=== PATIENT | female | born 1950 | race Caucasian/White ===

== ENCOUNTER 2019-08-13 16:31 | Outpatient (RCR) | payer OTHER, SELFPAY ==
--- NOTE | 2019-08-13 17:12 | PTOPEVAL ---
Thank you for referring this patient to [facility]. Please review, sign, date and return this plan of care PHYLLIS. I agree with and certify that the following plan of care is medically necessary. Referring Physician Date Admitting Provider: Attending Provider: Bharath Whyte MD Referring Provider: *PT Outpatient Evaluation Start: 08/13/19 16:45 Freq: Status: Active Protocol: Document 08/13/19 16:45 MARCUS (Rec: 08/13/19 17:12 MARCUS [id number]) Therapy Assessment Status Assessment Status Assessment Status Evaluation Evaluation Information Problem Diagnosis left humerus fx Onset 06/17/19 Subjective Information Pt. reports she was getting Query Text:As Reported By Patient/ out of her car on 06/17 and Family fell and broke her arm. Pt. underwent surgery 3 days post fall. She reports she has not been doing any activity with the left arm since surgery. She reports that her goal is to regain normal use of the left arm. Prior Level of Function Activity Level (Last 3 Months) Hand Dominance Right Activity of Daily Living Ability Independent Indoor/Home Mobility Independent Community Mobility Independent Stairs Ability Independent Cooking Yes Cleaning Yes Laundry Yes Shopping Yes Driving Yes Comments Additional Prior Level of Function Pt. reports she lives with her Comments . She reports that she does have poor balance. She reports no complication with ADL's prior to her injury. Pain Assessment Pain Scale Pain Scale Used Numeric (1 - 10) Self Report Pain Assessment Left Upper Lateral Arm(s) Reported Pain Level 1 Pain Description Aching Pain Score Pain Score 1: Self Report Upper Extremity Range of Motion General Upper Extremity Range of Motion Gross Upper Extremity Range of Motion right shoulder flexion 148 Comments degrees, right shoulder ER 90 degrees, right shoulder IR 70 degrees, 90 degrees left shoulder flexion, 20 degrees left shoulder ER and 45 degrees left shoulder IR Upper Extremity Muscle Strength Testing General Upper Extremity Strength Gross Upper Extremity
--- NOTE | 2019-08-20 15:44 | PCPTNOTE ---
08/20/19 - patient did not show up for therapy this date. JTF
--- NOTE | 2019-08-25 18:00 | PCPTNOTE ---
patient cancelled. KERWIN
--- NOTE | 2019-08-27 15:27 | PCPTNOTE ---
08/27/19- PT CANCELLED APT TODAY, WITH NO REASON STATED. -HM.
--- NOTE | 2019-09-03 07:35 | PCPTNOTE ---
09/03/19- pt cancelled appointment on 09/02/19, no reason stated. -HM.
--- NOTE | 2019-11-12 12:49 | PCPTNOTE ---
Pt. has failed to return to the clinic. Refer to last daily note for pt. discharge status.
== END 2019-09-04 23:59 | disposition home or self-care (01) ==
LOC: CHSPT 16:31
PROVIDERS: Visit Provider Internal Medicine Infectious Disease
DX: S42.302D Unspecified fracture of shaft of humerus, left arm, subsequent encounter for fracture with routine healing (principal)
CPT/HCPCS: 97014; 97110; 97161; G0283

== ENCOUNTER 2019-11-23 09:28 | Emergency (ER) | payer OTHER, SELFPAY ==
--- NOTE | ~2019-11-23 | CT_ITS ---
EXAMINATION: CT brain wo con DATE: 11/23/2019 10:08 INDICATION: Patient unresponsive. Altered mental status. TECHNIQUE: Computed tomography (CT) of the head was performed without intravenous contrast. The dose- length product was 832.33 mGy-cm. The mA was adjusted according to patient size. Iterative reconstruc tion technique was employed. COMPARISON: CT dated 05/16/2016 FINDINGS: Generalized atrophy. There are scattered water periventricular and subcortical white matter changes, most likely related to small vessel ischemic disease (microangiopathy). There is a chronic left lacunar infarction No ventriculomegaly or midline shift. No acute intracranial hemorrhage, infar ction, mass or mass effect. There is intracranial atherosclerosis. Midline sagittal images are unrema rkable. No depressed skull fractures. Paranasal sinuses and mastoids are pneumatized. IMPRESSION: 1. No acute intracranial abnormality. 2: Chronic left lacunar infarction. 3: Chronic age-related findings. Reviewed, dictated and finalized at location A.
--- NOTE | ~2019-11-23 | XR_ITS ---
XR chest 1V portable 11/23/2019 09:49 Indication: Patient unresponsive. Shortness of breath. Procedure: AP portable chest Comparison: No prior studies for comparison. Findings: Asymmetric left-sided airspace disease, compatible with pneumonia. There are multiple heale d right rib fractures. There is a side plate and screws transfixing left humerus with exuberant callu s formation, consistent with healed fracture. There is atherosclerosis. Impression: 1: Asymmetric airspace disease left mid and lower lung, compatible with pneumonia. Reviewed, dictated and finalized at location A. Impression: 1: Asymmetric airspace disease left mid and lower lung, compatible with pneumon ia.
[2019-11-23 09:30] VITALS: BP 141/78; PULSE 99; RESP 16; TEMP 36.9; O2SAT 97
[2019-11-23] MEDS: LORAZEPAM INJ 2 MG/ML VIAL 1 MG IV PUSH (09:35)
--- NOTE | 2019-11-23 09:35 | ECG_ITS ---
Measurements Intervals [place] Rate: 84 P: 7 NM: 170 QRS: 97 QRSD: 136 T: 11 QT: 443 QTc: 526 Interpretive Statements SINUS RHYTHM FREQUENT ATRIAL PREMATURE COMPLEXES RIGHT BUNDLE BRANCH BLOCK BASELINE ARTIFACT- I, II, III, AVR, AVL, AVF ABNORMAL ECG Electronically Signed On 11-23-2019 15:47:27 CDT by Shiva Stephens D.O.
[2019-11-23 09:56] LABS: Basophils Absolute Auto 0.07 K/mm3 (0.00-0.10); Basophils Percent Auto 0.6 % (0.0-1.0); Eosinophils Percent Auto 0.9 % (1.0-6.0); Hematocrit 41.7 % (35.0-42.0); Hemoglobin 13.8 g/dL (11.7-13.8); Immature Granulocyte Absolute 0.09 K/mm3 (0.00-0.00); Immature Granulocyte Percent A 0.8 % (0.0-0.0); Lymphocytes Percent Auto 10.3 % (18.0-42.0); Mean Corpuscular HGB Conc 33.1 g/dL (32.0-36.0); Mean Corpuscular Hemoglobin 35.5 pg (27.0-31.0); Mean Corpuscular Volume 107.2 fL (78.0-102.0); Mean Platelet Volume 10.8 fl (9.2-11.8); Monocytes Absolute Auto 1.35 K/mm3 (0.10-0.90); Monocytes Percent Auto 11.5 % (2.0-11.0); Neutrophils Absolute Auto 8.9 K/mm3 (1.7-7.2); Neutrophils Percent Auto 75.9 % (50.0-70.0); Platelet Count Result 132 K/mm3 (150-420); Red Blood Count 3.89 M/mm3 (4.20-5.40); Red Cell Distribution Width 13.5 % (11.6-14.4); White Blood Count 11.7 K/mm3 (4.8-10.8)
[2019-11-23 10:15] LABS: Troponin I < 0.02 ng/mL (0.00-0.056)
[2019-11-23 10:16] LABS: Ammonia 19 umol/L (11-32)
--- NOTE | 2019-11-23 10:47 | PC.NURSE ---
at bedside. awaiting testing result.
[2019-11-23 10:50] LABS: Partial Thromboplastin Time 25.6 SEC (22.3-31.6); Prothrombin Time 10.5 Seconds (9.64-11.0)
[2019-11-23 10:55] LABS: Lactic Acid 4.7 mmol/L (0.4-2.0)
[2019-11-23 11:09] LABS: D Dimer 1.43 mg/L (0.19-0.50)
[2019-11-23] MEDS: SODIUM CHLORIDE 0.9% IV 1,000 ML 999 ML IV CONT (11:19)
[2019-11-23 11:29] LABS: Alanine Aminotransferase 30 U/L (14-59); Albumin Level 4.3 g/dL (3.4-5.0); Alkaline Phosphatase 80 U/L (46-116); Anion Gap 16.3 mmol/L (7-16); Aspartate Amino Transferase 39 U/L (15-37); Bilirubin,Total 1.1 mg/dL (0.00-1.00); Blood Urea Nitrogen 37 mg/dL (7-18); Calcium 9.8 mg/dL (8.5-10.1); Carbon Dioxide 28 mmol/L (21-32); Chloride 95 mmol/L (98-108); Estimated CRCL calculation 23 ml/min; Estimated Glomerular Filt Rate 27; Glucose 108 mg/dL (70-99); Osmolality Calculated 291 mOsm/kg (285-295); Potassium 3.3 mmol/L (3.5-5.1); Sodium 136 mmol/L (136-145); Total Protein 7.8 g/dL (6.4-8.2)
--- NOTE | 2019-11-23 11:29 | PC.NURSE ---
report to luzmaria ching
[2019-11-23 11:30] LABS: Ethanol < 3 mg/dL (0-6)
[2019-11-23 11:51] LABS: Base Excess ABG -0.3 mmol/L (0-2); HCO3 ABG 22.1 mmol/L (23-29); Oxygen Saturation ABG 98.8 % (95-97); Oxyhemoglobin 97.8 % (94-100); PCO2 ABG 29.8 mmHg (35-45); Total Hemoglobin 12.9 g/dL; pH ABG 7.49 (7.35-7.45)
[2019-11-23 11:52] LABS: Device NASAL CANNULA; Site Drawn LEFT BRACHIAL
[2019-11-23 12:03] VITALS: BP 112/66; PULSE 79; RESP 15; O2SAT 100
--- NOTE | 2019-11-23 12:06 | PC.NURSE ---
CALL PLACED TO [facility] FOR POSSIBLE TRANSFER
--- NOTE | 2019-11-23 13:08 | ED.AMS ---
HPI - Altered Mental Status General Chief Complaint: Altered Mental Status Stated Complaint: ambulance Source: patient Mode of arrival: EMS Limitations: altered mental status and physical limitation History of Present Illness HPI narrative: this is a 69-year-old female that presents from home via EMS with altered mental status, the spouse found her on the floor on her hands and knees and while she tried to stand up she she fell back to the floor, her presentation in the emergency department she has altered mental status does withdrawal all extremities to pain is currently nonverbal and initially would not open her eyes, after receiving fluids the patient is more responsive to verbal command with eye opening. Otherwise still she is nonverbal, vital signs have been stable with a blood pressure systolic of 140s, she is afebrile. Spouse states that over the last 3 to 4 days the patient has had a viral syndrome where she had nausea vomiting with diarrhea. Patient has a history of alcohol abuse has not had a drink in the last 3 days, history of hypertension, hyperlipidemia and depression. Patient initially on presentation was some had a contractures with some urinary incontinence with no tongue biting no no bowel dysfunction. MD complaint: altered mental status and decreased responsiveness Onset (ago): hour(s) Timing confirmed by: spouse Severity: severe Context: alcohol abuse Related Data Home Medications Medication Instructions Recorded Confirmed amlodipine 5 mg PO DAILY 11/23/19 11/23/19 omeprazole 20 mg PO DAILY 11/23/19 11/23/19 propranolol 80 mg PO DAILY 11/23/19 11/23/19 sertraline 360 mg PO DAILY 11/23/19 11/23/19 simvastatin 20 mg PO DAILY 11/23/19 11/23/19 Allergies Allergy/AdvReac Type Severity Reaction Status Date / Time Penicillins AdvReac Unknown Verified 11/23/19 10:15 Review of Systems Review of Systems: All systems reviewed & are unremarkable except as noted in HPI and below PMFSH Past Medical History Medical History Depression ETOH abuse HLD (hyperlipidemia) HTN (hypertension) Exam Const: General: ill appearing Limitations: altered mental status HENMT: Head: normal to inspection Eyes: Other: Pupils are dilated equal Neck: Neck: normal visual inspection, no lymphadenopathy and no meningeal signs Chest: Chest palpation & inspection: normal inspection of the chest and abnormal inspection of the chest Resp: Effort & Inspection: normal respiratory effort Auscultation: rhonchi Cardio: Rate: regular rate Rhythm: regular rhythm GI: GI Palp: Yes Soft to palpation Skin: General skin exam: pallor Neuro: Other: withdrawls to pain you painful stimuli Psych: Other: AMS Course Course Emergency Course: patient currently responds with some to verbal commands and opens her eyes otherwise nonverbal with a [place] coma scale of 12. per patient request [facility] in [place], excepting physician is an digital campaign specialist Dr. Hall Vital Signs Vital signs: Vital Signs Temperature 36.9 C 11/23/19 09:30 Pulse Rate 99 11/23/19 09:30 Respiratory Rate 16 11/23/19 09:30 Blood Pressure 141/78 H 11/23/19 09:30 Pulse Oximetry 97 11/23/19 09:30 Temperature 36.9 C 11/23/19 09:30 Pulse Rate 79 11/23/19 12:03 Respiratory Rate 15 11/23/19 12:03 Blood Pressure 112/66 11/23/19 12:03 Pulse Oximetry 100 11/23/19 12:03 MDM - Altered Mental Status Medical Records Attestation: I reviewed the patient's medical records. Lab Data Attestation: I reviewed the patient's lab results. Result diagrams: 11/23/19 09:52 11/23/19 09:52 Labs: Lab Results 11/23/19 11/23/19 11/23/19 Range/Units 09:52 09:52 09:52 WBC 11.7 H (4.8-10.8) K/mm3 RBC 3.89 L (4.20-5.40) M/mm3 Hgb 13.8 (11.7-13.8) g/dL Hct 41.7 (35.0-42.0) % MCV 107.2 H (78.0-102.0) fL MCH 3
--- NOTE | 2019-11-23 13:10 | PC.NURSE ---
PT IS RESPONSIVE TO VOICE. VITAL SIGNS ARE STABLE AT THIS TIME. AWAITING A BED ASSIGNMENT AT [facility]
[2019-11-23] MEDS: SODIUM CHLORIDE 0.9% IV 1,000 ML 200 ML (14:14)
--- NOTE | 2019-11-23 14:15 | PC.NURSE ---
IV FLUIDS INFUSING ON TRANSPORT
[2019-11-23 14:17] VITALS: BP 118/71; PULSE 83; RESP 16; O2SAT 100
== END 2019-11-23 14:52 | disposition short-term general hospital (02) ==
PROVIDERS: Emergency Provider Emergency Medicine; PCP Family Medicine
DX: R41.82 Altered mental status, unspecified (principal); A41.9 Sepsis, unspecified organism; E78.5 Hyperlipidemia, unspecified; I10 Essential (primary) hypertension
CPT/HCPCS: 36415; 36600; 70450; 71045; 80053; 80307; 82140; 82805; 83605; 84484; 85025; 85380; 85610; 85730; 87040; 93005; 96361; 96365; 96367; 96375; 99284; 99285; J0456; J0696; J2060; J7030

== ENCOUNTER 2019-12-02 17:52 | Inpatient (IN) | payer OTHER, SELFPAY ==
--- NOTE | ~2019-12-02 | XR_ITS ---
XR chest 2V DATE: 12/05/2019 10:35 INDICATION: Aspiration pneumonia. Bilateral pulmonary infiltrates. TECHNIQUE: Upright AP and lateral views COMPARISON: 12/02/2021 view chest 11/23/2019 portable AP chest FINDINGS: There has been serial improvement of left lower lung infiltrate since prior examinations da ting back to 11/23/2019. Persistent minimal infiltrate or fibrotic change in the right mid and lower lung zones. Normal heart size. Aortic calcification. No pleural effusion or pulmonary vascular congestion or pneumothorax. Multiple old bilateral rib fractures. Postoperative change of the proximal left humerus. IMPRESSION: Serial improvement of left lower lung infiltrate since 12/03/2019 Reviewed, dictated and finalized at location D.
--- NOTE | ~2019-12-02 | XR_ITS ---
EXAMINATION: XR chest 2V DATE: 12/03/2019 14:12 INDICATION: Aspirating pneumonia TECHNIQUE: frontal and lateral views of the chest were obtained. COMPARISON: Chest radiograph dated 11/23/2019 FINDINGS: Mild reticular opacities in the bilateral mid and lower lung zones with significant improvement on th e left. No pleural effusion or pneumothorax. The cardiomediastinal silhouette is normal. Plate and sc rew fixation along the proximal left humerus. Several old healed bilateral rib fractures. IMPRESSION: 1. Now relatively symmetric mild lung disease in the bilateral mid and lower lung zones which could r epresent atelectasis, mild pulmonary edema, pneumonia/aspiration pneumonitis or some combination ther eof with significant improvement on the left. Reviewed, dictated and finalized at location A. IMPRESSION: 1. Now relatively symmetric mild lung disease in the bilateral mid and lower monika ng zones which could represent atelectasis, mild pulmonary edema, pneumonia/asp iration pneumonitis or some combination thereof with significant improvement on the left.
[2019-12-02 18:13] VITALS: BMI 23.1
--- NOTE | 2019-12-02 19:01 | ADMGEN ---
This patient, Amy Clemente, was admitted to 2nd Floor Room 209-1. Patient/family oriented to hospital policies and general routines including ID bracelet, bed and alarms, visiting hours, pain management, procedures, bathroom and other care routines, personal items, smoking policy, room service/diet, and visiting hours. Valuables list has been completed. informed that [facility] called and they left a bag there. Pt and aware she is to call for assistance before getting up. Information on how to activate the Rapid Response Team has been discussed. Patient/Family are encouraged to report perceived risks to care and to ask questions if they do not understand what they are told or what they should do.
[2019-12-02 22:00] VITALS: BP 148/70; PULSE 84; RESP 16; TEMP 36.4; O2SAT 95
--- NOTE | 2019-12-03 00:57 | PC.NURSE ---
pt sitting in gerichair, appears to be asleep. resp even and unlabored. call light in reach.
[2019-12-03 05:28] VITALS: BP 141/69; PULSE 62; RESP 16; TEMP 36.9; O2SAT 96
[2019-12-03 09:54] VITALS: PULSE 74
[2019-12-03] MEDS: PROPRANOLOL HCL 20 MG TABLET 80 MG PO (09:54)
[2019-12-03] MEDS: SIMVASTATIN 10 MG TABLET 20 MG PO (09:54)
[2019-12-03] MEDS: AMLODIPINE BESYLATE 5 MG TABLET PO (09:55)
[2019-12-03] MEDS: FOLIC ACID 1 MG TABLET PO (09:55)
[2019-12-03] MEDS: SERTRALINE HCL 50 MG TABLET 200 MG PO (09:56)
[2019-12-03] MEDS: PANTOPRAZOLE 40 MG TABLET PO (09:56)
[2019-12-03] MEDS: THIAMINE HCL 100 MG TABLET PO (09:57)
[2019-12-03] MEDS: DOXYCYCLINE HYCLATE 100 MG TABLET PO ×2 (09:57→21:09)
[2019-12-03] MEDS: OLMESARTAN MEDOXOMIL 20 MG TABLET PO (09:57)
--- NOTE | 2019-12-03 13:54 | ECG_ITS ---
Measurements Intervals [place] Rate: 70 P: 29 MA: 149 QRS: 85 QRSD: 130 T: 1 QT: 442 QTc: 479 Interpretive Statements SINUS RHYTHM ATRIAL COUPLET RIGHT BUNDLE BRANCH BLOCK ABNORMAL ECG Electronically Signed On 12-03-2019 15:33:35 CDT by Shiva Stephens D.O.
[2019-12-03 14:00] VITALS: BP 174/80; PULSE 64; RESP 16; TEMP 37.1; O2SAT 98
--- NOTE | 2019-12-03 14:01 | PM.IMHP ---
H&P: HPI History of Present Illness Chief complaint: Rehab <GUEVARA Mccann - Last Filed: 12/03/19 15:12> Narrative: Amy Clemente is a 69 year old female THAT IS BEING ADMITTED TO [facility] FOR A SWING BED . SHE PRESENTED TO THE [place] ED ON 11/23/2019 VIA AMBULANCE FOR ALTERED MENTAL STATUS. ACCORDING TO PATIENT'S SHE WAS FOUND ON THE FLOOR AND HAD EXPERIENCE NAUSEA VOMITING AND DIARRHEA WITHIN THE LAST 3 DAYS PRIOR TO HER SYNCOPE EPISODE.SHE WAS TRANSFERRED TO [facility] ADMITTED FOR SYNCOPAL EPISODE, ACUTE GASTROENTERITIS, ACUTE ENCEPHALOPATHY RELATED TO METABOLIC, ASPIRATING PNEUMONIA SECONDARY TO VOMITING AND ALCOHOL ABUSE. WHILE PATIENT WAS HERE AT [facility] A CT OF THE HEAD WAS COMPLETE AND NEGATIVE AND CHEST X-RAY INDICATED PNEUMONIA. PATIENT WAS TREATED WITH ANTIBIOTICS FOR PNEUMONIA, SHE WAS TREATED WITH VANCOMYCIN AND FLAGYL AND CEFEPIME.. WHILE AT [facility] INDICATED A RIGHT ADRENAL MASS LIKELY ADENOMA, OUTPATIENT MRI SUGGESTED. PATIENT LEGIONELLA WAS ALSO NEGATIVE. PATIENT INFLUENZA ,STREP URINE AND DRUG SCAN WAS ALSO NEGATIVE. HER PRIMARY CARE PHYSICIAN IS DR. VARUN TRAN. HER VITAL SIGNS ON ADMISSION WAS 141/90, 69, 18, 36.4, 99% ON ROOM AIR. HER EKG INDICATED SINUS RHYTHM WITH OCCASIONAL SUPRAVENTRICULAR PREMATURE COMPLEXES. PATIENT IS BEING ADMITTED FOR SHORT-TERM STAY DUE TO RECURRENT ADMISSIONS AND AMBULATING 175 FT WITH CONTACT GUARD ASSIST SHE WILL DISCHARGE 12/08/2019. PATIENT ADMITTED IN SWING BED FOR REHABILITATION DUE TO DECREASED BALANCE DECREASED MOBILITY IN [facility] [employer] AND/OR MOBILITY. <GUEVARA Mccann - Last Filed: 12/03/19 15:12> Review of Systems Constitutional: Constitutional: Reports no additional constitutional complaints, Denies fatigue, Denies fever(s), Denies headache(s) and Denies lethargy <GUEVARA Mccann - Last Filed: 12/03/19 15:12> Cardiovascular: Cardiovascular: Reports no additional cardiovascular complaints, Denies irregular heart rhythm, Denies lightheadedness, Denies palpitations, Denies dyspnea, Denies dyspnea on exertion and Denies orthopnea <GUEVARA Mccann - Last Filed: 12/03/19 15:12> Respiratory: Respiratory: Reports no additional respiratory complaints, Denies cough, Denies dyspnea, Denies dyspnea on exertion and Denies wheezing <GUEVARA Mccann - Last Filed: 12/03/19 15:12> Gastrointestinal: Gastrointestinal: Reports no additional gastrointestinal complaints, Denies abdominal pain, Denies dyspepsia, Denies diarrhea, Denies nausea and Denies vomiting <GUEVARA Mccann - Last Filed: 12/03/19 15:12> Genitourinary: Genitourinary: Reports no additional female genitourinary complaints <GUEVARA Mccann - Last Filed: 12/03/19 15:12> Musculoskeletal: Musculoskeletal: Reports no additional musculoskeletal complaints, Denies arthralgias and Denies muscle weakness <GUEVARA Mccann - Last Filed: 12/03/19 15:12> Integumentary/Breasts: Skin/Breast: Reports system reviewed and no additional complaints, except as docu <GUEVARA Mccann - Last Filed: 12/03/19 15:12> Neurologic: Reports system reviewed and no additional complaints, except as documented, Denies Abnormal speech present, Denies confusion, Denies vertigo, Denies dizziness, Denies syncope, Denies headache(s), Denies seizure-like activity and Denies tingling <GUEVARA Mccann - Last Filed: 12/03/19 15:12> [facility] Past Medical History Medical History: Medical History (Updated 12/03/19 @ 15:06 by GUEVARA Mccann) Aspiration pneumonia Depression ETOH abuse GERD (gastroesophageal reflux disease) HLD (hyperlipidemia) HTN (hypertension) S/P ORIF (open reduction internal fixation) fracture 06/20/19 Syncope <GUEVARA Mccann - Last Filed: 12/03/19 15:12> Surgical History Surgical History: Surgical History (Updated 12/03/19 @ 14:38 by Kt Garcia
[2019-12-03 14:29] LABS: Hematocrit 35.3 % (35.0-42.0); Hemoglobin 11.9 g/dL (11.7-13.8); Mean Corpuscular HGB Conc 33.7 g/dL (32.0-36.0); Mean Corpuscular Hemoglobin 35.6 pg (27.0-31.0); Mean Corpuscular Volume 105.7 fL (78.0-102.0); Mean Platelet Volume 11.5 fl (9.2-11.8); Platelet Count Result 206 K/mm3 (150-420); Red Blood Count 3.34 M/mm3 (4.20-5.40); Red Cell Distribution Width 12.9 % (11.6-14.4)
[2019-12-03 14:56] LABS: Alanine Aminotransferase 19 U/L (14-59); Albumin Level 3.6 g/dL (3.4-5.0); Alkaline Phosphatase 96 U/L (46-116); Anion Gap 15.5 mmol/L (7-16); Aspartate Amino Transferase 24 U/L (15-37); Bilirubin,Total 0.3 mg/dL (0.00-1.00); Blood Urea Nitrogen 11 mg/dL (7-18); Calcium 9.3 mg/dL (8.5-10.1); Carbon Dioxide 27 mmol/L (21-32); Chloride 100 mmol/L (98-108); Estimated CRCL calculation 41 ml/min; Estimated Glomerular Filt Rate 55; Glucose 89 mg/dL (70-99); Osmolality Calculated 286 mOsm/kg (285-295); Potassium 3.5 mmol/L (3.5-5.1); Sodium 139 mmol/L (136-145); Total Protein 7.5 g/dL (6.4-8.2)
[2019-12-03 15:04] LABS: Troponin I < 0.02 ng/mL (0.00-0.056)
[2019-12-03 15:05] LABS: Thyroid Stimulating Hormone Reflex 2.08 u/IU/mL (0.36-3.74)
[2019-12-03 15:15] LABS: BNP 405 pg/mL (0-100)
[2019-12-03] MEDS: ENOXAPARIN 40 MG/0.4 ML SYRINGE SUB-Q (15:58)
--- NOTE | 2019-12-03 19:47 | PC.NURSE ---
Up in chair, denies needs
[2019-12-03] MEDS: DOCUSATE SODIUM 100 MG CAPSULE PO (21:09)
--- NOTE | 2019-12-03 21:48 | PC.NURSE ---
no needs voiced, remains in chair watching TV
--- NOTE | 2019-12-03 23:28 | PC.NURSE ---
pt sitting up in marquis chair. awake and alert. denies needs. call light in reach.
[2019-12-04 06:00] VITALS: RESP 18
--- NOTE | 2019-12-04 07:40 | PC.NURSE ---
Up in torres with Physical therapy, gait belt and walker used, gait steady
[2019-12-04 07:41] VITALS: BP 137/71; PULSE 65; RESP 20; TEMP 36.4; O2SAT 97
[2019-12-04 09:00] VITALS: PULSE 68
[2019-12-04] MEDS: PROPRANOLOL HCL 20 MG TABLET 80 MG PO (09:00)
[2019-12-04] MEDS: OLMESARTAN MEDOXOMIL 20 MG TABLET PO (09:00)
[2019-12-04] MEDS: THIAMINE HCL 100 MG TABLET PO (09:00)
[2019-12-04] MEDS: SIMVASTATIN 10 MG TABLET 20 MG PO (09:00)
[2019-12-04] MEDS: SERTRALINE HCL 50 MG TABLET 200 MG PO (09:00)
[2019-12-04] MEDS: DOCUSATE SODIUM 100 MG CAPSULE PO ×2 (09:01→20:42)
[2019-12-04] MEDS: PANTOPRAZOLE 40 MG TABLET PO (09:01)
[2019-12-04] MEDS: FOLIC ACID 1 MG TABLET PO (09:01)
[2019-12-04] MEDS: DOXYCYCLINE HYCLATE 100 MG TABLET PO ×2 (09:01→20:42)
[2019-12-04] MEDS: AMLODIPINE BESYLATE 5 MG TABLET PO (09:01)
--- NOTE | 2019-12-04 13:08 | PC.NURSE ---
Up in torres walking with therapy
[2019-12-04] MEDS: FUROSEMIDE 20 MG TABLET PO (14:14)
[2019-12-04] MEDS: ENOXAPARIN 40 MG/0.4 ML SYRINGE SUB-Q (14:14)
[2019-12-04 16:00] VITALS: BP 121/65; PULSE 67; RESP 16; TEMP 36.5; O2SAT 97
[2019-12-05 00:05] VITALS: BP 148/77; PULSE 65; RESP 18; TEMP 36.9; O2SAT 98
[2019-12-05 07:29] VITALS: BP 180/90; PULSE 78; RESP 18; TEMP 36.9; O2SAT 95
--- NOTE | 2019-12-05 07:44 | PC.NURSE ---
First ambulation of the day slightly unsteady, contact guard assist from bed to bathroom, patient did get up on own, better ambulation from bathroom back to bed, re oriented to time of day and verbalized understanding
[2019-12-05 08:51] VITALS: PULSE 74
[2019-12-05] MEDS: OLMESARTAN MEDOXOMIL 20 MG TABLET PO (08:51)
[2019-12-05] MEDS: PROPRANOLOL HCL 20 MG TABLET 80 MG PO (08:51)
[2019-12-05] MEDS: THIAMINE HCL 100 MG TABLET PO (08:52)
[2019-12-05] MEDS: FOLIC ACID 1 MG TABLET PO (08:52)
[2019-12-05] MEDS: PANTOPRAZOLE 40 MG TABLET PO (08:52)
[2019-12-05] MEDS: FUROSEMIDE 20 MG TABLET PO (08:52)
[2019-12-05] MEDS: AMLODIPINE BESYLATE 5 MG TABLET PO (08:52)
[2019-12-05] MEDS: SERTRALINE HCL 50 MG TABLET 200 MG PO (08:52)
[2019-12-05] MEDS: SIMVASTATIN 10 MG TABLET 20 MG PO (08:52)
[2019-12-05] MEDS: DOCUSATE SODIUM 100 MG CAPSULE PO ×2 (08:52→21:06)
--- NOTE | 2019-12-05 09:43 | PC.NURSE ---
Up in torres with therapy, using walker
--- NOTE | 2019-12-05 10:30 | PC.NURSE ---
Care conference completed
[2019-12-05 10:57] LABS: Hematocrit 33.1 % (35.0-42.0); Hemoglobin 11.1 g/dL (11.7-13.8); Mean Corpuscular HGB Conc 33.5 g/dL (32.0-36.0); Mean Corpuscular Hemoglobin 35.5 pg (27.0-31.0); Mean Corpuscular Volume 105.8 fL (78.0-102.0); Mean Platelet Volume 11.8 fl (9.2-11.8); Platelet Count Result 208 K/mm3 (150-420); Red Blood Count 3.13 M/mm3 (4.20-5.40); Red Cell Distribution Width 12.9 % (11.6-14.4); White Blood Count 8.7 K/mm3 (4.8-10.8)
[2019-12-05 11:15] LABS: Alanine Aminotransferase 17 U/L (14-59); Albumin Level 3.4 g/dL (3.4-5.0); Alkaline Phosphatase 74 U/L (46-116); Anion Gap 14.4 mmol/L (7-16); Aspartate Amino Transferase 22 U/L (15-37); Bilirubin,Total 0.4 mg/dL (0.00-1.00); Blood Urea Nitrogen 10 mg/dL (7-18); Carbon Dioxide 28 mmol/L (21-32); Chloride 102 mmol/L (98-108); Estimated CRCL calculation 43 ml/min; Estimated Glomerular Filt Rate 57; Glucose 93 mg/dL (70-99); Osmolality Calculated 291 mOsm/kg (285-295); Phosphorus 4.2 mg/dL (2.6-4.7); Potassium 3.4 mmol/L (3.5-5.1); Sodium 141 mmol/L (136-145); Total Protein 6.9 g/dL (6.4-8.2)
[2019-12-05 11:16] LABS: BNP 409 pg/mL (0-100)
[2019-12-05 11:17] LABS: Magnesium 1.1 mg/dL (1.8-2.4)
[2019-12-05] MEDS: MAGNESIUM OXIDE 400 MG TABLET PO ×2 (12:31→17:10)
[2019-12-05] MEDS: POTASSIUM CHLORIDE 20 MEQ TABLET 40 MEQ PO (12:32)
[2019-12-05 15:41] VITALS: BP 106/60; PULSE 67; RESP 18; TEMP 36.8; O2SAT 95
[2019-12-05] MEDS: ENOXAPARIN 40 MG/0.4 ML SYRINGE SUB-Q (15:44)
--- NOTE | 2019-12-05 17:20 | PC.NURSE ---
In chair eating dinner, spouse here to visit, reminded of change in visitor policy after 6pm
--- NOTE | 2019-12-05 18:21 | PC.NURSE ---
In chair watching TV, denies needs, up in room at times, gait more steady
--- NOTE | 2019-12-05 19:05 | PC.NURSE ---
Patient watching tv. Respirations even and unlabored. Denies pain/complaints/needs @ this time. No distress noted. Call light in reach.
--- NOTE | 2019-12-05 21:10 | PC.NURSE ---
Patient watching tv. Respirations even and unlabored. Denies pain/complaints/needs @ this time. No distress noted. Call light in reach.
--- NOTE | 2019-12-05 22:00 | PC.NURSE ---
Patient still awake and watching tv. Respirations even and unlabored. Denies pain/complaints/needs @ this time. No distress noted. Call light in reach.
--- NOTE | 2019-12-05 23:05 | PC.NURSE ---
Patient watching tv. Respirations even and unlabored. Denies pain/complaints/needs @ this time. No distress noted. Call light in reach.
[2019-12-06] VITALS: BP 123/70; PULSE 66; RESP 18; TEMP 36.3; O2SAT 98
--- NOTE | 2019-12-06 | PC.NURSE ---
Patient watching tv and says she'll go to sleep pretty soon. Respirations even and unlabored. Denies pain/complaints/needs @ this time. No distress noted. Call light in reach.
--- NOTE | 2019-12-06 01:10 | PC.NURSE ---
Patient still watching tv. Respirations even and unlabored. Denies pain/complaints/needs @ this time. No distress noted. Call light in reach.
--- NOTE | 2019-12-06 02:00 | PC.NURSE ---
Patient watching tv. Respirations even and unlabored. Denies pain/complaints/needs @ this time. No distress noted. Call light in reach.
--- NOTE | 2019-12-06 03:05 | PC.NURSE ---
Patient finally sleeping but in the recliner. Respirations even and unlabored. Denies pain/complaints/needs @ this time. No distress noted. Call light in reach.
--- NOTE | 2019-12-06 04:05 | PC.NURSE ---
Patient appears to be sleeping by the rise and fall of her chest. Respirations even and unlabored. No distress noted. Call light in reach.
--- NOTE | 2019-12-06 05:05 | PC.NURSE ---
Patient sitting in recliner trimming her toenails. Denies pain/complaints/needs @ this time. No distress noted. Call light in reach.
--- NOTE | 2019-12-06 06:05 | PC.NURSE ---
Patient up and about in room. Denies pain/complaints/needs @ this time. No distress noted. Call light in reach.
[2019-12-06 08:00] VITALS: BP 113/65; PULSE 63; RESP 18; TEMP 36.8; O2SAT 97
[2019-12-06] MEDS: MAGNESIUM OXIDE 400 MG TABLET PO ×3 (09:11→16:17)
[2019-12-06] MEDS: DOCUSATE SODIUM 100 MG CAPSULE PO ×2 (09:11→20:53)
[2019-12-06] MEDS: PANTOPRAZOLE 40 MG TABLET PO (09:11)
[2019-12-06] MEDS: POTASSIUM CHLORIDE 20 MEQ TABLET PO (09:11)
[2019-12-06] MEDS: SERTRALINE HCL 50 MG TABLET 200 MG PO (09:12)
[2019-12-06] MEDS: OLMESARTAN MEDOXOMIL 20 MG TABLET PO (09:12)
[2019-12-06] MEDS: THIAMINE HCL 100 MG TABLET PO (09:12)
[2019-12-06 09:13] VITALS: PULSE 63
[2019-12-06] MEDS: AMLODIPINE BESYLATE 5 MG TABLET PO (09:13)
[2019-12-06] MEDS: SIMVASTATIN 10 MG TABLET 20 MG PO (09:13)
[2019-12-06] MEDS: PROPRANOLOL HCL 20 MG TABLET 80 MG PO (09:13)
[2019-12-06] MEDS: FOLIC ACID 1 MG TABLET PO (09:13)
[2019-12-06] MEDS: FUROSEMIDE 20 MG TABLET PO (09:13)
--- NOTE | 2019-12-06 12:50 | P.PNIM_ITS ---
Progress Note: A&P Assessment and Plan (1) Aspiration pneumonia: Code(s): J69.0 - Pneumonitis due to inhalation of food and vomit <Syeda Land NP - Last Filed: 12/06/19 16:54> Status: Acute <Syeda Land NP - Last Filed: 12/06/19 16:54> Assessment and Plan: * PATIENT ADMITTED WITH ASPIRATING PNEUMONIA SECONDARY TO VOMITING AT [facility] * She completed her doxy and is no longer on antibiotics * her last white counts were 8.7 and 9.6 * PATIENT AFEBRILE * no s/s of pneumonia on my exam or in her CXR yesterday. * Ordered Incentive Spirometer. * BNP was 405 and 409 * XR chest 2V shows improvement due to lasix. Will continue lasix every other day, as I don't want to dry her out too much. Will also continue the potassium every other day to keep K replenished. ECHO ordered for Sunday. 12/05/19 2 view CXR showed: serial improvement of left lower lung infiltrate since prior examinations dating back to 11/23/2019. Persistent minimal infiltrate or fibrotic change in the right mid and lower lung zones. Normal heart size. Aortic calcification. No pleural effusion or pulmonary vascular congestion or pneumothorax. Multiple old bilateral rib fractures. Postoperative change of the proximal left humerus. 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 <Syeda Land NP - Last Filed: 12/06/19 16:54> (3) HLD (hyperlipidemia): Code(s): E78.5 - Hyperlipidemia, unspecified <Syeda Land NP - Last Filed: 12/06/19 16:54> Status: Acute <Syeda Land NP - Last Filed: 12/06/19 16:54> Assessment and Plan: CONTINUE STATINS <Syeda Land NP - Last Filed: 12/06/19 16:54> (4) Depression: Code(s): F32.9 - Major depressive disorder, single episode, unspecified <Syeda Land NP - Last Filed: 12/06/19 16:54> Status: Acute <Syeda Land NP - Last Filed: 12/06/19 16:54> Assessment and Plan: * STABLE * CONTINUE SERTRALINE * stable, pleasant, easy to discuss and converse and get health history from * no concerns noted at this time * not intending harm to self or others at this time. <Syeda Land NP - Last Filed: 12/06/19 16:54> (5) HTN (hypertension): Code(s): I10 - Essential (primary) hypertension <Syeda Land NP - Last Filed: 12/06/19 16:54> Status: Acute <Syeda Land NP - Last Filed: 12/06/19 16:54> Assessment and Plan: * SBPs >100 * CONTINUE AMLODIPINE 5 MG ,BENICAR 20 MG DAILY AND PROPANOL 80 MG DAILY * WILL ADJUST MEDICATION NEEDED * VITAL SIGNS IS ORDERED <Syeda Land NP - Last Filed: 12/06/19 16:54> (6) DVT prophylaxis: Code(s): Z29.9 - Encounter for prophylactic measures, unspecified <Syeda Land NP - Last Filed: 12/06/19 16:54> Status: Acute <Syeda Land NP - Last Filed: 12/06/19 16:54> Assessment and Plan: CONTINUE LOVENOX <Syeda Land NP - Last Filed: 12/06/19 16:54> (7) GERD (gastroesopha
--- NOTE | 2019-12-06 12:50 | PM.IMPN ---
Progress Note: A&P Assessment and Plan (1) Aspiration pneumonia: Code(s): J69.0 - Pneumonitis due to inhalation of food and vomit <Syeda Land NP - Last Filed: 12/06/19 16:54> Status: Acute <Syeda Land NP - Last Filed: 12/06/19 16:54> Assessment and Plan: PATIENT ADMITTED WITH ASPIRATING PNEUMONIA SECONDARY TO VOMITING AT [facility] She completed her doxy and is no longer on antibiotics her last white counts were 8.7 and 9.6 PATIENT AFEBRILE no s/s of pneumonia on my exam or in her CXR yesterday. Ordered Incentive Spirometer. BNP was 405 and 409 XR chest 2V shows improvement due to lasix. Will continue lasix every other day, as I don't want to dry her out too much. Will also continue the potassium every other day to keep K replenished. ECHO ordered for Sunday. 12/05/19 2 view CXR showed: serial improvement of left lower lung infiltrate since prior examinations dating back to 11/23/2019. Persistent minimal infiltrate or fibrotic change in the right mid and lower lung zones. Normal heart size. Aortic calcification. No pleural effusion or pulmonary vascular congestion or pneumothorax. Multiple old bilateral rib fractures. Postoperative change of the proximal left humerus. IMPRESSION: Serial improvement of left lower lung infiltrate since 12/03/2019 <Syeda Land NP - Last Filed: 12/06/19 16:54> (2) ETOH abuse: Code(s): F10.10 - Alcohol abuse, uncomplicated <Syeda Land NP - Last Filed: 12/06/19 16:54> Status: Acute <Syeda Land NP - Last Filed: 12/06/19 16:54> Assessment and Plan: PATIENT EDUCATED ON ALCOHOL ABUSE CESSATION WILL CONSULT CASE COORDINATION FOR ADDICTION TREATMENT COUNSELOR WITH CESSATION PATIENT DRINKS [place] 3-4 DRINKS DAILY labs are stable no current s/s of DTs or withdrawal she has been admitted for days and had no alcohol during that time. <Syeda Land NP - Last Filed: 12/06/19 16:54> (3) HLD (hyperlipidemia): Code(s): E78.5 - Hyperlipidemia, unspecified <Syeda Land NP - Last Filed: 12/06/19 16:54> Status: Acute <Syeda Land NP - Last Filed: 12/06/19 16:54> Assessment and Plan: CONTINUE STATINS <Syeda Land NP - Last Filed: 12/06/19 16:54> (4) Depression: Code(s): F32.9 - Major depressive disorder, single episode, unspecified <Syeda Land NP - Last Filed: 12/06/19 16:54> Status: Acute <Syeda Land NP - Last Filed: 12/06/19 16:54> Assessment and Plan: STABLE CONTINUE SERTRALINE stable, pleasant, easy to discuss and converse and get health history from no concerns noted at this time not intending harm to self or others at this time. <Syeda Land NP - Last Filed: 12/06/19 16:54> (5) HTN (hypertension): Code(s): I10 - Essential (primary) hypertension <Syeda Land NP - Last Filed: 12/06/19 16:54> Status: Acute <Syeda Land NP - Last Filed: 12/06/19 16:54> Assessment and Plan: SBPs >100 CONTINUE AMLODIPINE 5 MG ,BENICAR 20 MG DAILY AND PROPANOL 80 MG DAILY WILL ADJUST MEDICATION NEEDED VITAL SIGNS IS ORDERED <Syeda Land NP - Last Filed: 12/06/19 16:54> (6) DVT prophylaxis: Code(s): Z29.9 - Encounter for prophylactic measures, unspecified <Syeda Land NP - Last Filed: 12/06/19 16:54> Status: Acute <Syeda Land NP - Last Filed: 12/06/19 16:54> Assessment and Plan: CONTINUE LOVENOX <Syeda Land NP - Last Filed: 12/06/19 16:54> (7) GERD (gastroesophageal reflux disease): Code(s): K21.9 - Gastro-esophageal reflux disease without esophagitis <Syeda Land NP - Last Filed: 12/06/19 16:54> Status: Acute <Syeda Land NP - Last Filed: 12/06/19 16:54> Assessment and Plan: CONTINUE PANTOPRAZOLE <Syeda Land, CURTAIN WORKER - Last Filed: 12/06/19 16:54> (8) Adr
[2019-12-06] MEDS: ENOXAPARIN 40 MG/0.4 ML SYRINGE SUB-Q (13:58)
[2019-12-06 16:00] VITALS: BP 129/73; PULSE 69; RESP 18; TEMP 37; O2SAT 95
[2019-12-06 16:18] LABS: Hematocrit 33.6 % (35.0-42.0); Hemoglobin 11.3 g/dL (11.7-13.8); Mean Corpuscular HGB Conc 33.6 g/dL (32.0-36.0); Mean Corpuscular Hemoglobin 35.6 pg (27.0-31.0); Mean Platelet Volume 11.5 fl (9.2-11.8); Platelet Count Result 223 K/mm3 (150-420); Red Blood Count 3.17 M/mm3 (4.20-5.40); Red Cell Distribution Width 12.7 % (11.6-14.4); White Blood Count 9.6 K/mm3 (4.8-10.8)
[2019-12-06 16:34] LABS: Alanine Aminotransferase 20 U/L (14-59); Albumin Level 3.6 g/dL (3.4-5.0); Alkaline Phosphatase 87 U/L (46-116); Anion Gap 11.1 mmol/L (7-16); Aspartate Amino Transferase 22 U/L (15-37); Bilirubin,Total 0.4 mg/dL (0.00-1.00); Blood Urea Nitrogen 16 mg/dL (7-18); Calcium 9.2 mg/dL (8.5-10.1); Carbon Dioxide 30 mmol/L (21-32); Chloride 101 mmol/L (98-108); Estimated CRCL calculation 31 ml/min; Estimated Glomerular Filt Rate 38; Glucose 108 mg/dL (70-99); Osmolality Calculated 288 mOsm/kg (285-295); Potassium 4.1 mmol/L (3.5-5.1); Sodium 138 mmol/L (136-145); Total Protein 7.3 g/dL (6.4-8.2)
[2019-12-06 16:55] LABS: Magnesium 1.2 mg/dL (1.8-2.4)
[2019-12-07] VITALS: BP 128/59; PULSE 61; RESP 12; TEMP 36.7; O2SAT 96
[2019-12-07 08:00] VITALS: BP 124/84; PULSE 78; RESP 16; TEMP 36.8; O2SAT 97
[2019-12-07] MEDS: SERTRALINE HCL 50 MG TABLET 200 MG PO (08:26)
[2019-12-07 08:27] VITALS: PULSE 78
[2019-12-07] MEDS: PROPRANOLOL HCL 20 MG TABLET 80 MG PO (08:27)
[2019-12-07] MEDS: THIAMINE HCL 100 MG TABLET PO (08:28)
[2019-12-07] MEDS: PANTOPRAZOLE 40 MG TABLET PO (08:28)
[2019-12-07] MEDS: SIMVASTATIN 10 MG TABLET 20 MG PO (08:28)
[2019-12-07] MEDS: AMLODIPINE BESYLATE 5 MG TABLET PO (08:29)
[2019-12-07] MEDS: FOLIC ACID 1 MG TABLET PO (08:29)
[2019-12-07] MEDS: OLMESARTAN MEDOXOMIL 20 MG TABLET PO (08:29)
[2019-12-07] MEDS: MAGNESIUM OXIDE 400 MG TABLET PO ×3 (08:29→16:02)
[2019-12-07] MEDS: DOCUSATE SODIUM 100 MG CAPSULE PO ×2 (08:30→21:28)
[2019-12-07] MEDS: ENOXAPARIN 40 MG/0.4 ML SYRINGE SUB-Q (15:58)
[2019-12-07 16:00] VITALS: BP 133/66; PULSE 70; RESP 16; TEMP 37.1; O2SAT 98
[2019-12-07 23:46] VITALS: BP 125/55; PULSE 70; RESP 12; TEMP 36.2; O2SAT 94
[2019-12-08 06:29] LABS: Blood Urea Nitrogen 16 mg/dL (7-18); Calcium 9.3 mg/dL (8.5-10.1); Carbon Dioxide 25 mmol/L (21-32); Chloride 100 mmol/L (98-108); Estimated CRCL calculation 44 ml/min; Estimated Glomerular Filt Rate 59; Glucose 93 mg/dL (70-99); Osmolality Calculated 285 mOsm/kg (285-295); Sodium 137 mmol/L (136-145)
[2019-12-08 06:34] LABS: BNP 107 pg/mL (0-100)
[2019-12-08 06:49] LABS: Magnesium 1.4 mg/dL (1.8-2.4)
--- NOTE | 2019-12-08 07:00 | ECHO_ITS ---
Patient Info Name: Amy Clemente Age: 69 years : 1950 Gender: Female Ht: 65 in Wt: 139 lbs BSA: 1.71 m2 HR: 80 bpm BP: 137 / 51 mmHg Heart Rhythm: Sinus Rhythm Technical Quality: Good Exam Date: 12/08/2019 8:20 AM Exam Location: [facility] Patient Status: Inpatient Admit Date: 12/02/2019 Staff Ordering Physician: Syeda Land NP Warehouse Technician: Faviola Wells RDCS Attending Provider: Raudel Ryan MD Referring Physician: Emery ALEXIS; Exam Type: CA echo doppler color flow Study Info Indications J81.1 - Chronic pulmonary edema Complete two-dimensional, color flow and Doppler transthoracic echocardiogram is performed. Strain analysis performed. History/Risk Factors Hypertension: Yes Dyslipidemia: Yes Congenital Heart Disease (CHD): No Peripheral Arterial Disease (PAD): No Myocardial Infarction (ND): No Chronic Lung Disease: No Obesity: No Renal Disease: No Coronary Artery Disease (CAD) Yes Congestive Heart Failure (CHF): No Cardiomyopathy/LV Systolic Dysfunction: No Diabetes Mellitus: No COPD: No Tobacco Use: Former Cerebrovascular Disease: No Family History: Diabetes Mellitus Deep Vein Thrombosis (DVT): None Dialysis: None Frailty Scale (CSHA): 4: Vulnerable Cardiac Arrest: No Prior Interventions Pacemaker: No PCI: No Valve Surgery: No ICD: No PV Intervention: None Heart Transplant: No Summary 1. Left ventricular chamber dimension is normal. 2. Left ventricular systolic function is normal, estimated at 60-65%. 3. There is mildly increased left ventricular wall thickness. 4. The left ventricular diastolic function is grade I diastolic dysfunction. 5. E/e' 17 is elevated. 6. Global longitudinal strain is mildly abnormal at -15.8%. 7. Left atrial chamber dimension is moderately enlarged. 8. There is moderate aortic valve sclerosis. 9. There is mild to moderate aortic valve stenosis with a peak velocity of 192 cm/s, mean gradient of 7 mmHg, and aortic valve area of 1.2 cm2. 10. There is mild tricuspid valve regurgitation. 11. Mild pulmonary hypertension, estimated pulmonary arterial systolic pressure is 43 mmHg. Left Ventricle E/e' 17 is elevated. Global longitudinal strain is mildly abnormal at -15.8%. Left ventricular chamber dimension is normal. Left ventricular systolic function is normal, estimated at 60-65%. There is mildly increased left ventricular wall thickness. The left ventricular diastolic function is grade I diastolic dysfunction. Right Ventricle Right ventricular chamber dimension is normal. Right ventricular systolic function is normal. Left Atria Left atrial chamber dimension is moderately enlarged. Right Atria Right atrial chamber dimension is normal. Aortic Valve The aortic valve is trileaflet. There is moderate aortic valve sclerosis. There is mild to moderate aortic valve stenosis with a peak velocity of 192 cm/s, mean gradient of 7 mmHg, and aortic valve area of 1.2 cm2. There is no aortic valve regurgitation. Pulmonic Valve There is no pulmonic regurgitation. Mitral Valve There is no mitral valve stenosis. There is no mitral valve regurgitation. Tricuspid Valve There is mild tricuspid valve regurgitation. Mild pulmonary hypertension, estimated pulmonary arterial systolic pressure is 43 mmHg. Pericardium/Pleural There is no pericardial effusion. In
[2019-12-08 08:00] VITALS: BP 120/63; PULSE 65; RESP 18; TEMP 36.6; O2SAT 96
[2019-12-08] MEDS: PANTOPRAZOLE 40 MG TABLET PO (09:29)
[2019-12-08] MEDS: DOCUSATE SODIUM 100 MG CAPSULE PO (09:29)
[2019-12-08 09:30] VITALS: PULSE 65
[2019-12-08] MEDS: OLMESARTAN MEDOXOMIL 20 MG TABLET PO (09:30)
[2019-12-08] MEDS: AMLODIPINE BESYLATE 5 MG TABLET PO (09:30)
[2019-12-08] MEDS: PROPRANOLOL HCL 20 MG TABLET 80 MG PO (09:30)
[2019-12-08] MEDS: FOLIC ACID 1 MG TABLET PO (09:30)
[2019-12-08] MEDS: THIAMINE HCL 100 MG TABLET PO (09:31)
[2019-12-08] MEDS: SERTRALINE HCL 50 MG TABLET 200 MG PO (09:31)
[2019-12-08] MEDS: MAGNESIUM OXIDE 400 MG TABLET PO ×2 (09:31→13:27)
[2019-12-08] MEDS: SIMVASTATIN 10 MG TABLET 20 MG PO (09:31)
--- NOTE | 2019-12-08 09:35 | PC.NURSE ---
Patient off floor to radiology for echo
--- NOTE | 2019-12-08 09:41 | PM.DS ---
DS: Diagnosis Admitting Diagnosis Admitting Diagnosis: Pneumonitis due to inhalation of food and vomit Discharge Diagnosis (1) Weakness generalized: Code(s): R53.1 - Weakness Status: Acute Assessment and Plan: Right leg/foot ataxia is pronounced , especially during ambulation in hallway and long distances. Discussed with PT Mazin Emphasized that patient will need to continue to use her 2 wheeled walker at all times for all transfers and ambulation and activity. in [facility] for PT/OT/Therapeutic activities will discharge to Outpatient PT/OT ordered to start as soon as possible. Lives with her who is able to assist her with ADLs and transfers as needed. (2) Adrenal mass: Code(s): E27.8 - Other specified disorders of adrenal gland Status: Acute (3) GERD (gastroesophageal reflux disease): Code(s): K21.9 - Gastro-esophageal reflux disease without esophagitis Status: Acute Assessment and Plan: no complaints eating well continue home omeprazole (4) DVT prophylaxis: Code(s): Z29.9 - Encounter for prophylactic measures, unspecified Status: Acute Assessment and Plan: lovenox while in Swing rehab (5) Aspiration pneumonia: Code(s): J69.0 - Pneumonitis due to inhalation of food and vomit Status: Acute Assessment and Plan: recovered last CXRs showed no pneumonia using her Incentive Spirometer. no chest pain and no SOB and no dyspnea, no cough (6) HLD (hyperlipidemia): Code(s): E78.5 - Hyperlipidemia, unspecified Status: Acute Assessment and Plan: continue home statin dosing f/u with PCP DS: Summary Time Spent with Patient Time attestation: Total time spent providing and/or coordinating discharge services:>60 min Exam Const: General: comfortable and no acute distress; No in distress, confusion or uncomfortable Orientation/consciousness: No confusion HENMT: General nose exam: Normal nares present Mouth: Yes moist mucous membranes Eyes: General: appearance normal, both eyes and all related structures Pupils: Equal, round and reactive pupils present EOM: EOMs intact bilaterally Neck: Neck: no JVD Carotids: no bruits Resp: Effort & Inspection: normal respiratory effort Auscultation: clear to auscultation bilaterally, no crackles, no rales, no rhonchi, no wheezes and lung sounds not diminished Cardio: Rate: regular rate, not bradycardic and not tachycardic Rhythm: regular rhythm and regular rhythm Heart sounds: no gallops, no murmurs and no rubs GI: Inspection: non-distended Auscultation: normal bowel sounds and bowels sounds normal Skin: General skin exam: normal color, no rashes or lesions noted and no erythema Lesions: no lesions noted Rashes: no rashes noted Wounds: no wounds Neuro: General: gait normal and No confusion Cranial nerves: Yes Equal, round and reactive pupils present and Yes Normal hearing present Speech: normal speech and No Abnormal speech present Motor exam (neuro): 5/5 motor strength present throughout and Motor abnormalites present (chronic right foot ataxia with ambulation/walking) Sensory Exam: normal sensation Extrem: General: normal to inspection, normal exam except as noted, no edema and no pedal edema Right upper extremity: normal to inspection, full ROM and normal capillary refill; no cyanosis and no edema Left upper extremity: normal to inspection, full ROM and normal capillary refill; no cyanosis and no edema Right lower extremity: normal to inspection, full ROM and normal capillary refill; no cyanosis and no edema Left lower extremity: normal to inspection, full ROM and normal capillary refill; no cyanosis and no edema Psych: Mental Status: mental status grossly normal Affect: normal affect, No Sad affect present, No Anxious affect present and No Hostile affect present Attitude: not belligerent DS: Data Data Completed and Pending Labs on day of discharge: Lab
--- NOTE | 2019-12-08 10:35 | PC.NURSE ---
Patient returned to floor from echo
== END 2019-12-08 14:50 | disposition home or self-care (01) | DRG 947 ==
PROVIDERS: Nurse Practitioner; Admitting Provider Emergency Medicine; PCP Family Medicine; Visit Provider Emergency Medicine
DX: R53.1 Weakness (principal); J69.0 Pneumonitis due to inhalation of food and vomit; F32.9 Major depressive disorder, single episode, unspecified; F10.10 Alcohol abuse, uncomplicated; K21.9 Gastro-esophageal reflux disease without esophagitis; E27.8 Other specified disorders of adrenal gland; E78.5 Hyperlipidemia, unspecified
CPT/HCPCS: 36415; 71046; 80048; 80053; 83735; 83880; 84100; 84443; 84484; 85027; 87081; 93005; 93306; 97110; 97116; 97161; 97165; 97530; 97535; A9270; J1650

== ENCOUNTER 2019-12-17 14:23 | Outpatient (CLI) | payer OTHER, SELFPAY ==
--- NOTE | ~2019-12-17 | MR_ITS ---
EXAMINATION: MR abdomen w con DATE: 12/17/2019 16:42 INDICATION: Adrenal mass. TECHNIQUE: Magnetic resonance imaging (MRI) of the abdomen was performed with 10 mL MultiHance intrav enous contrast. Sequences included axial DWI, axial T1-weighted LAVA, and coronal LAVA-flex. Postcont rast axial LAVA images were obtained. Postcontrast coronal LAVA-flex images were obtained. COMPARISON: None. FINDINGS: Left hepatic lobe is small. The gallbladder, spleen, and pancreas are normal. In the right adrenal gl and, there is a 2.1 cm mass containing microscopic fat, consistent with an adenoma. In the left adren al gland, there is a 10 mm mass containing microscopic fat, consistent with an adenoma. There is a po sterior diverticulum of the gastric cardia. There is cortical thinning of the kidneys. There is ather osclerosis of abdominal aorta with mild stenosis. There is no significant stenosis of celiac axis. Th ere is mild stenosis of superior mesenteric artery. There is moderate stenosis of right renal artery. There is no significant stenosis of left renal artery. There are no dilated loops of bowel. There ar e no pathologically enlarged lymph nodes. There is no free intraperitoneal fluid. IMPRESSION: 1. Bilateral adrenal masses, consistent with adenomas. 2. Moderate stenosis of right renal artery. Reviewed, dictated and finalized at location A.
== END 2019-12-17 14:24 | disposition home or self-care (01) ==
LOC: CHSIMG 14:24
PROVIDERS: PCP Family Medicine; Visit Provider Family Medicine
DX: E27.8 Other specified disorders of adrenal gland (principal)
CPT/HCPCS: 74182; A9577

== ENCOUNTER 2019-12-23 14:52 | Outpatient (CLI) | payer OTHER, SELFPAY ==
[2019-12-26 13:04] LABS: DHEA-Sulfate 57 mcg/dL (7-177)
[2019-12-26 13:37] LABS: Renin 21.98 ng/mL/h (0.25-5.82)
[2019-12-27 08:10] LABS: Metanephrine, Free 55 pg/mL (<=57); Normetanephrine, Free 112 pg/mL (<=148); Total, Free (MN + NMN) 167 pg/mL (<=205)
== END 2019-12-23 14:53 | disposition home or self-care (01) ==
LOC: CHSLAB 14:55
PROVIDERS: PCP Family Medicine; Visit Provider Family Medicine
DX: D35.00 Benign neoplasm of unspecified adrenal gland (principal)
CPT/HCPCS: 36415; 82088; 82533; 82627; 83835; 84244

== ENCOUNTER 2019-12-24 08:17 | Outpatient (CLI) | payer OTHER, SELFPAY | END 2019-12-24 08:18 | disposition home or self-care (01) | LOC: CHSLAB 08:19 | PROVIDERS: PCP Family Medicine; Visit Provider Family Medicine | DX: D35.00 Benign neoplasm of unspecified adrenal gland (principal) | CPT/HCPCS: 36415; 82533 ==

== ENCOUNTER 2021-05-17 13:50 | Outpatient (CLI) | payer OTHER, SELFPAY ==
--- NOTE | ~2021-05-17 | MM_ITS ---
EXAMINATION: MM screening kevin BI w reese HISTORY: Screening TECHNIQUE: Craniocaudal and mediolateral oblique 3-D tomosynthesis images were obtained and synthetic 2-D images were generated. CAD analysis was submitted and interpreted. COMPARISON: Comparison to multiple prior studies sequentially, with oldest reviewed study dated 04/30/2013. BREAST PARENCHYMAL COMPOSITION: The breasts are heterogeneously dense, which may obscure small masses . FINDINGS: There are developing asymmetries in the lower inner quadrant of the right breast. There are mildly prominent left axillary lymph nodes with normal fatty hilum, likely secondary to prior Covid vaccination. No new masses, calcifications or architectural distortion in the left breast to suggest malignancy. IMPRESSION: 1. Developing right breast asymmetries. 2. Additional mammographic views and possible breast ultrasound are recommended. BI-RADS Category 0: Incomplete: Needs additional imaging evaluation. Reviewed, dictated and finalized at location A. IMPRESSION: 1. Developing right breast asymmetries. 2. Additional mammographic views and possible breast ultrasound are recommended . BI-RADS Category 0: Incomplete: Needs additional imaging evaluation.
== END 2021-05-17 13:51 | disposition home or self-care (01) ==
LOC: CHSIMG 13:51
PROVIDERS: PCP Family Medicine; Visit Provider Family Medicine
DX: Z12.31 Encounter for screening mammogram for malignant neoplasm of breast (principal)
CPT/HCPCS: 77063; 77067

== ENCOUNTER 2021-06-13 09:55 | Outpatient (CLI) | payer OTHER, SELFPAY ==
--- NOTE | ~2021-06-13 | MMUS_ITS ---
EXAMINATION: MM diagnostic kevin RT w reese, US breast RT limited HISTORY: Follow-up right breast asymmetry TECHNIQUE: Additional 3-D tomosynthesis images of the right breast were performed and synthetic 2-D i mages were generated. CAD analysis was submitted and interpreted. High resolution right limited breas t ultrasound was performed. COMPARISON: Comparison to multiple prior studies sequentially, with oldest reviewed study dated 04/30. BREAST PARENCHYMAL COMPOSITION: The breasts are heterogenously dense, which may obscure small masses. FINDINGS: MAMMOGRAPHIC FINDINGS: There are no suspicious masses, calcifications or architectural distortion in the right breast to sug gest malignancy. ULTRASOUND: Right breast ultrasound: At 12:00, 5 cm from the nipple, there is an oval hypoechoic circumscribed ma ss with parallel orientation measuring 1.7 x 1.5 x 0.5 cm, likely benign. No additional masses are id entified. There are mildly prominent subareolar ducts. IMPRESSION: 1. Probable benign 1.7 cm right breast mass at 12:00, 5 cm from the nipple. 2. Recommend 6 month follow-up right breast ultrasound BI-RADS category 3, probably benign findings. Reviewed, dictated and finalized at location A. IMPRESSION: 1. Probable benign 1.7 cm right breast mass at 12:00, 5 cm from the nipple. 2. Recommend 6 month follow-up right breast ultrasound BI-RADS category 3, probably benign findings.
== END 2021-06-13 09:56 | disposition home or self-care (01) ==
LOC: CHSIMG 09:56
PROVIDERS: PCP Family Medicine; Visit Provider Family Medicine
DX: R92.8 Other abnormal and inconclusive findings on diagnostic imaging of breast (principal)
CPT/HCPCS: 76642; 77061; 77065; G0279

== ENCOUNTER 2021-12-27 09:00 | Outpatient (CLI) | payer OTHER, SELFPAY ==
--- NOTE | ~2021-12-27 | MMUS_ITS ---
EXAMINATION: MM diagnostic kevin RT w reese, US breast RT limited HISTORY: Six-month follow-up of probably benign right breast 12:00 mass TECHNIQUE: ML and spot CC and MLO 3-D tomosynthesis images of the right breast were performed and syn thetic 2-D images were generated. CAD analysis was submitted and interpreted. High resolution targete d 12:00 right breast ultrasound was performed. COMPARISON: 06/13/2021 diagnostic right mammogram and limited right breast ultrasound 05/17/2021 bilateral screening mammogram BREAST PARENCHYMAL COMPOSITION: There are scattered areas of fibroglandular density. FINDINGS: MAMMOGRAPHIC FINDINGS: Occasional benign calcifications. No suspicious mass or architectural distortion, malignant calcifica tion, skin thickening or retraction or significant new or developing density is detected. ULTRASOUND: Stable parallel circumscribed hypoechoic solid lesion without internal vascularity or posterior shado wing at 12:00 5 cm from nipple, measuring 4.8 x 11.2 x 17.7 mm, slightly smaller than the 5.3 x 14.6 x 17.1 mm measurements on 06/13/2021. IMPRESSION: 1. Benign findings; no mammographic evidence of malignancy 2. Routine mammographic screening is recommended. BI-RADS Category 2: Benign finding(s). Reviewed, dictated and finalized at location A. IMPRESSION: 1. Benign findings; no mammographic evidence of malignancy 2. Routine mammographic screening is recommended. BI-RADS Category 2: Benign finding(s).
== END 2021-12-27 09:01 | disposition home or self-care (01) ==
LOC: CHSIMG 09:03
PROVIDERS: PCP Family Medicine; Visit Provider Family Medicine
DX: R92.8 Other abnormal and inconclusive findings on diagnostic imaging of breast (principal)
CPT/HCPCS: 76642; 77061; 77065; G0279

== ENCOUNTER 2023-02-23 13:58 | Outpatient (CLI) | payer OTHER, SELFPAY ==
--- NOTE | ~2023-02-23 | MM_ITS ---
EXAMINATION: MM screening kevin BI w reese HISTORY: Screening TECHNIQUE: Craniocaudal and mediolateral oblique 3-D tomosynthesis images were obtained and synthetic 2-D images were generated. CAD analysis was submitted and interpreted. COMPARISON: Comparison to multiple prior studies sequentially, with oldest reviewed study dated 07/19. BREAST PARENCHYMAL COMPOSITION: The breasts are heterogeneously dense, which may obscure small masses . FINDINGS: There is no evidence of suspicious mass, calcification, or architectural distortion to sugg est malignancy in either breast. There has been no suspicious interval change. IMPRESSION: 1. No mammographic evidence of malignancy. 2. Recommend routine screening mammography in one year. BI-RADS Category 1: Negative Reviewed, dictated and finalized at location A.
== END 2023-02-23 13:59 | disposition home or self-care (01) ==
LOC: CHSIMG 13:59
PROVIDERS: PCP Family Medicine; Visit Provider Family Medicine
DX: Z12.31 Encounter for screening mammogram for malignant neoplasm of breast (principal)
CPT/HCPCS: 77063; 77067

== ENCOUNTER 2023-04-19 14:26 | Outpatient (CLI) | payer OTHER, SELFPAY ==
[2023-04-19 15:34] LABS: Alanine Aminotransferase 22 U/L (14-59); Albumin Level 3.9 g/dL (3.4-5.0); Alkaline Phosphatase 84 U/L (46-116); Anion Gap 11 mmol/L (8-16); Aspartate Amino Transferase 21 U/L (15-37); Bilirubin,Total 0.6 mg/dL (0.00-1.00); Blood Urea Nitrogen 6 mg/dL (7-18); Calcium 9.3 mg/dL (8.5-10.1); Carbon Dioxide 33 mmol/L (21-32); Chloride 100 mmol/L (98-108); Cholesterol 211 mg/dL (0-200); Estimated Glomerular Filt Rate 60; Glucose 80 mg/dL (70-99); HDL Direct 65 mg/dL (40-60); LDL Cholesterol Calculated 109 mg/dL (<130); Osmolality Calculated 294 mOsm/kg (285-295); Sodium 144 mmol/L (136-145); Total Protein 7.3 g/dL (6.4-8.2); Triglycerides 185 mg/dL (0-150)
[2023-04-19 15:39] LABS: Potassium 2.4 mmol/L (3.5-5.1)
== END 2023-04-19 14:27 | disposition home or self-care (01) ==
LOC: CHSLAB 14:42
PROVIDERS: PCP Family Medicine; Visit Provider Family Medicine
DX: E78.2 Mixed hyperlipidemia (principal)
CPT/HCPCS: 36415; 80053; 80061

== ENCOUNTER 2023-10-25 11:37 | Inpatient (IN) | payer OTHER, SELFPAY ==
[2023-10-25] VITALS (38 sets, daily range): BP systolic 124–167; BP diastolic 69–91; PULSE 75–93; RESP 10–18; TEMP 36.3–36.7; O2SAT 96–100; BMI 22.4
--- NOTE | ~2023-10-25 | XR_ITS ---
EXAMINATION: XR chest 1V portable INDICATION: Pain after fall TECHNIQUE: Portable AP chest at 1232 hours COMPARISON: 12/05/2019 FINDINGS: Cardiomegaly is noted. The lungs are free of acute opacities. No pleural effusion or pneumo thorax. Healed bilateral rib fractures are noted. There is partially retracted orthopedic hardware in the proximal left humerus. IMPRESSION: 1. Cardiomegaly. Reviewed, dictated and finalized at location L. ESS DIRECTOR IMPRESSION: 1. Cardiomegaly.
--- NOTE | ~2023-10-25 | CT_ITS ---
EXAMINATION: CT brain wo con DATE: 10/25/2023 12:19 INDICATION: Head injury TECHNIQUE: Computed tomography (CT) of the head was performed without intravenous contrast. Sagittal and coronal reconstructions were performed. The mA was adjusted according to patient size. Iterative reconstruction technique was employed. The dose-length product was 681.00 mGy-cm. COMPARISON: head CT dated 11/23/2019 FINDINGS: No fracture. Small old lacunar infarct at the left lentiform nucleus. No acute intracranial hemorrhag e, acute infarction or abnormal extra axial fluid collection. There is moderate scattered white matte r hypoattenuation consistent with chronic small vessel ischemic disease. Symmetric prominence of the sulci and ventricles consistent with moderate age-appropriate diffuse cerebral volume loss. No mass/m ass effect. Changes of bilateral intraocular lens replacement. The orbits and mastoid air cells are n ormal. Mild mucosal thickening the right sphenoid and right maxillary sinuses. IMPRESSION: 1. No fracture or acute intracranial process. 2. Unchanged small old lacunar infarct at the left lentiform nucleus. Reviewed, dictated and finalized at location A. MANAGER
[2023-10-25] MEDS: LACTATED RINGERS 1,000 ML 999 ML IV CONT (11:46)
--- NOTE | 2023-10-25 11:46 | ECG_ITS ---
Measurements Intervals [place] Rate: 80 P: 61 ND: 168 QRS: 103 QRSD: 142 T: 76 QT: 431 QTc: 498 Interpretive Statements SINUS RHYTHM RIGHT AXIS DEVIATION [QRS AXIS > 100] RIGHT BUNDLE BRANCH BLOCK [120+ ms QRS DURATION, UPRIGHT V1, 40+ ms S IN I/aVL/V4/V5/V6] MODERATE T-WAVE ABNORMALITY, CONSIDER LATERAL ISCHEMIA [-0.1+ mV T-WAVE IN I/aVL/V5/V6] COMPARED TO ECG 12/03/2019 14:29:42 T-WAVE ABNORMALITY IN THE LATERAL LEADS NOW PRESENT Electronically Signed On 10-25-2023 15:01:06 CAR BODY DESIGNER by Yovany Esteban M.D.
--- NOTE | 2023-10-25 11:50 | PC.NURSE ---
cardiopulmonary called to ED for EKG.
--- NOTE | 2023-10-25 12:10 | PC.NURSE ---
Cardiopulmonary arrived at ER for EKG, patient is going to go down to Ct. Will call back when patient retuns to Ed.
--- NOTE | 2023-10-25 12:30 | PC.NURSE ---
Patient back in room from ct. Cardiopulmonary called back for EKG.
[2023-10-25 12:41] LABS: Alanine Aminotransferase 20 U/L (14-59); Albumin Level 3.4 g/dL (3.4-5.0); Alkaline Phosphatase 77 U/L (46-116); Anion Gap 13 mmol/L (8-16); Aspartate Amino Transferase 19 U/L (15-37); Bilirubin,Total 0.7 mg/dL (0.00-1.00); Blood Urea Nitrogen 8 mg/dL (7-18); CRP 4.4 mg/dL (0.0-0.9); Calcium 8.8 mg/dL (8.5-10.1); Carbon Dioxide 30 mmol/L (21-32); Chloride 101 mmol/L (98-108); Estimated CRCL calculation 52 ml/min; Estimated Glomerular Filt Rate > 60; Glucose 116 mg/dL (70-99); Lipase 28 U/L (16-77); NT Pro B Type Natriuretic Pept 632 pg/mL (0-450); Osmolality Calculated 297 mOsm/kg (285-295); Sodium 144 mmol/L (136-145); Total Protein 6.5 g/dL (6.4-8.2)
[2023-10-25 12:42] LABS: Ethanol 184 mg/dL (0-6); Potassium 2.4 mmol/L (3.5-5.1); Troponin I 60.6 ng/L (0.00-60.4)
[2023-10-25 12:43] LABS: Creatine Kinase 139 U/L (26-192)
[2023-10-25 12:46] LABS: Basophils Absolute Auto 0.06 K/mm3 (0.00-0.10); Basophils Percent Auto 0.8 % (0.0-1.0); Eosinophils Absolute Auto 0.14 K/mm3 (0.02-0.50); Eosinophils Percent Auto 1.8 % (1.0-6.0); Hematocrit 42.2 % (35.0-42.0); Hemoglobin 14.4 g/dL (11.7-13.8); Immature Granulocyte Absolute 0.04 K/mm3 (0.00-0.00); Immature Granulocyte Percent A 0.5 % (0.0-0.0); Lymphocytes Absolute Auto 2.03 K/mm3 (1.10-4.50); Mean Corpuscular HGB Conc 34.1 g/dL (32.0-36.0); Mean Corpuscular Hemoglobin 34.3 pg (27.0-31.0); Mean Corpuscular Volume 100.5 fL (78.0-102.0); Mean Platelet Volume 10.5 fl (9.2-11.8); Monocytes Absolute Auto 0.76 K/mm3 (0.10-0.90); Monocytes Percent Auto 9.7 % (2.0-11.0); Neutrophils Absolute Auto 4.8 K/mm3 (1.7-7.2); Neutrophils Percent Auto 61.2 % (50.0-70.0); Platelet Count Result 183 K/mm3 (150-420); Red Cell Distribution Width 13.3 % (11.6-14.4); White Blood Count 7.8 K/mm3 (4.8-10.8)
--- NOTE | 2023-10-25 13:00 | PC.NURSE ---
Erp notified of critical potassium of 2.4 and critical troponin of 60.6
[2023-10-25 13:02] LABS: Partial Thromboplastin Time 26.9 SEC (23.90-30.70); Prothrombin Time 10.5 Seconds (9.50-12.10)
[2023-10-25 13:06] LABS: Lactic Acid Reflex 2.9 mmol/L (0.4-2.0)
[2023-10-25] MEDS: ASPIRIN 81 MG CHEWABLE TABLET 324 MG PO (13:08)
[2023-10-25] MEDS: KCL 20 MEQ/SW 100 ML 100 ML 50 MEQ IVPB (13:09)
[2023-10-25 13:29] LABS: Influenza A QL RT-PCR Negative (Negative); Influenza B QL RT-PCR Negative (Negative); RSV RNA, RT-PCR Negative (Negative); SARS-CoV-2 RNA PCR Negative (Negative)
[2023-10-25 13:43] LABS: Appearance Urine Clear (Clear); Bilirubin Urine Negative (Negative); Blood Urine Trace-Intact (Negative); Color Urine Light Yellow (Yellow); Glucose Urine UA Negative (Negative); Ketones Urine Negative (Negative); Leukocyte Esterase Ur 1+ LEU/UL (Negative); Nitrate Urine Positive (Negative); Protein Urine Negative (Negative); Specific Grav Ur <= 1.005 (1.010-1.020); Urobilinogen Urine 0.2 mg/dL (0.2-1.0)
[2023-10-25 13:58] LABS: Add Urine Microscopic? YES; Bacteria Urine 3+ /hpf; RBC Urine 0-2 /hpf (0-2); Squamous Epithelial Cell Urine Few /hpf (Few); WBC Urine 0-3 /hpf (0-3)
[2023-10-25] MEDS: SODIUM CHLORIDE 0.9% IV 500 ML 999 ML IV CONT (14:45)
[2023-10-25 15:44] LABS: Reflex Lactic Acid Yes or No Add Lactic
--- NOTE | 2023-10-25 15:45 | ED.WEAKNESS ---
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 Since Sunday the patient has been having weakness and states that he has been having difficulty arm helping her get around late in. On Sunday she was found on the floor for about 3hours according to the is no focal deficits patient does have neuropathy and has been having increased trouble with her ambulation. Patient denies any current symptoms as far is no chest pain no shortness breath no fever chills no abdominal pain no flank pain. Patient denies dysuria no hematuria no nausea vomiting no diarrhea constipation. MD Complaint: generalized weakness Onset (ago): day(s) Duration: constant Location: generalized Migration: none Severity: moderate Quality: numbness Relieving factors: rest Exacerbating factors: none Context: history of similar Associated symptoms: denies other symptoms Related Data Home Medications Medication Instructions Recorded Confirmed amlodipine 5 mg tablet 5 mg PO DAILY 11/23/19 12/02/19 omeprazole 20 mg capsule,delayed 20 mg PO DAILY 11/23/19 12/02/19 release propranolol 80 mg capsule,24 80 mg PO DAILY 11/23/19 12/02/19 hr,extended release sertraline 100 mg tablet 200 mg PO DAILY 11/23/19 12/02/19 simvastatin 20 mg tablet 20 mg PO DAILY 11/23/19 12/02/19 folic acid 1 mg tablet 1 mg PO DAILY 12/02/19 12/02/19 olmesartan 20 mg tablet (Benicar) 20 mg PO DAILY 12/02/19 12/02/19 thiamine HCl (vitamin B1) 100 mg 100 mg PO DAILY 12/02/19 12/02/19 tablet Allergies Allergy/AdvReac Type Severity Reaction Status Date / Time acetaminophen [From Vicodin] Allergy Mild NAUSEA Verified 10/25/23 13:14 /VOMITING hydrocodone [From Vicodin] Allergy Mild NAUSEA Verified 10/25/23 13:14 /VOMITING Penicillins AdvReac Unknown Verified 10/25/23 13:14 Review of Systems Review of Systems: All systems reviewed & are unremarkable except as noted in HPI and below PMFSH Past Medical History Medical History Aspiration pneumonia Depression ETOH abuse GERD (gastroesophageal reflux disease) HLD (hyperlipidemia) HTN (hypertension) Syncope Surgical History Surgical History H/O excision of ganglion cyst H/O eye surgery History of bunionectomy S/P ORIF (open reduction internal fixation) fracture 06/20/19 Social History Social History Smoking status: Former smoker Tobacco type: cigarettes Second hand tobacco smoke exposure: Yes Alcohol intake: current Drinks per week: 10 Substance use: never Substance use type: does not use Other substance usage details: pt drinks rum/coke daily Last use: 11/16/19 Gender identity (if verbalized by the patient): Female Spiritual care concerns: No Agree to blood products: Yes Exam Const: General: healthy appearing Nutritional Appearance: well nourished Orientation/consciousness: patient oriented x3 Limitations: no limitations Eyes: Conjunctivae: conjunctivae normal Pupils: Equal, round and reactive pupils present Neck: Neck: normal visual inspection and no lymphadenopathy Chest: Chest palpation & inspection: normal inspection of the chest Resp: Effort & Inspection: normal respiratory effort Auscultation: clear to auscultation bilaterally Cardio: Rate: regular rate Rhythm: regular rhythm GI: GI Palp: Yes Soft to palpation Auscultation: normal bowel sounds : General: Yes bladder normal to palpation Urinary Catheter: Urinary Kalani
[2023-10-25 16:14] LABS: Troponin I 56.2 ng/L (0.00-60.4)
[2023-10-25] MEDS: levoFLOXacin 500 MG/D5W 100 ML 500 MG/100 ML BAG 100 MG IVPB (16:33)
[2023-10-25 16:39] LABS: Magnesium 1.8 mg/dL (1.8-2.4)
--- NOTE | 2023-10-25 16:51 | PC.NURSE ---
On 10/25/23, the student, Susan Franklin, provided care and completed [facility] documentation on this patient. I have reviewed the student's documentation and agree with the findings.
--- NOTE | 2023-10-25 16:55 | ADMGEN ---
This patient, Amy Clemente, was admitted to 2nd Floor Room 205-1. Patient/family oriented to hospital policies and general routines including ID bracelet, bed and alarms, visiting hours, pain management, procedures, bathroom and other care routines, personal items, smoking policy, room service/diet, and visiting hours. Information on how to activate the Rapid Response Team has been discussed. Patient/Family are encouraged to report perceived risks to care and to ask questions if they do not understand what they are told or what they should do.
[2023-10-25] MEDS: SODIUM CHLORIDE 0.9% IV 1,000 ML 100 ML IV CONT (20:08)
[2023-10-25 22:52] LABS: Glucose Point of Care 93 mg/dl (65-105)
[2023-10-26] VITALS (10 sets, daily range): BP systolic 141–210; BP diastolic 89–122; PULSE 80–105; RESP 14–18; TEMP 36.3–36.4; O2SAT 95–98
[2023-10-26] MEDS: LORazepam INJ (*CRX) 2 MG/ML VIAL IV PUSH (04:20)
[2023-10-26] MEDS: hydrALAZINE HCL 20 MG/ML VIAL 10 MG IV PUSH (04:29)
--- NOTE | 2023-10-26 05:09 | PC.NURSE ---
Patient was admitted to the second floor at 1655 due to a UTI, hypokalemia, and weakness. Patient prefers to be called by her middle name of Marii . Patient has orders for neuro checks Q2; telemetry with vitals Q4; CIWAs Q4; Accuchecks Q6; seizure precautions, and SCDs. Patient was initially scoring very low on the CIWA's, but at 0400, her BP spiked to 210/98 manually, and her CIWA score was 16. This resulted in 2 mg of Lorazepam IV push. Cony Quintero NP was contacted, and she ordered 10 mg of hydralazine IV push Q6 for systolic BP above 180. Patient's BP was rechecked at 0500, at which time her BP was 211/77. Her blood glucose was 93. Patient did not sleep well, due to frequent beeping of the IV pump. Patient has peripheral IV in her LAC. Patient does have urinary frequency and urgency. As a result, she was up multiple times to the bedside commode, and up incontinent several times with 2 complete bed changes to date. Patient is A and O X2.
[2023-10-26 05:13] LABS: Glucose Point of Care 93 mg/dl (65-105)
[2023-10-26 05:41] LABS: Basophils Absolute Auto 0.09 K/mm3 (0.00-0.10); Basophils Percent Auto 0.9 % (0.0-1.0); Eosinophils Absolute Auto 0.07 K/mm3 (0.02-0.50); Eosinophils Percent Auto 0.7 % (1.0-6.0); Hematocrit 48.7 % (35.0-42.0); Hemoglobin 16.3 g/dL (11.7-13.8); Immature Granulocyte Absolute 0.06 K/mm3 (0.00-0.00); Immature Granulocyte Percent A 0.6 % (0.0-0.0); Lymphocytes Absolute Auto 1.67 K/mm3 (1.10-4.50); Mean Corpuscular HGB Conc 33.5 g/dL (32.0-36.0); Mean Corpuscular Hemoglobin 34.3 pg (27.0-31.0); Mean Corpuscular Volume 102.5 fL (78.0-102.0); Mean Platelet Volume 10.6 fl (9.2-11.8); Monocytes Absolute Auto 0.75 K/mm3 (0.10-0.90); Monocytes Percent Auto 7.2 % (2.0-11.0); Neutrophils Absolute Auto 7.8 K/mm3 (1.7-7.2); Neutrophils Percent Auto 74.6 % (50.0-70.0); Platelet Count Result 201 K/mm3 (150-420); Red Blood Count 4.75 M/mm3 (4.20-5.40); Red Cell Distribution Width 13.2 % (11.6-14.4); White Blood Count 10.4 K/mm3 (4.8-10.8)
[2023-10-26 05:57] LABS: Alanine Aminotransferase 16 U/L (14-59); Albumin Level 3.4 g/dL (3.4-5.0); Alkaline Phosphatase 96 U/L (46-116); Anion Gap 9 mmol/L (8-16); Aspartate Amino Transferase 21 U/L (15-37); Bilirubin,Total 0.9 mg/dL (0.00-1.00); Blood Urea Nitrogen 7 mg/dL (7-18); Calcium 8.8 mg/dL (8.5-10.1); Carbon Dioxide 33 mmol/L (21-32); Chloride 98 mmol/L (98-108); Creatine Kinase 135 U/L (26-192); Estimated CRCL calculation 50 ml/min; Estimated Glomerular Filt Rate > 60; Glucose 105 mg/dL (70-99); Magnesium 1.5 mg/dL (1.8-2.4); Osmolality Calculated 288 mOsm/kg (285-295); Sodium 140 mmol/L (136-145); Total Protein 7.5 g/dL (6.4-8.2)
[2023-10-26 05:58] LABS: Potassium 2.3 mmol/L (3.5-5.1)
[2023-10-26 05:59] LABS: Lactic Acid Reflex 1.2 mmol/L (0.4-2.0)
[2023-10-26] MEDS: POTASSIUM CHLORIDE 20 MEQ ER TABLET 40 MEQ PO ×2 (06:27→11:34)
--- NOTE | 2023-10-26 06:47 | P.PNCROSS_ITS ---
Event Note Event Note Event Note: Called overnight from nursing staff for a potassium level of 2.3 and systolic B /P of 210. Placed order for 40 meq of KCL now, 40 meq of KCL at 12 pm today, and 4 gm of Magnesium for Mag level of 1.5 this morning after reviewing her labs. I also wrote for hydralazine 10mg IVP q6h PRN for systolic greater than 180. With blood pressure and HR elevating, concerns for DT's. Patient on CIWA protocol already.
[2023-10-26] MEDS: SODIUM CHLORIDE 0.9% IV 1,000 ML 100 ML IV CONT (07:33)
[2023-10-26] MEDS: MAGNESIUM SULF 4 GM/WATER100ML 4 GM/100 ML BAG IVPB (07:39)
--- NOTE | 2023-10-26 08:01 | PC.NURSE ---
Notified Rajinder Cordon NP regarding her B/P and that the medication was given at 0430 and was only every 6. Also notified of CIWA scores increasing.
[2023-10-26] MEDS: chlordiazePOXIDE (*CRX) 25 MG CAPSULE PO (08:24)
[2023-10-26] MEDS: THIAMINE HCL 200 MG/2 ML VIAL 100 MG IV PUSH (08:25)
[2023-10-26] MEDS: SERTRALINE HCL 50 MG TABLET 200 MG PO (08:29)
[2023-10-26] MEDS: PANTOPRAZOLE 40 MG TABLET PO (08:32)
[2023-10-26] MEDS: SIMVASTATIN 10 MG TABLET 20 MG PO (08:32)
[2023-10-26] MEDS: oxyBUTYnin CHLORIDE XL 5 MG TAB.ER.24 PO (08:32)
[2023-10-26] MEDS: amLODIPine BESYLATE 5 MG TABLET PO (08:32)
--- NOTE | 2023-10-26 09:10 | PM.IMHP ---
H&P: HPI History of Present Illness Date/Time: 10/26/23 09:10 Chief Complaint: altered LOC, weakness, ETOH withdrawal, hypokalemia Narrative: This is a 73-year-old female patient with past history of hypertension hyperlipidemia bladder insufficiency, depression and history of ETOH abuse who was admitted to the hospital for generalized weakness altered LOC ETOH withdrawal and hypokalemia. Patient started having symptoms of weakness and urinary incontinence over the past weekend. The last time she was known to be completely normal was about 1 week ago today. 5-6 days ago she started having significant weakness that progressed to frequent urinary incontinence and progressive weakness. Three days ago patient had fallen in front of her chair was on the ground for unknown length of time as the had left in the morning before the patient woke up and when he got home in the mid to late afternoon she was found on the floor. Took him quite a while to get her up into her chair. Yesterday patient had altered level of consciousness requiring EMS call. In the ER patient found to have elevated ETOH level though the did not realize that she was drinking again. They do not sleep in the same room and he states that she may have been drinking and night much longer than he realized. Patient was also found to be hypertensive. states that over the weekend she was working on measuring out her medications in a 7 day pill container when she knocked over 5 of her prescriptions all over the floor. He thinks she probably has not taken any medication since the weekend. She has been noted to be significantly hypertensive throughout the evening and into this morning. Patient was also very shaky and had a CIWA of 16 this morning per nursing assessment. For this she received IV Ativan. Currently patient is arousable to voice but quickly falls back asleep. She knows her name but does not know location date month or year and does not know why she would be in the hospital. Patient denies any pain. Workup in the emergency department yesterday revealed urinalysis consistent with UTI, borderline elevated troponin that was flat to slightly down trending, severe hypokalemia at 2.4 that despite correction has decreased to 2.3 this morning. Magnesium also found to be slightly low. She is receiving IV fluids with IV potassium and IV magnesium riders. Spoke to her and explained that due to her level of consciousness and progressive symptoms we need to obtain further imaging such as MRI that is not possible today at this facility. Additionally, her CIWA is elevated requiring multiple doses of benzodiazepines and she is requiring multiple doses of antihypertensives. For this reason we will pursue transfer[place] to [place]. Started with [facility] who placed her on a wait list due to no bed availability. Will reach out to [facility], [facility] and [facility] as well. Review of Systems Review of Systems: ROS unobtainable: Yes unobtainable due to medical condition and unobtainable due to mental status PMFSH Past Medical History Medical History Aspiration pneumonia Depression ETOH abuse GERD (gastroesophageal reflux disease) HLD (hyperlipidemia) HTN (hypertension) Syncope Surgical History Surgical History H/O excision of ganglion cyst H/O eye surgery History of bunionectomy S/P ORIF (open reduction internal fixation) fracture 06/20/19 Social History Social History Smoking status: Current every day smoker Tobacco type: cigarettes Second hand tobacco smoke exposure: Yes Alcohol intake: current Drinks per week: 7 Substance use: never Substance use type: does not use Other substance usage details: pt drinks rum/coke daily Last
[2023-10-26] MEDS: KCL 20 MEQ/SW 100 ML 100 ML 50 MEQ IVPB (09:47)
--- NOTE | 2023-10-26 10:15 | PC.NURSE ---
Pt changed of wet linens and sheets. Pt is currently able to respond to some questioning and attempts to help c turning, she is asking for an alcoholic drink. Pt given sips of water in upright sitting postion c assist. Continuing to monitor and hospitalist attempting to get pt transfered. Call henry at pt side but she is unable to comprehend using it.
--- NOTE | 2023-10-26 11:02 | PM.TDS ---
Transfer Discharge Sum: Prov Provider Date of admission: 10/25/23 19:17 Primary care physician: Sam Daniels MD Admitting clinician: Yovani Nur MD Consults: 10/25/23 19:30 Care Coordination Consult Routine Reason for Consult:: Acute Rehab Consult Discharging clinician: Cortes Cordon Anticipated date of transfer: 10/26/23 Receiving physician/facility: Lexa Rojas APRN-[facility] at [facility] DS: Admitting Diagnosis Discharge Date 10/26/2023 Admitting Diagnosis altered level of consciousness, alcohol withdrawal, hypertension, acute UTI, acute hypokalemia, generalized weakness, depression DS: Discharge Diagnosis Discharge Diagnosis (1) Altered level of consciousness: Code(s): R40.4 - Transient alteration of awareness Status: Acute Assessment and Plan: Altered level of consciousness, possible combination of factors including ETOH withdrawal, acute UTI or neurologic event. Recommend MRI and consultation with Neurology which cannot be obtained at this facility thus we are initiating transfer. (2) Alcohol withdrawal: Code(s): F10.939 - Alcohol use, unspecified with withdrawal, unspecified Status: Acute Assessment and Plan: CIWA 16 this morning, received Ativan. IV thiamine ordered daily. Recommend transfer for closer monitoring. (3) HTN (hypertension): Code(s): I10 - Essential (primary) hypertension Status: Acute Assessment and Plan: History of hypertension, patient is on multiple medications but it is highly likely that she has not taken any of her routine medications in close to a week based on story above in HPI. Propranolol not available this morning the patient did take the rest of her medications. Borderline elevated but slightly down trending troponin on admission. Cardiomegaly on chest x-ray. Recommend echocardiogram which cannot be completed at this facility for several days. (4) Acute UTI: Code(s): N39.0 - Urinary tract infection, site not specified Status: Acute Assessment and Plan: 3+ urine bacteria 1+ leukocyte esterase and positive nitrates. patient initiated on Levaquin in the emergency department yesterday. Will continue pending urine culture. (5) Acute hypokalemia: Code(s): E87.6 - Hypokalemia Status: Acute Assessment and Plan: Initial potassium 2.4 on admission, oral and IV replacement have been ordered but repeat level was 2.3 with morning labs. Ordered additional replacement as well as IV magnesium. (6) Weakness generalized: Code(s): R53.1 - Weakness Status: Acute Assessment and Plan: Progressive over the last 6-7 days per HPI above (7) Depression: Code(s): F32.9 - Major depressive disorder, single episode, unspecified Status: Acute Assessment and Plan: On high-dose sertraline at home for depression. Will continue this. No obvious findings for self-harm at this time. (8) Hypomagnesemia: Code(s): E83.42 - Hypomagnesemia Status: Acute Assessment and Plan: Replaced with 4 g over 4 hours Plan Transfer to [facility] Transfer Discharge Sum: Med Medications Active and Home Medications: Home Medications amlodipine 5 mg tablet 5 mg PO DAILY 11/23/19 [History Confirmed 10/25/23] omeprazole 20 mg capsule,delayed release 20 mg PO DAILY 11/23/19 [History Confirmed 10/25/23] propranolol 80 mg capsule,24 hr,extended release 80 mg PO DAILY 11/23/19 [History Confirmed 10/25/23] sertraline 100 mg tablet 400 mg PO DAILY 11/23/19 [History Confirmed 10/25/23] simvastatin 20 mg tablet 20 mg PO DAILY 11/23/19 [History Confirmed 10/25/23] docusate sodium 100 mg capsule 100 mg PO Q12HR PRN constipation #60 caps 12/08/19 [Rx Confirmed 10/25/23] oxybutynin chloride 5 mg tablet,extended release 24 hr 5 mg PO DAILY 10/25/23 [History Confirmed 10/25/23] Active Medications Acetaminophen (Acetaminophen 325 Mg Tablet) 650 mg
--- NOTE | 2023-10-26 11:17 | PC.NURSE ---
Pts BP still elevated at 180/120, Charge notified, obtained order from HILARIA Calvillo for Labetalol IV.
[2023-10-26] MEDS: LABETALOL HCL INJ 100 MG/20 ML VIAL 20 MG IV PUSH (11:25)
--- NOTE | 2023-10-26 12:04 | PC.NURSE ---
Called [facility] to transfer to [facility]
[2023-10-26 12:11] LABS: Glucose Point of Care 114 mg/dl (65-105)
[2023-10-26] MEDS: PROPRANOLOL HCL 60 MG CAPSULE CR PO (12:12)
--- NOTE | 2023-10-26 12:24 | PC.NURSE ---
Report called and given to Santy at [facility]. Pt to go to Rm [id number].
--- NOTE | 2023-10-26 12:28 | PC.NURSE ---
[facility] unable to transfer at this time call [facility] ambulance for transfer
--- NOTE | 2023-10-26 13:09 | PC.NURSE ---
[facility] ambulance here at 1305 to transport patient to [facility]. [facility] called with new room number and floor. Attempted to call [facility] to give report to new floor twice with no one answering.
--- NOTE | 2023-10-26 13:29 | PC.NURSE ---
Patient transferred to [facility] for higher level of care. Going to room 637. Transported by [facility]. in patient room when ambulance arrived, all personal belongings sent with him.
[2023-10-31 13:40] LABS: Vitamin A 16 mcg/dL (38-98)
[2023-10-31 14:09] LABS: Red Blood Cell Folate 353 ng/mL RBC (>280)
[2023-11-01 11:12] LABS: Vitamin B6 2.1 ng/mL (2.1-21.7)
== END 2023-10-26 13:05 | disposition short-term general hospital (02) | DRG 884 ==
LOC: CHSED 16:26 → CHS2ND 16:55
PROVIDERS: Nurse Practitioner Acute Care; Admitting Provider Internal Medicine; Emergency Provider Emergency Medicine; PCP Family Medicine; Visit Provider Internal Medicine
DX: R40.4 Transient alteration of awareness (principal); N39.0 Urinary tract infection, site not specified; I10 Essential (primary) hypertension; E83.42 Hypomagnesemia; E87.6 Hypokalemia; E78.5 Hyperlipidemia, unspecified; K21.9 Gastro-esophageal reflux disease without esophagitis; F10.939 Alcohol use, unspecified with withdrawal, unspecified; F32.A Depression, unspecified; G62.9 Polyneuropathy, unspecified; Z20.822 Contact with and (suspected) exposure to COVID-19; Z79.899 Other long term (current) drug therapy; Z87.891 Personal history of nicotine dependence; F10.139 Alcohol abuse with withdrawal, unspecified; F17.210 Nicotine dependence, cigarettes, uncomplicated
CPT/HCPCS: 36415; 70450; 71045; 80053; 80307; 81001; 82550; 82747; 82948; 83605; 83690; 83735; 83880; 84207; 84425; 84484; 84590; 85025; 85610; 85730; 86140; 87040; 87077; 87086; 87088; 87186; 87637; 93005; 96361; 96365; 96366; 97161; 99285; A9270; G0378; J0360; J0696; J1956; J2060; J3411; J3475; J3480; J7030; J7040; J7120

== ENCOUNTER 2024-01-11 12:44 | Emergency (ER) | payer OTHER, SELFPAY ==
--- NOTE | ~2024-01-11 | XR_ITS ---
XR chest 2V 01/11/2024 13:48 Indication: Status post fall. Chest pain. Procedure: 2 view chest Comparison: Comparison to multiple prior studies sequentially, with oldest reviewed study dated 04/2020. Findings: Cardiomegaly. Multiple healed bilateral rib fractures. There is a side plate and screws tra nsfixing the left humerus. There is scarring in the midlungs bilaterally. No acute focal pneumonia, e alessia or effusion. The lungs are hyperinflated which is consistent with, but not diagnostic of chronic obstructive pulmonary disease. Impression: 1: No acute cardiopulmonary disease. Reviewed, dictated and finalized at location B. Impression: 1: No acute cardiopulmonary disease.
--- NOTE | ~2024-01-11 | CT_ITS ---
EXAMINATION: CT brain wo con DATE: 01/11/2024 13:48 INDICATION: Status post fall. Landed on back of head. TECHNIQUE: Computed tomography (CT) of the head was performed without intravenous contrast. The dose- length product was 605.33 mGy-cm. Automated exposure control and iterative reconstruction technique w ere employed. COMPARISON: CT dated 10/25/2023 FINDINGS: There are chronic bilateral lacunar infarctions. Generalized atrophy. There are scattered m oderate periventricular and subcortical white matter changes, most likely related to small vessel isc hemic disease (microangiopathy). No ventriculomegaly or midline shift. There is intracranial atherosc lerosis. No ventriculomegaly or midline shift. Basilar cisterns are patent. Paranasal sinuses and mas toids are pneumatized. No depressed skull fractures. IMPRESSION: 1. No acute intracranial abnormality. 2: Chronic bilateral lacunar infarctions. 3: Chronic age-related findings. Reviewed, dictated and finalized at location B.
--- NOTE | ~2024-01-11 | XR_ITS ---
XR femur LT min 2V 01/11/2024 13:49 Indication: Left leg pain Procedure: 4 views left femur Comparison: No prior studies for comparison. Findings: No fracture, subluxation or dislocation. No significant soft tissue abnormality. No foreign bodies. There is vascular calcification of the femoral vessels. Moderate osteoarthritis of the left hip. Impression: 1: No acute fracture. Reviewed, dictated and finalized at location B. Impression: 1: No acute fracture.
--- NOTE | ~2024-01-11 | CT_ITS ---
EXAMINATION: CT cervical spine wo con DATE: 01/11/2024 13:48 INDICATION: Neck pain TECHNIQUE: Computed tomography (CT) of the cervical spine was performed without intravenous contrast. The dose-length product was 292 mGy-cm.. Automated exposure control and iterative reconstruction danielle hnique were employed. COMPARISON: None FINDINGS: There is disc narrowing and endplate degenerative change at C5-6 and C6-7. Lung apices are unremarkable. There is mild multilevel uncinate and facet hypertrophy. There is apical pleural thicke rocio/scarring. Odontoid process is normal. Craniovertebral junction is normal. There is severe multil evel facet hypertrophy. There is degenerative anterolisthesis at C4-5. IMPRESSION: 1. No acute abnormality of the cervical spine. 2: Severe cervical spondylosis. Reviewed, dictated and finalized at location B.
[2024-01-11 12:45] VITALS: BP 135/59; PULSE 74; RESP 18; TEMP 37; O2SAT 98
--- NOTE | 2024-01-11 12:50 | ED.FALL ---
HPI - Fall General Chief Complaint: Fall Stated Complaint: Fall/needs checked out Time Seen by Provider: 01/11/24 12:49 Source: patient and family Mode of arrival: wheelchair Limitations: no limitations Related Data Home Medications Medication Instructions Recorded Confirmed amlodipine 5 mg tablet 5 mg PO DAILY 11/23/19 10/25/23 omeprazole 20 mg capsule,delayed 20 mg PO DAILY 11/23/19 10/25/23 release propranolol 80 mg capsule,24 80 mg PO DAILY 11/23/19 10/25/23 hr,extended release sertraline 100 mg tablet 400 mg PO DAILY 11/23/19 10/25/23 simvastatin 20 mg tablet 20 mg PO DAILY 11/23/19 10/25/23 oxybutynin chloride 5 mg 5 mg PO DAILY 10/25/23 10/25/23 tablet,extended release 24 hr Allergies Allergy/AdvReac Type Severity Reaction Status Date / Time acetaminophen [From Vicodin] Allergy Mild NAUSEA Verified 10/25/23 13:14 /VOMITING hydrocodone [From Vicodin] Allergy Mild NAUSEA Verified 10/25/23 13:14 /VOMITING Penicillins AdvReac Unknown Verified 10/25/23 13:14 Review of Systems Review of Systems: All systems reviewed & are unremarkable except as noted in HPI and below Constitutional: Constitutional: Reports no additional constitutional complaints Eyes: Eyes: Reports no additional eye complaints ENT: Reports system reviewed and no additional complaints, except as documented Cardiovascular: Cardiovascular: Reports no additional cardiovascular complaints Respiratory: Respiratory: Reports no additional respiratory complaints Gastrointestinal: Gastrointestinal: Reports no additional gastrointestinal complaints Genitourinary: Genitourinary: Reports no additional female genitourinary complaints Musculoskeletal: Musculoskeletal: Reports no additional musculoskeletal complaints Integumentary/Breasts: Skin/Breast: Reports system reviewed and no additional complaints, except as docu Neurologic: Reports system reviewed and no additional complaints, except as documented Psychiatric: Psychiatric: Reports no additional psychiatric complaints Endocrine: Endocrine: Reports no additional endocrine complaints Hematologic/Lymphatic: Hematologic/Lymphatic: Reports no additional hematologic/lymphatic complaints Allergic/Immunologic: Allergic/Immunologic: Reports no additional allergic/immunologic complaints PMFSH Past Medical History Medical History Aspiration pneumonia Depression ETOH abuse GERD (gastroesophageal reflux disease) HLD (hyperlipidemia) HTN (hypertension) Syncope Surgical History Surgical History H/O excision of ganglion cyst H/O eye surgery History of bunionectomy S/P ORIF (open reduction internal fixation) fracture 06/20/19 Social History Social History Smoking status: Current every day smoker Tobacco type: cigarettes Second hand tobacco smoke exposure: Yes Alcohol intake: current Drinks per week: 7 Substance use: never Substance use type: does not use Other substance usage details: pt drinks rum/coke daily Last use: 11/16/19 Do You Feel Safe in your Home?: Yes Lack of Transportation: No Lack of Food: Never True Current Housing: I Have Housing Concerned About Future Housing: No Difficulty Paying Gas/Electric Bills: No Difficulty Paying for Meds: No Currently Unemployed: No Education: Bachelor's Degree Difficulty w/ Childcare or Family Care: No Gender identity (if verbalized by the patient): Female Spiritual care concerns: No Agree to blood products: Yes Exam Const: General: healthy appearing Nutritional Appearance: well nourished Orientation/consciousness: patient oriented x3 HENMT: Head: normal to inspection Ears: external ears normal Face/Nose/Sinus: Normal external nose present Eyes: Conjunctivae: conjunctivae normal Pupils: Equal, round and reactive p
--- NOTE | 2024-01-11 12:58 | ECG_ITS ---
SEE SCANNED COPY FOR CONFIRMED REPORT MTDD
[2024-01-11 13:28] LABS: Basophils Absolute Auto 0.04 K/mm3 (0.00-0.10); Basophils Percent Auto 0.3 % (0.0-1.0); Eosinophils Absolute Auto 0.73 K/mm3 (0.02-0.50); Eosinophils Percent Auto 6.2 % (1.0-6.0); Hematocrit 35.1 % (35.0-42.0); Hemoglobin 11.5 g/dL (11.7-13.8); Immature Granulocyte Absolute 0.06 K/mm3 (0.00-0.00); Immature Granulocyte Percent A 0.5 % (0.0-0.0); Lymphocytes Percent Auto 14.5 % (18.0-42.0); Mean Corpuscular HGB Conc 32.8 g/dL (32-36); Mean Corpuscular Hemoglobin 31.6 pg (27.0-31.0); Mean Corpuscular Volume 96.4 fL (78.0-102.0); Mean Platelet Volume 10.9 fl (9.2-11.8); Monocytes Absolute Auto 0.86 K/mm3 (0.10-0.90); Monocytes Percent Auto 7.4 % (2.0-11.0); Neutrophils Percent Auto 71.1 % (50.0-70.0); Platelet Count Result 177 K/mm3 (150-420); Red Blood Count 3.64 M/mm3 (4.20-5.40); Red Cell Distribution Width 12.2 % (11.6-14.4); White Blood Count 11.7 K/mm3 (4.8-10.8)
[2024-01-11 13:47] LABS: Alanine Aminotransferase 31 U/L (14-59); Albumin Level 3.5 g/dL (3.4-5.0); Alkaline Phosphatase 93 U/L (46-116); Anion Gap 9 mmol/L (4-12); Aspartate Amino Transferase 58 U/L (15-37); Bilirubin,Total 0.6 mg/dL (0.00-1.00); Blood Urea Nitrogen 12 mg/dL (7-18); Calcium 9.2 mg/dL (8.5-10.1); Carbon Dioxide 30 mmol/L (21-32); Chloride 103 mmol/L (98-108); Estimated CRCL calculation 31 ml/min; Estimated Glomerular Filt Rate 44; Glucose 100 mg/dL (70-99); Osmolality Calculated 293 mOsm/kg (285-295); Potassium 3.6 mmol/L (3.5-5.1); Sodium 142 mmol/L (136-145); Total Protein 7.1 g/dL (6.4-8.2); Troponin I 19.2 ng/L (0.00-60.4)
[2024-01-11 13:50] VITALS: BP 128/71; PULSE 78; RESP 20; TEMP 36.9; O2SAT 97
[2024-01-11 14:30] LABS: Appearance Urine Clear (Clear); Bilirubin Urine Negative (Negative); Blood Urine Trace-intact (Negative); Color Urine Yellow (Yellow); Glucose Urine UA Negative (Negative); Ketones Urine Negative (Negative); Leukocyte Esterase Ur Negative LEU/UL (Negative); Nitrate Urine Negative (Negative); Protein Urine Negative (Negative); Specific Grav Ur >= 1.030 (1.010-1.020); Urobilinogen Urine 0.2 mg/dL (0.2-1.0)
[2024-01-11 14:35] LABS: Add Urine Microscopic? YES; Bacteria Urine Trace /hpf; Mucus Urine Few /lpf; RBC Urine 0-2 /hpf (0-2); Renal Epithelial Cells Urine Few /hpf; Squamous Epithelial Cell Urine Few /hpf (Few); WBC Urine None seen /hpf (0-3)
[2024-01-11 14:57] VITALS: BP 128/74; PULSE 72; RESP 20; O2SAT 94
== END 2024-01-11 14:57 | disposition home or self-care (01) ==
PROVIDERS: Emergency Provider Emergency Medicine; PCP Family Medicine
DX: T14.90XA Injury, unspecified, initial encounter (principal); W19.XXXA Unspecified fall, initial encounter; I10 Essential (primary) hypertension; E78.5 Hyperlipidemia, unspecified; K21.9 Gastro-esophageal reflux disease without esophagitis; F17.210 Nicotine dependence, cigarettes, uncomplicated
CPT/HCPCS: 36415; 70450; 71046; 72125; 73552; 80053; 81001; 84484; 85025; 93005; 99284

== ENCOUNTER 2024-02-08 10:54 | Outpatient (NON) | payer OTHER, SELFPAY ==
[2024-02-08 11:18] LABS: Appearance Urine Cloudy (Clear); Bilirubin Urine Negative (Negative); Blood Urine Trace-intact (Negative); Color Urine Light Yellow (Yellow); Glucose Urine UA Negative (Negative); Ketones Urine Negative (Negative); Leukocyte Esterase Ur 3+ LEU/UL (Negative); Nitrate Urine Positive (Negative); Protein Urine Negative (Negative); Urobilinogen Urine 0.2 mg/dL (0.2-1.0)
[2024-02-08 11:21] LABS: Add Urine Microscopic? YES; Bacteria Urine 4+ /hpf; RBC Urine 0-2 /hpf (0-2); Squamous Epithelial Cell Urine Few /hpf (Few)
== END 2024-02-08 10:55 | disposition home or self-care (01) ==
LOC: CHSLAB 10:58
PROVIDERS: Visit Provider Family Medicine
DX: R40.4 Transient alteration of awareness (principal); R82.90 Unspecified abnormal findings in urine
CPT/HCPCS: 81001; 87077; 87086; 87088; 87186

== ENCOUNTER 2024-02-25 11:54 | Outpatient (CLI) | payer OTHER, SELFPAY ==
--- NOTE | 2024-02-25 12:05 | ECG_ITS ---
Test Date: 2024-02-25 12:13:12 Measurements Intervals [place] Rate: 61 P: 6 ID: [id number] QRS: 84 QRSD: 127 T: 51 QT: 434 QTc: 438 Interpretive Statements SINUS RHYTHM RIGHT BUNDLE BRANCH BLOCK [120+ ms QRS DURATION, UPRIGHT V1, 40+ ms S IN I/aVL/V4/V5/V6] No previous ECG available for comparison Electronically Signed On 02-26-2024 10:39:41 CDT by Yovany Esteban M.D.
== END 2024-02-25 11:55 | disposition home or self-care (01) ==
LOC: CHSLAB 11:57
PROVIDERS: PCP Family Medicine; Visit Provider Family Medicine
DX: I48.91 Unspecified atrial fibrillation (principal); I10 Essential (primary) hypertension; I45.10 Unspecified right bundle-branch block
CPT/HCPCS: 93005

== ENCOUNTER 2024-02-27 10:38 | Outpatient (CLI) | payer OTHER, SELFPAY ==
--- NOTE | ~2024-02-27 | CT_ITS ---
CT head without contrast Indication: Weakness COMPARISON: 01/11/2024 Technique: Serial scans were obtained through the brain without the administration of contrast. Dose reduction technique was used on this scan by utilizing automated exposure control and iterative recon struction technique. The dose-length product (DLP) was 605.33 mGy-cm. Findings: There is no evidence of intracranial hemorrhage, mass lesion, or acute infarct. The ventri cles and subarachnoid spaces are dilated, consistent with moderate to severe atrophy. Low attenuatio n regions are seen within the periventricular white matter bilaterally, likely representing changes f rom chronic microvascular ischemic disease. There is no evidence of edema, mass effect or midline sh ift. The visualized paranasal sinuses and mastoid air cells are clear. Impression: No intracranial hemorrhage, mass, or acute infarct. Atrophy and chronic white matter changes, as above. Reviewed, dictated and finalized at location . Impression: No intracranial hemorrhage, mass, or acute infarct. Atrophy and chronic white matter changes, as above.
== END 2024-02-27 10:39 | disposition home or self-care (01) ==
LOC: CHSIMG 10:39
PROVIDERS: PCP Family Medicine; Visit Provider Family Medicine
DX: I48.91 Unspecified atrial fibrillation (principal); I10 Essential (primary) hypertension
CPT/HCPCS: 70450

== ENCOUNTER 2024-04-23 08:09 | Outpatient (CLI) | payer OTHER, SELFPAY ==
--- NOTE | ~2024-04-23 | CT_ITS ---
Non-contrast CT scan of the Abdomen and Pelvis Clinical indication: Recurrent cystitis Technique: 2.5 mm axial scans were obtained through the abdomen and pelvis without intravenous or or al contrast. Dose reduction technique was used on this scan by utilizing automated exposure control a nd iterative reconstruction technique. The dose-length product (DLP) was 502.63 mGy-cm. Findings: Images through the lung bases reveal mild bibasilar chronic interstitial changes, with per ipheral distribution. 2 mm nonobstructing right renal stone present. The liver, spleen, pancreas, gallbladder, and left kidney appear normal. 2 cm right adrenal nodule, a nd 0.8 cm left adrenal nodule present. These are probably most likely adenomas. There are extensive a therosclerotic calcifications of the aorta. There is no evidence of bowel obstruction. There is a 7 mm focal metallic foreign body in the small b owel in the left mid abdomen (axial image 79). Additional metallic foreign body versus biopsy clip in the proximal sigmoid colon (axial image 123). Images through the pelvis were performed. There is no evidence of ascites or lymphadenopathy. Urinary bladder unremarkable. No pelvic mass seen. Impression: No acute abnormality evident. 2 metallic foreign bodies or clips, one in the small bowel, one the sigmoid colon, as detailed above. Correlate with any relevant procedural history. Small bilateral adrenal no evidence, as above, right larger than left. 2 mm nonobstructing right renal stone. Mild bibasilar chronic interstitial pulmonary disease. Reviewed, dictated and finalized at [facility]. Impression: No acute abnormality evident. 2 metallic foreign bodies or clips, one in the small bowel, one the sigmoid col on, as detailed above. Correlate with any relevant procedural history. Small bilateral adrenal no evidence, as above, right larger than left. 2 mm nonobstructing right renal stone. Mild bibasilar chronic interstitial pulmonary disease.
--- NOTE | ~2024-04-23 | US_ITS ---
EXAMINATION: US pelvic limited DATE: 04/23/2024 08:41 INDICATION: Recurrent cystitis. TECHNIQUE: Multiple transabdominal sonographic images of the pelvis were obtained. COMPARISON: CT abdomen and pelvis 02/22/2024 FINDINGS: The bladder is normal. The prevoid volume is 54 mL. The post void bladder volume is 45 mL. IMPRESSION: 1. Normal bladder. Reviewed, dictated and finalized at location A. IMPRESSION: 1. Normal bladder.
== END 2024-04-23 08:10 | disposition home or self-care (01) ==
LOC: CHSIMG 08:12
PROVIDERS: PCP Family Medicine
DX: N30.90 Cystitis, unspecified without hematuria (principal); N20.0 Calculus of kidney; J98.4 Other disorders of lung
CPT/HCPCS: 74176; 76857

== ENCOUNTER 2024-09-24 14:53 | Outpatient (RCR) | payer OTHER, SELFPAY ==
--- NOTE | 2024-09-24 15:55 | OPREHPOC ---
Outpatient Therapy Plan of Care This is a Multidisciplinary Plan of Care that may contain components documented by all disciplines (PT, OT, and ST.) PT Problem 1 PT Problem #1 Knowledge Deficit PT Goal 1 Goal / Goal Update 1. independent and compliant with HEP Target Visit 6 PT Problem 2 PT Problem #2 Impaired Balance PT Goal 1 Goal / Goal Update 1. no falls since starting skilled PT 2. tinetti to improve to 16/28 or better 3. tug to be completed with modified independence using WW 4. 5x sit to stand to be complete with modified independence Target Visit 12 PT Problem 3 PT Problem #3 Impaired Functional Mobility PT Goal 1 Goal / Goal Update 1. patient to ambulates 4 bouts of 100ft with modified independent using WW Target Visit 12
--- NOTE | 2024-09-24 15:55 | PTOPEVAL1 ---
Assessment and note entered by JT File, PT Evaluation Information Assessment Status Evaluation ICD-10 Condition Codes (PT) Repeated falls R29.6,Difficulty Walking R26.2, Abnormalities of gait and mobility R26.9 Onset 09/18/24 Subjective Information patient reports she has had a few strokes, and her balance is way off. she is unable to recall when her strokes took place. she reports she has had several falls. she reports she has had 5-6 total falls with her most recent being a few weeks ago. she reports she lives with her jenni. she reports she does get help from jenni with standing and walking. she reports she uses a walker for ambulation at home. she reports she has furnace installer helper come to assist with activities daily. she reports she would like to improve her balance and walking with PT. Reported Pain Level Pain Score 0: Self Report Assessment PT Clinical Summary mr. toth is a 74 yo woman who presents to skilled PT for evaluation and treatment of frequent falls and unsteady gait. she presents today with significant fall risk per the tinetti, TUG, 5x sit to stand, and transfers/ambulation. continued skilled PT is indicated to improve her objective/functional deficits to improve her safety and functional activity performance. Plan of Care Interventions Gait Training,Neuro Re-education,Patient/Caregiver Education,Therapeutic Activities,Therapeutic Exercise PT Services Indicated Yes Treatment Frequency and 3x weekly for 12 visits Duration These treatments will address the objective and functional deficits as defined above. The patient will be advanced safely and appropriately in order for the patient to progress towards his/her prior level of function. Additional exercises will be introduced and as well as a comprehensive home exercise program upon discharge, if needed, ?to ensure carryover of functional gains achieved in the clinic. This treatment plan has been reviewed and agreement upon by the patient.
--- NOTE | 2024-09-29 16:44 | PCPTNOTE ---
I reviewed the License Pending Therapist's documentation and agree with the findings.
--- NOTE | 2024-10-15 14:14 | PCPTNOTE ---
Something came up and pt cannot make it. She reports she will be here [facility].
--- NOTE | 2024-10-20 16:09 | PTOPPROG ---
Assessment and note entered by [facility] Evaluation Information Assessment Status Progress ICD-10 Condition Codes (PT) Repeated falls R29.6,Difficulty Walking R26.2, Abnormalities of gait and mobility R26.9 Onset Subjective Information Pt. reports that she is very unsteady today. She states that she has not had any falls since starting therapy. She does use her walker at home . She states that therapy has helped slightly to improve her walking. Assessment PT Clinical Summary Pt. has attended a total of 10 treatment sessions focusing on gait mechanics, balance, functional mobility, strength and safety. She continues to progress towards all goals and functional testing is improved since initial evaluation. Despite improvements she remains a high fall risk and requires frequent safety cuing. Continue with POC focusing on improved transfer safety and continuing to improve balance. Plan of Care Interventions Electrical Stimulation,Gait Training,Manual Therapy,Neuro Re-education,Therapeutic Activities, Therapeutic Exercise PT Services Indicated Yes Treatment Frequency and Continue with 3 remaining sessions on POC focused Duration on safety with transfers and balance deficits. These treatments will address the objective and functional deficits as defined above. The patient will be advanced safely and appropriately in order for the patient to progress towards his/her prior level of function. Additional exercises will be introduced and as well as a comprehensive home exercise program upon discharge, if needed, ?to ensure carryover of functional gains achieved in the clinic. This treatment plan has been reviewed and agreement upon by the patient.
== END 2024-10-22 20:00 | disposition home or self-care (01) ==
LOC: CHSPT 14:53
PROVIDERS: Visit Provider Family Medicine
DX: R26.81 Unsteadiness on feet (principal)
CPT/HCPCS: 97110; 97112; 97150; 97161; 97530; 97750

== ENCOUNTER 2024-11-17 17:47 | Outpatient (CLI) | payer OTHER, SELFPAY ==
[2024-11-17 19:33] LABS: Add Urine Microscopic? YES; Appearance Urine Clear (Clear); Bilirubin Urine 1+ (Negative); Blood Urine 1+ (Negative); Color Urine Light Yellow (Yellow); Glucose Urine UA Negative (Negative); Ketones Urine 1+ (Negative); Leukocyte Esterase Ur 1+ (Negative); Nitrate Urine Negative (Negative); Protein Urine Negative (Negative); Urobilinogen Urine 0.2 mg/dL (0.2-1.0); pH Urine 5.5 (5.0-8.0)
[2024-11-17 19:38] LABS: Bacteria Urine 4+ /hpf; Squamous Epithelial Cell Urine Rare /hpf (Few)
== END 2024-11-17 17:48 | disposition home or self-care (01) ==
PROVIDERS: PCP Family Medicine; Visit Provider Family Medicine
DX: N39.0 Urinary tract infection, site not specified (principal)
CPT/HCPCS: 81001; 87086

== ENCOUNTER 2024-11-20 09:49 | Observation (INO) | payer OTHER, SELFPAY ==
--- NOTE | ~2024-11-20 | XR_ITS ---
CHEST RADIOGRAPH CLINICAL HISTORY: weakness . COMPARISON: 01/11/2024 TECHNIQUE: Single portable view of the chest. FINDINGS The cardiomediastinal silhouette is enlarged, unchanged. Left upper lobe infiltrate, an interval change from prior. The remainder of the lungs are clear. IMPRESSION: Left upper lobe infiltrate Reviewed, dictated and finalized at location A. TECHNICIAN IMPRESSION: Left upper lobe infiltrate
--- NOTE | ~2024-11-20 | CT_ITS ---
EXAMINATION: CT brain wo con DATE: 11/20/2024 14:26 INDICATION: Confusion TECHNIQUE: Computed tomography (CT) of the head was performed without intravenous contrast. Sagittal and coronal reconstructions were performed. The mA was adjusted according to patient size. Iterative reconstruction technique was employed. The dose-length product was 605.33 mGy-cm. COMPARISON: head CT dated 02/27/2024 FINDINGS: Again seen are small old lacunar infarcts at the bilateral basal ganglia. No acute intracranial hemor rhage, acute infarction or abnormal extra axial fluid collection. There is moderate scattered white m atter hypoattenuation consistent with chronic small vessel ischemic disease. Symmetric prominence of the sulci and ventricles consistent with moderate age-appropriate diffuse cerebral volume loss. No ma ss/mass effect. Changes of bilateral intraocular lens replacement. The orbits, paranasal sinuses and mastoid air cells are normal. IMPRESSION: 1. Chronic lacunar infarcts at the bilateral basal ganglia. No acute intracranial process. 2. Age-related changes including moderate diffuse volume loss and moderate scattered white matter hyp oattenuation consistent with chronic small vessel ischemic disease. Reviewed, dictated and finalized at location L. OGY MANAGER IMPRESSION: 1. Chronic lacunar infarcts at the bilateral basal ganglia. No acute intracrani al process. 2. Age-related changes including moderate diffuse volume loss and moderate scat tered white matter hypoattenuation consistent with chronic small vessel ischemi c disease.
[2024-11-20 09:52] VITALS: BP 134/71; PULSE 86; RESP 20; TEMP 36.7; O2SAT 96
[2024-11-20] MEDS: SODIUM CHLORIDE 0.9% IV 1,000 ML 999 ML IV CONT (10:21)
[2024-11-20 10:23] LABS: Basophils Absolute Auto 0.04 K/mm3 (0.00-0.10); Basophils Percent Auto 0.3 % (0.0-1.0); Eosinophils Absolute Auto 0.17 K/mm3 (0.02-0.50); Eosinophils Percent Auto 1.5 % (1.0-6.0); Hematocrit 33.1 % (35.0-42.0); Hemoglobin 10.2 g/dL (11.7-13.8); Immature Granulocyte Absolute 0.06 K/mm3 (0.00-0.00); Immature Granulocyte Percent A 0.5 % (0.0-0.0); Lymphocytes Absolute Auto 1.11 K/mm3 (1.10-4.50); Lymphocytes Percent Auto 9.6 % (18.0-42.0); Mean Corpuscular HGB Conc 30.8 g/dL (32-36); Mean Corpuscular Hemoglobin 27.9 pg (27.0-31.0); Mean Corpuscular Volume 90.7 fL (78.0-102.0); Mean Platelet Volume 10.9 fl (9.2-11.8); Monocytes Absolute Auto 0.79 K/mm3 (0.10-0.90); Monocytes Percent Auto 6.9 % (2.0-11.0); Neutrophils Absolute Auto 9.36 K/mm3 (1.70-7.20); Neutrophils Percent Auto 81.2 % (50.0-70.0); Platelet Count Result 237 K/mm3 (150-420); Red Blood Count 3.65 M/mm3 (4.20-5.40); Red Cell Distribution Width 13.2 % (11.6-14.4); White Blood Count 11.5 K/mm3 (4.8-10.8)
--- NOTE | 2024-11-20 10:32 | PC.NURSE ---
Covid culture sent to lab
[2024-11-20 10:33] LABS: Add Urine Microscopic? NO; Appearance Urine Clear (Clear); Bilirubin Urine Negative (Negative); Blood Urine Trace-intact (Negative); Color Urine Light Yellow (Yellow); Glucose Urine UA Negative (Negative); Ketones Urine Negative (Negative); Leukocyte Esterase Ur Negative LEU/UL (Negative); Nitrate Urine Negative (Negative); Protein Urine Negative (Negative); Urobilinogen Urine 0.2 mg/dL (0.2-1.0); pH Urine 6.5 (5.0-8.0)
[2024-11-20 10:43] LABS: Lactic Acid Reflex 1.2 mmol/L (0.4-2.0)
[2024-11-20 10:45] LABS: Alanine Aminotransferase 24 U/L (14-59); Albumin Level 3.6 g/dL (3.4-5.0); Alkaline Phosphatase 124 U/L (46-116); Anion Gap 10 mmol/L (4-12); Aspartate Amino Transferase 27 U/L (15-37); Bilirubin,Total 0.4 mg/dL (0.00-1.00); Blood Urea Nitrogen 13 mg/dL (7-18); Calcium 9.1 mg/dL (8.5-10.1); Carbon Dioxide 26 mmol/L (21-32); Chloride 102 mmol/L (98-108); Estimated CRCL calculation 33 ml/min; Estimated Glomerular Filt Rate 43; Glucose 102 mg/dL (70-99); NT Pro B Type Natriuretic Pept 293 pg/mL (0-450); Osmolality Calculated 286 mOsm/kg (285-295); Potassium 3.3 mmol/L (3.5-5.1); Sodium 138 mmol/L (136-145); Total Protein 7.7 g/dL (6.4-8.2)
[2024-11-20 10:47] LABS: Influenza A QL RT-PCR Negative (Negative); Influenza B QL RT-PCR Negative (Negative); RSV RNA, RT-PCR Negative (Negative); SARS-CoV-2 RNA PCR Negative (Negative)
--- NOTE | 2024-11-20 10:52 | ECG_ITS ---
Test Date: 2024-11-20 10:59:59 Measurements Intervals Schaller Rate: 82 P: 46 SD: 172 QRS: 87 QRSD: 136 T: 51 QT: 437 QTc: 512 Interpretive Statements SINUS RHYTHM RIGHT BUNDLE BRANCH BLOCK [120+ ms QRS DURATION, UPRIGHT V1, 40+ ms S IN I/aVL/V4/V5/V6] Compared to ECG 02/25/2024 12:13:12 No significant changes Electronically Signed On 11-20-2024 14:06:00 COVER INSPECTOR by Josh Hogue M.D.
--- NOTE | 2024-11-20 10:55 | ED.WEAKNESS ---
HPI - Weakness General Chief complaint: Weakness Stated complaint: fall Time Seen by Provider: 11/20/24 09:54 Source: patient, family and EMS Mode of arrival: EMS Limitations: physical limitation History of Present Illness HPI Narrative: this is a 74-year-old female recently discharged from prison lives at home currently uses a walker to ambulate and had a fall with no injuries this morning EMS was called patient had been treated with antibiotics for urinary tract infection and was advised to present to the emergency room department by her primary care physician. Patient currently has no injuries, there is no focal weakness, the patient has generalized weakness with no shortness of breath vital signs are stable, no chest pain no fever chills no hematuria no dysuria no flank pain no nausea vomiting or abdominal pain. MD Complaint: generalized weakness Onset (ago): day(s) Duration: constant Location: generalized Severity: moderate Related Data Home Medications ?Medication ?Instructions ?Recorded ?Confirmed ?Last Taken ?Type amlodipine 5 mg tablet 5 mg PO DAILY 11/23/19 10/25/23 12/02/19 09:00 History omeprazole 20 mg capsule,delayed 20 mg PO DAILY 11/23/19 11/20/24 12/02/19 09:00 History release sertraline 100 mg tablet 400 mg PO DAILY 11/23/19 10/25/23 12/02/19 09:00 History oxybutynin chloride 5 mg 5 mg PO DAILY 10/25/23 10/25/23 Unknown History tablet,extended release 24 hr VITAMIN b1 100mg See Rx Instructions .Route .COMPLEX 11/20/24 11/20/24 Unknown History apixaban 5 mg tablet (Eliquis) 5 mg PO ONCE 11/20/24 Unknown History atorvastatin 40 mg tablet 40 mg PO QPM 11/20/24 Unknown History calcium carbonate 500 mg PO DAILY 11/20/24 Unknown History folic acid 1 mg tablet 1 mg PO DAILY 11/20/24 Unknown History omeprazole 40 mg capsule,delayed 40 mg PO DAILY 11/20/24 Unknown History release sennosides 8.6 mg tablet (senna) 8.6 mg PO DAILY 11/20/24 Unknown History sulfamethoxazole 800 1 tablet PO BID 11/20/24 11/20/24 History mg-trimethoprim 160 mg tablet Allergies Allergy/AdvReac Type Severity Reaction Status Date / Time acetaminophen (From Vicodin) Allergy Mild NAUSEA Verified 11/20/24 10:01 /VOMITING hydrocodone (From Vicodin) Allergy Mild NAUSEA Verified 11/20/24 10:01 /VOMITING Penicillins AdvReac Unknown Verified 11/20/24 10:01 Review of Systems Review of Systems: All systems reviewed & are unremarkable except as noted in HPI and below PMFSH Past Medical History Medical History GERD (gastroesophageal reflux disease) Syncope Aspiration pneumonia ETOH abuse HLD (hyperlipidemia) Depression HTN (hypertension) Surgical History Surgical History S/P ORIF (open reduction internal fixation) fracture 06/20/19 H/O eye surgery H/O excision of ganglion cyst History of bunionectomy Social History Social History Smoking status: Current every day smoker Tobacco type: cigarettes Second hand tobacco smoke exposure: Yes Alcohol intake: current Drinks per week: 7 Substance use: never Substance use type: does not use Other substance usage details: pt drinks rum/coke daily Last use: 11/16/19 Do You Feel Safe in your Home?: Yes Lack of Transportation: No Lack of Food: Never True Current Housing: I Have Housing Concerned About Future Housing: No Difficulty Paying Gas/Electric Bills: No Difficulty Paying for Meds: No Currently Unemployed: No Education: Bachelor's Degree Difficulty w/ Childcare or Family Care: No Gender identity (if verbalized by the patient): Female Spiritual care concerns: No Agree to blood products: Yes Exam Const: General: no acute distress Orientation/consciousness: patient oriented x3 Limitations: physical limitations HENMT: Head: normal to inspection Neck: Neck: normal visual inspection, no lymphadenopathy and no meningeal signs Chest: Chest palpation & inspection: normal inspection of the chest Resp: Effort & Inspection: normal respiratory effort Auscultation: clear to auscultation bilaterally Cardio: Rate: regular rate Rhythm: abnormal rhythm GI: GI Palp: Yes Soft to palpation Auscultation: normal bowel sounds : General: Yes bladder normal to palpation Urinary Catheter: Urinary Catheter: patent and draining Skin: General skin exam: normal color Rashes: no rashes Neuro: General: patient oriented x3, moves all extremities, no meningeal signs and no focal motor deficits Extrem: General: normal to inspection and no pedal edema Course Course Emergency Course: Patient had a chest x-ray performed which shows a left upper lobe infiltrate, patient has been treated for urinary tract infection without patient antibiotics currently UA is negative lactic acid is normal patient does have an elevated white blood cell count of 11.5. Potassium is 3.3. Will start IV Levaquin, p.o. potassium continue IV fluids and admit to hospitalist Vital Signs Vital signs: Vital Signs Temperature 36.7 C 11/20/24 09:52 Pulse Rate 86 11/20/24 09:52 Respiratory Rate 20 11/20/24 09:52 Blood Pressure 134/71 11/20/24 09:52 Pulse Oximetry 96 11/20/24 09:52 Oxygen Delivery Room Air 11/20/24 09:52 Temperature 36.7 C 11/20/24 09:52 Pulse Rate 86 11/20/24 09:52 Respiratory Rate 20 11/20/24 09:52 Blood Pressure 134/71 11/20/24 09:52 Pulse Oximetry 96 11/20/24 09:52 Oxygen Delivery Room Air 11/20/24 09:52 MDM - Weakness Lab Data 11/20/24 10:15 11/20/24 10:15 Labs: Lab Results 11/20/24 11/20/24 11/20/24 Range/Units 09:59 10:15 10:23 WBC 11.5 H (4.8-10.8) K/mm3 RBC 3.65 L (4.20-5.40) M/mm3 Hgb 10.2 L (11.7-13.8) g/dL Hct 33.1 L (35.0-42.0) % MCV 90.7 (78.0-102.0) fL MCH 27.9 (27.0-31.0) pg MCHC 30.8 L (32-36) g/dL RDW 13.2 (11.6-14.4) % Plt Count 237 (150-420) K/mm3 MPV 10.9 (9.2-11.8) fl Immature Gran % (Auto) 0.5 H (0.0-0.0) % Neut % (Auto) 81.2 H (50.0-70.0) % Lymph % (Auto) 9.6 L (18.0-42.0) % [place] % (Auto) 6.9 (2.0-11.0) % Eos % (Auto) 1.5 (1.0-6.0) % Baso % (Auto) 0.3 (0.0-1.0) % Lymph # (Auto) 1.11 (1.10-4.50) K/mm3 [place] # (Auto) 0.79 (0.10-0.90) K/mm3 Eos # (Auto) 0.17 (0.02-0.50) K/mm3 Baso # (Auto) 0.04 (0.00-0.10) K/mm3 Abs Immat Gran (auto) 0.06 H (0.00-0.00) K/mm3 Absolute Neuts (auto) 9.36 H (1.70-7.20) K/mm3 Absolute Nucleated RBC 0.00 (0.00-0.00) K/mm3 Nucleated RBC % 0.0 (0-0.0) % Sodium 138 (136-145) mmol/L Potassium 3.3 L (3.5-5.1) mmol/L Chloride 102 (98-108) mmol/L Carbon Dioxide 26 (21-32) mmol/L Anion Gap 10 (4-12) mmol/L BUN 13 (7-18) mg/dL Creatinine 1.22 H (0.55-1.02) mg/dL Estim Creat Clear Calc 33 ml/min Estimated GFR 43 L (59 - ) Glucose 102 H (70-99) mg/dL Calculated Osmolality 286 (285-295) mOsm/kg Lactic Acid 1.2 (0.4-2.0) mmol/L Calcium 9.1 (8.5-10.1) mg/dL Total Bilirubin 0.4 (0.00-1.00) mg/dL AST 27 (15-37) U/L ALT 24 (14-59) U/L Alkaline Phosphatase 124 H (46-116) U/L NT-Pro-B Natriuret Pep 293 (0-450) pg/mL Total Protein 7.7 (6.4-8.2) g/dL Albumin 3.6 (3.4-5.0) g/dL Urine Color Light yellow (Yellow) Urine Appearance Clear (Clear) Urine pH 6.5 (5.0-8.0) Ur Specific [place] 1.020 (1.010-1.020) Urine Protein Negative (Negative) Urine Glucose (UA) Negative (Negative) Urine Ketones Negative (Negative) Ur Blood (Man) Trace-intact H (Negative) Urine Nitrate Negative (Negative) Urine Bilirubin Negative (Negative) Urine Urobilinogen 0.2 (0.2-1.0) mg/dL Leukocyte Esterase Rfl Negative (Negative) MARCUS/UL Influenza A (RT-PCR) Negative (Negative) Influenza B (RT-PCR) Negative (Negative) RSV (RT-PCR) Negative (Negative) SARS-CoV-2 RNA (RT-PCR) Negative (Negative) Critical Care Time Critical Care Time Critical Care Time: No Discharge Plan Discharge Clinical Impression: Weakness generalized Pneumonia Qualifiers: Pneumonia type: due to unspecified organism Laterality: left Lung location: upper lobe of lung Qualified Code(s): J18.9 - Pneumonia, unspecified organism Patient Disposition: Acute Care Hospital Condition: Guarded Prognosis Patient Language: Mongolian Prescriptions: No Action sertraline 100 mg tablet 400 mg PO DAILY amlodipine 5 mg tablet 5 mg PO DAILY omeprazole 20 mg capsule,delayed release(DR/EC) 20 mg PO DAILY docusate sodium 100 mg Capsule 100 mg PO Q12HR PRN (Reason: constipation) Qty: 60 0RF oxybutynin chloride 5 mg Tablet Extended Release 24hr 5 mg PO DAILY calcium carbonate 500 mg calcium (1,250 mg) tablet 500 mg PO DAILY folic acid 1 mg tablet 1 mg PO DAILY omeprazole 40 mg capsule,delayed release(DR/EC) 40 mg PO DAILY sennosides [senna] 8.6 mg tablet 8.6 mg PO DAILY VITAMIN b1 100mg See Rx Instructions .ROUTE .COMPLEX Rx Instructions: 100 mg daily; atorvastatin 40 mg tablet 40 mg PO QPM Eliquis 5 mg tablet 5 mg PO ONCE sulfamethoxazole-trimethoprim 800-160 mg tablet 1 tablet PO BID Follow-up/Referrals: Amol Aden MD [Primary Care Provider] -
--- OUTSIDE RECORDS SUMMARY | 2024-11-20 10:59 | XMS_ITS | Patient Health Summary ---
Author Organization [facility] Address [address] [place] [address] Care Team Providers Care Scout Professional Sports Name Role Phone Bree Walsh MD Primary Care Provider Note from [facility],non-owned Affiliates and Associated Physician Practices is amultiple site organization consisting of ambulatory clinics and hospital sitesin [place], [place], [place] and [place]. This disclosure is being madepursuant to the Care Everywhere program and may not contain all information available regarding this patient. Last updated 18.[facility] Allergies * Penicillins(Anaphylaxis) -High Criticality Medications * Be aware that medications may not be up to date on this document. Alwaysverify current medications with the patient. * amLODIPine (Norvasc) 5 MG tablet Take 1 (one) tablet by mouth once daily * omeprazole (PriLOSEC) 20 MG capsule Take 1 (one) capsule by mouth once daily * docusate sodium (Colace) 100 MG capsule Take 1 (one) capsule by mouth 2 times daily as needed for Constipation * apixaban (Eliquis) 5 MG tablet(Started 11/14/2023) Take 1 (one) tablet by mouth 2 times daily * atorvastatin (Lipitor) 40 MG tablet(Started 11/15/2023) Take 1 (one) tablet by mouth once daily * propranolol ER 24hr (Inderal LA) 60 MG capsule(Started 11/15/2023) Take 1 (one) capsule by mouth once daily * folic acid (Folvite) 1 MG tablet(Started 11/15/2023) Take 3 (three) tablets by mouth once daily * senna-docusate (Senokot-S) 8.6-50 MG tablet(Started 11/15/2023) Take 1 (one) tablet by mouth once daily * thiamine (Vitamin B-1) 100 MG tablet(Started 11/15/2023) Take 1 (one) tablet by mouth once daily Active Problems Problem Noted Date Diagnosed Date Hypokalemia 10/26/2023 Hypomagnesemia 10/26/2023 Hypertension, unspecified type 10/26/2023 Alcohol withdrawal syndrome with complication Cerebrovascular accident (CV A) due to thrombosis of precerebral artery 10/26/2023 Social History Tobacco Use Types Packs/Day Years Used Date Smoking Tobacco: Never Assessed Overall Financial Resource Strain (CARDIA) Answe r Date Recorded How hard is it for you to pa y for the very basics like food, housing, medical care, and heating? Not hard at all 10/31/2023 PHQ-2 Answer Date Recorded Patient Health Questionnaire-2 Score 0 11/07/2023 [facility] - Occupational Stress Questionnaire Answer Date Recorded Do you feel stress - tense, restless, nervous, or anxious, or unable to sleep at night because your mind is troubled all the time - these days? Not at all 10/31/2023 Hunger Vital Sign Answer Date Recorded Within the past 12 months, y ou worried that your food would run out before you got the money to buy more. Never true 10/31/19 24 Within the past 12 months, t he food you bought just didn't last and you didn't have money to get more. Never true 10/31/2023 PRAPARE - Transportation Answer Date Re corded In the past 12 months, has l ack of transportation kept you from medical appointments or from getting medications? No 10/18 In the past 12 months, has l ack of transportation kept you from meetings, work, or from getting things needed for daily living? No 10/31/2023 Housing Stability Vital Sign Answer Mike e Recorded In the last 12 months, was t here a time when you were not able to pay the mortgage or rent on time? No 10/31/2023 In the last 12 months, how many places have you lived? 1 10/31/2023 In the last 12 months, was t here a time when you did not have a steady place to sleep or slept in a correction (including now)? No 10/31/2023 Sex and Gender Information Value Date Recorded Sex Assigned at Not on file Gender Identity Not on file Sexual Orientation Not on file Last Filed Vital Signs Vital Sign Reading Time Taken Comments Blood Pressure 162/83 11/14/2023 7:43 AM [employer] Pulse 74 11/14/2023 7:43 AM [employer] Temperature 36.5 C (97.7 F) 11/14/2023 7:43 AM [employer] Respiratory Rate 14 11/14/2023 7:43 AM [employer] Oxygen Saturation 95% 11/14/2023 7:43 AM [employer] Inhaled Oxygen Concentration - - Weight - - Height 166.4 cm (5' 5.5 ) 11/08/2023 11:44 AM CS T Body Mass Index - - Procedures * EVENT MONITOR(Performed 01/16/2024) Performed for Alcohol withdrawal syndrome with complication (HCC), Hypertension, unspecified type, Hypokalemia, Hypomagnesemia, Acute encephalopathy, Cerebrovascular accident (CVA) due to thrombosis of precerebral artery (HCC), Atrial fibrillation, unspecified type (HCC) * CARDIAC RHYTHM STRIP ORDER(Performed 11/15/2023) * ECHO LEWIS COMPLETE(Performed 11/08/2023) Performed for Cerebrovascular accident (CVA) due to thrombosis of precerebral artery (HCC) * CCL INTRA PROCEDURE LEWIS(Performed 11/08/2023) Performed for Cerebrovascular accident (CVA) due to thrombosis of precerebral artery (HCC) * BASIC METABOLIC PANEL (CALCIUM TOTAL)(Performed 11/07/2023) * CBC W AUTO DIFFERENTIAL(Performed 11/07/2023) * ECHO COMPLETE W CONTRAST(Performed 11/06/2023) Performed for Alcohol withdrawal syndrome with complication (HCC), Hypertension, unspecified type * VAS CAROTID DUPLEX BILATERAL(Performed 11/05/2023) Performed for Acute encephalopathy, Cerebrovascular accident (CVA) due to thrombosis of precerebralartery (HCC) * PHOSPHORUS BLOOD(Performed 11/04/2023) * MAGNESIUM BLOOD(Performed 11/04/2023) * BASIC METABOLIC PANEL (CALCIUM TOTAL)(Performed 11/04/2023) * CBC W AUTO DIFFERENTIAL(Performed 11/04/2023) * MRI BRAIN WO CONTRAST(Performed 11/01/2023) Performed for Alcohol withdrawal syndrome with complication (HCC), Acute encephalopathy * BASIC METABOLIC PANEL (CALCIUM TOTAL)(Performed 11/01/2023) * CBC W AUTO DIFFERENTIAL(Performed 10/31/2023) * HEMOGLOBIN A1C(Performed 10/29/2023) * AMMONIA(Performed 10/29/2023) * FOLATE(Performed 10/29/2023) * VITAMIN B12(Performed 10/29/2023) * LIPID PROFILE(Performed 10/29/2023) * TSH REFLEX FREE T4(Performed 10/29/2023) * MAGNESIUM BLOOD(Performed 10/29/2023) * RENAL FUNCTION PANEL(Performed 10/29/2023) * EEG(Performed 10/28/2023) * CT HEAD WO CONTRAST(Performed 10/28/2023) Performed for Acute encephalopathy * RENAL FUNCTION PANEL(Performed 10/28/2023) * URINE MICROSCOPIC ONLY REFLEX TO CULTURE(Performed 10/27/2023) * URINALYSIS REFLEX MICROSCOPIC REFLEX CULTURE(Performed 10/27/2023) * DRUG ABUSE URINE PANEL(Performed 10/27/2023) * CBC W/O DIFFERENTIAL(Performed 10/27/2023) * BASIC METABOLIC PANEL (CALCIUM TOTAL)(Performed 10/27/2023) * MAGNESIUM BLOOD(Performed 10/26/2023) Performed for Hypokalemia, Hypomagnesemia * BASIC METABOLIC PANEL (CALCIUM TOTAL)(Performed 10/26/2023) Performed for Hypokalemia Results * EVENT MONITOR (01/16/2024) Impressions [facility]CHI[facility]RIC [facility] - 01/16/2024 Ambulatory ECG Interpretation: The patient was monitored for a total of 11 days and 15 hours. The predominant rhythm is sinus rhythm. The average heart rate was 66 bpm, the maximum heart rate was 114 bpm, The minimum heart rate was 50 bpm There were no pauses greater than 2 seconds in duration. There were no premature supraventricular ectopic beats noted There were no premature ventricular ectopic beats noted There was no evidence of A fib or flutter Impression: Unremarkable event monitor Nicolas Madrid MD 01/16/2024 9:36 AM Cedric Hill MD CARDIAC SERVICES ORD ERABLES [facility] * CARDIAC RHYTHM STRIP ORDER (11/15/2023 7:25 PM [employer]) Narrative 11/15/2023 7:25 PM [employer] Ordered by an unspecified provider. Scanned Document CARDIAC SERVICES ORD ERABLES * ECHO LEWIS COMPLETE (11/08/2023 12:19 PM [employer]) Anatomical Region Laterality Modality Ultrasound Narrative 11/09/2023 10:32 AM [employer] Left Ventricle: Left ventricle size is normal. Normal systolic function. Left Atrium: Left atrium is dilated. Decreased appendage flow velocity. Thrombus present in the left atrial appendage (SHARON), which is mobile. Aorta: Moderate calcified atherosclerosis. Left Ventricle Left ventricle size is normal. Normal systolic function. Right Ventricle Right ventricle size is normal. Normal systolic function. Left Atrium Left atrium is dilated. There is lipomatous hypertrophy of the interatrial septum. Decreased appendage flow velocity. Thrombus present in the left atrial appendage (SHARON), which is mobile. Normal flow patterns in the pulmonary veins. Right Atrium Right atrium size is normal. Mitral Valve Valve structure is normal. Trace regurgitation. No stenosis. Tricuspid Valve Valve structure is normal. Trace regurgitation. No stenosis. Aortic Valve Valve structure is trileaflet. Mildly calcified leaflets. No regurgitation. No stenosis. Pulmonic Valve Not well visualized, but appears grossly normal. Trace regurgitation. No stenosis. Ascending Aorta Normal sized sinus of Valsalva (aortic root), ascending aorta and descending aorta. Moderate calcified atherosclerosis. Pericardium No pericardial effusion. Study Details A complete echo was performed using complete 2D, color flow Doppler, spectral Doppler and complete 3D. During the study the esophageal, transgastric and descending thoracic views were captured. Definity and Saline (bubble) contrast was used during the study. The probe was inserted by the fire prevention bureau captain. There was no probe insertion difficulty. Start time: 928 Stop time: 958 Propofol was administered by the RESEARCH AND INSIGHTS EXECUTIVE. Nicolas Madrid MD ECHO CUPID * CCL INTRA PROCEDURE LEWIS (11/08/2023 9:59 AM [employer]) Anatomical Region Laterality Modality X-Ray Angiograph y Narrative 11/08/2023 10:01 AM [employer] This case was auto-finalized by a system utility. The result for this LEWIS exam is stored on the other LEWIS procedure. Please see the other line in chart review for the result. Nicolas Madrid MD CV CARDIAC CATH C UPID PROCS * (ABNORMAL) CBC W AUTO DIFFERENTIAL (11/07/2023 10:29 AM [employer]) Only the most recent of3 resultswithin the time period is included. WBC 9.1 4.0 - 10.7 x10E9/L 11/07/2023 10:39 AM [facility] RBC Count 3.95 3.90 - 5.20 x10E12/L 11/07/2023 10:39 AM [facility] Hemoglobin 13.7 11.9 - 15.8 g/dL 11/07/2023 10:39 AM [facility] Hematocrit 39.8 34.8 - 46.1 % 11/07/2023 10:39 AM [facility] MCV 100.8(H) 80.0 - 98.0 fL 11/07/2023 10:39 AM [facility] MCH 34.7(H) 26.7 - 33.6 pg 11/07/2023 10:39 AM [facility] MCHC 34.4 31.7 - 36.3 g/dL 11/07/2023 10:39 AM [facility] RDW-CV 12.5 11.3 - 14.8 % 11/07/2023 10:39 AM [facility] Platelet Count 206 150 - 420 x10E9/L 11/07/2023 10:39 AM [facility] MPV 11.2 7.8 - 11.4 fL 11/07/2023 10:39 AM [facility] Neutrophil % 70.2 41.0 - 74.0 % 11/07/2023 10:39 AM [facility] Lymphocyte % 18.6 17.0 - 47.0 % 11/07/2023 10:39 AM [facility] Monocyte % 7.8 3.0 - 11.0 % 11/07/2023 10:39 AM [facility] Eosinophil % 2.4 0.0 - 7.0 % 11/07/2023 10:39 AM [facility] Basophil % 0.8 0.0 - 1.6 % 11/07/2023 10:39 AM [facility] Immature Granulocytes % 0.2 0.0 - 1.0 % 11/07/2023 10:39 AM [facility] Neutrophil Absolute 6.36 1.60 - 7.50 x10E9/L 11/07/2023 10:39 AM [facility] Lymphocyte Absolute 1.69 1.00 - 4.40 x10E9/L 11/07/2023 10:39 AM [facility] Monocyte Absolute 0.71 0.15 - 1.00 x10E9/L 11/07/2023 10:39 AM [facility] Eosinophil Absolute 0.22 0.00 - 0.60 x10E9/L 11/07/2023 10:39 AM [facility] Basophil Absolute 0.07 0.00 - 0.13 x10E9/L 11/07/2023 10:39 AM [facility] Blood BLOOD SPECIMEN / Unknown Venipuncture / Unknown 11/07/2023 10:29 AM [facility] 11/07/2023 10:36 AM [facility] Gaston Ramesh MD LAB - HEMATOLOGY ORD ERABLES [facility] [address] [id number] * (ABNORMAL) BASIC METABOLIC PANEL (CALCIUM TOTAL) (11/07/2023 10:29 AM [facility]) Only the most recent of5 resultswithin the time period is included. Glucose 90 70 - 105 mg/dL 11/07/2023 10:54 AM [facility] Sodium 138 136 - 145 mmol/L 11/07/2023 10:54 AM [facility] Potassium 4.2 3.5 - 5.1 mmol/L 11/07/2023 10:54 AM [facility] Chloride 104 98 - 107 mmol/L 11/07/2023 10:54 AM [facility] CO2 25 22 - 29 mmol/L 11/07/2023 10:54 AM [facility] Calcium 9.5 8.4 - 10.4 mg/dL 11/07/2023 10:54 AM [facility] Anion Gap 9 6 - 16 mmol/L 11/07/2023 10:54 AM [facility] BUN 14 7 - 26 mg/dL 11/07/2023 10:54 AM [facility] [facility] Creatinine 0.85 0.57 - 1.11 mg/dL 11/07/2023 10:54 AM [employer] eGFR by CKD-EPI 71(L) >=90 mL/min/1.7 3 m2 11/07/2023 10:54 AM [employer] Blood BLOOD SPECIMEN / Unknown Venipuncture / Unknown 11/07/2023 10:29 AM [employer] 11/07/2023 10:36 AM [employer] Gaston Ramesh MD LAB - CHEMISTRY [facility] Organization Address City/State/ZIP Co de Phone Number [facility] [address] [place] [address] * ECHO COMPLETE W CONTRAST (11/06/2023 1:57 PM [employer]) LV biplane EF 76 54 - 74 % [facility] CV FUJI PACS LV A2C EF 80 52 - 76 % [facility] CV FUJ I PACS LV A4C EF 72 46 - 78 % [facility] CV FUJ I PACS LV stroke vol BP 47.1 mL SSM CV FUJI PACS LVOT stroke vol 45.65 mL SSM CV FUJI PACS LV stroke vol 2D teich 30.218 ml SSM CV FUJI PACS LV stroke vol index A4C MOD 50.317 ml/m2 SSM CV FUJI PACS LVIDd 3.47 3.8 - 5.2 cm SSM CV FUJI PACS IVSd MM 1.868 0.6 - 0.9 cm SSM CV FUJI PACS LVIDs 2.37 2.2 - 3.5 cm SSM CV FUJI PACS IVSd 2D 1.082 0.6 - 0.9 cm SSM CV FUJI PACS LVPWd 1.10 0.6 - 0.9 cm SSM CV FUJI PACS Fractional Shortening 2D 33 28 - 44 % [facility]SM CV FUJI PACS LV ESV BP 14.806 14 - 42 mL SSM CV FUJI PACS LV ESV A2C 19.26 10 - 54 mL SSM CV FUJI PACS LV EDV BP 61.895 46 - 106 mL SSM CV FUJI PACS LV ESV A4C 10.3 12 - 60 mL SSM CV FUJI PACS LV EDV A2C 52.468 41 - 133 mL SSM CV FUJI PACS LV EDV A4C 69.576 mL SSM CV FU JI PACS LV ESV 2D 19.512 14 - 42 mL SSM CV FUJI PACS LV EDV 2D 49.73 46 - 106 mL SSM CV FUJI PACS LVOT diam 1.8 cm SSM CV FUJ I PACS LVOT area 2.66 cm2 SSM CV [facility] I PACS LV RWT 0.632 SSM CV [facility] I PACS LV Philippe A4C 7.037 cm SSM CV F UJI PACS IVS/LVPW 0.986 SSM CV [facility] I PACS Fractional Shortening M-Mode 32 28 - 44 % SSM CV [facility] I PACS LV mass m-mode 649.193 67 - 162 g SSM CV FUJI PACS LV mass 2D 115.6 66 - 150 g [facility] MV E pk papo 75.484 cm/s SSM CV F UJI PACS MV avg E/e' ratio 16.99 SS M CV FUJI PACS MV A pk papo 62.07 cm/s SSM CV F UJI PACS MV E A ratio 1.22 SSM CV FUJI PACS MV E' lateral papo 5.247 cm/s SS M CV FUJI PACS MV E' septal papo 3.854 cm/s SSM CV FUJI PACS MV E/e' septal 19.588 SSM C V FUJI PACS MV E/e' lateral 14.387 [facility] LV[facility] pk papo 0.85 m/s SSM CV F UJI PACS LVOT Cardiac Output 2.658 l/min SSM CV FUJI PACS LA vol BP A-L 56.48 mL [facility] RA area 13.522 cm2 SSM CV [facility] I PACS AV pk papo 1.51 m/s SSM CV [facility] I PACS AV VTI 37.875 cm SSM CV FUJ I PACS LVOT VTI 17.146 cm SSM CV [facility] I PACS AV area cont VTI 1.2 cm2 [facility] area pk papo 1.5 cm2 SSM C V FUJI PACS AV Doppler papo index pk appo 0.564 SSM CV FUJI PACS Dimensionless Index 0.453 SSM CV FUJI PACS NM pk grad 12 mmHg SSM CV FU JI PACS [id number] 5.592 cm SSM CV FUJ I PACS EF M-Mode 55 % SSM CV FUJ I PACS LA Size 5.481 cm SSM CV FUJ I PACS LV Philippe A2C 6.657 cm SSM CV F UJI PACS MV DT 207 ms SSM CV FUJ I PACS TR pk papo 239.1 cm/s SSM CV FUJ I PACS LVOT mn papo 0.55 m/s SSM CV F UJI PACS LVOT mn grad 1.4 mmHg SSM CV FUJI PACS TAPSE 1.492 1.7 cm SSM CV FUJ I PACS AV mn grad 5 mmHg SSM CV FU JI PACS AV pk grad 9 mmHg SSM CV FU JI PACS AV mn papo 1.10 m/s SSM CV FUJ I PACS LVOT pk grad 2.892 mmHg SSM CV FUJI PACS MV decel slope 365.506 cm/s2 SSM C V FUJI PACS TR pk grad 23 mmHg SSM CV FU JI PACS NM pk papo 193.277 cm/s SSM CV FUJ I PACS PV pk papo 78.321 cm/s SSM CV FUJ I PACS PV pk grad 2 mmHg SSM CV FU JI PACS [id number] 5.023 cm SSM CV FUJ I PACS Anatomical Region Laterality Modality Ultrasound Narrative 11/06/2023 3:00 PM [employer] Left Ventricle: Left ventricle size is normal. Normal wall thickness. Normal systolic function with a visually estimated EF of 65 - 70%. Normal wall motion. Normal diastolic function. Left Ventricle Left ventricle size is normal. Normal wall thickness. Normal systolic function with a visually estimated EF of 65 - 70%. Normal wall motion. Normal diastolic function. Right Ventricle Right ventricle size is normal. Normal systolic function. Left Atrium Left atrium is dilated. Right Atrium Right atrium size is normal. IVC/SVC IVC diameter is less than or equal to 21 mm and decreases greater than 50% during inspiration; therefore the estimated right atrial pressure is normal (~3 mmHg). Mitral Valve Valve structure is normal. No restricted motion. No regurgitation. No stenosis. Tricuspid Valve Valve structure is normal. No restricted motion. Trace regurgitation. No stenosis. Aortic Valve Valve structure is trileaflet. No restricted motion. No regurgitation. No stenosis. Pulmonic Valve Valve structure is normal. No restricted motion. No regurgitation. No stenosis. Ascending Aorta Normal sized sinus of Valsalva (aortic root) and ascending aorta. Pericardium No pericardial effusion. Study Details Study quality was poor. A complete 2D, color Doppler, spectral Doppler and M- mode echocardiogram was performed. The apical, parasternal, subcostal and suprasternal views were obtained. Definity ultrasound enhancing agent used. Technical difficulties due to poor acoustic windows and patient positioning. Procedure Note Valeriy Baig MD - 11/06/2023 Left Ventricle: Left ventricle size is normal. Normal wall thickness.Normal systolic function with a visually estimated EF of 65 - 70%. Normalwall motion. Normal diastolic function. Viktoria Park MD ECHO CUPID * VAS CAROTID DUPLEX BILATERAL (11/05/2023 9:55 AM [employer]) Anatomical Region Laterality Modality Neck Ultrasound 11/05/2023 9:22 AM [employer] Narrative Procedure Note Chema Duque MD - 11/05/[address] [address] Carotid Duplex Report Pat.Name: ANIYAH CLIFFORD Pat.ID: [id number] .Date: 11/05/2023 Exam Time: 9:22:00 AM Study Type:Carotid Age: 11 1950,73Y Sex: FEMALE Sonogrphr: Naldo Ly RVT Pat. Stat.:Inpatient Room: 744 Bed 01 Reason for Study: Acute encephalopathy, CVA due to thrombosis of precerebral artery Procedures: Carotid Duplex - Bilateral Race: 1 Visit ID: [id number] ++++++++++++++++++++++++++++++++++++ SUMMARY: ++++++++++++++++++++++++++++++++++++ 1. Less than 50% stenosis bilaterally of the internal carotid arteries. 2. Antegrade flow in the vertebral arteries bilaterally. There is however irregular heterogenous plaque identified in both carotid arteries. ++++++++++++++++++++++++++++++++++++ FINDINGS: ++++++++++++++++++++++++++++++++++++ Procedure: The extracranial carotid systems were examined bilaterally with duplex and color flow imaging as well as spectral Doppler analysis. Study Quality: This study is of adequate technical quality. Rt CCA: Calcified plaque visualized within the mid common carotid artery. There is irregular,heterogenous plaque in the common carotid artery. Rt Bulb: Calcified plaque noted in right bulb. There is irregular, heterogenous plaque in the bulb. Rt ICA: Calcified plaque visualized within the proximal right ICA. There is irregular, heterogenous plaque in the proximal ICA. Rt Vert: Antegrade flow within the right vertebral Artery. Lt CCA: There is smooth, heterogenous plaque in the distal common carotid artery. Lt Bulb: Calcified plaque noted in left bulb. There is irregular, heterogenous plaque in the bulb. Lt ICA: Calcified plaque visualized within the proximal left ICA. There is irregular, heterogenous plaque in the proximal ICA. Lt Vert: Antegrade flow within the left vertebral Artery. Carotid Findings: Right Left Verteb.Flw Antegrade Antegrade ++++++++++++++++++++++++++++++++++++ MEASUREMENTS: ++++++++++++++++++++++++++++++++++++ DOPPLER Left CCA Dist CCA Dist PSV 83.9 cm/s CCA Dist EDV 16.5 cm/s Left CCA Mid CCA Mid PSV 90.9 cm/s CCA Mid EDV 13.3 cm/s Left CCA Prox CCA Prox PSV 89.4 cm/s CCA Prox EDV 18.8 cm/s Left ECA ECA PSV 157 cm/s Left ICA Dist ICA Dist PSV 108 cm/s ICA Dist EDV 30 cm/s Left ICA Mid ICA Mid PSV 90.4 cm/s ICA Mid EDV 18.9 cm/s Left ICA Prox ICA Prox PSV 119 cm/s ICA Prox EDV 34 cm/s Left ICA/CCA ICA/CCA PSV 1.31 Left Vertebral Vertebral PSV 83.2 cm/s Vertebral EDV 19.9 cm/s Right CCA Dist CCA Dist PSV 77.7 cm/s CCA Dist EDV 19.9 cm/s Right CCA Mid CCA Mid PSV 64 cm/s CCA Mid EDV 16.8 cm/s Right CCA Prox CCA Prox PSV 74.6 cm/s CCA Prox EDV 15.5 cm/s Right ECA ECA PSV 244 cm/s Right ICA Dist ICA Dist PSV 108 cm/s ICA Dist EDV 25.1 cm/s Right ICA Mid ICA Mid PSV 83.4 cm/s ICA Mid EDV 23.1 cm/s Right ICA Prox ICA Prox PSV 53.1 cm/s ICA Prox EDV 12.3 cm/s Right ICA/CCA ICA/CCA PSV 0.83 Right Vertebral Vertebral PSV 38 cm/s Vertebral EDV 14.9 cm/s Signed 11/05/2023 03:36 PM Chema Duque MD Ang Delacruz MD VASCULAR LAB ORDERAB LES * PHOSPHORUS BLOOD (11/04/2023 10:45 AM [employer]) [facility] Phosphorus 4.3 2.3 - 4.7 mg/dL 11/04/2023 11:09 AM [facility] [facility] Blood BLOOD SPECIMEN / Unknown Venipuncture / Unknown 11/04/2023 10:45 AM [employer] 11/04/2023 10:51 AM [employer] Viktoria Park MD LAB - CHEMISTRY ORDERABLES [facility] [address] [place] [address] * MAGNESIUM BLOOD (11/04/2023 10:45 AM [employer]) Only the most recent of3 resultswithin the time period is included. Magnesium 1.9 1.6 - 2.6 mg/dL 11/04/2023 11:09 AM [facility] Blood BLOOD SPECIMEN / Unknown Venipuncture / Unknown 11/04/2023 10:45 AM [employer] 11/04/2023 10:51 AM [employer] Viktoria Park MD LAB - CHEMISTRY ORDERABLES [facility] [address] [place] [address] * MRI BRAIN WO CONTRAST (11/01/2023 5:22 PM [employer]) Anatomical Region Laterality Modality Head Magnetic Resonan ce 11/01/2023 5:29 PM [employer] Impressions 11/01/2023 5:38 PM [employer] IMPRESSION: 1.A small focus of restricted diffusion is seen at the right basal ganglia consistent with acute to subacute infarct 2.Punctate focus of restricted diffusion is seen within the left temporal parietal region concerning for acute to subacute infarct. 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 > Interpreting Provider: Shannon Acosta MD on 11/01/2023 5:38 PM Narrative 11/01/2023 5:38 PM [employer] PROCEDURE(s): MRI BRAIN WO CONTRAST DATE AND TIME OF EXAM(s): 11/01/2023 5:26 PM INDICATION(s): F10.939: Alcohol use, unspecified with withdrawal, unspecified ([facility]) G93.40: Encephalopathy, unspecified COMPARISON(s): CT of the head dated 10/28/2023. TECHNIQUE: MRI of the brain was performed without contrast administration utilizing DWI, T1 weighted, T2-weighted, FLAIR, and gradient sequences. FINDINGS: There is a small focus of restricted diffusion within the right basal ganglia consistent with acute to subacute infarct. A punctate focus of restricted diffusion is seen within the left temporal parietal region concerning for acute subacute infarct. There is moderate degree of periventricular and subcortical white matter T2/FLAIR hyperintensity consistent with chronic microangiopathy. The ventricles and sulci are unremarkable. There is no evidence of mass effect, midline shift or basal cistern effacement. There is no intra-or extra-axial fluid collection. The proximal intracranial flow voids are visualized. The orbital contents are unremarkable bilaterally. The paranasal sinuses and mastoid air cells are grossly aerated. Procedure Note Shannon Acosta MD - 11/01/2023 PROCEDURE(s): MRI BRAIN WO CONTRAST DATE AND TIME OF EXAM(s): 11/01/2023 5:26 PM INDICATION(s): F10.939: Alcohol use, unspecified with withdrawal, unspecified (CMS-HCC) G93.40: Encephalopathy, unspecified COMPARISON(s): CT of the head dated 10/28/2023. TECHNIQUE: MRI of the brain was performed without contrastadministration utilizing DWI, T1 weighted, T2-weighted, FLAIR, and gradient sequences. FINDINGS: There is a small focus of restricted diffusion within theright basal ganglia consistent with acute to subacute infarct. A punctatefocus of restricted diffusion is seen within the left temporal parietal region concerning for acute subacute infarct. There is moderate degree of periventricular and subcortical white matter T2/FLAIR hyperintensity consistent with chronic microangiopathy. The ventricles and sulci are unremarkable. There is no evidence of mass effect, midline shift orbasal cistern effacement. There is no intra-or extra-axial fluid collection. The proximal intracranial flow voids are visualized. The orbital contents are unremarkable bilaterally. The paranasal sinuses and mastoid air cells are grossly aerated. IMPRESSION: 1.A small focus of restricted diffusion is seen at the right basalganglia consistent with acute to subacute infarct 2.Punctate focus of restricted diffusion is seen within the lefttemporal parietal region concerning for acute to subacute infarct. 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 > Interpreting Provider: Shannon Acosta MD on 11/01/2023 5:38 PM Viktoria Park MD MR ORDERABLES * HEMOGLOBIN A1C (10/29/2023 12:49 PM [employer]) Hemoglobin A1c 4.8 <5.7 % 10/29/2023 1:04 PM [employer] [facility] Estimated Average Glucose 91 mg/dL 10/29/2023 1:04 PM [employer] [facility] Blood BLOOD SPECIMEN / Unknown Venipuncture / Unknown 10/29/2023 12:49 PM [employer] 10/29/2023 12:53 PM [employer] Narrative [facility] - 10/29/2023 1:04 PM [employer] HbA1c Interpretation: Normal: < 5.7% Pre-diabetes: 5.7-6.4% Diabetes: Equal to or greater than 6.5% Test results diagnostic of diabetes should be repeated for confirmation. Treatment target values recommended by ADA and other clinical organizations should be used to evaluate metabolic control in patients. This test should not replace glucose testing for patients with Type 1 diabetes, pediatric patients, or women. Falsely low HbA1c results may be observed in patients with clinical conditions that shorten erythrocyte life span or decrease mean erythrocyte age such as the presence of unstable hemoglobin variants, elevated hemoglobin F level or other causes of hemolytic anemia. HbA1c may not accurately reflect glycemic control when clinical conditions that affect erythrocyte survival are present. Severe Iron deficiency anemia may yield falsely high results. Hemoglobin A1c assay should not be used to diagnose or monitor diabetes in patients with malignancy, recent blood transfusion, chronic kidney or liver disease. This method may yield falsely low results when hemoglobin (HbF) exceeds 5% in the specimen. The [employer]ity assay for the measurement of HbA1c is a National Glycohemoglobin Standardization Program (NGSP) certified method. Niharika Phelps [facility] - CHEMISTRY ORDERABLES Performing Organization Address [facility] Co de Phone Number [address] [address] * (ABNORMAL) FOLATE (10/29/2023 12:49 PM [employer]) [facility] Folate 4.2(L) 7.0 - 31.4 ng/mL 10/29/2023 1:45 PM [employer] [facility] Blood BLOOD SPECIMEN / Unknown Venipuncture / Unknown 10/29/2023 12:49 PM [employer] 10/29/2023 12:53 PM [employer]ER Niharika Phelps [facility] - CHEMISTRY ORDERABLES Performing Organization Address [facility] Co de Phone Number [facility] [address] [place] [address] * VITAMIN B12 (10/29/2023 12:49 PM [employer]) Vitamin B12 245 213 - 816 pg/mL 10/29/2023 1:45 PM [employer] [facility] Blood BLOOD SPECIMEN / Unknown Venipuncture / Unknown 10/29/2023 12:49 PM [employer] 10/29/2023 12:53 PM [employer] Niharika Phelps [employer]SEMBLER-SLABBING MACHINE OPERATOR LAB - CHEMISTRY ORDERABLES Performing Organization Address City/[facility]/ZIP Co de Phone Number [facility] [address] [place] [phone] * AMMONIA (10/29/2023 12:49 PM [employer]ER) Pathologist [facility] Ammonia 21 18 - 72 umol/L 10/29/2023 1:07 PM [employer]ISHER [facility] Blood BLOOD SPECIMEN / Unknown Venipuncture / Unknown 10/29/2023 12:49 PM [employer]ER 10/29/2023 12:53 PM [employer]ER Niharika Phelps [employer] ASSEMBLER-[facility] LAB - CHEMISTRY ORDERABLES Performing Organization Address [facility] Co de Phone Number [facility] [address] [place] [phone] * TSH REFLEX FREE T4 (10/29/2023 4:44 AM [employer]ER) Pathologist [facility] TSH 3.751 0.350 - 4.940 uIU/mL 10/29/2023 11:12 AM [employer] [facility] Blood BLOOD SPECIMEN / Unknown Venipuncture / Unknown 10/29/2023 4:44 AM [employer]ISHER 10/29/2023 4:51 AM [employer]ER Niharika Phelps [employer] ASSEMBLER-[facility] LAB - CHEMISTRY ORDERABLES Performing Organization Address [facility] Co de Phone Number [facility] [address] [place] [phone] * (ABNORMAL) RENAL FUNCTION PANEL (10/29/2023 4:44 AM [employer]ER) Only the most recent of2 resultswithin the time period is included. Glucose 100 70 - 105 mg/dL 10/29/2023 5:19 AM [facility] Sodium 139 136 - 145 mmol/L 10/29/2023 5:19 AM [facility] Potassium 3.2(L) 3.5 - 5.1 mmol/L 10/29/2023 5:19 AM [facility] Chloride 107 98 - 107 mmol/L 10/29/2023 5:19 AM [facility] CO2 22 22 - 29 mmol/L 10/29/2023 5:19 AM [facility] Calcium 8.8 8.4 - 10.4 mg/dL 10/29/2023 5:19 AM [facility] Anion Gap 10 6 - 16 mmol/L 10/29/2023 5:19 AM [facility] BUN 8 7 - 26 mg/dL 10/29/2023 5:19 AM [facility] Creatinine 0.77 0.57 - 1.11 mg/dL 10/29/2023 5:19 AM [facility] Albumin 3.0(L) 3.4 - 5.0 gm/dL 10/29/2023 5:19 AM [facility] Phosphorus 3.2 2.3 - 4.7 mg/dL 10/29/2023 5:19 AM [facility] eGFR by CKD-EPI 80(L) >=90 mL/min/1.7 3 m2 10/29/2023 5:19 AM [facility] Blood BLOOD SPECIMEN / Unknown Venipuncture / Unknown 10/29/2023 4:44 AM [employer] 10/29/2023 4:51 AM [facility] Rudi Armendariz MD LAB - CHEMISTRY [facility] [address] [place] [address] * (ABNORMAL) LIPID PROFILE (10/29/2023 4:44 AM [facility]) Cholesterol 179 <200 mg/dL 10/29/2023 10:53 AM [facility] Triglycerides 143 <150 mg/dL 10/29/2023 10:53 AM [facility] HDL Cholesterol 40(L) >40 mg/dL 4 10:53 AM [facility] LDL Calculated 110 <130 mg/dL 10/29/2023 10:53 AM [facility] VLDL Calculated 29 <=30 mg/dL 4 10:53 AM [facility] Chol HDL Ratio 4.5(H) <4.5 10/29/2023 10:53 AM [facility] LDL/HDL Ratio 2.8 <5.0 10/29/2023 10:53 AM [facility] Blood BLOOD SPECIMEN / Unknown Venipuncture / Unknown 10/29/2023 4:44 AM [employer] 10/29/2023 4:51 AM [facility] Niharika Martinez Lenin [employer] ASSEMBLER-SLABBING MACHINE OPERATOR LAB - CHEMISTRY ORDERABLES [facility] [address] [place] [address] * EEG (10/28/2023 9:17 PM [employer]ER) Narrative PS[facility]RIC [facility]QU[facility] - 10/28/2023 9:17 PM [employer] Cristopher Flood MD 10/28/2023 9:19 PM [facility] [address] [facility] [address] Electroencephalogram Aniyah Clifford 10/28/2023 Indication: Aniyah Clifford is a 73 year old female who presents with AMS. Current Facility-Administered Medications Medication 0.9% NaCl injection 3 mL And 0.9% NaCl injection 1-10 mL acetaminophen (Tylenol) tablet 650 mg dextrose 5 % and 0.45% NaCl infusion heparin injection 5,000 Units hydrALAZINE (Apresoline) injection 10 mg LORazepam (Ativan) injection 1 mg thiamine (Vitamin B-1) injection 100 mg Procedure: Pt is drowsy and moving during the recording. A 16 channel EEG was performed in the International 10-20 system. One lead of EKG records a regular rate of 72 bpm. The technical quality is good. The background rhythm is slowed in the range of 3-4 hertz. Voltages range from 20-45 microvolts. Hyperventilation and photic stimulation was not performed . There are no epileptiform discharges identified. No asymmetrical activity was seen. Impression: This is an abnormal electroencephalogram. Diffuse slowing may be seen due to any cause of a metabolic encephalopathy. Considerations include ischemic, medication-induced, infectious, and neurodegenerative processes. Clinical correlation is recommended. Cristopher Flood MD PhD Rudi Armendariz MD NEUROLOGY ORDERABLES [facility] * CT HEAD WO CONTRAST (10/28/2023 2:53 PM [employer]ER) Anatomical Region Laterality Modality Head Computed Tomogra phy 10/28/2023 2:58 PM [employer]ER Impressions 10/28/2023 2:59 PM [employer]ER IMPRESSION: 1.No acute intracranial abnormalities. 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 3.Chronic left lacunar infarct. > Interpreting Provider: Shannon Acosta MD on 10/28/2023 2:59 PM Narrative 10/28/2023 2:59 PM [employer] PROCEDURE(s): CT HEAD WO CONTRAST DATE AND TIME OF EXAM(s): 10/28/2023 2:53 PM INDICATION(s): G93.40: Encephalopathy, unspecified. COMPARISON(s): None available. TECHNIQUE: CT of the head was performed from the skull base to the vertex without contrast administration. Multiplanar reconstructions were reviewed. One or more of the following CT dose reduction techniques were utilized: - Automated Exposure Control (AEC) - Adjustment of mA and/or kV according to patient size - Iterative Reconstruction - ALARA or ALARA/IMAGE GENTLY FINDINGS: There is no visible soft tissue trauma or skull fracture. There is no acute intracranial hemorrhage, midline shift, mass effect, or intra-axial or extra-axial fluid collection. Early-white matter differentiation is preserved. There is no evidence of acute cortical infarct. There is moderate degree of periventricular and subcortical white matter hypodensity consistent with chronic microangiopathy. There is a chronic left lacunar infarct. The ventricles and sulci are unremarkable. The basal cisterns are patent. The orbital contents are unremarkable bilaterally. The visualized paranasal sinuses and mastoid air cells are clear. Procedure Note Shannon Acosta MD - 10/28/2023 PROCEDURE(s): CT HEAD WO CONTRAST DATE AND TIME OF EXAM(s): 10/28/2023 2:53 PM INDICATION(s): G93.40: Encephalopathy, unspecified. COMPARISON(s): None available. TECHNIQUE: CT of the head was performed from the skull base to thevertex without contrast administration. Multiplanar reconstructions werereviewed. One or more of the following CT dose reduction techniques were utilized: - Automated Exposure Control (AEC) - Adjustment of mA and/or kV according to patient size - Iterative Reconstruction - ALARA or ALARA/IMAGE GENTLY FINDINGS: There is no visible soft tissue trauma or skull fracture. There is noacute intracranial hemorrhage, midline shift, mass effect, or intra-axial or extra-axial fluid collection. Early-white matter differentiation is preserved. There is no evidence of acute cortical infarct. There is moderate degree of periventricular and subcortical white matterhypodensity consistent with chronic microangiopathy. There is a chronic left lacunar infarct. The ventricles and sulci are unremarkable. The basal cisternsare patent. The orbital contents are unremarkable bilaterally. The visualizedparanasal sinuses and mastoid air cells are clear. IMPRESSION: 1.No acute intracranial abnormalities. 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 3.Chronic left lacunar infarct. > Interpreting Provider: Shannon Acosta MD on 10/28/2023 2:59 PM Rudi Armendariz MD CT ORDERABLES * (ABNORMAL) URINE MICROSCOPIC ONLY REFLEX TO CULTURE (10/27/2023 1:41 PM [employer]ER) Reflex Status Culture not indicated 10/27/2023 2:15 PM [facility] [facility] RBC UA 3-5 0 - 5 # /hpf 10/27/2023 2:15 PM [employer]ISH[employer] [facility] WBC UA 0-5 0 - 5 # /hpf 10/27/2023 2:15 PM [employer] [facility] Bacteria UA None Seen None Seen 10/27/2023 2:15 PM [employer] [facility] Squamous Epithelial Cells 0-2 0 - 5 /hpf 10/27/2023 2:15 PM [employer] [facility] Mucus UA 1+ /LPF 10/27/2023 2:15 PM [employer] [facility] Hyaline Casts 3-5(A) 0 - 2 /LPF 10/27/2023 2:15 PM [employer]ISH[employer] [facility] Urine URINE SPECIMEN OBTAINED BY CLEAN CATCH PROCEDURE / Unknown Collection / Unknown 10/27/2023 1:41 PM [employer] POLISHER 10/27/2023 2:05 PM [employer] POLISHER Narrative [facility] - 10/27/2023 2:15 PM [employer]ER Rudi Armendariz MD LAB - URINALYSIS ORD ERABLES [facility] [address] [place] [address] * (ABNORMAL) URINALYSIS REFLEX MICROSCOPIC REFLEX CULTURE (10/27/2023 1:41 PM [employer]ER) Color UA Yellow Straw, Yellow 10/27/2023 2:12 PM [employer]ISHER [facility] Clarity UA Clear Clear 10/27/2023 2:12 PM [employer]ISHER [facility] Glucose UA Negative Negative 10/27/2023 2:12 PM [employer]ISHER [facility] Bilirubin UA Negative Negative 10/27/2023 2:12 PM [employer]ISHER [facility] Ketone UA Trace(A) Negative 10/27/2023 2:12 PM DI[employer] D[employer] POLISHER [facility] Specific [place] UA 1.016 1.005 - 1.030 10/27/2023 2:12 PM [facility] Blood UA 1+(A) Negative 10/27/2023 2:12 PM [employer] POLISHER [facility] pH UA 7.0 5.0 - 8.0 pH 10/27/2023 2:12 PM [employer]ISHER [facility] Protein UA 1+(A) Negative 10/27/2023 2:12 PM [employer]ISHER [facility] Urobilinogen UA Negative Negative mg/dL 10/27/2023 2:12 PM [employer]ISHER [facility] Nitrite UA Negative Negative 10/27/2023 2:12 PM [employer]ISHER [facility] Leukocyte UA Negative Negative 10/27/2023 2:12 PM [facility] Urine Microscopy Urine microscopy to follow 10/27/2023 2:12 PM [facility] Reflex Status Culture not indicated 10/27/2023 2:12 PM [facility] Urine URINE SPECIMEN OBTAINED BY CLEAN CATCH PROCEDURE / Unknown Collection / Unknown 10/27/2023 1:41 PM [employer]ISHER 10/27/2023 2:05 PM DI[employer] DIE POLISHER Narrative [facility]IC LAB[facility] - 10/27/2023 2:12 PM [employer]ISHER Rudi Armendariz MD LAB - URINALYSIS ORD ERABLES Performing Organization Address [facility] de Phone Number PS[facility]IATRIC LABORATORY [id number] [place] [phone] * (ABNORMAL) DRUG ABUSE URINE PANEL (10/27/2023 1:41 PM DI[employer] POLISHER) [facility] Amphetamines Screen Urine Not detected Not detected 10/27/2023 2:28 PM [employer]IE POLISHER [facility] Barbiturates Screen Urine Not detected Not detected 10/27/2023 2:28 PM DI[employer] DIE POLISHER [facility] Benzodiazepines Screen Urine Detected(A) Not detected 10/27/2023 2:28 PM DI[employer] DIE POLISHER [facility] Cocaine Screen Urine Not detected Not detected 10/27/2023 2:28 PM DI[employer] DIE POLISHER [facility] Fentanyl Urine Not detected Not detected 10/27/2023 2:28 PM DI[employer] DIE POLISHER [facility] Methadone Screen Urine Not detected Not detected 10/27/2023 2:28 PM DI[employer] DIE POLISHER [facility] Opiate Screen Urine Not detected Not detected 10/27/2023 2:28 PM DI[employer] DIE POLISHER [facility] Phencyclidine Screen Urine Not detected Not detected 10/27/2023 2:28 PM DI[employer] DIE POLISHER [facility] Urine URINE / Unknown Collection / Unknown 10/27/2023 1:41 PM [employer]IE POLISHER 10/27/2023 2:[address] [facility] - 10/27/2023 2:28 PM DI[employer] D[employer] POLISHER This drug screen is designed for MEDICAL purposes only. It is not to be used for legal purposes, including but not limited to worker's comp, police investigations, occupational issues, child custody, etc. Any positive result is only presumptive and must be confirmed with a separate confirmatory test ordered by the physician. Drug Screening Test Cutoff Values: AMPHETAMINES 1000 ng/mL BARBITURATES 200 ng/mL BENZODIAZEPINES 200 ng/mL COCAINE 300 ng/mL FENTANYL 1 ng/mL METHADONE 300 ng/mL OPIATES 300 ng/mL PHENCYCLIDINE(PCP) 25 ng/mL Rudi Armendariz MD LAB - URINE CHEMISTR Y ORDERABLES Performing Organization Address [facility] Co de Phone Number PS[facility]IATRIC LABORATORY [address] [place] [address] * (ABNORMAL) CBC W/O DIFFERENTIAL (10/27/2023 3:54 AM DI[employer] D[employer] POLISHER) WBC 11.7(H) 4.0 - 10.7 x10E9/L 10/27/2023 4:08 AM [facility] RBC Count 4.42 3.90 - 5.20 x10E12/L 10/27/2023 4:08 AM [facility] Hemoglobin 15.2 11.9 - 15.8 g/dL 10/27/2023 4:08 AM [facility] Hematocrit 43.2 34.8 - 46.1 % 10/27/2023 4:08 AM [facility] MCV 97.7 80.0 - 98.0 fL 10/27/2023 4:08 AM [facility] MCH 34.4(H) 26.7 - 33.6 pg 10/27/2023 4:08 AM [facility] MCHC 35.2 31.7 - 36.3 g/dL 10/27/2023 4:08 AM [facility] RDW-CV 13.1 11.3 - 14.8 % 10/27/2023 4:08 AM [facility] Platelet Count 217 150 - 420 x10E9/L 10/27/2023 4:08 AM [facility] MPV 10.6 7.8 - 11.4 fL 10/27/2023 4:08 AM [facility] Blood BLOOD SPECIMEN / Unknown Venipuncture / Unknown 10/27/2023 3:54 AM [employer]IE POLISHER 10/27/2023 4:00 AM [employer]ER Almita Cordova MD LAB - HEMATOLOGY ORD ERABLES [facility] [address] [place] [address] Care Teams Scout Professional Sports Relationship Specialty Start Date End Date Bree Walsh MD [address] [place] [id number] PCP - General 02/07/19
--- OUTSIDE RECORDS SUMMARY | 2024-11-20 10:59 | XMS_ITS | Referral Summary ---
Author Organization [facility] Address [address] [place] [address] Care Team Providers Care Fountain Vending Mechanic Name Role Phone Bree Walsh MD Primary Care Provider [phone] Source Comments [facility],non-owned Affiliates and Associated Physician Practices is amultiple site organization consisting of ambulatory clinics and hospital sitesin [place], [place], [place] and [place]. This disclosure is being madepursuant to the Care Everywhere program and may not contain all information available regarding this patient. Last updated 18.[facility] Allergies Active Allergy Reactions Criticality Noted Date Comments Penicillins Anaphylaxis High 11/08/2023 Medications * Be aware that medications may not be up to date on this document. Alwaysverify current medications with the patient. Medication Sig Dispensed Refills Start Date End Date Status amLODIPine (Norvasc) 5 MG tablet Take 1 (one) tablet by mouth once daily Active omeprazole (PriLOSEC) 20 MG capsule Take 1 (one) capsule by mouth once daily Active docusate sodium (Colace) 100 MG capsule Take 1 (one) capsule by mouth 2 times daily as needed for Constipation Active apixaban (Eliquis) 5 MG tablet Take 1 (one) tablet by mouth 2 times daily 11/14/2023 Active atorvastatin (Lipitor) 40 MG tablet Take 1 (one) tablet by mouth once daily 11/15/2023 Active propranolol ER 24hr (Inderal LA) 60 MG capsule Take 1 (one) capsule by mouth once daily 11/15/2023 Active folic acid (Folvite) 1 MG tablet Take 3 (three) tablets by mouth once daily 11/15/2023 Active senna-docusate (Senokot-S) 8.6-50 MG tablet Take 1 (one) tablet by mouth once daily 11/15/2023 Active thiamine (Vitamin B-1) 100 MG tablet Take 1 (one) tablet by mouth once daily 11/15/2023 Active Active Problems Problem Noted Date Diagnosed Date [...] Recorded Patient Health Questionnaire-2 Score 0 11/07/2023 [facility] [place] of Occupat ional Health - Occupational Stress [...] place to sleep or slept in a skilled nursing (including now)? No 10/31/2023 Sex and Gender Information Value Date Recorded Sex Assigned at Not on file Gender Identity Not on file Sexual Orientation Not on file Last Filed Vital Signs Vital Sign Reading Time Taken Comments Blood Pressure 162/83 11/14/2023 7:43 AM MANAGER DRILLING Pulse 74 11/14/2023 7:43 AM MANAGER DRILLING Temperature 36.5 C (97.7 F) 11/14/2023 7:43 AM MANAGER DRILLING Respiratory Rate 14 11/14/2023 7:43 AM MANAGER DRILLING Oxygen Saturation 95% 11/14/2023 7:43 AM MANAGER DRILLING Inhaled Oxygen Concentration - - Weight - - Height 166.4 cm (5' 5.5 ) 11/08/2023 11:44 AM CS T Body Mass Index - - Plan of Treatment Not on file Advance Directives Documents on File Type Date Recorded Patient Commodity Trader Expl anation Adv Directive/Living Will/POA 11/06/2023 3:31 AM * Full Code (Latest Code Status on File) Date Activated Date Inactivated Comments 11/14/2023 11:44 AM 11/14/2023 3:14 PM * LIMITED RESUSCITATION-PRIOR AND AFTER ARREST Date Activated Date Inactivated Comments 10/30/2023 3:30 PM 11/14/2023 11:44 AM Question Answer Comments Limited Resuscitation: No Chest Compress ionNo Cardioversion, No Defibrilation, No External or Internal PacemakerNo Intubation, No Invasive Ventilation * Full Code Date Activated Date Inactivated Comments 10/26/2023 3:27 PM 10/30/2023 3:30 PM Care Teams Fountain Vending Mechanic Relationship Specialty Start Date End Date Bree Walsh MD [facility] [place] [address] [place] [phone] [facility] - General 02/07/19
--- OUTSIDE RECORDS SUMMARY | 2024-11-20 10:59 | XMS_ITS ---
Author Organization 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 11/14/2023 04:30 pm EST - 11/25/2023 11:05 am EDT Social History
--- OUTSIDE RECORDS SUMMARY | 2024-11-20 10:59 | XMS_ITS | Data Portability ---
Author Organization [facility], [address] [facility] ([place]) Address [address] 4th [place] [address] Care Team Providers Care Dairy Equipment Specialist Name Role Phone CHELSEA VARUN Primary Care Provider Assessment Encounter Date Assessment Date Assessment LastModified by Organization Details LastModified Time 04/01/2024 04/01/2024 This 73-year-old female lost to Neurology Clinic follow up for the last 10 years presents again to establish care. Having issues with gait which seem to have been present 10 years ago when she was seen by [facility] as well as issues with cognitive impairment. MoCA today at bedside was 18 out of 30 which suggests significant cognitive impairment. I think the patient would benefit from Neuropsychological testing to determine if the source of her cognitive impairment is related to alcohol use disorder from her past or related to an underlying neurodegenerative process, such as Alzheimer s disease. We will make this referral. This patient has neuropathy, gait disturbance and cognitive impairment, all of which could be related to her history of alcohol consumption. She was diagnosed with neuropathy years prior but never had any positive symptoms, just had negative symptoms (loss of sensation and function). I think alcohol is also to blame for some of her autonomic nervous system complaints, issues with bladder incontinence, issues with orthostasis. I think most of her care going forward will focus on adaptation rather than reversal of the underlying process which has been many, many years in the making. We will make referrals to neuropsychologists at [facility], referrals to Physical Therapy for gait training and I advised them it is probably in her best interest to start taking an over the counter B complex containing cyanocobalamin as she was taking this previously. We will make a referral for her to be seen closer to where they live down in [place] for her neurology follow up with Dr. Yanira Viera if they are willing to see her. PLAN 1. Neuropsychological testing referral to [facility]. 2. Physical therapy for gait disturbance related to previous alcohol use/neuropathy. 3. They are going to start giving her an over the counter oral B12 supplement as she was on this in the past. 4. We will plan to see her in the [facility] in [place] in approximately 12 weeks if it can be managed. 5. The patient is on atorvastatin 40 mg and apixaban 5 mg b.i.d. which appear to be sufficient secondary stroke prevention given her history and hyperlipidemia. I personally spent a total of 70 minutes on the patient on this date of service including both plvf-ls-kcoj and odi-ywkd-gl-face time excluding any separately reportable services. 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 At this point, I discussed with her , it is not easy for me to give them confirmation whether or not she would be safe to return home without reviewing her physical therapy or occupational therapy records. We will reach out to her nursing facility to discuss her actual performance at the nursing facility and whether or not she would be a good candidate to return home with some help from home health. Regarding the peripheral neuropathy, she has had no significant change in clinical symptomatology. We will continue to maintain therapy and services to try to as best as possible help balance. Finally, regarding the cognitive concerns, I will review the neuropsychiatric assessment once completed. For now, we will see her back in 6 months. I recommend she maintain on statin therapy in addition to Eliquis and her beta ashlee. I personally spent a total of 30 minutes on the patient on this date of service including both ltte-yw-jmcw and myi-gqqf-xf-face time excluding any separately reportable services. maddie shine Not available 06/23/2024 14:46:27 Plan of Treatment Reminders Order Date Submit Date Provider Last Modified By Organization Details Last Modified Time Details Appointments None recorded. Lab None recorded. Referral neuropsych ologist referral - Please see referral order and attachment s. Please call patient with appointmen t date and time. Thanks. 2023 024 [email or web address] [facility], [address], [place], [address], 15:40:46 physical therapist referral 2023 024 [email or web address] Not available 15:24:04 Procedures None recorded. Surgeries None recorded. Imaging None recorded. Medication Orders None recorded. Patient TargetsNo targets recorded. Patient InstructionsNo instructions recorded. Reason for Referral Neuropsychologist Referral f or Impaired cognition Sig EtOH use history, alcohol induced memory impairment vs neurodegen diseases? MOCA Please see referral order and attachments. Please call patient with appointment date and time. Thanks. Referring Physician: Miguel Angel Lee, Neurology, Encounter Date: 04/01/2024 Physical Therapist Referral for Abnormal gait long history of alcohol use, great difficulty with ambulation Referring Physician: Miguel Angel Lee, Neurology, Encounter Date: 04/01/2024 Results Created Date Observation Date Name Description Value Unit Range Abnormal Flag Note LastModifiedBy Organization Detail LastModifiedTime 07/15/20 24 10/25/2023 imagi ng/babar benitez tic resul t No observ ation record ed. [email or web address] Not Available 21:40:55 Result Notes None recorded. 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 Active 2023 Ca Wills MD [address] [place] [address], [phone], [facility] 4 14:25:31 Embolic stroke 773799945 Active 2023 Ca Wills MD [address] [place] [address], [phone], [facility] 4 14:25:59 Neurocognitive disorder 209926341 Active 2023 Ca Wills MD [address] [place] [address], [phone], [facility] 4 14:26:10 Impaired cognition 242350950 Active 2023 MIGUEL ANGEL LEE MD [address] [place] [address], [phone], [facility] 4 17:28:24 Abnormal gait 46479026 Active 2023 Reva Harrell [facility] 4 10:40:22 Problem Notes None recorded. Procedures Surgical History None recorded. Imaging Results Imaging Date Name Status LastModified by Organiz ation Details LastModified Time 10/25/2023 imaging/diag nostic result completed [email or web address] Information not available 07/15/2024 21:40:55 Procedure Notes None recorded. Medical Equipment None Reported. Allergies Allergen ID Allergen Name Allergen Category Reaction Reaction Severity Criticality Documentation Date Start Date Code Code System Note Provider Name and Address Organization Details Recorded Time 7234064 Product containin g angiotens in-conver ting enzyme inhibitor (product) medicatio n Not available Not available unabletoasse 04/10/2024 03663 009 SNOMED Not Available Not Available Not Available 380040 Product containin g penicilli n (product) medicatio n Not available Not available Not available 10/15/20232008 88126 8001 SNOMED Not Available Not Available Not Available Medications Name Sig Start Date Stop Date Status Note LastModified by Organization Details LastModified Time atorvastati n 40 mg tablet active Not Available Not Available Not Available senna 8.6 mg tablet active Not Available Not Available No t Available sertraline 100 mg tablet active Not Available Not Available Not Available clindamycin HCl 150 mg capsule 04/10 completed Not Available Not Available Not Available thiamine HCl (vitamin B1) 100 mg tablet Take by oral route. active Not Available Not Available No t Available amlodipine 5 mg tablet 06/23 completed Not Available Not Available Not Available ciprofloxac in 500 mg tablet 04/10 completed Not Available Not Available Not Available sulfamethox azole 800 mg-trimetho prim 160 mg tablet 04/10 completed Not Available Not Available Not Available omeprazole 40 mg capsule,del ayed release active Not Available Not Available Not Available potassium chloride ER 20 mEq tablet,exte nded release(par t/cryst) 06/23 completed Not Available Not Available Not Available calcium 500 mg (as calcium carbonate 1,250 mg) tablet active Not Available Not Available Not Available simvastatin 20 mg tablet 04/10 completed Not Available Not Available Not Available nitrofurant oin macrocrysta l 100 mg capsule Take 1 capsule every 6 hours by oral route for 7 days. active Not Available Not Available No t Available propranolol ER 80 mg capsule,24 hr,extended release 04/10 completed Not Available Not Available Not Available docusate sodium 100 mg capsule Take 1 capsule every day by oral route. active Not Available Not Available No t Available oxybutynin chloride ER 5 mg tablet,exte nded release 24 hr active Not Available Not Available Not Available omeprazole 20 mg capsule,del ayed release 04/10 completed Not Available Not Available Not Available folic acid 1 mg tablet active Not Available Not Available Not Available cyanocobala min (vit B-12) 1,[address] by sublingua l route. active Not Available Not Available No t Available cefuroxime axetil 500 mg tablet 04/10 completed Not Available Not Available Not Available oxybutynin chloride 5 mg tablet active Not Available Not Available No t Available Stool Softener 100 mg tablet active Not Available Not Available Not Available Eliquis 5 mg tablet active Not Available Not Available No t Available Vitals Date Recorded Body height Body mass index (BMI) Body weight Heart rate Oxygen saturation Oxygen saturation in Arterial blood by Pulse oximetry Provider Name and Address Organization Details Last Updated DateTime 4 167.64 cm 22.6 kg/m2 81979.9 3 g 79 /min 99 % 99 % Thuan Giordano [facility] 4 11:22:25 Date Recorded Body height Body mass index (BMI) Body weight Heart rate Oxygen saturation Oxygen saturation in Arterial blood by Pulse oximetry Systolic blood pressure Diastolic blood pressure Provider Name and Address Organization Details Last Updated DateTime 4 167.64 cm 25 kg/m2 11283.8 2 g 88 /min 97 % 97 % 129 mm[Hg] 62 mm[Hg] Mariana Terry [facility] 13:49:18 Social History None recorded. Functional Status None recorded. Mental Status None recorded. Family History Nothing Reported. Medical History No medical history recorded. Gynecological HistoryNo gynecological history recorded. Obstetrics History GPAL:G 0 P 0 0 0 0 Past Encounters Encounter ID Performer Location Encounter Start Date Encounter Closed Date Diagnosis/Indication Diagnosis SNOMED-CT Code Diagnosis ICD10 Code Diagnosis Note [id number] MIGUEL ANGEL LEE MD [address] [place] ([place]) [address] [place] [address] 04/01/2024 15:29:10 04/03/2024 08:08:00 Impaired cognition 816635107 R41.89 Abnormal gait 58040041 R 26.9 [id number] Ca Wills MD [facility] ([place]) [address] [place] [address] 06/23/2024 13:38:28 06/23/2024 14:28:05 Alcoholic polyneuropathy 7653508 G62.1 Additional diagnosis detail: Alcoholic peripheral neuropathy Embolic stroke 205422725 I63.40 Additional diagnosis detail: Cerebrovas cular accident (CVA) due to embolism of cerebral artery Neurocogni tive disorder 717404089 R41.9 History of cerebrovascular accident 761624878 Z86.73 Additional diagnosis detail: History of stroke Health Concerns Section Related Observation LastModified by Organization Detai ls LastModified Time None Recorded Concern Status LastModified by Organization Details LastModified Time None Recorded Advance Directives Directive None Recorded Payers Encounter Date Sequence Insurance Name Policy Number Policy Doty Covered Member ID Doty Member ID Guarantor Name 04/01/2024 1 [employer] ([facility] [id number] Amy Clemente [id number] Christophe Clemente 06/23/[address] [facility] [employer] ([facility]) [id number] Amy Clemente [id number] Christophe Clemente Notes Date Note Type Note Provider Name and Address Organization Details Recorded Time 04/01/2024 text/html Amy Clemente is a 73-year-old female with multiple medical problems who presents to the Neurology Clinic to discuss gait disturbance, cognitive impairment and neuropathy. The patient was originally seen by [facility] back in July 2008 when she was seen by Dr. Morton at [facility]. He read an EEG on her but I cannot find these results. She was seen by Dr. Hollins in the office in January 2010 when she presented with tremor and syncope. Her EEG reportedly in July [address] Hollins ordered a brain MRI and planned to see her in follow up after that. The patient was seen again in 2009 after an MRI of the brain completed without contrast at [facility] that showed no acute intracranial mass, hemorrhage or hydrocephalus, mild generalized cerebral atrophy and chronic microangiopathy and otherwise non-acute MRI. The patient was then seen in office by Dr. Finney in April 2012 for gait disturbance. She would have spells while walking. She will shake, difficulty moving her legs and then her legs would go numb. Sitting for 15 to 30 minutes, she was be able to get up and walk again. She has moderate steady drinking for 40 years preceding that admission with at least two to three drinks daily for those 40 years prior to that appointment. Dr. Finney did not do any further neurologic workup. There was no concern for seizure. Medications were not offered for tremor at that time. The patient was then seen by Dr. Finney next I can see in May 2014. She had a tremor that they felt was alcohol-related. Balance was worsening due to neuropathy. It was suggested the patient give up drinking at that time per their recommendations in clinic. She was still drinking two to three drinks a day.#Patient was lost to follow up after this visit with Dr. Finney in May 2014 and now presents to reestablish care. She has had some neurologic care in [place] during this time as well as in [place] but I do not have all these records available to me at this time. The patient was admitted at [facility] in October 2023 and had tests done for stroke. Carotid Duplex Doppler showed less than 50% stenosis bilaterally of the internal carotid arteries with irregular heterogenous plaques identified anterograde vertebral arteries bilaterally. MRI of the brain without contrast completed November 01, 2023 showed a small focus of restricted diffusion in the right basal ganglia and punctate focus of restriction and diffusion in the left temporoparietal region with moderate white matter disease consistent with chronic microangiopathy. The patient was found to have atrial fibrillation and was started on apixaban for stroke prevention at that visit. They report the patient had a significant history of alcohol use for the 15 years prior to when she quit in September 2023. She was drinking about a pint a day of bourbon that they can recall. She is a former smoker years ago. She has medical problems of hypertension, used to be treated for essential tremor and noticed her alcohol improved when she was treated for tremor, although tremor has not been significant in recent history. She uses a walker to ambulate because of the unsteadiness on her feet. She has had some trouble with bowel and bladder control, mostly bladder. Her primary care is Dr. Daniels in [place] and she has been seeing him for four to five years. In regards to her activities of daily living, her pays the bills, makes their meals for the most part. Her helps set up her doctor s appointments and has so for four to five years. She has great difficulty managing her own medications. She is able to feed herself, does most of her own dressing and hygiene. Gets help with shower from people at the facility where they live but her does their laundry. The patient suffers from orthostatic hypotension as well. MIGUEL ANGEL LEE MD [address] [place] [address], [phone], [facility] 04/02/2024 16:23:29 06/23/2024 text/html Amy Clemente is a 73-year-old female who presents today for history of CVA. She was actually seen in October 2023. She had an acute altered mentation change and was found to have CVA. It showed subacute infarcts within the right basal ganglia with an acute to subacute infarct within the left temporal parietal region. She was maintained on Eliquis and atorvastatin. Her transesophageal echocardiogram did evidence a left atrial appendage clot which was suspected related to subclinical atrial fibrillation. She has been doing well without any recurrence of symptoms. She is right now living in a nursing facility due to significant imbalance. She has a history of severe neuropathy suspected related to alcoholism. She has historically been dealing with this for long duration. Right now the family reports she is able to use a wheeled walker without assistance. They question whether or not she could potentially return home with some assistance at home with home health. She is able to dress herself per her report and ambulate with the walker to use the restroom and bathe. It is not clear what her most recent physical therapy or occupational therapy assessments have noted. She is currently at [facility]. Regarding the neuropathy, she reports no significant change in symptomatology. They did notice significant cognitive problems following the CVA. She had a Troup cognitive assessment score of 18 out of 30. She was sent for neuropsychiatric assessment per [facility]. This has yet to be completed. Ca Wills MD [address] [facility], [place], [address], [facility] 06/24/2024 12:35:35 OBGyn Episode No OBEpisode recorded.
--- OUTSIDE RECORDS SUMMARY | 2024-11-20 10:59 | XMS_ITS | Clinical Summary ---
Author Organization [facility] Address [address] [place] [address] Care Team Providers Care Product Development Coordinator Name Role Phone Bree Walsh MD Primary Care Provider [phone] Source Comments [facility],non-owned Affiliates and Associated Physician Practices is amultiple site organization consisting of ambulatory clinics and hospital sitesin [place], [place], [place]. This disclosure is being madepursuant to the Care Everywhere program and may not contain all information available regarding this patient. Last updated 18.[facility] Allergies Active Allergy Reactions Criticality Noted Date [...] Recorded Patient Health Questionnaire-2 Score 0 11/07/2023 [facility] Roberta of Occupat ional Health - Occupational Stress [...] place to sleep or slept in a chcf (including now)? No 10/31/2023 Sex and Gender Information Value Date Recorded Sex Assigned at Not on file Gender Identity Not on file Sexual Orientation Not on file Last Filed Vital Signs Vital Sign Reading Time Taken Comments Blood Pressure 162/83 11/14/2023 7:43 AM CAR SANDER Pulse 74 11/14/2023 7:43 AM CAR SANDER Temperature 36.5 C (97.7 F) 11/14/2023 7:43 AM CAR SANDER Respiratory Rate 14 11/14/2023 7:43 AM CAR SANDER Oxygen Saturation 95% 11/14/2023 7:43 AM CAR SANDER Inhaled Oxygen Concentration - - Weight - - Height 166.4 cm (5' 5.5 ) 11/08/2023 11:44 AM CS T Body Mass Index - - Plan of Treatment Health Maintenance Due Date Last Done Comments BONE DENSITY TESTING 1950 HEPATITIS C SCREENING 08/03/1966 DTAP/TDAP/TD VACCINES (1 - Tdap) 1967 PNEUMOCOCCAL VACCINE 50+ (1 of 1 - PCV) 1998 ZOSTER VACCINE (1 of 2) 1998 Respiratory Syncytial Virus (RSV) Vaccine Pt: or over 60 yrs (1 - 1-dose 75+ series) 2023 COVID-19 VACCINE ( season) 2024 06/20/2023, 07/12/2022, 12/27/2021, Additional history exists INFLUENZA VACCINE (#1) 2024 , 07/12/2022, 07/07/2021, Additional history exists DEPRESSION SCREENING 09/17/2024 10/26/2023 HEPATITIS B VACCINE Aged Out No longe r eligible based on patient's age to complete this topic HIB VACCINE Aged Out No longer eligi ble based on patient's age to complete this topic HPV VACCINE Aged Out No longer eligi ble based on patient's age to complete this topic MENINGOCOCCAL (Group B) VACCINE Aged Out No longer eligible based on patient's age to complete this topic MENINGOCOCCAL VACCINE Aged Out No iván dixon eligible based on patient's age to complete this topic Advance Directives Documents on File Type Date Recorded Patient Emergency Worker Expl anation Adv Directive/Living Will/POA 11/06/2023 3:31 [...] 3:27 PM 10/30/2023 3:30 PM Care Teams Product Development Coordinator Relationship Specialty Start Date End Date Bree Walsh MD [address] [place] [phone] PCP - General 02/07/19
--- OUTSIDE RECORDS SUMMARY | 2024-11-20 10:59 | XMS_ITS | Encounter Summary ---
Author Organization [facility] Address [facility] [place] [address] Care Team Providers Care Metallographer Name Role Phone Sam Daniels MD Primary Care Provider [phone] Jennifer Pate MD Unavailable Encounter Details Date Type Department Care Team (Late st Contact Info) Description 02/22/2019 Abstract [facility] [address] [place], [place] [id number] , Generic MD Yen Social History Tobacco Use Types Packs/Day Years Used Date Smoking Tobacco: Former Comments Unknown Sex and Gender Information Value Date Recorded Sex Assigned at Not on file Legal Sex Female 8:30 PM CDT Gender Identity Not on file Sexual Orientation Not on file documented as of this encounter Plan of Treatment Upcoming Encounters Date Type Department Care Team (Late st Contact Info) Description 01/12/2025 11:15 AM CDT Office Visit [facility] [address] [place] [phone] Jennifer Pate MD [address] [place] [address] documented as of this encounter Visit Diagnoses Not on filedocumented in this encounter Additional Health Concerns Infection Onset Date Last Indicated Resolved Time COVID-19 Rule Out 09/03/2021 09/03/2021 09/03/2021 7:36 PM MARKETING INTELLIGENCE MANAGER COVID-19 Rule Out 04/04/2022 04/04/2022 04/04/2022 10:22 PM CDT documented as of this encounter Care Teams Metallographer Relationship Specialty Start Date End Date Sam Daniels MD [address] [place] [address] PCP - General FAMILY PRACTICE 09/03/21 Jennifer Pate MD [address] [place] [address] Consulting Physician CARDIOVASCULAR DISEASE 01/04/24 documented as of this encounter
--- OUTSIDE RECORDS SUMMARY | 2024-11-20 10:59 | XMS_ITS | Clinical Summary ---
Author Organization [facility] Address [facility] [place] [address] Care Team Providers Care Electrical Tryout Person Name Role Phone Sam Daniels MD Primary Care Provider [phone] Jennifer Pate MD Unavailable Allergies Active Allergy Reactions Criticality Noted Date Comments Penicillins Swelling High 06/17/2019 Tolerates cefepime (11/2019) Hydrocodone-Acetaminoph en Nausea and Vomiting Low 06/17/2019 Medications olmesartan (BENICAR) 20 MG tablet Take 1 tablet (20 mg total) by mouth daily. 07/29/2008 Active omeprazole 20 MG capsule Take 1 capsule (20 mg total) by mouth daily. Active sertraline 100 MG tablet Take 2 tablets (200 mg total) by mouth daily. Active propranolol 80 MG tablet Take 1 tablet (80 mg total) by mouth daily. Active amlodipine 5 MG tablet Take 1 tablet (5 mg total) by mouth daily. Active folic acid 1 MG tablet Take 1 tablet (1 mg total) by mouth daily. 30 tablet 12/01/2019 Active vitamin B-1 (VITAMIN B1) 100 MG tablet Take 1 tablet (100 mg total) by mouth daily. 30 tablet 12/01/2019 Active hydroCHLOROthia zide (MICROZIDE) 12.5 MG tablet 12/29/2021 Acti ve clindamycin (CLEOCIN) 300 MG capsule 12/19/2021 Active apixaban (ELIQUIS) 5 MG tablet Take 1 tablet (5 mg total) by mouth 2 (two) times daily. 11/14/2023 Active atorvastatin (LIPITOR) 40 MG tablet Take 1 tablet (40 mg total) by mouth daily. 11/15/2023 Active thiamine 100 MG Tab Take 1 tablet (100 mg total) by mouth daily. 11/15/2023 Active senna-docusate (SENOKOT-S) 8.6-50 MG tablet Take 1 tablet by mouth daily. 11/15/2023 Active oxybutynin XL (DITROPAN-XL) 5 MG 24 hr tablet Take 1 tablet (5 mg total) by mouth daily. 12/20/2023 Active calcium carbonate (OS-BRIAN) 1250 (500 Ca) MG tablet 11/29/2023 Active Active Problems Problem Noted Date Diagnosed Date Pneumonia 11/23/2019 Humerus shaft fracture 06/20/2019 Closed displaced transverse fracture of shaft of left humerus, initial encounter 06/19/2019 Family History Medical History Relation Comments Cancer Father Hypertension Father Hypertension Mother Relation Status Comments Father Mother Social History Tobacco Use Types Packs/Day Years Used Date Smoking Tobacco: Former Cigarettes 1 20 1 980 - 1999 Smokeless Tobacco: Never Tobacco Cessation:Counseling Given: Not Answered Alcohol Use Standard Drinks/Week Comments Not Currently 0 (1 standard drink = 0.6 oz pur e alcohol) 5/week AUDIT-C Answer Date Recorded Frequency of Alcohol Consumption Never 06/17/2019 Average Number of Drinks Not on file 019 Frequency of Binge Drinking Not on file 09/2018 Comments No Sex and Gender Information Value Date Recorded Sex Assigned at Not on file Legal Sex Female 8:30 PM CDT Gender Identity Not on file Sexual Orientation Not on file Last Filed Vital Signs Vital Sign Reading Time Taken Comments Blood Pressure 159/83 04/29/2024 8:21 AM CDT Pulse 71 04/29/2024 8:21 AM CDT Temperature 36.2 C (97.1 F) 04/29/2024 8:21 AM CDT Respiratory Rate 16 04/29/2024 8:21 AM CDT Oxygen Saturation 99% 04/29/2024 8:21 AM CDT Inhaled Oxygen Concentration - - Weight 63.5 kg (140 lb) 04/24/2024 9:30 AM CDT Height 165.1 cm (5' 5 ) 04/24/2024 9:30 AM CDT Body Mass Index 23.3 04/24/2024 9:30 AM CDT Plan of Treatment Upcoming Encounters Date Type Department Care Team (Late st Contact Info) Description 01/12/2025 11:15 AM CDT Office Visit [facility] [place] [address] Jennifer Pate MD [address] [place] [address] Health Maintenance Due Date Last Done Comments Hepatitis C 1966 DTaP, Tdap and Td Vaccines (1 - Tdap) 1967 Zoster Vaccines (1 of 2) 1998 Dexa Scan (General) 2013 Pneumococcal Vaccine: 65+ Years (1 of 1 - PCV) 2013 RSV Immunization or 60+ Years (1 - 1-dose 75+ series) 2023 COVID-19 Vaccine ( season) 2024 12/27/2021, 06/21/2021, 12/01/2020, Additional history exists Influenza Adult (#1) 2024 Colorectal Cancer Screening Colonoscopy (10 Years) Discontinued 04/07/2022, 04/07/2022 Meningococcal B Vaccine Aged Out No l onger eligible based on patient's age to complete this topic Meningococcal Vaccine Aged Out No iván dixon eligible based on patient's age to complete this topic RSV Immunizations Under 20 Months Aged Out No longer eligible based on patient's age to complete this topic Medical Devices Implanted Type Area Tag Press Operator Device Identifier Shelf Expiration Date Model / Serial / Lot Lt 12 Hole Plate-Prox Hum Implanted:Qty: 1 on 06/20/2019 by Kodi Whyte MD at [facility] Left: Arm [id number] / / 3.5 Cortical Screw-22mm Implanted:Qty: 2 on 06/20/2019 by Kodi Whyte MD at [facility] Left: Arm [id number] / / 3.5 Cortical Screw-24mm Implanted:Qty: 3 on 06/20/2019 by Kodi Whyte MD at [facility] Left: Arm [id number] / / 4.0 Cancellous Screw-46mm Implanted:Qty: 1 on 06/20/2019 by Kodi Whyte MD at [facility] Left: Arm [id number] / / 4.0 Locking Screw-22mm Implanted:Qty: 4 on 06/20/2019 by Kodi Whyte MD at [facility] Left: Arm [id number] / / 4.0 Locking Screw-24mm Implanted:Qty: 1 on 06/20/2019 by Kodi Whyte MD at [facility] Left: Arm [id number] / / 4.0 Locking Screw-36mm Implanted:Qty: 2 on 06/20/2019 by Kodi Whyte MD at [facility] Left: Arm [id number] / / Explanted Type Area Tag Press Operator Device Identifier Shelf Expiration Date Model / Serial / Lot 4.0 Cancellous Screw-24mm Explanted:Qty: 1 on 06/20/2019 at [facility] Left: Arm [id number] / / Procedures Procedure Name Priority Date/Time Associated Diagnosis Comments COLONOSCOPY 04/07/2022 6:44 AM CDT from Last 3 Months or Most Recently Relevant to Health Maintenance Results * Colonoscopy (04/07/2022 6:44 AM CDT) Sam Daniels MD GI PROCEDURE ORDERABLES Final Result from Last 3 Months or Most Recently Relevant to Health Maintenance Insurance [employer] Advance Directives * Full Code (Latest Code Status on File) Date Activated Date Inactivated Comments 11/23/2019 4:57 PM 12/02/2019 7:04 PM Care Teams Electrical Tryout Person Relationship Specialty Start Date End Date Sam Daniels MD [address] [place] [id number] PCP - General FAMILY PRACTICE 09/03/21 Jennifer Pate MD [address] [place] [address] Consulting Physician CARDIOVASCULAR DISEASE 01/04/24
[2024-11-20] MEDS: POTASSIUM BICARBONATE 25 MEQ TABEF 50 MEQ PO (11:00)
[2024-11-20] MEDS: levoFLOXacin 500 MG/D5W 100 ML 500 MG/100 ML BAG 100 MG IVPB (11:00)
[2024-11-20 11:24] VITALS: BMI 24.8
--- OUTSIDE RECORDS SUMMARY | 2024-11-20 11:46 | XMS_ITS | Clinical Summary ---
Author Organization [facility] Address [facility] [place] [address] Care Team Providers Care Well Service Derrick Worker Name Role Phone Sam Daniels MD Primary Care Provider [phone] Jennifer Pate MD Unavailable Allergies Active Allergy [...] Description 01/12/2025 11:15 AM CDT Office Visit [facility] [place] [address] Jennifer Pate MD [address] [place] [address] Health Maintenance Due Date Last Done Comments [...] this topic Medical Devices Implanted Type Area Grinder Setup Operator Device Identifier Shelf Expiration Date Model / Serial / Lot Lt 12 Hole Plate-Prox Hum Implanted:Qty: 1 on 06/20/2019 by Kodi Whyte MD at [facility] Left: Arm [id number] / / 3.5 Cortical Screw-22mm Implanted:Qty: 2 on 06/20/2019 by Kodi Whyte MD at [facility] Left: Arm [id number] / / 3.5 Cortical Screw-24mm Implanted:Qty: 3 on 06/20/2019 by Kodi Whyte MD at [facility] Left: Arm [id number] / / 4.0 Cancellous Screw-46mm Implanted:Qty: 1 on 06/20/2019 by Kodi Whyte MD at [facility] Left: Arm [id number] / / 4.0 Locking Screw-22mm Implanted:Qty: 4 on 06/20/2019 by Kodi Whyte MD at [facility] Left: Arm [id number] / / 4.0 Locking Screw-24mm Implanted:Qty: 1 on 06/20/2019 by Kodi Whyte MD at [facility] Left: Arm [id number] / / 4.0 Locking Screw-36mm Implanted:Qty: 2 on 06/20/2019 by Kodi Whyte MD at [facility] Left: Arm [id number] / / Explanted Type Area Grinder Setup Operator Device Identifier Shelf Expiration Date Model / Serial / Lot 4.0 Cancellous Screw-24mm Explanted:Qty: 1 on 06/20/2019 at [facility] Left: Arm [id number] / / Procedures Procedure Name Priority Date/Time [...] 4:57 PM 12/02/2019 7:04 PM Care Teams Well Service Derrick Worker Relationship Specialty Start Date End Date Sam Daniels MD [address] [place] [phone] PCP - General FAMILY PRACTICE 09/03/21 Jennifer Pate MD [address] [place] [address] Consulting Physician CARDIOVASCULAR DISEASE 01/04/24
--- OUTSIDE RECORDS SUMMARY | 2024-11-20 11:46 | XMS_ITS | Referral Summary ---
Author Organization [facility] Address [address] [place] [address] Care Team Providers Care Industrial Electrical Technician Name Role Phone Bree Walsh MD Primary Care Provider [phone] Source Comments [facility],non-owned Affiliates and Associated Physician Practices is amultiple site organization consisting of ambulatory clinics and hospital sitesin [place], [place], [place] and [place]. This disclosure is being madepursuant to the Care Everywhere program and may not contain all information available regarding this patient. Last updated 18.[facility] Allergies Active Allergy Reactions Criticality Noted Date [...] Recorded Patient Health Questionnaire-2 Score 0 11/07/2023 [facility] of Occupat ional Health - Occupational Stress [...] place to sleep or slept in a retirement (including now)? No 10/31/2023 Sex and Gender Information Value Date Recorded Sex Assigned at Not on file Gender Identity Not on file Sexual Orientation Not on file Last Filed Vital Signs Vital Sign Reading Time Taken Comments Blood Pressure 162/83 11/14/2023 7:43 AM DIGITAL MEASUREMENT ADVISOR Pulse 74 11/14/2023 7:43 AM DIGITAL MEASUREMENT ADVISOR Temperature 36.5 C (97.7 F) 11/14/2023 7:43 AM DIGITAL MEASUREMENT ADVISOR Respiratory Rate 14 11/14/2023 7:43 AM DIGITAL MEASUREMENT ADVISOR Oxygen Saturation 95% 11/14/2023 7:43 AM DIGITAL MEASUREMENT ADVISOR Inhaled Oxygen Concentration - - Weight - - Height 166.4 cm (5' 5.5 ) 11/08/2023 11:44 AM CS T Body Mass Index - - Plan of Treatment Not on file Advance Directives Documents on File Type Date Recorded Patient Staff Therapist Expl anation Adv Directive/Living Will/POA 11/06/2023 3:31 [...] 3:27 PM 10/30/2023 3:30 PM Care Teams Industrial Electrical Technician Relationship Specialty Start Date End Date Bree Walsh MD [facility] [place] [address] [place] [address] [facility] - General 02/07/19
--- OUTSIDE RECORDS SUMMARY | 2024-11-20 11:47 | XMS_ITS | Clinical Summary ---
Author Organization [facility] Address [address] [place] [address] Care Team Providers Care Construction Administrator Name Role Phone Bree Walsh MD Primary Care Provider [phone] Source Comments [facility],non-owned Affiliates and Associated Physician Practices is amultiple site organization consisting of ambulatory clinics and hospital sitesin [place], [place], [place]. This disclosure is being madepursuant to the Care Everywhere program and may not contain all information available regarding this patient. Last updated 18.[facility] Allergies Active Allergy Reactions Criticality Noted Date [...] Recorded Patient Health Questionnaire-2 Score 0 11/07/2023 [facility] [place] of Occupat ional Health - Occupational Stress [...] place to sleep or slept in a long-term (including now)? No 10/31/2023 Sex and Gender Information Value Date Recorded Sex Assigned at Not on file Gender Identity Not on file Sexual Orientation Not on file Last Filed Vital Signs Vital Sign Reading Time Taken Comments Blood Pressure 162/83 11/14/2023 7:43 AM WEDDING TRANSPORTATION DRIVER Pulse 74 11/14/2023 7:43 AM WEDDING TRANSPORTATION DRIVER Temperature 36.5 C (97.7 F) 11/14/2023 7:43 AM WEDDING TRANSPORTATION DRIVER Respiratory Rate 14 11/14/2023 7:43 AM WEDDING TRANSPORTATION DRIVER Oxygen Saturation 95% 11/14/2023 7:43 AM WEDDING TRANSPORTATION DRIVER Inhaled Oxygen Concentration - - Weight - [...] Documents on File Type Date Recorded Patient School Nurse Expl anation Adv Directive/Living Will/POA 11/06/2023 3:31 [...] 3:27 PM 10/30/2023 3:30 PM Care Teams Construction Administrator Relationship Specialty Start Date End Date Bree Walsh MD [address] [place] [phone] PCP - General 02/07/19
--- OUTSIDE RECORDS SUMMARY | 2024-11-20 11:47 | XMS_ITS | Encounter Summary ---
Author Organization [facility] Address [facility] [place] [address] Care Team Providers Care Radar Engineering Teacher Name Role Phone Sam Daniels MD Primary Care Provider [phone] Jennifer Pate MD Unavailable Encounter Details Date Type Department Care Team (Late st Contact Info) Description 02/22/2019 Abstract [facility] CONVERSION [address] [place], [place] [id number] , Generic MD Yen Social History Tobacco [...] Description 01/12/2025 11:15 AM CDT Office Visit [facility] [address] [place] [phone] Jennifer Pate MD [address] [place] [address] documented as of this encounter Visit Diagnoses Not on filedocumented in this encounter Additional Health Concerns Infection Onset Date Last Indicated Resolved Time COVID-19 Rule Out 09/03/2021 09/03/2021 09/03/2021 7:36 PM CLAIM TECHNICIAN COVID-19 Rule Out 04/04/2022 04/04/2022 04/04/2022 10:22 PM CDT documented as of this encounter Care Teams Radar Engineering Teacher Relationship Specialty Start Date End Date Sam Daniels MD [address] [facility] [place] [address] PCP - General FAMILY PRACTICE 09/03/21 Jennifer Pate MD [address] [place] [address] Consulting Physician CARDIOVASCULAR DISEASE 01/04/24 documented as of this encounter
--- OUTSIDE RECORDS SUMMARY | 2024-11-20 11:47 | XMS_ITS | Patient Health Summary ---
Author Organization [facility] Address [address] [place] [address] Care Team Providers Care Senior Sas Developer Name Role Phone Bree Walsh MD Primary Care Provider [phone] Note from [facility],non-owned Affiliates and Associated Physician Practices is amultiple site organization consisting of ambulatory clinics and hospital sitesin [place], [place], [place] and [place]. This disclosure is being madepursuant to the Care Everywhere program and may not contain all information available regarding this patient. Last updated 18.[facility] Allergies * Penicillins(Anaphylaxis) -High Criticality [...] Recorded Patient Health Questionnaire-2 Score 0 11/07/2023 [facility] - Occupational Stress [...] place to sleep or slept in a prison (including now)? No 10/31/2023 Sex and Gender Information Value Date Recorded Sex Assigned at Not on file Gender Identity Not on file Sexual Orientation Not on file Last Filed Vital Signs Vital Sign Reading Time Taken Comments Blood Pressure 162/83 11/14/2023 7:43 AM VICE PRESIDENT [facility]COME Pulse 74 11/14/2023 7:43 AM VICE PRESIDENT [facility] INCOME Temperature 36.5 C (97.7 F) 11/14/2023 7:43 AM VICE PRESIDENT [facility] INCOME Respiratory Rate 14 11/14/2023 7:43 AM VICE PRESIDENT FIXED INCOME Oxygen Saturation 95% 11/14/2023 7:43 AM VICE PRESIDENT FIXED INCOME Inhaled Oxygen Concentration - - Weight - [...] Hypokalemia Results * EVENT MONITOR (01/16/2024) Impressions [facility] - 01/16/2024 Ambulatory ECG Interpretation: The [...] Cedric Hill MD CARDIAC SERVICES ORD ERABLES [facility] * CARDIAC RHYTHM STRIP ORDER (11/15/2023 7:25 PM VICE PRESIDENT FIXED INCOME) Narrative 11/15/2023 7:25 PM VICE PRESIDENT [facility] INCOME Ordered by an unspecified provider. Scanned Document CARDIAC SERVICES ORD ERABLES * ECHO LEWIS COMPLETE (11/08/2023 12:19 PM VICE PRESIDENT FIXED INCOME) Anatomical Region Laterality Modality Ultrasound Narrative 11/09/2023 10:32 AM VICE PRESIDENT FIXED INCOME Left Ventricle: Left ventricle size is normal. [...] study. The probe was inserted by the book binder. There was no probe insertion difficulty. Start time: 928 Stop time: 958 Propofol was administered by the ASSOCIATE DATA SCIENTIST. Nicolas Madrid MD ECHO CUPID * CCL INTRA PROCEDURE LEWIS (11/08/2023 9:59 AM VICE PRESIDENT FIXED INCOME) Anatomical Region Laterality Modality X-Ray Angiograph y Narrative 11/08/2023 10:01 AM VICE PRESIDENT FIX[facility] INCOME This case was auto-finalized by a system utility. The result for this LEWIS exam is stored on the other LEWIS procedure. Please see the other line in chart review for the result. Nicolas Madrid MD CV CARDIAC CATH C UPID PROCS * (ABNORMAL) CBC W AUTO DIFFERENTIAL (11/07/2023 10:29 AM VICE PRESIDENT FIXED INCOME) Only the most recent of3 resultswithin the time period is included. WBC 9.1 4.0 - 10.7 x10E9/L 11/07/2023 10:39 AM [facility] RBC Count 3.95 3.90 - 5.20 x10E12/L 11/07/2023 10:39 AM [facility] Hemoglobin 13.7 11.9 - 15.8 g/dL 11/07/2023 10:39 AM [facility] Hematocrit 39.8 34.8 - 46.1 % 11/07/2023 10:39 AM [facility] MCV 100.8(H) 80.0 - 98.0 fL 11/07/2023 10:39 AM [facility] MCH 34.7(H) 26.7 - 33.6 pg 11/07/2023 10:39 AM [facility] MCHC 34.4 31.7 - 36.3 g/dL 11/07/2023 10:39 AM [facility] RDW-CV 12.5 11.3 - 14.8 % 11/07/2023 10:39 AM [facility] Platelet Count 206 150 - 420 x10E9/L 11/07/2023 10:39 AM [facility] MPV 11.2 7.8 - 11.4 fL 11/07/2023 10:39 AM [facility] Neutrophil % 70.2 41.0 - 74.0 % 11/07/2023 10:39 AM [facility] Lymphocyte % 18.6 17.0 - 47.0 % 11/07/2023 10:39 AM [facility] Monocyte % 7.8 3.0 - 11.0 % 11/07/2023 10:39 AM [facility] Eosinophil % 2.4 0.0 - 7.0 % 11/07/2023 10:39 AM [facility] Basophil % 0.8 0.0 - 1.6 % 11/07/2023 10:39 AM [facility] Immature Granulocytes % 0.2 0.0 - 1.0 % 11/07/2023 10:39 AM [facility] Neutrophil Absolute 6.36 1.60 - 7.50 x10E9/L 11/07/2023 10:39 AM [facility] Lymphocyte Absolute 1.69 1.00 - 4.40 x10E9/L 11/07/2023 10:39 AM [facility] Monocyte Absolute 0.71 0.15 - 1.00 x10E9/L 11/07/2023 10:39 AM [facility] Eosinophil Absolute 0.22 0.00 - 0.60 x10E9/L 11/07/2023 10:39 AM [facility] Basophil Absolute 0.07 0.00 - 0.13 x10E9/L 11/07/2023 10:39 AM [facility] Blood BLOOD SPECIMEN / Unknown Venipuncture / Unknown 11/07/2023 10:29 AM [facility] 11/07/2023 10:36 AM [facility] Gaston Ramesh MD LAB - HEMATOLOGY ORD ERABLES [facility] [address] [address] [place] [id number] * (ABNORMAL) BASIC METABOLIC PANEL (CALCIUM TOTAL) (11/07/2023 10:29 AM [facility]) Only the most recent of5 resultswithin the time period is included. Glucose 90 70 - 105 mg/dL 11/07/2023 10:54 AM [facility] Sodium 138 136 - 145 mmol/L 11/07/2023 10:54 AM [facility] Potassium 4.2 3.5 - 5.1 mmol/L 11/07/2023 10:54 AM [facility] Chloride 104 98 - 107 mmol/L 11/07/2023 10:54 AM [facility] CO2 25 22 - 29 mmol/L 11/07/2023 10:54 AM [facility] Calcium 9.5 8.4 - 10.4 mg/dL 11/07/2023 10:54 AM [facility] Anion Gap 9 6 - 16 mmol/L 11/07/2023 10:54 AM [facility] BUN 14 7 - 26 mg/dL 11/07/2023 10:54 AM VICE PRESIDENT [facility] INCOME [facility] Creatinine 0.85 0.57 - 1.11 mg/dL 11/07/2023 10:54 AM VICE PRESIDENT [facility] INCOME [facility] eGFR by CKD-EPI 71(L) >=90 mL/min/1.7 3 m2 11/07/2023 10:54 AM VICE PRESIDENT FIXED INCOME [facility] Blood BLOOD SPECIMEN / Unknown Venipuncture / Unknown 11/07/2023 10:29 AM VICE PRESIDENT [facility] INCOME 11/07/2023 10:36 AM VICE PRESIDENT [facility] INCOME Gaston Ramesh MD LAB - CHEMISTRY [facility] Organization Address City/State/ZIP Co de Phone Number [facility] [address] [place] [address] * ECHO COMPLETE W CONTRAST (11/06/2023 1:57 PM VICE PRESIDENT FIXED INCOME) LV biplane EF 76 54 - 74 [...] PACS LVOT area 2.66 cm2 [facility] I PACS LV RWT 0.632 [facility] I PACS LV Philippe A4C 7.037 cm [facility] F [facility]I PACS IVS/LVPW 0.986 [facility] I PACS Fractional Shortening M-Mode 32 28 - 44 % [facility] I PACS LV mass m-mode 649.193 67 - 162 g [facility] PACS LV mass 2D 115.6 66 - 150 [facility] MV E pk papo 75.484 cm/s [...] PACS MV E/e' lateral 14.387 [facility] LVOT pk papo 0.85 m/s [facility] F U[facility]I PACS LVOT Cardiac Output 2.658 l/min [facility] PACS LA vol BP A-L 56.48 mL [facility] RA area 13.522 cm2 [facility] I PACS AV pk papo 1.51 m/s [facility] I PACS AV VTI 37.875 cm [facility] CV [facility]UJ I PACS LVOT VTI 17.146 cm [facility] I PACS AV area cont VTI 1.2 cm2 [facility] AV area pk papo 1.5 cm2 [facility] C V FUJI PACS AV Doppler papo index pk papo 0.564 [facility] CV [facility]I PACS Dimensionless Index 0.453 [facility] PACS TX pk grad 12 mmHg [facility]U JI PACS [id number] 5.592 cm [facility] I PACS [...] 23 mmHg [facility] PACS TX pk papo 193.277 cm/s [facility] I PACS PV pk papo 78.321 cm/s [facility] I PACS PV pk grad 2 mmHg [facility] CV [facility]U JI PACS [id number] 5.023 cm [facility] CV FUJ I PACS Anatomical Region Laterality Modality Ultrasound Narrative 11/06/2023 3:00 PM VICE PRESIDENT FIXED INCOME Left Ventricle: Left ventricle size is normal. [...] VAS CAROTID DUPLEX BILATERAL (11/05/2023 9:55 AM VICE PRESIDENT FIXED INCOME) Anatomical Region Laterality Modality Neck Ultrasound 11/05/2023 9:22 AM VICE PRESIDENT FIXED INCOME Narrative Procedure Note Chema Duque MD - 11/05/[address] [address] Carotid Duplex Report Pat.Name: ANIYAH CLIFFORD Pat.ID: [id number] .Date: 11/05/2023 Exam Time: 9:22:00 AM Study Type:Carotid Age: 11 1950,73Y Sex: FEMALE Sonogrphr: Naldo Ly RVT Pat. 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 Less than 50% [...] LES * PHOSPHORUS BLOOD (11/04/2023 10:45 AM VICE PRESIDENT FIXED INCOME) [facility] Phosphorus 4.3 2.3 - 4.7 mg/dL 11/04/2023 11:09 AM VICE PRESIDENT FIXED INCOME [facility] Blood BLOOD SPECIMEN / Unknown Venipuncture / Unknown 11/04/2023 10:45 AM VICE PRESIDENT FIXED INCOME 11/04/2023 10:51 AM VICE PRESIDENT FIXED INCOME Viktoria Park MD LAB - CHEMISTRY ORDERABLES [facility] [address] [place] [address] * MAGNESIUM BLOOD (11/04/2023 10:45 AM VICE PRESIDENT FIXED INCOME) Only the most recent of3 resultswithin the time period is included. Magnesium 1.9 1.6 - 2.6 mg/dL 11/04/2023 11:09 AM VICE PRESIDENT FIXED INCOME [facility] Blood BLOOD SPECIMEN / Unknown Venipuncture / Unknown 11/04/2023 10:45 AM VICE PRESIDENT FIXED INCOME 11/04/2023 10:51 AM VICE PRESIDENT FIXED INCOME Viktoria Park MD LAB - CHEMISTRY ORDERABLES [facility] [address] [place] [address] * MRI BRAIN WO CONTRAST (11/01/2023 5:22 PM VICE PRESIDENT FIXED INCOME) Anatomical Region Laterality Modality Head Magnetic Resonan ce 11/01/2023 5:29 PM VICE PRESIDENT FIXED INCOME Impressions 11/01/2023 5:38 PM VICE PRESIDENT FIXED INCOME IMPRESSION: 1.A small focus of restricted diffusion is seen at the right basal ganglia consistent with acute to subacute infarct 2.Punctate focus of restricted diffusion is seen within the left temporal parietal region concerning for acute to subacute infarct. 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 > Interpreting Provider: Shannon Acosta MD on 11/01/2023 5:38 PM Narrative 11/01/2023 5:38 PM VICE PRESIDENT FIXED INCOME PROCEDURE(s): MRI BRAIN WO CONTRAST DATE AND TIME OF EXAM(s): 11/01/2023 5:26 PM INDICATION(s): F10.939: Alcohol use, unspecified with withdrawal, unspecified ([facility]) G93.40: Encephalopathy, unspecified COMPARISON(s): CT of [...] ORDERABLES * HEMOGLOBIN A1C (10/29/2023 12:49 PM VICE PRESIDENT FIXED INCOME) Hemoglobin A1c 4.8 <5.7 % 10/29/2023 1:04 PM VICE PRESIDENT FIXED INCOME [facility] Estimated Average Glucose 91 mg/dL 10/29/2023 1:04 PM VICE PRESIDENT FIXED INCOME [facility] Blood BLOOD SPECIMEN / Unknown Venipuncture / Unknown 10/29/2023 12:49 PM VICE PRESIDENT FIXED INCOME 10/29/2023 12:53 PM VICE PRESIDENT FIXED INCOME Narrative [facility] - 10/29/2023 1:04 PM VICE PRESIDENT FIXED INCOME HbA1c Interpretation: Normal: < 5.7% Pre-diabetes: 5.7-6.4% [...] exceeds 5% in the specimen. The [employer] assay for the measurement of HbA1c is a National Glycohemoglobin Standardization Program (NGSP) certified method. Niharika Phelps [facility] LAB - CHEMISTRY ORDERABLES Performing Organization Address [facility] Co de Phone Number [address] [address] * (ABNORMAL) FOLATE (10/29/2023 12:49 PM VICE PRESIDENT FIXED INCOME) [facility] Folate 4.2(L) 7.0 - 31.4 ng/mL 10/29/2023 1:45 PM VICE PRESIDENT FIXED INCOME [facility] Blood BLOOD SPECIMEN / Unknown Venipuncture / Unknown 10/29/2023 12:49 PM VICE PRESIDENT FIXED INCOME 10/29/2023 12:53 PM VICE PRESIDENT FIXED INCOME Niharika Phelps [facility] LAB - CHEMISTRY ORDERABLES Performing Organization Address [facility] Co de Phone Number [facility] [address] [place] [address] * VITAMIN B12 (10/29/2023 12:49 PM VICE PRESIDENT FIXED INCOME) Vitamin B12 245 213 - 816 pg/mL 10/29/2023 1:45 PM VICE PRESIDENT FIXED INCOME [facility] Blood BLOOD SPECIMEN / Unknown Venipuncture / Unknown 10/29/2023 12:49 PM VICE PRESIDENT FIXED INCOME 10/29/2023 12:53 PM VICE PRESIDENT FIXED INCOME Niharika Phelps [employer] LAB - CHEMISTRY ORDERABLES Performing Organization Address City/[facility]/ZIP Co de Phone Number [facility] [address] [place] [phone] * AMMONIA (10/29/2023 12:49 PM VICE PRESIDENT FIXED INCOME) Pathologist [facility] Ammonia 21 18 - 72 umol/L 10/29/2023 1:07 PM VICE PRESIDENT FIXED INCOME [facility] Blood BLOOD SPECIMEN / Unknown Venipuncture / Unknown 10/29/2023 12:49 PM VICE PRESIDENT FIXED INCOME 10/29/2023 12:53 PM VICE PRESIDENT FIXED INCOME Niharika Phelps [facility] LAB - CHEMISTRY ORDERABLES Performing Organization Address [facility] Co de Phone Number [facility] [address] [place] [id number] * TSH REFLEX FREE T4 (10/29/2023 4:44 AM VICE PRESIDENT FIXED INCOME) Pathologist [facility] TSH 3.751 0.350 - 4.940 uIU/mL 10/29/2023 11:12 AM VICE PRESIDENT FIXED INCOME [facility] Blood BLOOD SPECIMEN / Unknown Venipuncture / Unknown 10/29/2023 4:44 AM VICE PRESIDENT FIXED INCOME 10/29/2023 4:51 AM VICE PRESIDENT FIXED INCOME Niharika Phelps [facility] LAB - CHEMISTRY ORDERABLES Performing Organization Address [facility] Co de Phone Number [facility] [address] [place] [phone] * (ABNORMAL) RENAL FUNCTION PANEL (10/29/2023 4:44 AM VICE PRESIDENT FIXED INCOME) Only the most recent of2 resultswithin the time period is included. Glucose 100 70 - 105 mg/dL 10/29/2023 5:19 AM [facility] Sodium 139 136 - 145 mmol/L 10/29/2023 5:19 AM [facility] Potassium 3.2(L) 3.5 - 5.1 mmol/L 10/29/2023 5:19 AM [facility] Chloride 107 98 - 107 mmol/L 10/29/2023 5:19 AM [facility] CO2 22 22 - 29 mmol/L 10/29/2023 5:19 AM [facility] Calcium 8.8 8.4 - 10.4 mg/dL 10/29/2023 5:19 AM [facility] Anion Gap 10 6 - 16 mmol/L 10/29/2023 5:19 AM [facility] BUN 8 7 - 26 mg/dL 10/29/2023 5:19 AM [facility] Creatinine 0.77 0.57 - 1.11 mg/dL 10/29/2023 5:19 AM [facility] Albumin 3.0(L) 3.4 - 5.0 gm/dL 10/29/2023 5:19 AM [facility] Phosphorus 3.2 2.3 - 4.7 mg/dL 10/29/2023 5:19 AM [facility] eGFR by CKD-EPI 80(L) >=90 mL/min/1.7 3 m2 10/29/2023 5:19 AM [facility] Blood BLOOD SPECIMEN / Unknown Venipuncture / Unknown 10/29/2023 4:44 AM VICE PRESIDENT FIXED INCOME 10/29/2023 4:51 AM [facility] Rudi Armendariz MD LAB - CHEMISTRY MINH MORENO [facility] [address] [place] [address] * (ABNORMAL) LIPID PROFILE (10/29/2023 4:44 AM [facility]) Cholesterol 179 <200 mg/dL 10/29/2023 10:53 AM [facility] Triglycerides 143 <150 mg/dL 10/29/2023 10:53 AM [facility] HDL Cholesterol 40(L) >40 mg/dL 4 10:53 AM [facility] LDL Calculated 110 <130 mg/dL 10/29/2023 10:53 AM [facility] VLDL Calculated 29 <=30 mg/dL 4 10:53 AM [facility] Chol HDL Ratio 4.5(H) <4.5 10/29/2023 10:53 AM [facility] LDL/HDL Ratio 2.8 <5.0 10/29/2023 10:53 AM [facility] Blood BLOOD SPECIMEN / Unknown Venipuncture / Unknown 10/29/2023 4:44 AM VICE PRESIDENT FIXED INCOME 10/29/2023 4:51 AM [facility] Niharika Martinez Lenin [employer] LAB - CHEMISTRY ORDERABLES [facility] [address] [place] [address] * EEG (10/28/2023 9:17 PM VICE PRESIDENT FIXED INCOME) Narrative [facility] - 10/28/2023 9:17 PM VICE PRESIDENT FIXED INCOME Cristopher Flood MD 10/28/2023 9:19 PM [facility] [address] [facility] [address] Electroencephalogram Aniyah Clifford 10/28/2023 Indication: Aniyah [...] CT HEAD WO CONTRAST (10/28/2023 2:53 PM VICE PRESIDENT FIXED INCOME) Anatomical Region Laterality Modality Head Computed Tomogra phy 10/28/2023 2:58 PM VICE PRESIDENT FIXED INCOME Impressions 10/28/2023 2:59 PM VICE PRESIDENT FIXED INCOME IMPRESSION: 1.No acute intracranial abnormalities. 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 3.Chronic left lacunar infarct. > Interpreting Provider: Shannon Acosta MD on 10/28/2023 2:59 PM Narrative 10/28/2023 2:59 PM VICE PRESIDENT FIXED INCOME PROCEDURE(s): CT HEAD WO CONTRAST DATE AND [...] ONLY REFLEX TO CULTURE (10/27/2023 1:41 PM VICE PRESIDENT FIXED INCOME) Reflex Status Culture not indicated 10/27/2023 2:15 PM VICE PRESIDENT FIXED INCOME [facility] RBC UA 3-5 0 - 5 # /hpf 10/27/2023 2:15 PM VICE PRESIDENT FIXED INCOME [facility] WBC UA 0-5 0 - 5 # /hpf 10/27/2023 2:15 PM VICE PRESIDENT FIXED INCOME [facility] Bacteria UA None Seen None Seen 10/27/2023 2:15 PM VICE PRESIDENT FIXED INCOME [facility] Squamous Epithelial Cells 0-2 0 - 5 /hpf 10/27/2023 2:15 PM VICE PRESIDENT FIXED INCOME [facility] Mucus UA 1+ /LPF 10/27/2023 2:15 PM VICE PRESIDENT FIXED INCOME [facility] Hyaline Casts 3-5(A) 0 - 2 /LPF 10/27/2023 2:15 PM VICE PRESIDENT FIXED INCOME [facility] Urine URINE SPECIMEN OBTAINED BY CLEAN CATCH PROCEDURE / Unknown Collection / Unknown 10/27/2023 1:41 PM VICE PRESIDENT FIXED INCOME 10/27/2023 2:05 PM VICE PRESIDENT FIXED INCOME Narrative [facility] - 10/27/2023 2:15 PM VICE PRESIDENT FIXED INCOME Rudi Armendariz MD LAB - URINALYSIS ORD ERABLES [facility] [address] [place] [address] * (ABNORMAL) URINALYSIS REFLEX MICROSCOPIC REFLEX CULTURE (10/27/2023 1:41 PM VICE PRESIDENT FIXED INCOME) Color UA Yellow Straw, Yellow 10/27/2023 2:12 PM VICE PRESIDENT FIXED INCOME [facility] Clarity UA Clear Clear 10/27/2023 2:12 PM VICE PRESIDENT FIXED INCOME [facility] Glucose UA Negative Negative 10/27/2023 2:12 PM VICE PRESIDENT FIXED INCOME [facility] Bilirubin UA Negative Negative 10/27/2023 2:12 PM VICE PRESIDENT FIXED INCOME [facility] Ketone UA Trace(A) Negative 10/27/2023 2:12 PM VICE PRESIDENT FIXED INCOME [facility] Specific [place] UA 1.016 1.005 - 1.030 10/27/2023 2:12 PM [facility] Blood UA 1+(A) Negative 10/27/2023 2:12 PM VICE PRESIDENT FIXED INCOME [facility] pH UA 7.0 5.0 - 8.0 pH 10/27/2023 2:12 PM VICE PRESIDENT FIXED INCOME [facility] Protein UA 1+(A) Negative 10/27/2023 2:12 PM VICE PRESIDENT FIXED INCOME [facility] Urobilinogen UA Negative Negative mg/dL 10/27/2023 2:12 PM VICE PRESIDENT FIXED INCOME [facility] Nitrite UA Negative Negative 10/27/2023 2:12 PM VICE PRESIDENT FIXED INCOME [facility] Leukocyte UA Negative Negative 10/27/2023 2:12 PM [facility] Urine Microscopy Urine microscopy to follow 10/27/2023 2:12 PM [facility] Reflex Status Culture not indicated 10/27/2023 2:12 PM [facility] Urine URINE SPECIMEN OBTAINED BY CLEAN CATCH PROCEDURE / Unknown Collection / Unknown 10/27/2023 1:41 PM VICE PRESIDENT FIXED INCOME 10/27/2023 2:05 PM VICE PRESIDENT FIXED INCOME Narrative [facility] - 10/27/2023 2:12 PM VICE PRESIDENT FIXED INCOME Rudi Armendariz MD LAB - URINALYSIS ORD ERABLES Performing Organization Address [facility] de Phone Number [facility] [phone] [place] [phone] * (ABNORMAL) DRUG ABUSE URINE PANEL (10/27/2023 1:41 PM VICE PRESIDENT FIXED INCOME) [facility] Amphetamines Screen Urine Not detected Not detected 10/27/2023 2:28 PM VICE PRESIDENT FIXED INCOME [facility] Barbiturates Screen Urine Not detected Not detected 10/27/2023 2:28 PM VICE PRESIDENT FIXED INCOME [facility] Benzodiazepines Screen Urine Detected(A) Not detected 10/27/2023 2:28 PM VICE PRESIDENT FIXED INCOME [facility] Cocaine Screen Urine Not detected Not detected 10/27/2023 2:28 PM VICE PRESIDENT FIXED INCOME [facility] Fentanyl Urine Not detected Not detected 10/27/2023 2:28 PM VICE PRESIDENT FIXED INCOME [facility] Methadone Screen Urine Not detected Not detected 10/27/2023 2:28 PM VICE PRESIDENT FIXED INCOME [facility] Opiate Screen Urine Not detected Not detected 10/27/2023 2:28 PM VICE PRESIDENT FIXED INCOME [facility] Phencyclidine Screen Urine Not detected Not detected 10/27/2023 2:28 PM VICE PRESIDENT FIXED INCOME [facility] Urine URINE / Unknown Collection / Unknown 10/27/2023 1:41 PM VICE PRESIDENT FIXED INCOME 10/27/2023 2:05 PM VICE PRESIDENT FIXED INCOME [facility] - 10/27/2023 2:28 PM VICE PRESIDENT FIXED INCOME This drug screen is designed for MEDICAL [...] URINE CHEMISTR Y ORDERABLES Performing Organization Address [facility] Co de Phone Number [facility] [id number] [place] [address] * (ABNORMAL) CBC W/O DIFFERENTIAL (10/27/2023 3:54 AM VICE PRESIDENT FIXED INCOME) WBC 11.7(H) 4.0 - 10.7 x10E9/L 10/27/2023 4:08 AM [facility] RBC Count 4.42 3.90 - 5.20 x10E12/L 10/27/2023 4:08 AM [facility] Hemoglobin 15.2 11.9 - 15.8 g/dL 10/27/2023 4:08 AM [facility] Hematocrit 43.2 34.8 - 46.1 % 10/27/2023 4:08 AM [facility] MCV 97.7 80.0 - 98.0 fL 10/27/2023 4:08 AM [facility] MCH 34.4(H) 26.7 - 33.6 pg 10/27/2023 4:08 AM [facility] MCHC 35.2 31.7 - 36.3 g/dL 10/27/2023 4:08 AM [facility] RDW-CV 13.1 11.3 - 14.8 % 10/27/2023 4:08 AM [facility] Platelet Count 217 150 - 420 x10E9/L 10/27/2023 4:08 AM [facility] MPV 10.6 7.8 - 11.4 fL 10/27/2023 4:08 AM [facility] Blood BLOOD SPECIMEN / Unknown Venipuncture / Unknown 10/27/2023 3:54 AM VICE PRESIDENT FIXED INCOME 10/27/2023 4:00 AM VICE PRESIDENT FIXED INCOME Almita Cordova MD LAB - HEMATOLOGY ORD ERABLES [facility] [id number] [place] [address] Care Teams Senior Sas Developer Relationship Specialty Start Date End Date Bree Walsh MD [address] [place] [id number] PCP - General 02/07/19
--- NOTE | 2024-11-20 13:37 | PC.NURSE ---
Spoke with Maddi and Dr. Hicks office who will fax over med list. gave this investment underwriter a list of meds he has been giving from [facility] in [facility] that are prepackaged. Maddi informs they have she goes to a pharmacy in [place].
--- NOTE | 2024-11-20 14:16 | PC.NURSE ---
Addendum entered by Malgorzata Mccauley RN 11/20/24 14:25: Copy of med list used to confirm most recent medication used and placed in chart under OTHER Original Note: Rose daughter and POA took picture of medication list and emailed to this handbook writer.
[2024-11-20 14:45] LABS: Base Excess ABG -3.5 mmol/L (0-2); HCO3 ABG 20.2 mmol/L (23-29); Oxygen Saturation ABG 94.3 % (95-97); Oxyhemoglobin 93.6 % (94-100); PCO2 ABG 31.4 mmHg (35-45); PO2 ABG 77.4 mmHg (75-85); pH ABG 7.43 (7.35-7.45)
[2024-11-20 14:46] LABS: Device ROOM AIR; Modified Allen's Test Pass; Site Drawn LEFT RADIAL
[2024-11-20 15:09] LABS: Magnesium 2.2 mg/dL (1.8-2.4); Thyroid Stimulating Hormone 1.24 uIU/mL (0.36-3.74)
[2024-11-20 16:00] VITALS: BP 152/70; PULSE 90; RESP 18; TEMP 37.3; O2SAT 93
[2024-11-20] MEDS: ATORVASTATIN 40 MG TABLET PO (17:57)
[2024-11-20] MEDS: APIXABAN 2.5 MG TABLET 5 MG BY MOUTH (21:08)
--- NOTE | 2024-11-20 22:11 | PC.NURSE ---
Patient states severe anxiety this evening. States that she often has anxiety but does not take anything currently.
[2024-11-21] VITALS: BP 143/62; PULSE 88; RESP 16; TEMP 36.4; O2SAT 94
[2024-11-21 05:40] LABS: Basophils Absolute Auto 0.04 K/mm3 (0.00-0.10); Basophils Percent Auto 0.4 % (0.0-1.0); Eosinophils Percent Auto 2.9 % (1.0-6.0); Hematocrit 30.3 % (35.0-42.0); Hemoglobin 9.5 g/dL (11.7-13.8); Immature Granulocyte Absolute 0.06 K/mm3 (0.00-0.00); Immature Granulocyte Percent A 0.6 % (0.0-0.0); Lymphocytes Absolute Auto 1.72 K/mm3 (1.10-4.50); Lymphocytes Percent Auto 16.4 % (18.0-42.0); Mean Corpuscular HGB Conc 31.4 g/dL (32-36); Mean Corpuscular Volume 89.4 fL (78.0-102.0); Mean Platelet Volume 10.7 fl (9.2-11.8); Monocytes Absolute Auto 0.79 K/mm3 (0.10-0.90); Monocytes Percent Auto 7.5 % (2.0-11.0); Neutrophils Absolute Auto 7.58 K/mm3 (1.70-7.20); Neutrophils Percent Auto 72.2 % (50.0-70.0); Platelet Count Result 236 K/mm3 (150-420); Red Blood Count 3.39 M/mm3 (4.20-5.40); Red Cell Distribution Width 13.2 % (11.6-14.4); White Blood Count 10.5 K/mm3 (4.8-10.8)
[2024-11-21 05:55] LABS: Alanine Aminotransferase 25 U/L (14-59); Albumin Level 3.2 g/dL (3.4-5.0); Alkaline Phosphatase 116 U/L (46-116); Anion Gap 9 mmol/L (4-12); Aspartate Amino Transferase 30 U/L (15-37); Bilirubin,Total 0.5 mg/dL (0.00-1.00); Blood Urea Nitrogen 10 mg/dL (7-18); Carbon Dioxide 26 mmol/L (21-32); Chloride 104 mmol/L (98-108); Estimated CRCL calculation 32 ml/min; Estimated Glomerular Filt Rate 43; Glucose 97 mg/dL (70-99); Osmolality Calculated 287 mOsm/kg (285-295); Potassium 3.8 mmol/L (3.5-5.1); Sodium 139 mmol/L (136-145); Total Protein 7.2 g/dL (6.4-8.2)
[2024-11-21 07:55] VITALS: BP 148/61; PULSE 81; RESP 16; TEMP 37; O2SAT 92
[2024-11-21] MEDS: levoFLOXacin TAB 500 MG, levoFLOXacin TAB 250 MG 750 MG PO (09:01)
[2024-11-21] MEDS: oxyBUTYnin CHLORIDE XL 5 MG TAB.ER.24 PO (09:02)
[2024-11-21] MEDS: CALCIUM CARBONATE (OSCAL) 500 MG TABLET PO (09:02)
[2024-11-21] MEDS: APIXABAN 2.5 MG TABLET 5 MG BY MOUTH ×2 (09:02→20:27)
[2024-11-21] MEDS: SENNOSIDES 8.6 MG TABLET PO (09:03)
[2024-11-21] MEDS: FOLIC ACID 1 MG TABLET PO (09:03)
[2024-11-21] MEDS: amLODIPine BESYLATE 5 MG TABLET PO (09:03)
[2024-11-21] MEDS: SERTRALINE HCL 50 MG TABLET 100 MG PO (09:03)
--- NOTE | 2024-11-21 09:37 | P.HP_ITS ---
H&P: HPI History of Present Illness Date/Time: 11/21/24 09:37 Chief Complaint: Weakness Narrative: This is a 74-year-old female with a significant past medical history of GERD, syncope, aspiration pneumonia, alcohol abuse, hyperlipidemia, depression, hypertension, CVA, Dementia. former smoker who presented to the hospital after sustaining a ground level fall at home. Patient is not a good historian and most of history of presenting illness was provided to us by her , daughter, and review of the EMR. states that she was recently diagnosed with a UTI and was placed on Macrobid initially and later switched to Septra due to resistance on urine culture. He states that the patient has not been herself the last 7 days and is requiring a lot more help at home. Yesterday patient was confused and reaching for things that were not there. Daughter states this behavior is unusual and reminded her of when she had a stroke. She denies any fever, chills, nausea, vomiting, diarrhea, abdominal pain, chest pain, or shortness of breath. Patient is moving all extremities well. Head CT which showed chronic lacunar infarcts at the bilateral basal ganglia, no acute intracranial process, age-related changes including moderate diffuse volume loss and moderate scattered white matter hypoattenuation consistent with chronic small-vessel ischemic disease. workup in the hospital included a chest x-ray which showed left upper lobe infiltrate. Initial labs showed a white blood cell count of 11.5, hemoglobin 10.2, potassium 3.3, creatinine 1.22, EGFR 43, blood sugars ranging 97-102, alkaline phosphate 124, TSH was 1.24. UA was obtained which only showed trace urine blood otherwise negative. Respiratory panel was negative for influenza a and B, RSV, COVID. Blood cultures were obtained and pending. Patient was recently treated with antibiotics for UTI. Urine culture from the 11/17/2024 showed Citrobacter koseri on final read which was pansensitive other than Macrobid and Augmentin. it appears that the patient was sent home with Macrobid which was resistant and Septra. Patient was placed on Levaquin while in the ED. PT and OT ordered. Case coordination working on SNF placement. Review of Systems Review of Systems: All systems reviewed & are unremarkable except as noted in HPI and below PMFSH Past Medical History Medical History (Updated 11/21/24 @ 11:29 by Cony Quintero APRN) Dementia CVA (cerebral vascular accident) GERD (gastroesophageal reflux disease) Syncope Aspiration pneumonia ETOH abuse HLD (hyperlipidemia) Depression HTN (hypertension) Surgical History Surgical History S/P ORIF (open reduction internal fixation) fracture 06/20/19 H/O eye surgery H/O excision of ganglion cyst History of bunionectomy Social History Social History Smoking status: Former smoker Tobacco type: cigarettes Second hand tobacco smoke exposure: Yes Alcohol intake: never Drinks per week: 7 Substance use: never Substance use type: does not use Other substance usage details: pt drinks rum/coke daily Last use: 11/16/19 Do You Feel Safe in your Home?: No Lack of Transportation: No Lack of Food: Never True Current Housing: I Have Housing Concerned About Future Housing: No Difficulty Paying Gas/Electric Bills: No Difficulty Paying for Meds: No Currently Unemployed: No Education: Associate Degree Difficulty w/ Childcare or Family Care: No Gender identity (if verbalized by the patient): Female Spiritual care concerns: No Agree to blood products: Yes Meds Home Medications and Allergies Home Medications ?Medication ?Instructions ?Recorded ?Confirmed ?Type amlodipine 5 mg tablet 5 mg PO DAILY 11/23/19 11/20/24 History omeprazole 20 mg capsule,delayed 20 mg PO DAILY 11/23/19 11/20/24 History release sertraline 100 mg tablet 100 mg PO DAILY 11/23/19 11/20/24 History oxybutynin chloride 5 mg 5 mg PO DAILY 10/25/23 11/20/24 History tablet,extended release 24 hr VITAMIN b1 100mg See Rx Instructions .Route .COMPLEX 11/20/24 11/20/24 History apixaban 5 mg tablet (Eliquis) 5 mg PO Q12H 11/20/24 11/20/24 History atorvastatin 40 mg tablet 40 mg PO QPM 11/20/24 11/20/24 History calcium carbonate 500 mg PO DAILY 11/20/24 11/20/24 History folic acid 1 mg tablet 1 mg PO DAILY 11/20/24 11/20/24 History nitrofurantoin macrocrystal 100 mg 100 mg PO DAILY 11/20/24 11/20/24 History capsule omeprazole 40 mg capsule,delayed 40 mg PO DAILY 11/20/24 11/20/24 History release sennosides 8.6 mg tablet (senna) 8.6 mg PO DAILY 11/20/24 11/20/24 History sulfamethoxazole 800 1 tablet PO BID 11/20/24 11/20/24 History mg-trimethoprim 160 mg tablet Allergies Allergy/AdvReac Type Severity Reaction Status Date / Time acetaminophen (From Vicodin) Allergy Mild NAUSEA Verified 11/20/24 10:01 /VOMITING hydrocodone (From Vicodin) Allergy Mild NAUSEA Verified 11/20/24 10:01 /VOMITING Penicillins AdvReac Unknown Verified 11/20/24 10:01 Vital Signs Vital Signs - 24 hr 11/20/24 09:52 11/20/24 16:00 11/21/24 00:00 Temperature 98.1 F 99.2 F 97.6 F Pulse Rate 86 90 88 Respiratory Rate 20 18 16 Blood Pressure 134/71 152/70 H 143/62 H Pulse Oximetry 96 93 94 Oxygen Delivery Room Air Room Air Room Air 11/21/24 07:55 Temperature 98.6 F Pulse Rate 81 Respiratory Rate 16 Blood Pressure 148/61 H Pulse Oximetry 92 Oxygen Delivery Room Air Exam Narrative: General: In no acute distress, well nourished Head: atraumatic, no encephalopathy Eyes: PERRLA, sclera clear ENT: moist mucous membranes, nasal passages clear Neck: supple, no JVD, no adenopathy, trachea midline Cardiac: Normal S1 and S2. RRR, No murmur, gallops or friction rubs, peripheral pulses intact. Respiratory: Lungs clear to auscultation, no adventitious lung sounds, currently on room air Gastrointestinal: soft, non-distended, non-tender, normoactive bowel sounds. : voiding without difficulty. Extremities: moves all extremities well, no edema Skin: clean, dry, intact. No wounds or lesions. Neuro: Alert and oriented x2, cranial nerves intact, no neuro deficits. Psych: confused at times H&P: Results Labs Labs: Short CBC 11/20/24 11/21/24 Range/Units 10:15 05:27 WBC 11.5 H 10.5 (4.8-10.8) K/mm3 Hgb 10.2 L 9.5 L (11.7-13.8) g/dL Hct 33.1 L 30.3 L (35.0-42.0) % Plt Count 237 236 (150-420) K/mm3 BMP 11/20/24 11/21/24 10:15 05:27 Sodium 138 139 Potassium 3.3 L 3.8 Chloride 102 104 Carbon Dioxide 26 26 BUN 13 10 Creatinine 1.22 H 1.21 H Glucose 102 H 97 Calcium 9.1 9.0 Liver Function 11/20/24 11/21/24 Range/Units 10:15 05:27 Total Bilirubin 0.4 0.5 (0.00-1.00) mg/dL AST 27 30 (15-37) U/L ALT 24 25 (14-59) U/L Alkaline Phosphatase 124 H 116 (46-116) U/L Albumin 3.6 3.2 L (3.4-5.0) g/dL Urine 11/20/24 Range/Units 10:23 Urine Color Light yellow (Yellow) Urine Appearance Clear (Clear) Urine pH 6.5 (5.0-8.0) Ur Specific [place] 1.020 (1.010-1.020) Urine Protein Negative (Negative) Urine Glucose (UA) Negative (Negative) Imaging Chest x-ray: Radiologist's impression: CHEST RADIOGRAPH CLINICAL HISTORY: weakness . COMPARISON: 01/11/2024 TECHNIQUE: Single portable view of the chest. FINDINGS The cardiomediastinal silhouette is enlarged, unchanged. Left upper lobe infiltrate, an interval change from prior. The remainder of the lungs are clear. IMPRESSION: Left upper lobe infiltrate Reviewed, dictated and finalized at location A. CHING DEPARTMENT SUPERVISOR CT scan - head: Radiologist's impression: EXAMINATION: CT brain wo con DATE: 11/20/2024 14:26 INDICATION: Confusion TECHNIQUE: Computed tomography (CT) of the head was performed without intravenous contrast. Sagittal and coronal reconstructions were performed. The mA was adjusted according to patient size. Iterative reconstruction technique was employed. The dose-length product was 605.33 mGy-cm. COMPARISON: head CT dated 02/27/2024 FINDINGS: Again seen are small old lacunar infarcts at the bilateral basal ganglia. No acute intracranial hemorrhage, acute infarction or abnormal extra axial fluid collection. There is moderate scattered white matter hypoattenuation consistent with chronic small vessel ischemic disease. Symmetric prominence of the sulci and ventricles consistent with moderate age-appropriate diffuse cerebral volume loss. No mass/mass effect. Changes of bilateral intraocular lens replacement. The orbits, paranasal sinuses and mastoid air cells are normal. IMPRESSION: 1. Chronic lacunar infarcts at the bilateral basal ganglia. No acute intracranial process. 2. Age-related changes including moderate diffuse volume loss and moderate sca ttered white matter hypoattenuation consistent with chronic small vessel ischemic disease. Reviewed, dictated and finalized at location L. CHING DEPARTMENT SUPERVISOR Assessment and Plan Assessment and plan (1) Pneumonia: Qualifiers: Laterality: left Lung location: upper lobe of lung Pneumonia type: due to unspecified organism Qualified Code(s): J18.9 - Pneumonia, unspecified organism Code(s): J18.9 - Pneumonia, unspecified organism Status: Acute Assessment and Plan: * chest x-ray showing left upper lobe infiltrate * patient was started on Levaquin * currently on room air, keep O2 sat greater than 92% * will start Mucinex * DuoNeb ordered p.r.n. * PT and OT ordered (2) Altered mental status: Qualifiers: Altered mental status type: coma Coma depth: [place] coma 9-12 Coma timing: at hospital admission Qualified Code(s): R40.2423 - [place] coma scale score 9-12, at hospital admission Code(s): R41.82 - Altered mental status, unspecified Status: Inactive Assessment and Plan: * head CT showed chronic lacunar infarcts of the bilateral basal ganglia, no acute intracranial process, age-related changes including moderate diffuse volume loss and moderate scattered white matter hypoattenuation consistent with chronic small-vessel ischemic disease * recently diagnosed with a UTI on 11/17/2024 and was started on Septra and Macrobid??? * urine culture showing Citrobacter koseri which was resistant to Macrobid how ever susceptible to Septra * UA this admission showed trace urine blood otherwise negative. * Blood sugars ranging 97-102 * sodium is within normal limits of 139 * continue neuro checks (3) Acute UTI: Code(s): N39.0 - Urinary tract infection, site not specified Status: Acute Assessment and Plan: * initial UA on 11/17/2024 showed 1+ urine ketone, 1+ urine blood, 1+ urine bili, 1+ urine leukocytes, 6-10 urine RBC, 10-15 urine WBC, 4+ urine bacteria * patient was started on Macrobid and then transitioned to Septra * urine culture showing Citrobacter koseri on final read susceptible to Cipro and Levaquin, resistant to Macrobid * UA this admission showed trace urine blood otherwise negative * patient transitioned over to Levaquin to cover for UTI and her pneumonia (4) GERD (gastroesophageal reflux disease): Code(s): K21.9 - Gastro-esophageal reflux disease without esophagitis Status: Acute Assessment and Plan: * Will start Protonix (5) HTN (hypertension): Code(s): I10 - Essential (primary) hypertension Status: Acute Assessment and Plan: * blood pressure ranging 143/62 to 152/70 * continue amlodipine (6) HLD (hyperlipidemia): Code(s): E78.5 - Hyperlipidemia, unspecified Status: Acute Assessment and Plan: * continue atorvastatin (7) Depression: Code(s): F32.9 - Major depressive disorder, single episode, unspecified Status: Acute Assessment and Plan: * continue Zoloft (8) Dementia: Code(s): F03.90 - Unspecified dementia, unspecified severity, without behavioral disturbance, psychotic disturbance, mood disturbance, and anxiety Status: Acute Assessment and Plan: * Seroquel 25 mg ordered for tonight * Alert and oriented x2, impulsive * make use of chair and bed alarms * continue fall precautions (9) Weakness: Code(s): R53.1 - Weakness Status: Acute Assessment and Plan: * PT and OT ordered * Case coordination following for outpatient needs Quality VTE Prophylaxis VTE prophylaxis: pharmacologic ordered Hospitalist MIPS Advance Care Plan I have confirmed that the patient's Advanced Care Plan is present, code status is documented, or surrogate decision maker is listed in patient medical record.: Yes Medication Reconciliation I have utilized all available resources to obtain, update and review the patients current medications (includes all prescriptions, OTC, herbals, cannabis, and nutritional supplements).: Yes
[2024-11-21] MEDS: guaiFENesin 12 HR 600 MG TABCR 1200 MG PO ×2 (11:15→20:27)
[2024-11-21] MEDS: PANTOPRAZOLE 40 MG TABLET PO (11:15)
[2024-11-21 16:00] VITALS: BP 159/62; PULSE 88; RESP 18; TEMP 37.3; O2SAT 91
[2024-11-21] MEDS: ATORVASTATIN 40 MG TABLET PO (17:07)
[2024-11-21] MEDS: QUEtiapine FUMARATE 25 MG TABLET PO (20:27)
[2024-11-22] VITALS: BP 147/62; PULSE 90; RESP 16; TEMP 36.8; O2SAT 91
[2024-11-22 05:55] LABS: Basophils Absolute Auto 0.04 K/mm3 (0.00-0.10); Basophils Percent Auto 0.4 % (0.0-1.0); Eosinophils Absolute Auto 0.24 K/mm3 (0.02-0.50); Eosinophils Percent Auto 2.2 % (1.0-6.0); Hematocrit 31.7 % (35.0-42.0); Hemoglobin 9.8 g/dL (11.7-13.8); Immature Granulocyte Absolute 0.06 K/mm3 (0.00-0.00); Immature Granulocyte Percent A 0.5 % (0.0-0.0); Lymphocytes Absolute Auto 1.65 K/mm3 (1.10-4.50); Lymphocytes Percent Auto 15.1 % (18.0-42.0); Mean Corpuscular HGB Conc 30.9 g/dL (32-36); Mean Corpuscular Hemoglobin 27.8 pg (27.0-31.0); Mean Corpuscular Volume 90.1 fL (78.0-102.0); Mean Platelet Volume 10.6 fl (9.2-11.8); Monocytes Absolute Auto 0.84 K/mm3 (0.10-0.90); Monocytes Percent Auto 7.7 % (2.0-11.0); Neutrophils Percent Auto 74.1 % (50.0-70.0); Platelet Count Result 218 K/mm3 (150-420); Red Blood Count 3.52 M/mm3 (4.20-5.40); Red Cell Distribution Width 13.2 % (11.6-14.4); White Blood Count 10.9 K/mm3 (4.8-10.8)
[2024-11-22 06:10] LABS: Alanine Aminotransferase 21 U/L (14-59); Albumin Level 3.1 g/dL (3.4-5.0); Alkaline Phosphatase 108 U/L (46-116); Anion Gap 11 mmol/L (4-12); Aspartate Amino Transferase 25 U/L (15-37); Bilirubin,Total 0.6 mg/dL (0.00-1.00); Blood Urea Nitrogen 11 mg/dL (7-18); Carbon Dioxide 26 mmol/L (21-32); Chloride 102 mmol/L (98-108); Estimated CRCL calculation 32 ml/min; Estimated Glomerular Filt Rate 43; Glucose 90 mg/dL (70-99); Osmolality Calculated 287 mOsm/kg (285-295); Potassium 3.8 mmol/L (3.5-5.1); Sodium 139 mmol/L (136-145); Total Protein 7.2 g/dL (6.4-8.2)
[2024-11-22 08:00] VITALS: BP 156/71; PULSE 82; RESP 17; TEMP 36.8; O2SAT 92
--- NOTE | 2024-11-22 08:45 | P.DS_ITS ---
DS: Admitting Diagnosis Discharge Date 11/22/24 Admitting Diagnosis Pneumonia altered mental status acute UTI GERD hypertension hyperlipidemia depression dementia weakness DS: Discharge Diagnosis Discharge Diagnosis (1) Pneumonia: Qualifiers: Laterality: left Lung location: upper lobe of lung Pneumonia type: due to unspecified organism Qualified Code(s): J18.9 - Pneumonia, unspecified organism Code(s): J18.9 - Pneumonia, unspecified organism Status: Acute Assessment and Plan: * chest x-ray showing left upper lobe infiltrate * patient was started on Levaquin * currently on room air, keep O2 sat greater than 92% * will start Mucinex * DuoNeb ordered p.r.n. * PT and OT ordered (2) Altered mental status: Qualifiers: Altered mental status type: coma Coma depth: Jamil coma 9-12 Coma timing: at hospital admission Qualified Code(s): R40.2423 - Dexter coma scale score 9-12, at hospital admission Code(s): R41.82 - Altered mental status, unspecified Status: Inactive Assessment and Plan: * head CT showed chronic lacunar infarcts of the bilateral basal ganglia, no acute intracranial process, age-related changes including moderate diffuse volume loss and moderate scattered white matter hypoattenuation consistent with chronic small-vessel ischemic disease * recently diagnosed with a UTI on 11/17/2024 and was started on Septra and Macrobid??? * urine culture showing Citrobacter koseri which was resistant to Macrobid however susceptible to Septra * UA this admission showed trace urine blood otherwise negative. * Blood sugars ranging 97-102 * sodium is within normal limits of 139 * continue neuro checks (3) Acute UTI: Code(s): N39.0 - Urinary tract infection, site not specified Status: Acute Assessment and Plan: * initial UA on 11/17/2024 showed 1+ urine ketone, 1+ urine blood, 1+ urine bili, 1+ urine leukocytes, 6-10 urine RBC, 10-15 urine WBC, 4+ urine bacteria * patient was started on Macrobid and then transitioned to Septra * urine culture showing Citrobacter koseri on final read susceptible to Cipro and Levaquin, resistant to Macrobid * UA this admission showed trace urine blood otherwise negative * patient transitioned over to Levaquin to cover for UTI and her pneumonia (4) GERD (gastroesophageal reflux disease): Code(s): K21.9 - Gastro-esophageal reflux disease without esophagitis Status: Acute Assessment and Plan: * Will start Protonix (5) HTN (hypertension): Code(s): I10 - Essential (primary) hypertension Status: Acute Assessment and Plan: * blood pressure ranging 143/62 to 152/70 * continue amlodipine (6) HLD (hyperlipidemia): Code(s): E78.5 - Hyperlipidemia, unspecified Status: Acute Assessment and Plan: * continue atorvastatin (7) Depression: Code(s): F32.9 - Major depressive disorder, single episode, unspecified Status: Acute Assessment and Plan: * continue Zoloft (8) Dementia: Code(s): F03.90 - Unspecified dementia, unspecified severity, without behavioral disturbance, psychotic disturbance, mood disturbance, and anxiety Status: Acute Assessment and Plan: * Seroquel 25 mg ordered for tonight * Alert and oriented x2, impulsive * make use of chair and bed alarms * continue fall precautions (9) Weakness: Code(s): R53.1 - Weakness Status: Acute Assessment and Plan: * PT and OT ordered * Case coordination following for outpatient needs DS: Summary Hospital Course Reason for hospitalization: Pneumonia altered mental status acute UTI GERD hypertension hyperlipidemia depression dementia weakness Hospital Course: This is a 74-year-old female with a significant past medical history of GERD, syncope, aspiration pneumonia, alcohol abuse, hyperlipidemia, depression, hypertension, CVA, Dementia. former smoker who presented to the hospital after sustaining a ground level fall at home. Patient is not a good historian and m ost of history of presenting illness was provided to us by her , daughter, and review of the EMR. states that she was recently diagnosed with a UTI and was placed on Macrobid initially and later switched to Septra due to resistance on urine culture. He states that the patient has not been herself the last 7 days and is requiring a lot more help at home. Yesterday patient was confused and reaching for things that were not there. Daughter states this behavior is unusual and reminded her of when she had a stroke. She denies any fever, chills, nausea, vomiting, diarrhea, abdominal pain, chest pain, or shortness of breath. Patient is moving all extremities well. Head CT which showed chronic lacunar infarcts at the bilateral basal ganglia, no acute intracranial process, age-related changes including moderate diffuse volume loss and moderate scattered white matter hypoattenuation consistent with chronic small-vessel ischemic disease. workup in the hospital included a chest x-ray which showed left upper lobe infiltrate. Initial labs showed a white blood cell count of 11.5, hemoglobin 10.2, potassium 3.3, creatinine 1.22, EGFR 43, blood sugars ranging 97-102, alkaline phosphate 124, TSH was 1.24. UA was obtained which only showed trace urine blood otherwise negative. Respiratory panel was negative for influenza a and B, RSV, COVID. Blood cultures were obtained and p ending. Patient was recently treated with antibiotics for UTI. Urine culture from the 11/17/2024 showed Citrobacter koseri on final read which was pansensitive other than Macrobid and Augmentin. it appears that the patient was sent home with Macrobid which was resistant and Septra. Patient was placed on Levaquin while in the ED and was switched to oral. PT and OT worked with patient and is recommending additional rehab time. She was accepted here at [facility] for the swing bed program. She is stable for discharge at this time. She will need to finish her Levaquin for her community-acquired pneumonia and UTI. Her altered mental status improved and she is now at her baseline which is alert and oriented x2. patient does have underlying dementia. final diagnosis: community-acquired pneumonia, acute UTI, physical deconditioning Status at Discharge Cognitive/behavioral status at discharge: Alert oriented x2 Functional status at discharge: uses cane/walker Overall status at discharge: patient is progressing back to baseline Time Spent with Patient Time attestation: Total time spent providing and/or coordinating discharge services: Time spent: Greater than 30 minutes Exam Narrative: General: In no acute distress, well nourished Cardiac: Normal S1 and S2. RRR, No murmur, gallops or friction rubs, peripheral pulses intact. Respiratory: Lungs clear to auscultation, no adventitious lung sounds, currently on room air Gastrointestinal: soft, non-distended, non-tender, normoactive bowel sounds. : voiding without difficulty. Neuro: Alert and oriented x2 DS: Data Data Completed and Pending Completed studies during hospitalization: head CT chest x-ray Pending studies at discharge: blood cultures Labs on day of discharge: Labs from last 24 hours 11/22/24 05:24 WBC 10.9 H RBC 3.52 L Hgb 9.8 L Hct 31.7 L MCV 90.1 MCH 27.8 MCHC 30.9 L RDW 13.2 Plt Count 218 MPV 10.6 Immature Gran % (Auto) 0.5 H Neut % (Auto) 74.1 H Lymph % (Auto) 15.1 L Ward % (Auto) 7.7 Eos % (Auto) 2.2 Baso % (Auto) 0.4 Lymph # (Auto) 1.65 Ward # (Auto) 0.84 Eos # (Auto) 0.24 Baso # (Auto) 0.04 Abs Immat Gran (auto) 0.06 H Absolute Neuts (auto) 8.10 H Absolute Nucleated RBC 0.00 Nucleated RBC % 0.0 Sodium 139 Potassium 3.8 Chloride 102 Carbon Dioxide 26 Anion Gap 11 BUN 11 Creatinine 1.21 H Estim Creat Clear Calc 32 Estimated GFR 43 L Glucose 90 Calculated Osmolality 287 Calcium 9.0 Total Bilirubin 0.6 AST 25 ALT 21 Alkaline Phosphatase 108 Total Protein 7.2 Albumin 3.1 L Preliminary micro results at discharge 11/20/24 10:17 Blood Culture - Preliminary Blood 11/20/24 10:15 Blood Culture - Preliminary Blood Procedures/Treatments: none Discharge Plan Discharge Attending physician on discharge: Maxi Nur Discharging Clinician: Cony Quintero Anticipated Discharge Date/Time: 11/22/24 08:42 Patient Disposition: Hospital Swing Bed Discharge Instructions: discharge to [facility] program Patient Instructions: Antibiotic Form Patient Language: St Helenian Stand Alone Forms: General Discharge Information Discharge Medications: New ipratropium-albuterol 0.5 mg-3 mg(2.5 mg base)/3 mL Solution For Nebulization 3 ml inhalation Q6HRT PRN (Reason: shortness a breath/wheezing) Qty: 1 0RF levofloxacin 750 mg Tablet 750 mg PO Q48H Qty: 1 0RF guaifenesin [Mucus Relief ER] 600 mg Tablet Extended Release 12hr 1,200 mg PO Q12HR Qty: 1 0RF quetiapine [Seroquel] 25 mg Tablet 25 mg PO HS Qty: 1 0RF Continued sertraline 100 mg tablet 100 mg PO DAILY amlodipine 5 mg tablet 5 mg PO DAILY omeprazole 20 mg capsule,delayed release(DR/EC) 20 mg PO DAILY oxybutynin chloride 5 mg Tablet Extended Release 24hr 5 mg PO DAILY calcium carbonate 500 mg calcium (1,250 mg) tablet 500 mg PO DAILY folic acid 1 mg tablet 1 mg PO DAILY omeprazole 40 mg capsule,delayed release(DR/EC) 40 mg PO DAILY sennosides [senna] 8.6 mg tablet 8.6 mg PO DAILY VITAMIN b1 100mg See Rx Instructions .ROUTE .COMPLEX Rx Instructions: 100 mg daily; atorvastatin 40 mg tablet 40 mg PO QPM Eliquis 5 mg tablet 5 mg PO Q12H sulfamethoxazole-trimethoprim 800-160 mg tablet 1 tablet PO BID Patient Comments: UTI nitrofurantoin macrocrystal 100 mg capsule 100 mg PO DAILY Date of admission: 11/20/24 11:10 Primary Care Provider: Amol Aden Admitting Provider: Maxi Nur Attending physician on admission: Maxi Nur Condition: Improved Quality VTE Prophylaxis VTE prophylaxis: pharmacologic ordered Hospitalist MIPS Heart Failure (Exclusion) Patient has history of Heart Transplant or Left Ventricular Assistive Device?: No IF YES, STOP HERE Heart Failure (Qualifier) Patient has current or prior documentation of LVEF less than or equal to 40%, or mod/servere depressed LVSF?: No IF NO, STOP HERE
[2024-11-22] MEDS: SERTRALINE HCL 50 MG TABLET 100 MG PO (09:00)
[2024-11-22] MEDS: PANTOPRAZOLE 40 MG TABLET PO (09:00)
[2024-11-22] MEDS: APIXABAN 2.5 MG TABLET 5 MG BY MOUTH (09:00)
[2024-11-22] MEDS: CALCIUM CARBONATE (OSCAL) 500 MG TABLET PO (09:00)
[2024-11-22] MEDS: oxyBUTYnin CHLORIDE XL 5 MG TAB.ER.24 PO (09:00)
[2024-11-22] MEDS: amLODIPine BESYLATE 5 MG TABLET PO (09:00)
[2024-11-22] MEDS: FOLIC ACID 1 MG TABLET PO (09:00)
[2024-11-22] MEDS: guaiFENesin 12 HR 600 MG TABCR 1200 MG PO (09:00)
--- NOTE | 2024-11-22 09:11 | PC.NURSE ---
Pt discharging from observation bed and will be admitted as SSB patient.
== END 2024-11-22 09:40 | disposition swing bed (61) ==
LOC: CHSED 10:59 → CHS2ND 11:16
PROVIDERS: Nurse Practitioner Acute Care; Admitting Provider Internal Medicine; Emergency Provider Emergency Medicine; PCP Family Medicine; Visit Provider Internal Medicine
DX: J18.9 Pneumonia, unspecified organism (principal); N39.0 Urinary tract infection, site not specified; B96.89 Other specified bacterial agents as the cause of diseases classified elsewhere; Z16.39 Resistance to other specified antimicrobial drug; K21.9 Gastro-esophageal reflux disease without esophagitis; R41.82 Altered mental status, unspecified; I10 Essential (primary) hypertension; E78.5 Hyperlipidemia, unspecified; F32.9 Major depressive disorder, single episode, unspecified; F03.90 Unspecified dementia, unspecified severity, without behavioral disturbance, psychotic disturbance, mood disturbance, and anxiety; R53.1 Weakness; F10.10 Alcohol abuse, uncomplicated; Z20.822 Contact with and (suspected) exposure to COVID-19; Z86.73 Personal history of transient ischemic attack (TIA), and cerebral infarction without residual deficits; Z87.891 Personal history of nicotine dependence; Z91.81 History of falling
CPT/HCPCS: 36415; 36600; 70450; 71045; 80053; 81003; 82805; 83605; 83735; 83880; 84443; 85025; 87040; 87637; 93005; 96361; 96365; 97161; 97166; 97530; 99285; A9270; G0378; J1956; J7030

== ENCOUNTER 2024-11-22 09:41 | Inpatient (IN) | payer OTHER, SELFPAY ==
--- OUTSIDE RECORDS SUMMARY | 2024-11-22 10:57 | XMS_ITS ---
Author Organization [facility] Care Team Providers Care Merchandise Flow Manager Name Role Phone Blayne Crawley Unavailable Unavailable Melanie Rodrigez Unavailable Unavailable Allergies and adverse reactions No Known Allergies Care Team Name Role Address Phone Organization Dates Kamal Denisa PCP [address], [place], [facility], [facility] (Office): [facility] 11/14/2023 - 11/25/2023 Melanie Rodrigez Attending Physician [address], [place], [facility], [facility] (Office): [facility] 11/14/2023 - 11/25/2023 Mental Status Section Date Assessment Total Score Description 11/25/2023 BIMS 07 severe cognitiv e impairment CAM 0 No delirium ind icated 11/20/2023 BIMS 06 severe cognitiv e impairment CAM 0 No delirium ind icated Problems Problem # Description Date of onset Resolved Date Code CodeSystem Concern Status 1 ALCOHOL ABUSE, UNCOMPLICATED 11/14/[address] active 2 ESSENTIAL (PRIMARY) HYPERTENSION 11/14/[address] active 3 GASTRO-ESOPHAGEAL REFLUX DISEASE WITHOUT ESOPHAGITIS 11/14/[address] active 4 HYPERLIPIDEMIA, UNSPECIFIED 11/14/[address] active 5 MAJOR DEPRESSIVE DISORDER, RECURRENT, UNSPECIFIED 11/14/[address] active 6 MODERATE PROTEIN-CALORIE MALNUTRITION 11/14/[address] active 7 OTHER IDIOPATHIC PERIPHERAL AUTONOMIC NEUROPATHY 11/14/[address] active 8 UNSPECIFIED SEQUELAE OF CEREBRAL INFARCTION 11/14/[address] active Reason for Referral No Reasons for Referral Entered Social History Social History Observation Description Start Date End Date Code Code System Current Smoking Status Never smoked tobacco 887278798 SNOMED CT Sex Assigned At Female 1950 37527-4 [facility] Vital Signs Code Code System Vitals Name Values and Units Timing Information 65391-0 [facility] Pain Level Value=0.0 11/25/2023 9279-1 [facility] Respiratory Rate Value=20.0 Units=/m in 11/24/2023 8462-4 [facility] Blood Pressure-Diastolic Value=78 Un its=mmHg 11/24/2023 8480-6 [facility] Blood Pressure-Systolic Bjarr=695 Un its=mmHg 11/24/2023 8310-5 [facility] Body Temperature Value=97.9 Units= F 11/24/2023 8867-4 [facility] Heart rate Value=72.0 Units=/min 05/2024 36865-7 [facility] O2 % BldC Oximetry Value=97.0 Units= % 11/24/2023 95663-5 [facility] Weight Otgih=837.0 Units=Lbs 02/2024 8302-2 [facility] Height Value=60.0 Units=Inches 11/15/2023
--- OUTSIDE RECORDS SUMMARY | 2024-11-22 10:58 | XMS_ITS | Data Portability ---
Author Organization [facility], [address] [facility] ([place]) Address [address] [place] [address] Care Team Providers Care Colorist Name Role Phone CHELSEA VARUN Primary Care Provider Assessment Encounter Date Assessment Date Assessment LastModified by Organization Details LastModified Time 04/01/2024 04/01/2024 This 73-year-old female lost to Neurology Clinic follow up for the last 10 years presents again to establish care. Having issues with gait which seem to have been present 10 years ago when she was seen by [facility] as well as issues with cognitive [...] We will make referrals to neuropsychologists at [facility], referrals to Physical Therapy for gait training and I advised them it is probably in her best interest to start taking an over the counter B complex containing cyanocobalamin as she was taking this previously. We will make a referral for her to be seen closer to where they live down in [place] for her neurology follow up with Dr. [...] see her in the [facility] in [place] in approximately 12 weeks if it can be managed. 5. The patient is on atorvastatin 40 mg and apixaban 5 mg b.i.d. which appear to be sufficient secondary stroke prevention given her history and hyperlipidemia. I personally spent a total of 70 minutes on the patient on this date of service including both hprw-lr-rkxo and omj-fjwm-gp-face time excluding any separately reportable services. parish [email or web address] Not available 04/01/2024 18:07:49 06/23/2024 06/23/2024 ASSESSMENT [...] in addition to Eliquis and her beta sahlee. I personally spent a total of 30 minutes on the patient on this date of service including both mkaq-ju-cqwc and zzm-ljce-uv-face time excluding any separately reportable services. [email or web address] Not available 06/23/2024 14:46:27 Plan of Treatment Reminders Order Date Submit Date Provider Last Modified By Organization Details Last Modified Time Details Appointments None recorded. Lab None recorded. Referral neuropsych ologist referral - Please see referral order and attachment s. Please call patient with appointmen t date and time. Thanks. 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 2023 Ca Wills MD [address] [place] [address], [phone], [facility] 4 14:25:31 Embolic stroke 588309304 Active 2023 Ca Wills MD [address] [place] [address], [address], [facility] 4 14:25:59 Neurocognitive disorder 364728842 Active 2023 Ca Wills MD [address] [place] [address], [address], [facility] 4 14:26:10 Impaired cognition 102804498 Active 2023 MIGUEL ANGEL LEE MD [address] [place] [address], [address], [facility] 4 17:28:24 Abnormal gait 87041467 Active 2023 Reva Harrell [facility] 4 10:40:22 Problem Notes None recorded. Procedures [...] Name and Address Organization Details Recorded Time 9295691 Product containin g angiotens in-conver ting enzyme inhibitor (product) medicatio n Not available Not available unabletoasse 04/10/2024 45567 009 SNOMED Not Available Not Available Not Available 783914 Product containin g penicilli n (product) medicatio n Not available Not available Not available 10/15/20232008 31633 8001 SNOMED Not Available Not Available Not [...] Updated DateTime 4 167.64 cm 22.6 kg/m2 39667.9 3 g 79 /min 99 % 99 % Thuan Giordano [facility] 4 11:22:25 Date Recorded Body height Body mass index (BMI) Body weight Heart rate Oxygen saturation Oxygen saturation in Arterial blood by Pulse oximetry Systolic blood pressure Diastolic blood pressure Provider Name and Address Organization Details Last Updated DateTime 4 167.64 cm 25 kg/m2 74468.8 2 g 88 /min 97 % 97 % 129 mm[Hg] 62 mm[Hg] Mariana Terry [facility] 13:49:18 Social History None recorded. Functional Status None recorded. Mental Status None recorded. Family History Nothing Reported. Medical History No medical history recorded. Gynecological HistoryNo gynecological history recorded. Obstetrics History GPAL:G 0 P 0 0 0 0 Past Encounters Encounter ID Performer Location Encounter Start Date Encounter Closed Date Diagnosis/Indication Diagnosis SNOMED-CT Code Diagnosis ICD10 Code Diagnosis Note [id number] MIGUEL ANGEL LEE MD [address] [facility] ([place]) [address] [place] [address] 04/01/2024 15:29:10 04/03/2024 08:08:00 Impaired cognition 171213368 R41.89 Abnormal gait 71562501 R 26.9 [id number] Ca Wills MD [facility] ([place]) [address] [place] [address] 06/23/2024 13:38:28 06/23/2024 14:28:05 Alcoholic polyneuropathy 5805225 G62.1 Additional diagnosis detail: Alcoholic peripheral neuropathy Embolic stroke 612717509 I63.40 Additional diagnosis detail: Cerebrovas cular accident (CVA) due to embolism of cerebral artery Neurocogni tive disorder 987262158 R41.9 History of cerebrovascular accident 394342721 Z86.73 Additional diagnosis detail: History of stroke Health Concerns Section Related Observation LastModified by Organization Detai ls LastModified Time None Recorded Concern Status LastModified by Organization Details LastModified Time None Recorded Advance Directives Directive None Recorded Payers Encounter Date Sequence Insurance Name Policy Number Policy Doty Covered Member ID Doty Member ID Guarantor Name 04/01/2024 1 [employer] ([facility]) [id number] Amy Clemente [id number] Christophe Clemente 06/23/2024 1 [facility] [employer] ([facility]) [id number] Amy Clemente [id number] Christophe Clemente Notes Date Note Type Note Provider Name and Address Organization Details Recorded Time 04/01/2024 text/html Amy Clemente is a 73-year-old female with multiple medical problems who presents to the Neurology Clinic to discuss gait disturbance, cognitive impairment and neuropathy. The patient was originally seen by [facility] back in July 2008 when she was seen by Dr. Morton at [facility]. He read an EEG on her but [...] of the brain completed without contrast at [place] that showed no acute intracranial mass, hemorrhage [...] She has had some neurologic care in [place] during this time as well as in [place] but I do not have all these records available to me at this time. The patient was admitted at [facility] in October 2023 and had tests done [...] Her primary care is Dr. Daniels in [place] and she has been seeing him for [...] well. MIGUEL ANGEL LEE MD [address] [place] [address], [address], [facility] 04/02/2024 16:23:29 06/23/2024 text/html Amy Clemente [...] assessments have noted. She is currently at [facility]. Regarding the neuropathy, she reports no significant change in symptomatology. They did notice significant cognitive problems following the CVA. She had a [place] cognitive assessment score of 18 out of 30. She was sent for neuropsychiatric assessment per DEAN. This has yet to be completed. Ca Wills MD [address] [facility], [place], [address], [facility] 06/24/2024 12:35:35 OBGyn Episode No OBEpisode recorded.
--- OUTSIDE RECORDS SUMMARY | 2024-11-22 10:58 | XMS_ITS | Encounter Summary ---
Author Organization [facility] Address [facility] [place] [address] Care Team Providers Care Livestock Sales Representative Name Role Phone Sam Daniels MD Primary Care Provider [phone] Jennifer Pate MD Unavailable Encounter Details Date Type Department Care Team (Late st Contact Info) Description 02/22/2019 Abstract SFL CONVERSION [address] [place], [place] [id number] , Generic MD Yen Social History Tobacco [...] Description 01/12/2025 11:15 AM CDT Office Visit [facility] [address] [place] [address] Jennifer Pate MD [address] [place] [address] documented as of this encounter Visit Diagnoses Not on filedocumented in this encounter Additional Health Concerns Infection Onset Date Last Indicated Resolved Time COVID-19 Rule Out 09/03/2021 09/03/2021 09/03/2021 7:36 PM [employer] COVID-19 Rule Out 04/04/2022 04/04/2022 04/04/2022 10:22 PM CDT documented as of this encounter Care Teams Livestock Sales Representative Relationship Specialty Start Date End Date Sam Daniels MD [address] [place] [address] PCP - General FAMILY PRACTICE 09/03/21 Jennifer Pate MD [address] [place] [address] Consulting Physician CARDIOVASCULAR DISEASE 01/04/24 documented as of this encounter
--- OUTSIDE RECORDS SUMMARY | 2024-11-22 10:58 | XMS_ITS | Clinical Summary ---
Author Organization [facility] Address [facility] [place] [address] Care Team Providers Care Oil Well Service Unit Operator Name Role Phone Sam Daniels MD Primary Care Provider [phone] Jennifer Pate MD Unavailable Allergies Active Allergy [...] Description 01/12/2025 11:15 AM CDT Office Visit [facility] [place] [address] Jennifer Pate MD [address] [place] [address] Health Maintenance Due Date Last Done Comments [...] this topic Medical Devices Implanted Type Area Soccer Ball Assembler Device Identifier Shelf Expiration Date Model / Serial / Lot Lt 12 Hole Plate-Prox Hum Implanted:Qty: 1 on 06/20/2019 by Kodi Whyte MD at [facility] Left: Arm [id number] / / 3.5 Cortical Screw-22mm Implanted:Qty: 2 on 06/20/2019 by Kodi Whyte MD at [facility] Left: Arm [id number] / / 3.5 Cortical Screw-24mm Implanted:Qty: 3 on 06/20/2019 by Kodi Whyte MD at [facility] Left: Arm [id number] / / 4.0 Cancellous Screw-46mm Implanted:Qty: 1 on 06/20/2019 by Kodi Whyte MD at [facility] Left: Arm [id number] / / 4.0 Locking Screw-22mm Implanted:Qty: 4 on 06/20/2019 by Kodi Whyte MD at [facility] Left: Arm [id number] / / 4.0 Locking Screw-24mm Implanted:Qty: 1 on 06/20/2019 by Kodi Whyte MD at [facility] Left: Arm [id number] / / 4.0 Locking Screw-36mm Implanted:Qty: 2 on 06/20/2019 by Kodi Whyte MD at [facility] Left: Arm [id number] / / Explanted Type Area Soccer Ball Assembler Device Identifier Shelf Expiration Date Model / Serial / Lot 4.0 Cancellous Screw-24mm Explanted:Qty: 1 on 06/20/2019 at [facility] Left: Arm [id number] / / Procedures Procedure Name Priority Date/Time [...] 4:57 PM 12/02/2019 7:04 PM Care Teams Oil Well Service Unit Operator Relationship Specialty Start Date End Date Sam Daniels MD [address] [facility] [place] [phone] PCP - General FAMILY PRACTICE 09/03/21 Jennifer Pate MD [address] [place] [address] Consulting Physician CARDIOVASCULAR DISEASE 01/04/24
--- OUTSIDE RECORDS SUMMARY | 2024-11-22 10:58 | XMS_ITS | Patient Health Summary ---
Author Organization [facility] Address [address] [place] [address] Care Team Providers Care Gameplay Programmer Name Role Phone Bree Walsh MD Primary Care Provider [phone] Note from Formerly named [facility],non-owned Affiliates and Associated Physician Practices is amultiple site organization consisting of ambulatory clinics and hospital sitesin [place], [place], [place] and [place]. This disclosure is being madepursuant to the Care Everywhere program and may not contain all information available regarding this patient. Last updated 18.[facility] Allergies * Penicillins(Anaphylaxis) -High Criticality Medications * [...] Recorded Patient Health Questionnaire-2 Score 0 11/07/2023 [facility] - Occupational [...] place to sleep or slept in a jail (including now)? No 10/31/2023 Sex and Gender Information Value Date Recorded Sex Assigned at Not on file Gender Identity Not on file Sexual Orientation Not on file Last Filed Vital Signs Vital Sign Reading Time Taken Comments Blood Pressure 162/83 11/14/2023 7:43 AM [facility] Pulse 74 11/14/2023 7:43 AM [facility] Temperature 36.5 C (97.7 F) 11/14/2023 7:43 AM [facility] Respiratory Rate 14 11/14/2023 7:43 AM [facility] Oxygen Saturation 95% 11/14/2023 7:43 AM [facility] Inhaled Oxygen Concentration - - Weight - [...] Hypokalemia Results * EVENT MONITOR (01/16/2024) Impressions [facility] - 01/16/2024 Ambulatory ECG Interpretation: [...] Cedric Hill MD CARDIAC SERVICES ORD ERABLES [facility] * CARDIAC RHYTHM STRIP ORDER (11/15/2023 7:25 PM [facility]) Narrative 11/15/2023 7:25 PM [facility] Ordered by an unspecified provider. Scanned Document CARDIAC SERVICES ORD ERABLES * ECHO LEWIS COMPLETE (11/08/2023 12:19 PM [facility]) Anatomical Region Laterality Modality Ultrasound Narrative 11/09/2023 10:32 AM [facility] Left Ventricle: Left ventricle size is normal. [...] study. The probe was inserted by the financial internship. There was no probe insertion difficulty. Start time: 928 Stop time: 958 Propofol was administered by the RING MAKING MACHINE OPERATOR. Nicolas Madrid MD ECHO CUPID * CCL INTRA PROCEDURE LEWIS (11/08/2023 9:59 AM [facility]) Anatomical Region Laterality Modality X-Ray Angiograph y Narrative 11/08/2023 10:01 AM [facility] This case was auto-finalized by a system utility. The result for this LEWIS exam is stored on the other LEWIS procedure. Please see the other line in chart review for the result. Nicolas Madrid MD CV CARDIAC CATH C UPID PROCS * (ABNORMAL) CBC W AUTO DIFFERENTIAL (11/07/2023 10:29 AM [facility]) Only the most recent of3 resultswithin the time period is included. WBC 9.1 4.0 - 10.7 x10E9/L 11/07/2023 10:39 AM [facility] RBC Count 3.95 3.90 - 5.20 x10E12/L 11/07/2023 10:39 AM [facility] Hemoglobin 13.7 11.9 - 15.8 g/dL 11/07/2023 10:39 AM [facility] Hematocrit 39.8 34.8 - 46.1 % 11/07/2023 10:39 AM [facility] MCV 100.8(H) 80.0 - 98.0 fL 11/07/2023 10:39 AM [facility] MCH 34.7(H) 26.7 - 33.6 pg 11/07/2023 10:39 AM [facility] MCHC 34.4 31.7 - 36.3 g/dL 11/07/2023 10:39 AM [facility] RDW-CV 12.5 11.3 - 14.8 % 11/07/2023 10:39 AM [facility] Platelet Count 206 150 - 420 x10E9/L 11/07/2023 10:39 AM [facility] MPV 11.2 7.8 - 11.4 fL 11/07/2023 10:39 AM [facility] Neutrophil % 70.2 41.0 - 74.0 % 11/07/2023 10:39 AM [facility] Lymphocyte % 18.6 17.0 - 47.0 % 11/07/2023 10:39 AM [facility] Monocyte % 7.8 3.0 - 11.0 % 11/07/2023 10:39 AM [facility] Eosinophil % 2.4 0.0 - 7.0 % 11/07/2023 10:39 AM [facility] Basophil % 0.8 0.0 - 1.6 % 11/07/2023 10:39 AM [facility] Immature Granulocytes % 0.2 0.0 - 1.0 % 11/07/2023 10:39 AM [facility] Neutrophil Absolute 6.36 1.60 - 7.50 x10E9/L 11/07/2023 10:39 AM [facility] Lymphocyte Absolute 1.69 1.00 - 4.40 x10E9/L 11/07/2023 10:39 AM [facility] Monocyte Absolute 0.71 0.15 - 1.00 x10E9/L 11/07/2023 10:39 AM [facility] Eosinophil Absolute 0.22 0.00 - 0.60 x10E9/L 11/07/2023 10:39 AM [facility] Basophil Absolute 0.07 0.00 - 0.13 x10E9/L 11/07/2023 10:39 AM [facility] Blood BLOOD SPECIMEN / Unknown Venipuncture / Unknown 11/07/2023 10:29 AM [facility] 11/07/2023 10:36 AM [facility] Gaston Ramesh MD LAB - HEMATOLOGY ORD ERABLES [facility] [address] [place] [id number] * (ABNORMAL) BASIC METABOLIC PANEL (CALCIUM TOTAL) (11/07/2023 10:29 AM [facility]) Only the most recent of5 resultswithin the time period is included. Glucose 90 70 - 105 mg/dL 11/07/2023 10:54 AM [facility] Sodium 138 136 - 145 mmol/L 11/07/2023 10:54 AM [facility] Potassium 4.2 3.5 - 5.1 mmol/L 11/07/2023 10:54 AM [facility] Chloride 104 98 - 107 mmol/L 11/07/2023 10:54 AM [facility] CO2 25 22 - 29 mmol/L 11/07/2023 10:54 AM [facility] Calcium 9.5 8.4 - 10.4 mg/dL 11/07/2023 10:54 AM [facility] Anion Gap 9 6 - 16 mmol/L 11/07/2023 10:54 AM [facility] BUN 14 7 - 26 mg/dL 11/07/2023 10:54 AM [facility] Creatinine 0.85 0.57 - 1.11 mg/dL 11/07/2023 10:54 AM [facility] eGFR by CKD-EPI 71(L) >=90 mL/min/1.7 3 m2 11/07/2023 10:54 AM [facility] Blood BLOOD SPECIMEN / Unknown Venipuncture / Unknown 11/07/2023 10:29 AM [facility] 11/07/2023 10:36 AM [facility] Gaston Ramesh MD LAB - CHEMISTRY MINH MORENO [facility] Organization Address City/State/ZIP Co de Phone Number [facility] [address] [place] [address] * ECHO COMPLETE W CONTRAST (11/06/2023 1:57 PM [facility]) LV biplane EF 76 54 - 74 [...] PACS LVOT area 2.66 cm2 [facility] I PACS LV RWT 0.632 [facility] I PACS LV Philippe A4C 7.037 cm [facility] PACS IVS/LVPW 0.986 [facility] I PACS Fractional Shortening M-Mode 32 28 - 44 % [facility] I PACS LV mass m-mode 649.193 67 - 162 g [facility] PACS LV mass 2D 115.6 66 - 150 [facility] E pk papo 75.484 [...] PACS MV E/e' lateral 14.387 [facility] pk ppao 0.85 m/s [facility] PACS LVOT Cardiac Output 2.658 l/min [facility] PACS LA vol BP A-L 56.48 [facility] RA area 13.522 cm2 [facility] I PACS AV pk papo 1.51 m/s [facility] I PACS AV VTI 37.875 cm [facility] I PACS LVOT VTI 17.146 cm [facility] I PACS AV area cont VTI 1.2 cm2 [facility] area pk papo 1.5 cm2 [facility] C V [facility]I PACS AV Doppler papo index pk papo 0.564 [facility] PACS Dimensionless Index 0.453 [facility] PACS DE pk grad 12 mmHg [facility]I PACS [id number] 5.592 cm [facility] I PACS [...] 23 mmHg [facility] PACS DE pk papo 193.277 cm/s [facility] I PACS PV pk papo 78.321 cm/s [facility] I PACS PV pk grad 2 mmHg [facility] CV [facility]I PACS [id number] 5.023 cm [facility] CV [facility] I PACS Anatomical Region Laterality Modality Ultrasound Narrative 11/06/2023 3:00 PM [facility] Left Ventricle: Left ventricle size is normal. [...] VAS CAROTID DUPLEX BILATERAL (11/05/2023 9:55 AM [facility]) Anatomical Region Laterality Modality Neck Ultrasound 11/05/2023 9:22 AM [facility] Narrative Procedure Note Chema Duque MD - 11/05/[address] [address] Carotid Duplex Report Pat.Name: ANIYAH CLIFFORD Pat.ID: [id number] .Date: 11/05/2023 Exam Time: 9:22:00 AM Study Type:Carotid Age: 11 1950,73Y Sex: FEMALE Sonogrphr: Naldo Ly RVT Pat. 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 Less than 50% [...] LES * PHOSPHORUS BLOOD (11/04/2023 10:45 AM [facility]) [facility] Phosphorus 4.3 2.3 - 4.7 mg/dL 11/04/2023 11:09 AM [facility] Blood BLOOD SPECIMEN / Unknown Venipuncture / Unknown 11/04/2023 10:45 AM [facility] 11/04/2023 10:51 AM [facility] Viktoria Park MD LAB - CHEMISTRY ORDERABLES [facility] [address] [place] [address] * MAGNESIUM BLOOD (11/04/2023 10:45 AM [facility]) Only the most recent of3 resultswithin the time period is included. Magnesium 1.9 1.6 - 2.6 mg/dL 11/04/2023 11:09 AM [facility] Blood BLOOD SPECIMEN / Unknown Venipuncture / Unknown 11/04/2023 10:45 AM [facility] 11/04/2023 10:51 AM [facility] Viktoria Park MD LAB - CHEMISTRY ORDERABLES [facility] [address] [place] [address] * MRI BRAIN WO CONTRAST (11/01/2023 5:22 PM [facility]) Anatomical Region Laterality Modality Head Magnetic Resonan ce 11/01/2023 5:29 PM [facility] Impressions 11/01/2023 5:38 PM [facility] IMPRESSION: 1.A small focus of restricted diffusion is seen at the right basal ganglia consistent with acute to subacute infarct 2.Punctate focus of restricted diffusion is seen within the left temporal parietal region concerning for acute to subacute infarct. 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 > Interpreting Provider: Shannon Acosta MD on 11/01/2023 5:38 PM Narrative 11/01/2023 5:38 PM [facility] PROCEDURE(s): MRI BRAIN WO CONTRAST DATE AND TIME OF EXAM(s): 11/01/2023 5:26 PM INDICATION(s): F10.939: Alcohol use, unspecified with withdrawal, unspecified ([facility]) G93.40: Encephalopathy, unspecified COMPARISON(s): CT of [...] ORDERABLES * HEMOGLOBIN A1C (10/29/2023 12:49 PM [facility]) Hemoglobin A1c 4.8 <5.7 % 10/29/2023 1:04 PM [facility] Estimated Average Glucose 91 mg/dL 10/29/2023 1:04 PM [facility] Blood BLOOD SPECIMEN / Unknown Venipuncture / Unknown 10/29/2023 12:49 PM [facility] 10/29/2023 12:53 PM [facility] Narrative [facility] - 10/29/2023 1:04 PM [facility] HbA1c Interpretation: Normal: < 5.7% Pre-diabetes: 5.7-6.4% [...] exceeds 5% in the specimen. The Garcia THINK360nity assay for the measurement of HbA1c is a National Glycohemoglobin Standardization Program (NGSP) certified method. Niharika Phelps [facility] LAB - CHEMISTRY ORDERABLES Performing Organization Address [facility] Co de Phone Number [address] [address] * (ABNORMAL) FOLATE (10/29/2023 12:49 PM [facility]) [facility] Folate 4.2(L) 7.0 - 31.4 ng/mL 10/29/2023 1:45 PM [facility] Blood BLOOD SPECIMEN / Unknown Venipuncture / Unknown 10/29/2023 12:49 PM [facility] 10/29/2023 12:53 PM [facility] Niharika Phelps [facility] LAB - CHEMISTRY ORDERABLES Performing Organization Address [facility] Co de Phone Number [facility] [address] [place] [address] * VITAMIN B12 (10/29/2023 12:49 PM [facility]) Vitamin B12 245 213 - 816 pg/mL 10/29/2023 1:45 PM [facility] Blood BLOOD SPECIMEN / Unknown Venipuncture / Unknown 10/29/2023 12:49 PM [facility] 10/29/2023 12:53 PM [facility] Niharika Phelps MUSIC COMPOSER-AUTOMATIC SPLICING MACHINE OPERATOR LAB - CHEMISTRY ORDERABLES Performing Organization Address City/[facility]/ZIP Co de Phone Number [facility] [address] [place] [phone] * AMMONIA (10/29/2023 12:49 PM [facility]) Pathologist [facility] Ammonia 21 18 - 72 umol/L 10/29/2023 1:07 PM [facility] Blood BLOOD SPECIMEN / Unknown Venipuncture / Unknown 10/29/2023 12:49 PM [facility] 10/29/2023 12:53 PM [facility] Nihairka Phelps [employer]IC COMPOSER-[facility] LAB - CHEMISTRY ORDERABLES Performing Organization Address [facility] Co de Phone Number [facility] [address] [place] [address] * TSH REFLEX FREE T4 (10/29/2023 4:44 AM [facility]) Pathologist [facility] TSH 3.751 0.350 - 4.940 uIU/mL 10/29/2023 11:12 AM [facility] Blood BLOOD SPECIMEN / Unknown Venipuncture / Unknown 10/29/2023 4:44 AM [facility] 10/29/2023 4:51 AM [facility] Niharika Phelps MUSIC COMPOSER-[facility] LAB - CHEMISTRY ORDERABLES Performing Organization Address [facility] Co de Phone Number [facility] [address] [place] [phone] * (ABNORMAL) RENAL FUNCTION PANEL (10/29/2023 4:44 AM [facility]) Only the most recent of2 resultswithin the time period is included. Glucose 100 70 - 105 mg/dL 10/29/2023 5:19 AM [facility] Sodium 139 136 - 145 mmol/L 10/29/2023 5:19 AM [facility] Potassium 3.2(L) 3.5 - 5.1 mmol/L 10/29/2023 5:19 AM [facility] Chloride 107 98 - 107 mmol/L 10/29/2023 5:19 AM [facility] CO2 22 22 - 29 mmol/L 10/29/2023 5:19 AM [facility] Calcium 8.8 8.4 - 10.4 mg/dL 10/29/2023 5:19 AM [facility] Anion Gap 10 6 - 16 mmol/L 10/29/2023 5:19 AM [facility] BUN 8 7 - 26 mg/dL 10/29/2023 5:19 AM [facility] Creatinine 0.77 0.57 - 1.11 mg/dL 10/29/2023 5:19 AM [facility] Albumin 3.0(L) 3.4 - 5.0 gm/dL 10/29/2023 5:19 AM [facility] Phosphorus 3.2 2.3 - 4.7 mg/dL 10/29/2023 5:19 AM [facility] eGFR by CKD-EPI 80(L) >=90 mL/min/1.7 3 m2 10/29/2023 5:19 AM [facility] Blood BLOOD SPECIMEN / Unknown Venipuncture / Unknown 10/29/2023 4:44 AM [facility] 10/29/2023 4:51 AM [facility] Rudi Armendariz MD LAB - CHEMISTRY MINH MORENO [facility] [address] [place] [address] * (ABNORMAL) LIPID PROFILE (10/29/2023 4:44 AM [facility]) Cholesterol 179 <200 mg/dL 10/29/2023 10:53 AM [facility] Triglycerides 143 <150 mg/dL 10/29/2023 10:53 AM [facility] HDL Cholesterol 40(L) >40 mg/dL 4 10:53 AM [facility] LDL Calculated 110 <130 mg/dL 10/29/2023 10:53 AM [facility] VLDL Calculated 29 <=30 mg/dL 4 10:53 AM [facility] Chol HDL Ratio 4.5(H) <4.5 10/29/2023 10:53 AM [facility] LDL/HDL Ratio 2.8 <5.0 10/29/2023 10:53 AM [facility] Blood BLOOD SPECIMEN / Unknown Venipuncture / Unknown 10/29/2023 4:44 AM [facility] 10/29/2023 4:51 AM [facility] Niharika Martinez Lenin MUSIC COMPOSER-AUTOMATIC SPLICING MACHINE OPERATOR LAB - CHEMISTRY ORDERABLES [facility] [address] [place] [address] * EEG (10/28/2023 9:17 PM [facility]) Narrative [facility] - 10/28/2023 9:17 PM [facility] Cristopher Flood MD 10/28/2023 9:19 PM [facility] [address] [facility] [address] Electroencephalogram Aniyah Clifford 10/28/2023 Indication: Aniyah [...] CT HEAD WO CONTRAST (10/28/2023 2:53 PM [facility]) Anatomical Region Laterality Modality Head Computed Tomogra phy 10/28/2023 2:58 PM [facility] Impressions 10/28/2023 2:59 PM [facility] IMPRESSION: 1.No acute intracranial abnormalities. 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 3.Chronic left lacunar infarct. > Interpreting Provider: Shannon Acosta MD on 10/28/2023 2:59 PM Narrative 10/28/2023 2:59 PM [facility] PROCEDURE(s): CT HEAD WO CONTRAST DATE AND [...] ONLY REFLEX TO CULTURE (10/27/2023 1:41 PM [facility]) Reflex Status Culture not indicated 10/27/2023 2:15 PM [facility] RBC UA 3-5 0 - 5 # /hpf 10/27/2023 2:15 PM [facility] WBC UA 0-5 0 - 5 # /hpf 10/27/2023 2:15 PM [facility] Bacteria UA None Seen None Seen 10/27/2023 2:15 PM [facility] Squamous Epithelial Cells 0-2 0 - 5 /hpf 10/27/2023 2:15 PM [facility] Mucus UA 1+ /LPF 10/27/2023 2:15 PM [facility] Hyaline Casts 3-5(A) 0 - 2 /LPF 10/27/2023 2:15 PM [facility] Urine URINE SPECIMEN OBTAINED BY CLEAN CATCH PROCEDURE / Unknown Collection / Unknown 10/27/2023 1:41 PM [facility] 10/27/2023 2:05 PM [facility] Narrative [facility] - 10/27/2023 2:15 PM [facility] Rudi Armendariz MD LAB - URINALYSIS ORD ERABLES [facility] [address] [place] [address] * (ABNORMAL) URINALYSIS REFLEX MICROSCOPIC REFLEX CULTURE (10/27/2023 1:41 PM [facility]) Color UA Yellow Straw, Yellow 10/27/2023 2:12 PM [facility] Clarity UA Clear Clear 10/27/2023 2:12 PM [facility] Glucose UA Negative Negative 10/27/2023 2:12 PM [facility] Bilirubin UA Negative Negative 10/27/2023 2:12 PM [facility] Ketone UA Trace(A) Negative 10/27/2023 2:12 PM [facility] Specific [place] UA 1.016 1.005 - 1.030 10/27/2023 2:12 PM [facility] Blood UA 1+(A) Negative 10/27/2023 2:12 PM [facility] pH UA 7.0 5.0 - 8.0 pH 10/27/2023 2:12 PM [facility] Protein UA 1+(A) Negative 10/27/2023 2:12 PM [facility] Urobilinogen UA Negative Negative mg/dL 10/27/2023 2:12 PM [facility] Nitrite UA Negative Negative 10/27/2023 2:12 PM [facility] Leukocyte UA Negative Negative 10/27/2023 2:12 PM [facility] Urine Microscopy Urine microscopy to follow 10/27/2023 2:12 PM [facility] Reflex Status Culture not indicated 10/27/2023 2:12 PM [facility] Urine URINE SPECIMEN OBTAINED BY CLEAN CATCH PROCEDURE / Unknown Collection / Unknown 10/27/2023 1:41 PM [facility] 10/27/2023 2:05 PM [facility] Narrative [facility] - 10/27/2023 2:12 PM [facility] Rudi Armendariz MD LAB - URINALYSIS ORD ERABLES Performing Organization Address [facility] de Phone Number [facility] [phone] [place] [phone] * (ABNORMAL) DRUG ABUSE URINE PANEL (10/27/2023 1:41 PM [facility]) [facility] Amphetamines Screen Urine Not detected Not detected 10/27/2023 2:28 PM [facility] Barbiturates Screen Urine Not detected Not detected 10/27/2023 2:28 PM [facility] Benzodiazepines Screen Urine Detected(A) Not detected 10/27/2023 2:28 PM [facility] Cocaine Screen Urine Not detected Not detected 10/27/2023 2:28 PM [facility] Fentanyl Urine Not detected Not detected 10/27/2023 2:28 PM [facility] Methadone Screen Urine Not detected Not detected 10/27/2023 2:28 PM [facility] Opiate Screen Urine Not detected Not detected 10/27/2023 2:28 PM [facility] Phencyclidine Screen Urine Not detected Not detected 10/27/2023 2:28 PM [facility] Urine URINE / Unknown Collection / Unknown 10/27/2023 1:41 PM [facility] [employer] 10/27/2023 2:05 PM [employer] [facility] - 10/27/2023 2:28 PM [employer] This drug screen is designed for MEDICAL [...] URINE CHEMISTR Y ORDERABLES Performing Organization Address [facility] Co de Phone Number [facility] [id number] [place] [address] * (ABNORMAL) CBC W/O DIFFERENTIAL (10/27/2023 3:54 AM [employer]) WBC 11.7(H) 4.0 - 10.7 x10E9/L 10/27/2023 4:08 AM [facility] RBC Count 4.42 3.90 - 5.20 x10E12/L 10/27/2023 4:08 AM [facility] Hemoglobin 15.2 11.9 - 15.8 g/dL 10/27/2023 4:08 AM [facility] Hematocrit 43.2 34.8 - 46.1 % 10/27/2023 4:08 AM [facility] MCV 97.7 80.0 - 98.0 fL 10/27/2023 4:08 AM [facility] MCH 34.4(H) 26.7 - 33.6 pg 10/27/2023 4:08 AM [facility] MCHC 35.2 31.7 - 36.3 g/dL 10/27/2023 4:08 AM [facility] RDW-CV 13.1 11.3 - 14.8 % 10/27/2023 4:08 AM [facility] Platelet Count 217 150 - 420 x10E9/L 10/27/2023 4:08 AM [facility] MPV 10.6 7.8 - 11.4 fL 10/27/2023 4:08 AM [facility] Blood BLOOD SPECIMEN / Unknown Venipuncture / Unknown 10/27/2023 3:54 AM DOCTOR OF NATUROPATHIC MEDICINE 10/27/2023 4:00 AM DOCTOR OF NATUROPATHIC MEDICINE Almita Cordova MD LAB - HEMATOLOGY ORD ERABLES [facility] [address] [place] [address] Care Teams Gameplay Programmer Relationship Specialty Start Date End Date Bree Walsh MD [address] [place] [phone] PCP - General 02/07/19
--- OUTSIDE RECORDS SUMMARY | 2024-11-22 10:58 | XMS_ITS | Referral Summary ---
Author Organization [facility] [employer] Address [address] [place] [address] Care Team Providers Care Coffee Grower Name Role Phone Bree Walsh MD Primary Care Provider [phone] Source Comments [facility],non-owned Affiliates and Associated Physician Practices is amultiple site organization consisting of ambulatory clinics and hospital sitesin [place], [place], [place] and [place]. This disclosure is being madepursuant to the Care Everywhere program and may not contain all information available regarding this patient. Last updated 18.[facility] [employer] Allergies Active Allergy Reactions Criticality Noted Date [...] Recorded Patient Health Questionnaire-2 Score 0 11/07/2023 [facility] of Occupat ional Health - Occupational Stress [...] place to sleep or slept in a snf (including now)? No 10/31/2023 Sex and Gender Information Value Date Recorded Sex Assigned at Not on file Gender Identity Not on file Sexual Orientation Not on file Last Filed Vital Signs Vital Sign Reading Time Taken Comments Blood Pressure 162/83 11/14/2023 7:43 AM DECK BUILDER Pulse 74 11/14/2023 7:43 AM DECK BUILDER Temperature 36.5 C (97.7 F) 11/14/2023 7:43 AM DECK BUILDER Respiratory Rate 14 11/14/2023 7:43 AM DECK BUILDER Oxygen Saturation 95% 11/14/2023 7:43 AM DECK BUILDER Inhaled Oxygen Concentration - - Weight - - Height 166.4 cm (5' 5.5 ) 11/08/2023 11:44 AM CS T Body Mass Index - - Plan of Treatment Not on file Advance Directives Documents on File Type Date Recorded Patient Staff Counselor Expl anation Adv Directive/Living Will/POA 11/06/2023 3:31 [...] 3:27 PM 10/30/2023 3:30 PM Care Teams Coffee Grower Relationship Specialty Start Date End Date Bree Walsh MD [facility] [place] [address] [place] [address] [facility] - General 02/07/19
--- OUTSIDE RECORDS SUMMARY | 2024-11-22 10:58 | XMS_ITS | Clinical Summary ---
Author Organization [facility] [employer] Address [address] [place] [address] Care Team Providers Care Spring Former Name Role Phone Bree Walsh MD Primary Care Provider [phone] Source Comments [facility],non-owned Affiliates and Associated Physician Practices is amultiple site organization consisting of ambulatory clinics and hospital sitesin [place], [place], [place] and [place]. This disclosure is being madepursuant to the Care Everywhere program and may not contain all information available regarding this patient. Last updated 18.[facility] [employer] Allergies Active Allergy Reactions Criticality Noted Date [...] Recorded Patient Health Questionnaire-2 Score 0 11/07/2023 [facility] of Occupat ional Health - Occupational Stress [...] Comments Blood Pressure 162/83 11/14/2023 7:43 AM VAPOR COATER Pulse 74 11/14/2023 7:43 AM VAPOR COATER Temperature 36.5 C (97.7 F) 11/14/2023 7:43 AM VAPOR COATER Respiratory Rate 14 11/14/2023 7:43 AM VAPOR COATER Oxygen Saturation 95% 11/14/2023 7:43 AM VAPOR COATER Inhaled Oxygen Concentration - - Weight - [...] Documents on File Type Date Recorded Patient Color Repairer Expl anation Adv Directive/Living Will/POA 11/06/2023 3:31 [...] 3:27 PM 10/30/2023 3:30 PM Care Teams Spring Former Relationship Specialty Start Date End Date Bree Walsh MD [address] [place] [phone] PCP - General 02/07/19
[2024-11-22 11:05] VITALS: BMI 24.8
--- NOTE | 2024-11-22 11:05 | ADMGEN ---
This patient, Amy Clemente, was transitioned to swing bed in 2nd Floor Room 205-1. Patient/family oriented to hospital policies and general routines including ID bracelet, bed and alarms, visiting hours, pain management, procedures, bathroom and other care routines, personal items, smoking policy, room service/diet, and visiting hours. Information on how to activate the Rapid Response Team has been discussed. Patient/Family are encouraged to report perceived risks to care and to ask questions if they do not understand what they are told or what they should do.
[2024-11-22 16:00] VITALS: BP 148/68; PULSE 66; RESP 17; TEMP 36.8; O2SAT 91
[2024-11-22] MEDS: ATORVASTATIN 40 MG TABLET PO (17:31)
[2024-11-22] MEDS: APIXABAN 2.5 MG TABLET 5 MG PO (20:57)
[2024-11-22] MEDS: guaiFENesin 12 HR 600 MG TABCR 1200 MG PO (20:58)
[2024-11-22] MEDS: QUEtiapine FUMARATE 12.5 MG TABLET PO (20:58)
[2024-11-23] VITALS: BP 136/68; PULSE 90; RESP 16; TEMP 37; O2SAT 92
[2024-11-23 08:00] VITALS: BP 141/59; PULSE 83; RESP 17; TEMP 35.9; O2SAT 93
[2024-11-23] MEDS: levoFLOXacin 250 MG TABLET 750 MG PO (09:56)
[2024-11-23] MEDS: SERTRALINE HCL 50 MG TABLET 100 MG PO (09:56)
[2024-11-23] MEDS: FOLIC ACID 1 MG TABLET PO (09:56)
[2024-11-23] MEDS: APIXABAN 2.5 MG TABLET 5 MG PO ×2 (09:56→21:31)
[2024-11-23] MEDS: oxyBUTYnin CHLORIDE XL 5 MG TAB.ER.24 PO (09:56)
[2024-11-23] MEDS: CALCIUM CARBONATE (OSCAL) 500 MG TABLET PO (09:57)
[2024-11-23] MEDS: PANTOPRAZOLE 40 MG TABLET PO (09:57)
[2024-11-23] MEDS: amLODIPine BESYLATE 5 MG TABLET PO (09:57)
[2024-11-23] MEDS: guaiFENesin 12 HR 600 MG TABCR 1200 MG PO ×2 (09:57→21:31)
[2024-11-23 16:00] VITALS: BP 137/70; PULSE 91; RESP 15; TEMP 36.8; O2SAT 91
[2024-11-23] MEDS: ATORVASTATIN 40 MG TABLET PO (17:28)
[2024-11-23] MEDS: QUEtiapine FUMARATE 12.5 MG TABLET PO (21:31)
[2024-11-24] VITALS: BP 175/80; PULSE 100; RESP 18; TEMP 36.9; O2SAT 92
[2024-11-24 07:56] VITALS: BP 133/69; PULSE 92; RESP 18; TEMP 36.6; O2SAT 94
[2024-11-24] MEDS: FOLIC ACID 1 MG TABLET PO (08:43)
[2024-11-24] MEDS: CALCIUM CARBONATE (OSCAL) 500 MG TABLET PO (08:43)
[2024-11-24] MEDS: amLODIPine BESYLATE 5 MG TABLET PO (08:43)
[2024-11-24] MEDS: guaiFENesin 12 HR 600 MG TABCR 1200 MG PO ×2 (08:43→20:06)
[2024-11-24] MEDS: oxyBUTYnin CHLORIDE XL 5 MG TAB.ER.24 PO (08:44)
[2024-11-24] MEDS: APIXABAN 2.5 MG TABLET 5 MG PO ×2 (08:44→20:06)
[2024-11-24] MEDS: SENNOSIDES 8.6 MG TABLET PO (08:44)
[2024-11-24] MEDS: PANTOPRAZOLE 40 MG TABLET PO (08:44)
[2024-11-24] MEDS: SERTRALINE HCL 50 MG TABLET 100 MG PO (08:44)
--- OUTSIDE RECORDS SUMMARY | 2024-11-24 09:03 | XMS_ITS | Referral Summary ---
Author Organization [facility] [employer] Address [address] [place] [address] Care Team Providers Care Seafood And Service Meat Manager Name Role Phone Bree Walsh MD Primary Care Provider [phone] Source Comments [facility],non-owned Affiliates and Associated Physician Practices is amultiple site organization consisting of ambulatory clinics and hospital sitesin [place], [place], [place] and [place]. This disclosure is being madepursuant to the Care Everywhere program and may not contain all information available regarding this patient. Last updated 18.[facility] [employer] [facility] Allergies Active Allergy Reactions Criticality Noted Date [...] Recorded Patient Health Questionnaire-2 Score 0 11/07/2023 [facility] of Occupat ional Health - Occupational Stress [...] place to sleep or slept in a alf (including now)? No 10/31/2023 Sex and Gender Information Value Date Recorded Sex Assigned at Not on file Gender Identity Not on file Sexual Orientation Not on file Last Filed Vital Signs Vital Sign Reading Time Taken Comments Blood Pressure 162/83 11/14/2023 7:43 AM PROMOTIONAL REPRESENTATIVE Pulse 74 11/14/2023 7:43 AM PROMOTIONAL REPRESENTATIVE Temperature 36.5 C (97.7 F) 11/14/2023 7:43 AM PROMOTIONAL REPRESENTATIVE Respiratory Rate 14 11/14/2023 7:43 AM PROMOTIONAL REPRESENTATIVE Oxygen Saturation 95% 11/14/2023 7:43 AM PROMOTIONAL REPRESENTATIVE Inhaled Oxygen Concentration - - Weight - - Height 166.4 cm (5' 5.5 ) 11/08/2023 11:44 AM CS T Body Mass Index - - Plan of Treatment Not on file Advance Directives Documents on File Type Date Recorded Patient [place] Machine Tender Expl anation Adv Directive/Living Will/POA 11/06/2023 3:31 [...] 3:27 PM 10/30/2023 3:30 PM Care Teams Seafood And Service Meat Manager Relationship Specialty Start Date End Date Bree Walsh MD [facility] [place] [address] [place] [phone] [facility] - General 02/07/19
--- OUTSIDE RECORDS SUMMARY | 2024-11-24 09:03 | XMS_ITS | Clinical Summary ---
Author Organization [facility] [employer] Address [address] [place] [address] Care Team Providers Care Seeing Eye Dog Trainer Name Role Phone Bree Walsh MD Primary Care Provider [phone] Source Comments [facility],non-owned Affiliates and Associated Physician Practices is amultiple site organization consisting of ambulatory clinics and hospital sitesin [place], [place], [place] and [place]. This disclosure is being madepursuant to the Care Everywhere program and may not contain all information available regarding this patient. Last updated 18.[facility] [employer] Allergies Active Allergy Reactions Criticality Noted Date [...] Recorded Patient Health Questionnaire-2 Score 0 11/07/2023 [facility] [place] of Occupat ional Health - Occupational Stress [...] Comments Blood Pressure 162/83 11/14/2023 7:43 AM CADET DECK Pulse 74 11/14/2023 7:43 AM CADET DECK Temperature 36.5 C (97.7 F) 11/14/2023 7:43 AM CADET DECK Respiratory Rate 14 11/14/2023 7:43 AM CADET DECK Oxygen Saturation 95% 11/14/2023 7:43 AM CADET DECK Inhaled Oxygen Concentration - - Weight - [...] Documents on File Type Date Recorded Patient Set Up Operator Expl anation Adv Directive/Living Will/POA 11/06/2023 3:31 [...] 3:27 PM 10/30/2023 3:30 PM Care Teams Seeing Eye Dog Trainer Relationship Specialty Start Date End Date Bree Walsh MD [address] [place] [phone] PCP - General 02/07/19
--- OUTSIDE RECORDS SUMMARY | 2024-11-24 09:03 | XMS_ITS | Patient Health Summary ---
Author Organization [facility] Address [address] [place] [address] Care Team Providers Care Territory Sales Executive Name Role Phone Bree Walsh MD Primary Care Provider [phone] Note from [facility],non-owned Affiliates and Associated Physician Practices is amultiple site organization consisting of ambulatory clinics and hospital sitesin [place], [place], [place] and [place]. This disclosure is being madepursuant to the Care Everywhere program and may not contain all information available regarding this patient. Last updated 18.[facility] Allergies * Penicillins(Anaphylaxis) -High Criticality Medications * [...] Recorded Patient Health Questionnaire-2 Score 0 11/07/2023 [facility] - Occupational [...] place to sleep or slept in a [place] health care facility (including now)? No 10/31/2023 Sex and Gender Information Value Date Recorded Sex Assigned at Not on file Gender Identity Not on file Sexual Orientation Not on file Last Filed Vital Signs Vital Sign Reading Time Taken Comments Blood Pressure 162/83 11/14/2023 7:43 AM DIESEL MAINTENANCE TECHNICIAN Pulse 74 11/14/2023 7:43 AM DIESEL MAINTENANCE TECHNICIAN Temperature 36.5 C (97.7 F) 11/14/2023 7:43 AM DIESEL MAINTENANCE TECHNICIAN Respiratory Rate 14 11/14/2023 7:43 AM DIESEL MAINTENANCE TECHNICIAN Oxygen Saturation 95% 11/14/2023 7:43 AM DIESEL MAINTENANCE TECHNICIAN Inhaled Oxygen Concentration - - Weight - [...] Hypokalemia Results * EVENT MONITOR (01/16/2024) Impressions [facility] - 01/16/2024 Ambulatory ECG Interpretation: [...] Cedric Hill MD CARDIAC SERVICES ORD ERABLES [facility] * CARDIAC RHYTHM STRIP ORDER (11/15/2023 7:25 PM DIESEL MAINTENANCE TECHNICIAN) Narrative 11/15/2023 7:25 PM DIESEL MAINTENANCE TECHNICIAN Ordered by an unspecified provider. Scanned Document CARDIAC SERVICES ORD ERABLES * ECHO LEWIS COMPLETE (11/08/2023 12:19 PM DIESEL MAINTENANCE TECHNICIAN) Anatomical Region Laterality Modality Ultrasound Narrative 11/09/2023 10:32 AM DIESEL MAINTENANCE TECHNICIAN Left Ventricle: Left ventricle size is normal. [...] study. The probe was inserted by the custodial foreman. There was no probe insertion difficulty. Start time: 928 Stop time: 958 Propofol was administered by the RETAIL PHARMACY TECHNICIAN. Nicolas Madrid MD ECHO CUPID * CCL INTRA PROCEDURE LEWIS (11/08/2023 9:59 AM DIESEL MAINTENANCE TECHNICIAN) Anatomical Region Laterality Modality X-Ray Angiograph y Narrative 11/08/2023 10:01 AM DIESEL MAINTENANCE TECHNICIAN This case was auto-finalized by a system utility. The result for this LEWIS exam is stored on the other LEWIS procedure. Please see the other line in chart review for the result. Nicolas Madrid MD CV CARDIAC CATH C UPID PROCS * (ABNORMAL) CBC W AUTO DIFFERENTIAL (11/07/2023 10:29 AM DIESEL MAINTENANCE TECHNICIAN) Only the most recent of3 resultswithin the time period is included. WBC 9.1 4.0 - 10.7 x10E9/L 11/07/2023 10:39 AM [facility] RBC Count 3.95 3.90 - 5.20 x10E12/L 11/07/2023 10:39 AM [facility] Hemoglobin 13.7 11.9 - 15.8 g/dL 11/07/2023 10:39 AM [facility] Hematocrit 39.8 34.8 - 46.1 % 11/07/2023 10:39 AM [facility] MCV 100.8(H) 80.0 - 98.0 fL 11/07/2023 10:39 AM [facility] MCH 34.7(H) 26.7 - 33.6 pg 11/07/2023 10:39 AM [facility] MCHC 34.4 31.7 - 36.3 g/dL 11/07/2023 10:39 AM [facility] RDW-CV 12.5 11.3 - 14.8 % 11/07/2023 10:39 AM [facility] Platelet Count 206 150 - 420 x10E9/L 11/07/2023 10:39 AM [facility] MPV 11.2 7.8 - 11.4 fL 11/07/2023 10:39 AM [facility] Neutrophil % 70.2 41.0 - 74.0 % 11/07/2023 10:39 AM [facility] Lymphocyte % 18.6 17.0 - 47.0 % 11/07/2023 10:39 AM [facility] Monocyte % 7.8 3.0 - 11.0 % 11/07/2023 10:39 AM [facility] Eosinophil % 2.4 0.0 - 7.0 % 11/07/2023 10:39 AM [facility] Basophil % 0.8 0.0 - 1.6 % 11/07/2023 10:39 AM [facility] Immature Granulocytes % 0.2 0.0 - 1.0 % 11/07/2023 10:39 AM [facility] Neutrophil Absolute 6.36 1.60 - 7.50 x10E9/L 11/07/2023 10:39 AM [facility] Lymphocyte Absolute 1.69 1.00 - 4.40 x10E9/L 11/07/2023 10:39 AM [facility] Monocyte Absolute 0.71 0.15 - 1.00 x10E9/L 11/07/2023 10:39 AM [facility] Eosinophil Absolute 0.22 0.00 - 0.60 x10E9/L 11/07/2023 10:39 AM [facility] Basophil Absolute 0.07 0.00 - 0.13 x10E9/L 11/07/2023 10:39 AM [facility] Blood BLOOD SPECIMEN / Unknown Venipuncture / Unknown 11/07/2023 10:29 AM [facility] 11/07/2023 10:36 AM [facility] Gaston Ramesh MD LAB - HEMATOLOGY ORD ERABLES [facility] [address] [id number] * (ABNORMAL) BASIC METABOLIC PANEL (CALCIUM TOTAL) (11/07/2023 10:29 AM [facility]) Only the most recent of5 resultswithin the time period is included. Glucose 90 70 - 105 mg/dL 11/07/2023 10:54 AM [facility] Sodium 138 136 - 145 mmol/L 11/07/2023 10:54 AM [facility] Potassium 4.2 3.5 - 5.1 mmol/L 11/07/2023 10:54 AM [facility] Chloride 104 98 - 107 mmol/L 11/07/2023 10:54 AM [facility] CO2 25 22 - 29 mmol/L 11/07/2023 10:54 AM [facility] Calcium 9.5 8.4 - 10.4 mg/dL 11/07/2023 10:54 AM [facility] Anion Gap 9 6 - 16 mmol/L 11/07/2023 10:54 AM [facility] BUN 14 7 - 26 mg/dL 11/07/2023 10:54 AM DIESEL MAINTENANCE TECHNICIAN [facility] Creatinine 0.85 0.57 - 1.11 mg/dL 11/07/2023 10:54 AM DIESEL MAINTENANCE TECHNICIAN [facility] eGFR by CKD-EPI 71(L) >=90 mL/min/1.7 3 m2 11/07/2023 10:54 AM DIESEL MAINTENANCE TECHNICIAN [facility] Blood BLOOD SPECIMEN / Unknown Venipuncture / Unknown 11/07/2023 10:29 AM DIESEL MAINTENANCE TECHNICIAN 11/07/2023 10:36 AM DIESEL MAINTENANCE TECHNICIAN Gaston Ramesh MD LAB - CHEMISTRY [facility] Organization Address City/State/ZIP Co de Phone Number [facility] [address] [place] [address] * ECHO COMPLETE W CONTRAST (11/06/2023 1:57 PM DIESEL MAINTENANCE TECHNICIAN) LV biplane EF 76 54 - 74 [...] PACS LVOT area 2.66 cm2 [facility] I PACS LV RWT 0.632 [facility] I PACS LV Philippe A4C 7.037 cm [facility] PACS IVS/LVPW 0.986 [facility] I PACS Fractional Shortening M-Mode 32 28 - 44 % [facility] I PACS LV mass m-mode 649.193 67 - 162 g [facility] PACS LV mass 2D 115.6 66 - 150 [facility] MV E pk papo [...] PACS MV E/e' lateral 14.387 [facility] LV[facility] pk papo 0.85 m/s [facility] PACS LVOT Cardiac Output 2.658 l/min [facility] PACS LA vol BP A-L 56.48 [facility] RA area 13.522 cm2 [facility] I PACS AV pk papo 1.51 m/s [facility] I PACS AV VTI 37.875 cm [facility]J I PACS LVOT VTI 17.146 cm [facility] I PACS AV area cont VTI 1.2 cm2 [facility] area pk papo 1.5 cm2 [facility] C V [facility]UJI PACS AV Doppler papo index pk papo 0.564 [facility] PACS Dimensionless Index 0.453 [facility] PACS TX pk grad 12 mmHg [facility] JI PACS [id number] 5.592 cm [facility] I PACS [...] 2 mmHg [facility]I PACS [id number] 5.023 cm [facility] CV [facility] I PACS Anatomical Region Laterality Modality Ultrasound Narrative 11/06/2023 3:00 PM DIESEL MAINTENANCE TECHNICIAN Left Ventricle: Left ventricle size is normal. [...] VAS CAROTID DUPLEX BILATERAL (11/05/2023 9:55 AM DIESEL MAINTENANCE TECHNICIAN) Anatomical Region Laterality Modality Neck Ultrasound 11/05/2023 9:22 AM DIESEL MAINTENANCE TECHNICIAN Narrative Procedure Note Chema Duque MD - 11/05/[address] [address] Carotid Duplex Report Pat.Name: ANIYAH CLIFFORD Pat.ID: [id number] .Date: 11/05/2023 Exam Time: 9:22:00 AM Study Type:Carotid Age: 11 1950,73Y Sex: FEMALE Sonogrphr: Naldo Ly RVT Pat. 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 Less than 50% [...] LES * PHOSPHORUS BLOOD (11/04/2023 10:45 AM DIESEL MAINTENANCE TECHNICIAN) [facility] Phosphorus 4.3 2.3 - 4.7 mg/dL 11/04/2023 11:09 AM DIESEL MAINTENANCE TECHNICIAN [facility] Blood BLOOD SPECIMEN / Unknown Venipuncture / Unknown 11/04/2023 10:45 AM DIESEL MAINTENANCE TECHNICIAN 11/04/2023 10:51 AM DIESEL MAINTENANCE TECHNICIAN Viktoria Park MD LAB - CHEMISTRY ORDERABLES [facility] [address] [place] [address] * MAGNESIUM BLOOD (11/04/2023 10:45 AM DIESEL MAINTENANCE TECHNICIAN) Only the most recent of3 resultswithin the time period is included. Magnesium 1.9 1.6 - 2.6 mg/dL 11/04/2023 11:09 AM DIESEL MAINTENANCE TECHNICIAN [facility] Blood BLOOD SPECIMEN / Unknown Venipuncture / Unknown 11/04/2023 10:45 AM DIESEL MAINTENANCE TECHNICIAN 11/04/2023 10:51 AM DIESEL MAINTENANCE TECHNICIAN Viktoria Park MD LAB - CHEMISTRY ORDERABLES [facility] [address] [place] [address] * MRI BRAIN WO CONTRAST (11/01/2023 5:22 PM DIESEL MAINTENANCE TECHNICIAN) Anatomical Region Laterality Modality Head Magnetic Resonan ce 11/01/2023 5:29 PM DIESEL MAINTENANCE TECHNICIAN Impressions 11/01/2023 5:38 PM DIESEL MAINTENANCE TECHNICIAN IMPRESSION: 1.A small focus of restricted diffusion is seen at the right basal ganglia consistent with acute to subacute infarct 2.Punctate focus of restricted diffusion is seen within the left temporal parietal region concerning for acute to subacute infarct. 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 > Interpreting Provider: Shannon Acosta MD on 11/01/2023 5:38 PM Narrative 11/01/2023 5:38 PM DIESEL MAINTENANCE TECHNICIAN PROCEDURE(s): MRI BRAIN WO CONTRAST DATE AND TIME OF EXAM(s): 11/01/2023 5:26 PM INDICATION(s): F10.939: Alcohol use, unspecified with withdrawal, unspecified ([facility]) G93.40: Encephalopathy, unspecified COMPARISON(s): CT of the [...] ORDERABLES * HEMOGLOBIN A1C (10/29/2023 12:49 PM DIESEL MAINTENANCE TECHNICIAN) Hemoglobin A1c 4.8 <5.7 % 10/29/2023 1:04 PM DIESEL MAINTENANCE TECHNICIAN [facility] Estimated Average Glucose 91 mg/dL 10/29/2023 1:04 PM DIESEL MAINTENANCE TECHNICIAN [facility] Blood BLOOD SPECIMEN / Unknown Venipuncture / Unknown 10/29/2023 12:49 PM DIESEL MAINTENANCE TECHNICIAN 10/29/2023 12:53 PM DIESEL MAINTENANCE TECHNICIAN Narrative [facility] - 10/29/2023 1:04 PM DIESEL MAINTENANCE TECHNICIAN HbA1c Interpretation: Normal: < 5.7% Pre-diabetes: 5.7-6.4% [...] exceeds 5% in the specimen. The [employer] assay for the measurement of HbA1c is a National Glycohemoglobin Standardization Program (NGSP) certified method. Niharika Phelps [facility] - CHEMISTRY ORDERABLES Performing Organization Address [facility] Co de Phone Number [address] [address] * (ABNORMAL) FOLATE (10/29/2023 12:49 PM DIESEL MAINTENANCE TECHNICIAN) [facility] Folate 4.2(L) 7.0 - 31.4 ng/mL 10/29/2023 1:45 PM DIESEL MAINTENANCE TECHNICIAN [facility] Blood BLOOD SPECIMEN / Unknown Venipuncture / Unknown 10/29/2023 12:49 PM DIESEL MAINTENANCE TECHNICIAN 10/29/2023 12:53 PM DIESEL MAINTENANCE TECHNICIAN Niharika Phelps [facility] - CHEMISTRY ORDERABLES Performing Organization Address [facility] Co de Phone Number [facility] [address] [place] [address] * VITAMIN B12 (10/29/2023 12:49 PM DIESEL MAINTENANCE TECHNICIAN) Vitamin B12 245 213 - 816 pg/mL 10/29/2023 1:45 PM DIESEL MAINTENANCE TECHNICIAN [facility] Blood BLOOD SPECIMEN / Unknown Venipuncture / Unknown 10/29/2023 12:49 PM DIESEL MAINTENANCE TECHNICIAN 10/29/2023 12:53 PM DIESEL MAINTENANCE TECHNICIAN Niharika Phelps [employer] LAB - CHEMISTRY ORDERABLES Performing Organization Address City/[facility]/ZIP Co de Phone Number [facility] [address] [place] [phone] * AMMONIA (10/29/2023 12:49 PM DIESEL MAINTENANCE TECHNICIAN) Pathologist [facility] Ammonia 21 18 - 72 umol/L 10/29/2023 1:07 PM DIESEL MAINTENANCE TECHNICIAN [facility] Blood BLOOD SPECIMEN / Unknown Venipuncture / Unknown 10/29/2023 12:49 PM DIESEL MAINTENANCE TECHNICIAN 10/29/2023 12:53 PM DIESEL MAINTENANCE TECHNICIAN Niharika Phelps [employer] [facility] LAB - CHEMISTRY ORDERABLES Performing Organization Address [facility] Co de Phone Number [facility] [address] [place] [phone] * TSH REFLEX FREE T4 (10/29/2023 4:44 AM DIESEL MAINTENANCE TECHNICIAN) Pathologist [facility] TSH 3.751 0.350 - 4.940 uIU/mL 10/29/2023 11:12 AM DIESEL MAINTENANCE TECHNICIAN [facility] Blood BLOOD SPECIMEN / Unknown Venipuncture / Unknown 10/29/2023 4:44 AM DIESEL MAINTENANCE TECHNICIAN 10/29/2023 4:51 AM DIESEL MAINTENANCE TECHNICIAN Niharika Phelps [employer] [facility] LAB - CHEMISTRY ORDERABLES Performing Organization Address [facility] Co de Phone Number [facility] [address] [place] [phone] * (ABNORMAL) RENAL FUNCTION PANEL (10/29/2023 4:44 AM DIESEL MAINTENANCE TECHNICIAN) Only the most recent of2 resultswithin the time period is included. Glucose 100 70 - 105 mg/dL 10/29/2023 5:19 AM [facility] Sodium 139 136 - 145 mmol/L 10/29/2023 5:19 AM [facility] Potassium 3.2(L) 3.5 - 5.1 mmol/L 10/29/2023 5:19 AM [facility] Chloride 107 98 - 107 mmol/L 10/29/2023 5:19 AM [facility] CO2 22 22 - 29 mmol/L 10/29/2023 5:19 AM [facility] Calcium 8.8 8.4 - 10.4 mg/dL 10/29/2023 5:19 AM [facility] Anion Gap 10 6 - 16 mmol/L 10/29/2023 5:19 AM [facility] BUN 8 7 - 26 mg/dL 10/29/2023 5:19 AM [facility] Creatinine 0.77 0.57 - 1.11 mg/dL 10/29/2023 5:19 AM [facility] Albumin 3.0(L) 3.4 - 5.0 gm/dL 10/29/2023 5:19 AM [facility] Phosphorus 3.2 2.3 - 4.7 mg/dL 10/29/2023 5:19 AM [facility] eGFR by CKD-EPI 80(L) >=90 mL/min/1.7 3 m2 10/29/2023 5:19 AM [facility] Blood BLOOD SPECIMEN / Unknown Venipuncture / Unknown 10/29/2023 4:44 AM DIESEL MAINTENANCE TECHNICIAN 10/29/2023 4:51 AM [facility] Rudi Armendariz MD LAB - CHEMISTRY MINH MORENO [facility] [address] [place] [address] * (ABNORMAL) LIPID PROFILE (10/29/2023 4:44 AM [facility]) Cholesterol 179 <200 mg/dL 10/29/2023 10:53 AM [facility] Triglycerides 143 <150 mg/dL 10/29/2023 10:53 AM [facility] HDL Cholesterol 40(L) >40 mg/dL 4 10:53 AM [facility] LDL Calculated 110 <130 mg/dL 10/29/2023 10:53 AM [facility] VLDL Calculated 29 <=30 mg/dL 4 10:53 AM [facility] Chol HDL Ratio 4.5(H) <4.5 10/29/2023 10:53 AM [facility] LDL/HDL Ratio 2.8 <5.0 10/29/2023 10:53 AM [facility] Blood BLOOD SPECIMEN / Unknown Venipuncture / Unknown 10/29/2023 4:44 AM DIESEL MAINTENANCE TECHNICIAN 10/29/2023 4:51 AM [facility] Niharika Martinez Lenin [employer] LAB - CHEMISTRY ORDERABLES [facility] [address] [place] [address] * EEG (10/28/2023 9:17 PM DIESEL MAINTENANCE TECHNICIAN) Narrative [facility] - 10/28/2023 9:17 PM DIESEL MAINTENANCE TECHNICIAN Cristopher Flood MD 10/28/2023 9:19 PM [facility] [address] [facility] [address] Electroencephalogram Aniyah Clifford 10/28/2023 Indication: [...] CT HEAD WO CONTRAST (10/28/2023 2:53 PM DIESEL MAINTENANCE TECHNICIAN) Anatomical Region Laterality Modality Head Computed Tomogra phy 10/28/2023 2:58 PM DIESEL MAINTENANCE TECHNICIAN Impressions 10/28/2023 2:59 PM DIESEL MAINTENANCE TECHNICIAN IMPRESSION: 1.No acute intracranial abnormalities. 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 3.Chronic left lacunar infarct. > Interpreting Provider: Shannon Acosta MD on 10/28/2023 2:59 PM Narrative 10/28/2023 2:59 PM DIESEL MAINTENANCE TECHNICIAN PROCEDURE(s): CT HEAD WO CONTRAST DATE AND [...] ONLY REFLEX TO CULTURE (10/27/2023 1:41 PM DIESEL MAINTENANCE TECHNICIAN) Reflex Status Culture not indicated 10/27/2023 2:15 PM DIESEL MAINTENANCE TECHNICIAN [facility] RBC UA 3-5 0 - 5 # /hpf 10/27/2023 2:15 PM DIESEL MAINTENANCE TECHNICIAN [facility] WBC UA 0-5 0 - 5 # /hpf 10/27/2023 2:15 PM DIESEL MAINTENANCE TECHNICIAN [facility] Bacteria UA None Seen None Seen 10/27/2023 2:15 PM DIESEL MAINTENANCE TECHNICIAN [facility] Squamous Epithelial Cells 0-2 0 - 5 /hpf 10/27/2023 2:15 PM DIESEL MAINTENANCE TECHNICIAN [facility] Mucus UA 1+ /LPF 10/27/2023 2:15 PM DIESEL MAINTENANCE TECHNICIAN [facility] Hyaline Casts 3-5(A) 0 - 2 /LPF 10/27/2023 2:15 PM DIESEL MAINTENANCE TECHNICIAN [facility] Urine URINE SPECIMEN OBTAINED BY CLEAN CATCH PROCEDURE / Unknown Collection / Unknown 10/27/2023 1:41 PM DIESEL MAINTENANCE TECHNICIAN 10/27/2023 2:05 PM DIESEL MAINTENANCE TECHNICIAN Narrative [facility] - 10/27/2023 2:15 PM DIESEL MAINTENANCE TECHNICIAN Rudi Armendariz MD LAB - URINALYSIS ORD ERABLES [facility] [address] [address] [address] * (ABNORMAL) URINALYSIS REFLEX MICROSCOPIC REFLEX CULTURE (10/27/2023 1:41 PM DIESEL MAINTENANCE TECHNICIAN) Color UA Yellow Straw, Yellow 10/27/2023 2:12 PM DIESEL MAINTENANCE TECHNICIAN [facility] Clarity UA Clear Clear 10/27/2023 2:12 PM DIESEL MAINTENANCE TECHNICIAN [facility] Glucose UA Negative Negative 10/27/2023 2:12 PM DIESEL MAINTENANCE TECHNICIAN [facility] Bilirubin UA Negative Negative 10/27/2023 2:12 PM DIESEL MAINTENANCE TECHNICIAN [facility] Ketone UA Trace(A) Negative 10/27/2023 2:12 PM DIESEL MAINTENANCE TECHNICIAN [facility] Specific [place] UA 1.016 1.005 - 1.030 10/27/2023 2:12 PM [facility] Blood UA 1+(A) Negative 10/27/2023 2:12 PM DIESEL MAINTENANCE TECHNICIAN [facility] pH UA 7.0 5.0 - 8.0 pH 10/27/2023 2:12 PM DIESEL MAINTENANCE TECHNICIAN [facility] Protein UA 1+(A) Negative 10/27/2023 2:12 PM DIESEL MAINTENANCE TECHNICIAN [facility] Urobilinogen UA Negative Negative mg/dL 10/27/2023 2:12 PM DIESEL MAINTENANCE TECHNICIAN [facility] Nitrite UA Negative Negative 10/27/2023 2:12 PM DIESEL MAINTENANCE TECHNICIAN [facility] Leukocyte UA Negative Negative 10/27/2023 2:12 PM [facility] Urine Microscopy Urine microscopy to follow 10/27/2023 2:12 PM [facility] Reflex Status Culture not indicated 10/27/2023 2:12 PM [facility] Urine URINE SPECIMEN OBTAINED BY CLEAN CATCH PROCEDURE / Unknown Collection / Unknown 10/27/2023 1:41 PM DIESEL MAINTENANCE TECHNICIAN 10/27/2023 2:05 PM DIESEL MAINTENANCE TECHNICIAN Narrative [facility] - 10/27/2023 2:12 PM DIESEL MAINTENANCE TECHNICIAN Rudi Armendariz MD LAB - URINALYSIS ORD ERABLES Performing Organization Address [facility] de Phone Number [facility] [id number] [place] [id number] * (ABNORMAL) DRUG ABUSE URINE PANEL (10/27/2023 1:41 PM DIESEL MAINTENANCE TECHNICIAN) [facility] Amphetamines Screen Urine Not detected Not detected 10/27/2023 2:28 PM DIESEL MAINTENANCE TECHNICIAN [facility] Barbiturates Screen Urine Not detected Not detected 10/27/2023 2:28 PM DIESEL MAINTENANCE TECHNICIAN [facility] Benzodiazepines Screen Urine Detected(A) Not detected 10/27/2023 2:28 PM DIESEL MAINTENANCE TECHNICIAN [facility] Cocaine Screen Urine Not detected Not detected 10/27/2023 2:28 PM DIESEL MAINTENANCE TECHNICIAN [facility] Fentanyl Urine Not detected Not detected 10/27/2023 2:28 PM DIESEL MAINTENANCE TECHNICIAN [facility] Methadone Screen Urine Not detected Not detected 10/27/2023 2:28 PM DIESEL MAINTENANCE TECHNICIAN [facility] Opiate Screen Urine Not detected Not detected 10/27/2023 2:28 PM DIESEL MAINTENANCE TECHNICIAN [facility] Phencyclidine Screen Urine Not detected Not detected 10/27/2023 2:28 PM DIESEL MAINTENANCE TECHNICIAN [facility] Urine URINE / Unknown Collection / Unknown 10/27/2023 1:41 PM DIESEL MAINTENANCE TECHNICIAN 10/27/2023 2:05 PM DIESEL MAINTENANCE TECHNICIAN [facility] - 10/27/2023 2:28 PM DIESEL MAINTENANCE TECHNICIAN This drug screen is designed for MEDICAL [...] URINE CHEMISTR Y ORDERABLES Performing Organization Address [facility] Co de Phone Number [facility] [id number] [place] [address] * (ABNORMAL) CBC W/O DIFFERENTIAL (10/27/2023 3:54 AM DIESEL MAINTENANCE TECHNICIAN) WBC 11.7(H) 4.0 - 10.7 x10E9/L 10/27/2023 4:08 AM [facility] RBC Count 4.42 3.90 - 5.20 x10E12/L 10/27/2023 4:08 AM [facility] Hemoglobin 15.2 11.9 - 15.8 g/dL 10/27/2023 4:08 AM [facility] Hematocrit 43.2 34.8 - 46.1 % 10/27/2023 4:08 AM [facility] MCV 97.7 80.0 - 98.0 fL 10/27/2023 4:08 AM [facility] MCH 34.4(H) 26.7 - 33.6 pg 10/27/2023 4:08 AM [facility] MCHC 35.2 31.7 - 36.3 g/dL 10/27/2023 4:08 AM [facility] LABORATORY RDW-CV 13.1 11.3 - 14.8 % 10/27/2023 4:08 AM [facility] Platelet Count 217 150 - 420 x10E9/L 10/27/2023 4:08 AM [facility] MPV 10.6 7.8 - 11.4 fL 10/27/2023 4:08 AM [facility] Blood BLOOD SPECIMEN / Unknown Venipuncture / Unknown 10/27/2023 3:54 AM DIESEL MAINTENANCE TECHNICIAN 10/27/2023 4:00 AM DIESEL MAINTENANCE TECHNICIAN Almita Cordova MD LAB - HEMATOLOGY ORD ERABLES [facility] [address] [place] [address] Care Teams Territory Sales Executive Relationship Specialty Start Date End Date Bree Walsh MD [address] [place] [phone] PCP - General 02/07/19
[2024-11-24 16:00] VITALS: BP 92/70; PULSE 101; RESP 20; TEMP 37.2; O2SAT 94
[2024-11-24] MEDS: ATORVASTATIN 40 MG TABLET PO (17:26)
[2024-11-24 20:00] VITALS: PULSE 101; RESP 20; O2SAT 94
[2024-11-24] MEDS: QUEtiapine FUMARATE 12.5 MG TABLET PO (20:06)
[2024-11-25] VITALS: BP 123/69; PULSE 99; RESP 16; TEMP 37; O2SAT 94
[2024-11-25 08:00] VITALS: BP 130/70; PULSE 78; RESP 20; TEMP 36.6; O2SAT 96
[2024-11-25] MEDS: CALCIUM CARBONATE (OSCAL) 500 MG TABLET PO (08:41)
[2024-11-25] MEDS: PANTOPRAZOLE 40 MG TABLET PO (08:41)
[2024-11-25] MEDS: SERTRALINE HCL 50 MG TABLET 100 MG PO (08:41)
[2024-11-25] MEDS: SENNOSIDES 8.6 MG TABLET PO (08:41)
[2024-11-25] MEDS: APIXABAN 2.5 MG TABLET 5 MG PO ×2 (08:42→20:27)
[2024-11-25] MEDS: amLODIPine BESYLATE 5 MG TABLET PO (08:42)
[2024-11-25] MEDS: guaiFENesin 12 HR 600 MG TABCR 1200 MG PO ×2 (08:42→20:27)
[2024-11-25] MEDS: levoFLOXacin 250 MG TABLET 750 MG PO (08:42)
[2024-11-25] MEDS: oxyBUTYnin CHLORIDE XL 5 MG TAB.ER.24 PO (08:42)
[2024-11-25] MEDS: FOLIC ACID 1 MG TABLET PO (08:42)
[2024-11-25 16:00] VITALS: BP 116/59; PULSE 93; RESP 16; TEMP 36.6; O2SAT 95
--- NOTE | 2024-11-25 16:37 | P.HP_ITS ---
H&P: HPI History of Present Illness Date/Time: 11/22/24 16:37 Chief Complaint: Changing to Swing Narrative: This is a 74-year-old female with a significant past medical history of GERD, syncope, aspiration pneumonia, alcohol abuse, hyperlipidemia, depression, hypertension, CVA, Dementia. former smoker who presented to the hospital after sustaining a ground level fall at home. Patient is not a good historian and most of history of presenting illness was provided to us by her , daughter, and review of the EMR. Patient is being switiched from In patient to Swing patient where she will start having physical therapy Per discaharge summary Head CT which showed chronic lacunar infarcts at the bilateral basal ganglia, no acute intracranial process, age-related changes including moderate diffuse volume loss and moderate scattered white matter hypoattenuation consistent with chronic small-vessel ischemic disease. workup in the hospital included a chest x-ray which showed left upper lobe infiltrate. Initial labs showed a white blood cell count of 11.5, hemoglobin 10.2, potassium 3.3, creatinine 1.22, EGFR 43, blood sugars ranging 97-102, alkaline phosphate 124, TSH was 1.24. UA was obtained which only showed trace urine blood otherwise negative. Respiratory panel was negative for influenza a and B, RSV, COVID. Blood cultures were obtained and pending. Patient was recently treated with antibiotics for UTI. Urine culture from the 11/17/2024 showed Citrobacter koseri on final read which was pansensitive other than Macrobid and Augmentin. it appears that the patient was sent home with Macrobid which was resistant and Septra. Patient was placed on Levaquin while in the ED and was switched to oral. PT and OT worked with patient and is recommending additional rehab time. She was accepted here at [facility] for the swing bed program. She is stable for discharge at this time. She will need to finish her Levaquin for her community-acquired pneumonia and UTI. Her altered mental status improved and she is now at her baseline which is alert and oriented x2. patient does have underlying dementia. At this time we will swing patient so she is able to get stronger. [facility] Past Medical History Medical History (Updated 11/21/24 @ 11:29 by Cony Quintero, NICOLE) Dementia CVA (cerebral vascular accident) GERD (gastroesophageal reflux disease) Syncope Aspiration pneumonia ETOH abuse HLD (hyperlipidemia) Depression HTN (hypertension) Surgical History Surgical History S/P ORIF (open reduction internal fixation) fracture 06/20/19 H/O eye surgery H/O excision of ganglion cyst History of bunionectomy Social History Social History (Updated 11/22/24 @ 11:12 by Makayla Cazares RN) Smoking status: Former smoker Tobacco type: cigarettes Second hand tobacco smoke exposure: Yes Alcohol intake: former Drinks per week: 7 Substance use: never Substance use type: does not use Other substance usage details: former daily drinker Last use: 11/16/19 Do You Feel Safe in your Home?: No Lack of Transportation: No Lack of Food: Never True Current Housing: I Have Housing Concerned About Future Housing: No Difficulty Paying Gas/Electric Bills: No Difficulty Paying for Meds: No Currently Unemployed: No Education: Associate Degree Difficulty w/ Childcare or Family Care: No Gender identity (if verbalized by the patient): Female Spiritual care concerns: No Agree to blood products: Yes Meds Home Medications and Allergies Home Medications ?Medication ?Instructions ?Recorded ?Confirmed ?Type amlodipine 5 mg tablet 5 mg PO DAILY 11/23/19 11/22/24 History omeprazole 20 mg capsule,delayed 20 mg PO DAILY 11/23/19 11/22/24 History release sertraline 100 mg tablet 100 mg PO DAILY 11/23/19 11/22/24 History oxybutynin chloride 5 mg 5 mg PO DAILY 10/25/23 11/22/24 History tablet,extended release 24 hr VITAMIN b1 100mg See Rx Instructions .Route .COMPLEX 11/20/24 11/22/24 History apixaban 5 mg tablet (Eliquis) 5 mg PO Q12H 11/20/24 11/22/24 History atorvastatin 40 mg tablet 40 mg PO QPM 11/20/24 11/22/24 History calcium carbonate 500 mg PO DAILY 11/20/24 11/22/24 History folic acid 1 mg tablet 1 mg PO DAILY 11/20/24 11/22/24 History nitrofurantoin macrocrystal 100 mg 100 mg PO DAILY 11/20/24 11/22/24 History capsule omeprazole 40 mg capsule,delayed 40 mg PO DAILY 11/20/24 11/22/24 History release sennosides 8.6 mg tablet (senna) 8.6 mg PO DAILY 11/20/24 11/22/24 History sulfamethoxazole 800 1 tablet PO BID 11/20/24 11/22/24 History mg-trimethoprim 160 mg tablet guaifenesin 600 mg tablet, 1,200 mg (2 x 600 mg) PO Q12HR #1 11/22/24 11/22/24 Rx extended release 12 hr (Mucus tablet Relief ER) ipratropium 0.5 mg-albuterol 3 mg 3 ml inhalation Q6HRT PRN 11/22/24 11/22/24 Rx (2.5 mg base)/3 mL nebulization shortness a breath/wheezing #1 pkg soln levofloxacin 750 mg tablet 750 mg PO Q48H #1 tablet 11/22/24 11/22/24 Rx quetiapine 25 mg tablet (Seroquel) 25 mg PO HS #1 tablet 11/22/24 11/22/24 Rx Allergies Allergy/AdvReac Type Severity Reaction Status Date / Time acetaminophen (From Vicodin) Allergy Mild NAUSEA Verified 11/20/24 10:01 /VOMITING hydrocodone (From Vicodin) Allergy Mild NAUSEA Verified 11/20/24 10:01 /VOMITING Penicillins AdvReac Unknown Verified 11/20/24 10:01 Vital Signs Vital Signs - 24 hr 11/24/24 20:00 11/25/24 00:00 11/25/24 08:00 Temperature 98.6 F 98 F Pulse Rate 101 H 99 78 Respiratory Rate 20 16 20 Blood Pressure 123/69 130/70 Pulse Oximetry 94 94 96 Oxygen Delivery Room Air Room Air Room Air Exam Narrative: General: In no acute distress, well nourished Cardiac: Normal S1 and S2. RRR, No murmur, gallops or friction rubs, peripheral pulses intact. Respiratory: Lungs clear to auscultation, no adventitious lung sounds, currently on room air Gastrointestinal: soft, non-distended, non-tender, normoactive bowel sounds. : voiding without difficulty. Neuro: Alert and oriented x2 Assessment and Plan Assessment and plan (1) Dementia: Code(s): F03.90 - Unspecified dementia, unspecified severity, without behavioral disturbance, psychotic disturbance, mood disturbance, and anxiety Status: Acute Assessment and Plan: See below (2) CVA (cerebral vascular accident): Code(s): I63.9 - Cerebral infarction, unspecified Status: Acute Assessment and Plan: head CT showed chronic lacunar infarcts of the bilateral basal ganglia, no acute intracranial process, age-related changes including moderate diffuse vol ume loss and moderate scattered white matter hypoattenuation consistent with chronic small-vessel ischemic disease * recently diagnosed with a UTI on 11/17/2024 and was started on Septra and Macrobid??? * urine culture showing Citrobacter koseri which was resistant to Macrobid however susceptible to Septra * UA this admission showed trace urine blood otherwise negative. * Blood sugars ranging 97-102 * sodium is within normal limits of 139 * continue neuro checks(3) Acute UTI: (3) Weakness generalized: Code(s): R53.1 - Weakness Status: Acute Assessment and Plan: PT and OT ordered * Case coordi (4) Pneumonia: Qualifiers: Laterality: left Lung location: upper lobe of lung Pneumonia type: due to unspecified organism Qualified Code(s): J18.9 - Pneumonia, unspecified organism Code(s): J18.9 - Pneumonia, unspecified organism Status: Acute Assessment and Plan: chest x-ray showing left upper lobe infiltrate * patient was started on Levaquin * currently on room air, keep O2 sat greater than 92% * will start Mucinex * DuoNeb ordered p.r.n. * PT and OT ordered(2) Altered mental status: (5) Acute UTI: Code(s): N39.0 - Urinary tract infection, site not specified Status: Acute Assessment and Plan: initial UA on 11/17/2024 showed 1+ urine ketone, 1+ urine blood, 1+ urine bili, 1+ urine leukocytes, 6-10 urine RBC, 10-15 urine WBC, 4+ urine bacteria * patient was started on Macrobid and then transitioned to Septra * urine culture showing Citrobacter koseri on final read susceptible to Cipro and Levaquin, resistant to Macrobid * UA this admission showed trace urine blood otherwise negative * patient transitioned over to Levaquin to cover for UTI and her pneumonia(4) GERD (gastroesophageal reflux disease):
[2024-11-25] MEDS: ATORVASTATIN 40 MG TABLET PO (17:25)
[2024-11-25 20:00] VITALS: PULSE 93; RESP 16; O2SAT 95
[2024-11-25] MEDS: QUEtiapine FUMARATE 12.5 MG TABLET PO (20:27)
[2024-11-26] VITALS: BP 131/72; PULSE 92; RESP 16; TEMP 36.4; O2SAT 94
[2024-11-26 08:00] VITALS: BP 140/70; PULSE 80; RESP 20; TEMP 36.6; O2SAT 94
[2024-11-26] MEDS: amLODIPine BESYLATE 5 MG TABLET PO (09:02)
[2024-11-26] MEDS: oxyBUTYnin CHLORIDE XL 5 MG TAB.ER.24 PO (09:02)
[2024-11-26] MEDS: SENNOSIDES 8.6 MG TABLET PO (09:02)
[2024-11-26] MEDS: PANTOPRAZOLE 40 MG TABLET PO (09:02)
[2024-11-26] MEDS: FOLIC ACID 1 MG TABLET PO (09:02)
[2024-11-26] MEDS: CALCIUM CARBONATE (OSCAL) 500 MG TABLET PO (09:02)
[2024-11-26] MEDS: SERTRALINE HCL 50 MG TABLET 100 MG PO (09:02)
[2024-11-26] MEDS: guaiFENesin 12 HR 600 MG TABCR 1200 MG PO ×2 (09:02→20:51)
[2024-11-26] MEDS: APIXABAN 2.5 MG TABLET 5 MG PO ×2 (09:03→20:51)
--- NOTE | 2024-11-26 09:08 | PC.NURSE ---
NATIONAL SALES MANAGER made aware of Registered Dietitian Evaluation.
[2024-11-26 16:00] VITALS: BP 138/74; PULSE 83; RESP 20; TEMP 36.6; O2SAT 96
[2024-11-26] MEDS: ATORVASTATIN 40 MG TABLET PO (17:31)
[2024-11-26 20:00] VITALS: PULSE 80; RESP 18; O2SAT 96
[2024-11-26] MEDS: QUEtiapine FUMARATE 12.5 MG TABLET PO (20:51)
[2024-11-27] VITALS: BP 130/68; PULSE 80; RESP 18; TEMP 36.7; O2SAT 96
[2024-11-27 07:45] VITALS: BP 126/61; PULSE 87; RESP 16; TEMP 36.7; O2SAT 93
[2024-11-27] MEDS: CALCIUM CARBONATE (OSCAL) 500 MG TABLET PO (09:18)
[2024-11-27] MEDS: APIXABAN 2.5 MG TABLET 5 MG PO ×2 (09:19→20:00)
[2024-11-27] MEDS: SERTRALINE HCL 50 MG TABLET 100 MG PO (09:19)
[2024-11-27] MEDS: SENNOSIDES 8.6 MG TABLET PO (09:19)
[2024-11-27] MEDS: FOLIC ACID 1 MG TABLET PO (09:19)
[2024-11-27] MEDS: amLODIPine BESYLATE 5 MG TABLET PO (09:19)
[2024-11-27] MEDS: levoFLOXacin 250 MG TABLET 750 MG PO (09:19)
[2024-11-27] MEDS: guaiFENesin 12 HR 600 MG TABCR 1200 MG PO ×2 (09:19→20:00)
[2024-11-27] MEDS: oxyBUTYnin CHLORIDE XL 5 MG TAB.ER.24 PO (09:19)
[2024-11-27] MEDS: PANTOPRAZOLE 40 MG TABLET PO (09:19)
[2024-11-27 16:35] VITALS: BP 117/64; PULSE 87; RESP 16; TEMP 36.4; O2SAT 95
[2024-11-27] MEDS: ATORVASTATIN 40 MG TABLET PO (17:25)
[2024-11-27 20:00] VITALS: PULSE 102; RESP 16; O2SAT 93
[2024-11-27] MEDS: QUEtiapine FUMARATE 12.5 MG TABLET PO (20:00)
[2024-11-28] VITALS: BP 98/65; PULSE 102; RESP 16; TEMP 36.8; O2SAT 93
[2024-11-28 07:35] VITALS: BP 145/72; PULSE 94; RESP 16; TEMP 36.3; O2SAT 93
[2024-11-28] MEDS: APIXABAN 2.5 MG TABLET 5 MG PO (09:28)
[2024-11-28] MEDS: amLODIPine BESYLATE 5 MG TABLET PO (09:28)
[2024-11-28] MEDS: SERTRALINE HCL 50 MG TABLET 100 MG PO (09:28)
[2024-11-28] MEDS: FOLIC ACID 1 MG TABLET PO (09:28)
[2024-11-28] MEDS: PANTOPRAZOLE 40 MG TABLET PO (09:28)
[2024-11-28] MEDS: SENNOSIDES 8.6 MG TABLET PO (09:28)
[2024-11-28] MEDS: CALCIUM CARBONATE (OSCAL) 500 MG TABLET PO (09:28)
[2024-11-28] MEDS: oxyBUTYnin CHLORIDE XL 5 MG TAB.ER.24 PO (09:28)
[2024-11-28] MEDS: guaiFENesin 12 HR 600 MG TABCR 1200 MG PO (09:28)
--- NOTE | 2024-11-28 10:11 | P.DS_ITS ---
DS: Admitting Diagnosis Discharge Date 11/28/2024 Admitting Diagnosis Weakness/Unsteady gait secondary to CVA DS: Discharge Diagnosis Discharge Diagnosis (1) Dementia: Code(s): F03.90 - Unspecified dementia, unspecified severity, without behavioral disturbance, psychotic disturbance, mood disturbance, and anxiety Status: Acute Assessment and Plan: See below (2) CVA (cerebral vascular accident): Code(s): I63.9 - Cerebral infarction, unspecified Status: Acute (3) Weakness generalized: Code(s): R53.1 - Weakness Status: Acute Plan Disposition: Discharge to SNF DS: Summary Hospital Course Reason for hospitalization: REHAB Hospital Course: This was 74-year-old female with a significant past medical history of GERD, syncope, aspiration pneumonia, alcohol abuse, hyperlipidemia, depression, hypertension, CVA, Dementia. former smoker who presented to the hospital after sustaining a ground level fall at home. Patient is not a good historian and most of history of presenting illness was provided to us by her , daughter, and review of the EMR. Patient was admitted to Swing patient where she will start having physical therapy. Patient continued to progress with Physical therapy but it was determined she would need therapy further inpatient and she was discharged to a SNF. Patient was seen and assessed day of discharge reported mild neck discomfort and she was started on a lidocaine patch, otherwise patient had no complaints denied CP,SOB, N/V, ABD pain, diarrhea, or urinary symptoms. No changes during admission to rehab swing bed. Hospitalization discharge from acute care: 74-year-old female with a significant past medical history of GERD, syncope, aspiration pneumonia, alcohol abuse, hyperlipidemia, depression, hypertension, CVA, Dementia. former smoker who presented to the hospital after sustaining a ground level fall at home. Patient is not a good historian and most of history of presenting illness was provided to us by her , daughter, and review of the EMR. states that she was recently diagnosed with a UTI and was placed on Macrobid initially and later switched to Septra due to resistance on urine culture. He states that the patient has not been herself the last 7 days and is requiring a lot more help at home. Yesterday patient was confused and reaching for things that were not there. Daughter states this behavior is unusual and reminded her of when she had a stroke. She denies any fever, chills, nausea, vomiting, diarrhea, abdominal pain, chest pain, or shortness of breath. Patient is moving all extremities well. Head CT which showed chronic lacunar infarcts at the bilateral basal ganglia, no acute intracranial process, age- related changes including moderate diffuse volume loss and moderate scattered white matter hypoattenuation consistent with chronic small-vessel ischemic disease. workup in the hospital included a chest x-ray which showed left upper lobe infiltrate. Initial labs showed a white blood cell count of 11.5, hemoglobin 10.2, potassium 3.3, creatinine 1.22, EGFR 43, blood sugars ranging 97-102, alkaline phosphate 124, TSH was 1.24. UA was obtained which only showed trace urine blood otherwise negative. Respiratory panel was negative for influenza a and B, RSV, COVID. Blood cultures were obtained and pending. Patient was recently treated with antibiotics for UTI. Urine culture from the 11/17/2024 showed Citrobacter koseri on final read which was pansensitive other than Macrobid and Augmentin. it appears that the patient was sent home with Macrobid which was resistant and Septra. Patient was placed on Levaquin while in the ED and was switched to oral. PT and OT worked with patient and is recommending additional rehab time. Status at Discharge Functional status at discharge: uses cane/walker Overall status at discharge: patient is progressing back to baseline Time Spent with Patient Time attestation: Total time spent providing and/or coordinating discharge services: Time spent: Greater than 30 minutes Exam Narrative: General: In no acute distress, well nourished Cardiac: Normal S1 and S2. RRR, No murmur, gallops or friction rubs, peripheral pulses intact. Respiratory: Lungs clear to auscultation, no adventitious lung sounds, currently on room air Gastrointestinal: soft, non-distended, non-tender, normoactive bowel sounds. : voiding without difficulty. Neuro: Alert and oriented x2 Discharge Plan Discharge Attending physician on discharge: Maxi Nur Consulting providers: Faviola Schwartz Discharging Clinician: Faviola Schwartz Anticipated Discharge Date/Time: 11/28/24 10:06 Patient Disposition: SNF Activity: may shower and as tolerated Diet: as tolerated Discharge Instructions: CVA: * Resume taking your atorvastatin and eliquis * PT/OT * Fall precautions How can you care for yourself at home? ? Keep track of any new symptoms or changes in your symptoms. ? Rest until you feel better. ? Be safe with medicines. Take your medicines exactly as prescribed. Call your doctor if you think you are having a problem with your medicine. ? Do not drive after taking a prescription pain medicine. ? Ensure to follow-up with primary care physician as indicated and provide updated medication list provided to you at discharge. When should you call for help? Call 911 anytime you think you may need emergency care. For example, call if: ? You passed out (lost consciousness). Call your doctor now or seek immediate medical care if: ? You have new symptoms like fever, difficulty breathing, Chest pain, vomiting, or rash. ? You have new or different pain. ? You are confused and are having trouble thinking clearly. ? Your symptoms are getting worse. Watch closely for changes in your health, and be sure to contact your doctor if: ? You do not get better as expected. Patient Instructions: Fall Prevention for Older Adults (DC), Ischemic Stroke (DC) Patient Language: Latvian Stand Alone Forms: General Discharge Information, Longterm Discharge Follow-up/Referrals: Amol Aden MD [Primary Care Provider] - 4 Weeks Discharge Medications: New lidocaine [Lidoderm] 5 % Adhesive Patch,Medicated 1 patch transdermal DAILY Qty: 1 0RF Continued sertraline 100 mg tablet 100 mg PO DAILY amlodipine 5 mg tablet 5 mg PO DAILY oxybutynin chloride 5 mg Tablet Extended Release 24hr 5 mg PO DAILY calcium carbonate 500 mg calcium (1,250 mg) tablet 500 mg PO DAILY folic acid 1 mg tablet 1 mg PO DAILY omeprazole 40 mg capsule,delayed release(DR/EC) 40 mg PO DAILY sennosides [senna] 8.6 mg tablet 8.6 mg PO DAILY VITAMIN b1 100mg See Rx Instructions .ROUTE .COMPLEX Rx Instructions: 100 mg daily; atorvastatin 40 mg tablet 40 mg PO QPM Eliquis 5 mg tablet 5 mg PO Q12H ipratropium-albuterol 0.5 mg-3 mg(2.5 mg base)/3 mL Solution For Nebulization 3 ml inhalation Q6HRT PRN (Reason: shortness a breath/wheezing) Qty: 1 0RF quetiapine [Seroquel] 25 mg Tablet 25 mg PO HS Qty: 1 0RF Discontinued omeprazole 20 mg capsule,delayed release(DR/EC) 20 mg PO DAILY sulfamethoxazole-trimethoprim 800-160 mg tablet 1 tablet PO BID Patient Comments: UTI nitrofurantoin macrocrystal 100 mg capsule 100 mg PO DAILY levofloxacin 750 mg Tablet 750 mg PO Q48H Qty: 1 0RF guaifenesin [Mucus Relief ER] 600 mg Tablet Extended Release 12hr 1,200 mg PO Q12HR Qty: 1 0RF Date of admission: 11/22/24 09:41 Primary Care Provider: Amol Aden Admitting Provider: Maxi Nur Attending physician on admission: Cony Quintero Condition: Stable Quality VTE Prophylaxis VTE prophylaxis: pharmacologic ordered -Patient's previous records reviewed on admission -ER notes reviewed in detail on admission -discussed all findings and current treatment plan with patient/Family/POA -Consultations reviewed for recommendations -Patient's disposition for safe discharge discussed with family caseworker Dictation performed by [employer] direct speech recognition software, therefore hospice community liaison variants and typographical errors may occur. Hospitalist VENTURA Heart Failure (Exclusion) Patient has history of Heart Transplant or Left Ventricular Assistive Device?: No IF YES, STOP HERE Heart Failure (Qualifier) Patient has current or prior documentation of LVEF less than or equal to 40%, or mod/servere depressed LVSF?: No IF NO, STOP HERE
[2024-11-28] MEDS: LIDOCAINE 5% PATCH 1 PATCH TRANSDERM (10:56)
--- NOTE | 2024-11-28 11:25 | PC.NURSE ---
Report called to Lauryn at [facility]. Patients will be here after lunch, patient will be discharged around 1300.
--- NOTE | 2024-11-28 13:05 | PC.NURSE ---
Patient discharging to [facility]. [facility] had no IV at time of discharge. All belongings gathered together and sent with patient. Discharge instructions sent with patient for [facility] and reviewed with patient and patients . Patient transferred from chair to wheelchair with 1 assist. [employer] support worker transferred patient via wheelchair. Denies any questions at time of discharge.
--- NOTE | 2024-12-01 10:48 | PC.NURSE ---
Called patient r/t discharge 11/28/2024. Unable to leave message for return call.
--- NOTE | 2024-12-01 14:44 | PC.NURSE ---
Called and spoke with Christophe () He informs patient is doing good and appreciates all we did for her here.
== END 2024-11-28 13:05 | DRG 947 ==
PROVIDERS: Admitting Provider Internal Medicine; PCP Family Medicine; Visit Provider Nurse Practitioner Acute Care
DX: R53.1 Weakness (principal); J18.9 Pneumonia, unspecified organism; N39.0 Urinary tract infection, site not specified; I10 Essential (primary) hypertension; K21.9 Gastro-esophageal reflux disease without esophagitis; E78.5 Hyperlipidemia, unspecified; F03.90 Unspecified dementia, unspecified severity, without behavioral disturbance, psychotic disturbance, mood disturbance, and anxiety; F32.A Depression, unspecified; Z86.73 Personal history of transient ischemic attack (TIA), and cerebral infarction without residual deficits; Z87.891 Personal history of nicotine dependence; Z79.01 Long term (current) use of anticoagulants
CPT/HCPCS: 97110; 97112; 97161; 97165; 97530; 97535; A9270

== ENCOUNTER 2024-12-09 09:00 | Outpatient (CLI) | payer OTHER, SELFPAY ==
--- OUTSIDE RECORDS SUMMARY | 2024-12-09 09:50 | XMS_ITS | Encounter Summary ---
Author Organization [facility] Address [facility] [place] [address] Care Team Providers Care Pot Maker Name Role Phone Sam Daniels MD Primary Care Provider [phone] Jennifer Pate MD Unavailable Encounter Details Date Type Department Care Team (Late st Contact Info) Description 02/22/2019 Abstract SFL CONVERSION [address] [place], [place] [id number] , Generic MD Yen Social History Tobacco [...] Description 01/12/2025 11:15 AM CDT Office Visit [facility] [address] [place] [phone] Jennifer Pate MD [address] [place] [address] documented as of this encounter Visit Diagnoses Not on filedocumented in this encounter Additional Health Concerns Infection Onset Date Last Indicated Resolved Time COVID-19 Rule Out 09/03/2021 09/03/2021 09/03/2021 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 [address] PCP - General FAMILY PRACTICE 09/03/21 Jennifer Pate MD [address] [place] [address] Consulting Physician CARDIOVASCULAR DISEASE 01/04/24 documented as of this encounter
--- OUTSIDE RECORDS SUMMARY | 2024-12-09 09:50 | XMS_ITS | Clinical Summary ---
Author Organization [facility] Address [address] [place] [address] Care Team Providers Care Applications Developer Name Role Phone Bree Walsh MD Primary Care Provider [phone] Source Comments [facility],non-owned Affiliates and Associated Physician Practices is amultiple site organization consisting of ambulatory clinics and hospital sitesin [place], [place], [place] and [place]. This disclosure is being madepursuant to the Care Everywhere program and may not contain all information available regarding this patient. Last updated 18.[facility] Allergies Active Allergy Reactions Criticality Noted Date [...] Recorded Patient Health Questionnaire-2 Score 0 11/07/2023 [facility] - Occupational Stress [...] place to sleep or slept in a intermediate (including now)? No 10/31/2023 Sex and Gender Information Value Date Recorded Sex Assigned at Not on file Gender Identity Not on file Sexual Orientation Not on file Last Filed Vital Signs Vital Sign Reading Time Taken Comments Blood Pressure 162/83 11/14/2023 7:43 AM PARKS RECREATION COORDINATOR Pulse 74 11/14/2023 7:43 AM PARKS RECREATION COORDINATOR Temperature 36.5 C (97.7 F) 11/14/2023 7:43 AM PARKS RECREATION COORDINATOR Respiratory Rate 14 11/14/2023 7:43 AM PARKS RECREATION COORDINATOR Oxygen Saturation 95% 11/14/2023 7:43 AM PARKS RECREATION COORDINATOR Inhaled Oxygen Concentration - - Weight - [...] complete this topic MENINGOCOCCAL (Group B) VACCINE SHARED DECISION-MAKING Aged Out No longer eligible based on patient's age to complete this topic MENINGOCOCCAL GROUPS A/C/Y/W VACCINE Aged Out No longer eligible based on patient's age to complete this topic Advance Directives Documents on File Type Date Recorded Patient Outside Upholsterer Expl anation Adv Directive/Living Will/POA 11/06/2023 3:31 [...] 3:27 PM 10/30/2023 3:30 PM Care Teams Applications Developer Relationship Specialty Start Date End Date Bree Walsh MD [address] [place] [phone] PCP - General 02/07/19
--- OUTSIDE RECORDS SUMMARY | 2024-12-09 09:50 | XMS_ITS | Clinical Summary ---
Author Organization [facility] Address [facility] [place] [address] Care Team Providers Care Rec Therapist Name Role Phone Sam Daniels MD Primary Care Provider [phone] Jennifer Pate MD Unavailable Allergies Active Allergy [...] Description 01/12/2025 11:15 AM CDT Office Visit [facility] [place] [address] Jennifer Pate MD [address] [place] [address] Health Maintenance Due Date Last Done Comments [...] this topic Medical Devices Implanted Type Area Spanish Interpreter Device Identifier Shelf Expiration Date Model / Serial / Lot Lt 12 Hole Plate-Prox Hum Implanted:Qty: 1 on 06/20/2019 by Kodi Whyte MD at [facility] Left: Arm [id number] / / 3.5 Cortical Screw-22mm Implanted:Qty: 2 on 06/20/2019 by Kodi Whyte MD at [facility] Left: Arm [id number] / / 3.5 Cortical Screw-24mm Implanted:Qty: 3 on 06/20/2019 by Kodi Whyte MD at [facility] Left: Arm [id number] / / 4.0 Cancellous Screw-46mm Implanted:Qty: 1 on 06/20/2019 by Kodi Whyte MD at [facility] Left: Arm [id number] / / 4.0 Locking Screw-22mm Implanted:Qty: 4 on 06/20/2019 by Kodi Whyte MD at [facility] Left: Arm [id number] / / 4.0 Locking Screw-24mm Implanted:Qty: 1 on 06/20/2019 by Kodi Whyte MD at [facility] Left: Arm [id number] / / 4.0 Locking Screw-36mm Implanted:Qty: 2 on 06/20/2019 by Kodi Whyte MD at [facility] Left: Arm [id number] / / Explanted Type Area Spanish Interpreter Device Identifier Shelf Expiration Date Model / Serial / Lot 4.0 Cancellous Screw-24mm Explanted:Qty: 1 on 06/20/2019 at [facility] Left: Arm [id number] / / Procedures Procedure Name Priority Date/Time [...] 4:57 PM 12/02/2019 7:04 PM Care Teams Rec Therapist Relationship Specialty Start Date End Date Sam Daniels MD [address] [place] [id number] PCP - General FAMILY PRACTICE 09/03/21 Jennifer Pate MD [address] [place] [address] Consulting Physician CARDIOVASCULAR DISEASE 01/04/24
[2024-12-09 10:12] LABS: Vitamin B12 397 pg/mL (193-986)
== END 2024-12-09 09:01 | disposition home or self-care (01) ==
PROVIDERS: PCP Family Medicine; Visit Provider Family Medicine
DX: E53.9 Vitamin B deficiency, unspecified (principal)
CPT/HCPCS: 36415; 82607

== ENCOUNTER 2025-01-02 08:26 | Outpatient (CLI) | payer OTHER, SELFPAY ==
--- NOTE | ~2025-01-02 | XR_ITS ---
Clinical Indication: Pneumonia PA and lateral views of the chest: Comparison: 11/20/2024 Findings: There is persistent hazy opacity at the left upper lobe measuring approximately 3.2 cm in d iameter. Probable mild interstitial change in the lungs. Cardiomediastinal silhouette is within haresh l limits. Bones and soft tissues are unremarkable. Impression: Stable 3.2 cm hazy opacity left upper lobe. Given persistence, chest CT could be considered to better exclude pulmonary nodule or mass. Underlying chronic interstitial disease. Reviewed, dictated and finalized at location . Impression: Stable 3.2 cm hazy opacity left upper lobe. Given persistence, chest CT could b e considered to better exclude pulmonary nodule or mass. Underlying chronic interstitial disease.
--- OUTSIDE RECORDS SUMMARY | 2025-01-02 08:32 | XMS_ITS | Clinical Summary ---
Author Organization [facility] Address [facility] [place] [address] Care Team Providers Care Green Coffee Blender Name Role Phone Sam Daniels MD Primary Care Provider [phone] Jennifer Pate MD Unavailable Allergies Active Allergy [...] Description 01/12/2025 11:15 AM CDT Office Visit [facility] [place] [address] Jennifer Pate MD [address] [place] [address] Health Maintenance Due Date Last Done Comments Hepatitis C 1966 DTaP, Tdap and Td Vaccines (1 - Tdap) 1967 Pneumococcal Vaccine: 50+ Years (1 of 1 - PCV) 1998 Zoster Vaccines (1 of 2) 1998 Dexa Scan (General) 2013 RSV Immunization or 60+ Years (1 - 1-dose 75+ series) 2023 COVID-19 Vaccine ( season) 2024 12/27/2021, 06/21/2021, 12/01/2020, Additional history exists Colorectal Cancer Screening Colonoscopy (10 Years) Discontinued [...] this topic Medical Devices Implanted Type Area Car Wash Supervisor Device Identifier Shelf Expiration Date Model / Serial / Lot Lt 12 Hole Plate-Prox Hum Implanted:Qty: 1 on 06/20/2019 by Kodi Whyte MD at [facility] Left: Arm [id number] / / 3.5 Cortical Screw-22mm Implanted:Qty: 2 on 06/20/2019 by Kodi Whyte MD at [facility] Left: Arm [id number] / / 3.5 Cortical Screw-24mm Implanted:Qty: 3 on 06/20/2019 by Kodi Whyte MD at [facility] Left: Arm [id number] / / 4.0 Cancellous Screw-46mm Implanted:Qty: 1 on 06/20/2019 by Kodi Whyte MD at [facility] Left: Arm [id number] / / 4.0 Locking Screw-22mm Implanted:Qty: 4 on 06/20/2019 by Kodi Whyte MD at [facility] Left: Arm [id number] / / 4.0 Locking Screw-24mm Implanted:Qty: 1 on 06/20/2019 by Kodi Whyte MD at [facility] Left: Arm [id number] / / 4.0 Locking Screw-36mm Implanted:Qty: 2 on 06/20/2019 by Kodi Whyte MD at [facility] Left: Arm [id number] / / Explanted Type Area Car Wash Supervisor Device Identifier Shelf Expiration Date Model / Serial / Lot 4.0 Cancellous Screw-24mm Explanted:Qty: 1 on 06/20/2019 at [facility] Left: Arm [id number] / / Procedures Procedure Name Priority Date/Time [...] 4:57 PM 12/02/2019 7:04 PM Care Teams Green Coffee Blender Relationship Specialty Start Date End Date Sam Daniels MD [address] [place] [phone] PCP - General FAMILY PRACTICE 09/03/21 Jennifer Pate MD [address] [place] [address] Consulting Physician CARDIOVASCULAR DISEASE 01/04/24
--- OUTSIDE RECORDS SUMMARY | 2025-01-02 08:33 | XMS_ITS | Encounter Summary ---
Author Organization [facility] Address [facility] [place] [address] Care Team Providers Care Body Builder Name Role Phone Sam Daniels MD Primary Care Provider [phone] Jennifer Pate MD Unavailable Encounter Details Date Type Department Care Team (Late st Contact Info) Description 02/22/2019 Abstract SFL CONVERSION [address] [place], [place] [id number] , Generic MD Yen Social History Tobacco [...] Description 01/12/2025 11:15 AM CDT Office Visit [facility] [address] [place] [address] Jennifer Pate MD [address] [place] [address] documented as of this encounter Visit Diagnoses Not on filedocumented in this encounter Additional Health Concerns Infection Onset Date Last Indicated Resolved Time COVID-19 Rule Out 09/03/2021 09/03/2021 09/03/2021 7:36 PM REMOTE SENSING ANALYST COVID-19 Rule Out 04/04/2022 04/04/2022 04/04/2022 10:22 PM CDT documented as of this encounter Care Teams Body Builder Relationship Specialty Start Date End Date Sam Daniels MD [address] [place] [address] PCP - General FAMILY PRACTICE 09/03/21 Jennifer Pate MD [address] [place] [address] Consulting Physician CARDIOVASCULAR DISEASE 01/04/24 documented as of this encounter
--- OUTSIDE RECORDS SUMMARY | 2025-01-02 08:33 | XMS_ITS | Clinical Summary ---
Author Organization [facility] Address [address] [address] Care Team Providers Care State Superintendent Of Schools Name Role Phone Bree Walsh MD Primary Care Provider [phone] Source Comments [facility],non-owned Affiliates and Associated Physician Practices is amultiple site organization consisting of ambulatory clinics and hospital sitesin [place], [place], [place] and [place]. This disclosure is being madepursuant to the Care Everywhere program and may not contain all information available regarding this patient. Last updated 18.[facility] Allergies Active Allergy Reactions Criticality Noted Date Comments Penicillins Anaphylaxis High 11/08/2023 Medications * Be aware that medications may not be up to date on this document. Alwaysverify current medications with the patient. amLODIPine (Norvasc) 5 MG tablet Take 1 (one) tablet by mouth once daily Active omeprazole (PriLOSEC) 20 MG capsule Take 1 (one) capsule by mouth once daily Active docusate sodium (Colace) 100 MG capsule Take 1 (one) capsule by mouth 2 times daily as needed for Constipation Active apixaban (Eliquis) 5 MG tablet Take 1 (one) tablet by mouth 2 times daily 4 Active atorvastatin (Lipitor) 40 MG tablet Take 1 (one) tablet by mouth once daily 4 Active propranolol ER 24hr (Inderal LA) 60 MG capsule Take 1 (one) capsule by mouth once daily 4 Active folic acid (Folvite) 1 MG tablet Take 3 (three) tablets by mouth once daily 4 Active senna-docusate (Senokot-S) 8.6-50 MG tablet Take 1 (one) tablet by mouth once daily 4 Active thiamine (Vitamin B-1) 100 MG tablet Take 1 (one) tablet by mouth once daily 4 Active Active Problems Problem Noted Date Diagnosed [...] Recorded Patient Health Questionnaire-2 Score 0 11/07/2023 [facility] - [...] place to sleep or slept in a longterm (including now)? No 10/31/2023 Comments Unknown Sex and Gender Information Value Date Recorded Sex Assigned at Not on file Legal Sex Female 10:38 AM CDT Gender Identity Not on file Sexual Orientation Not on file Last Filed Vital Signs Vital Sign Reading Time Taken Comments Blood Pressure 162/83 11/14/2023 7:43 AM WIRE REPAIRER Pulse 74 11/14/2023 7:43 AM WIRE REPAIRER Temperature 36.5 C (97.7 F) 11/14/2023 7:43 AM WIRE REPAIRER Respiratory Rate 14 11/14/2023 7:43 AM WIRE REPAIRER Oxygen Saturation 95% 11/14/2023 7:43 AM WIRE REPAIRER Inhaled Oxygen Concentration - - Weight - [...] 2024 06/20/2023, 07/12/2022, 12/27/2021, Additional history exists DEPRESSION SCREENING 09/17/2024 10/26/2023 INFLUENZA VACCINE (Season Ended) 2025 06/20/2023, 07/12/2022, 07/07/2021, Additional history exists HEPATITIS B VACCINE Aged Out No longe [...] on patient's age to complete this topic Insurance [employer] Advance Directives Documents on File Type Date Recorded Patient Telephone Sex Worker Expl anation Adv Directive/Living Will/POA 11/06/2023 [...] 3:27 PM 10/30/2023 3:30 PM Care Teams State Superintendent Of Schools Relationship Specialty Start Date End Date Bree Walsh MD [address] [place] [phone] PCP - General 02/07/19
--- OUTSIDE RECORDS SUMMARY | 2025-01-02 08:33 | XMS_ITS | Data Portability ---
Author Organization [facility], [address] [facility] ([place]) Address [address] [place] [address] Care Team Providers Care Software Project Lead Name Role Phone CHELSEA VARUN Primary Care Provider Assessment Encounter Date Assessment Date Assessment LastModified by Organization Details LastModified Time 04/01/2024 04/01/2024 This 73-year-old female lost to Neurology Clinic follow up for the last 10 years presents again to establish care. Having issues with gait which seem to have been present 10 years ago when she was seen by [facility] as well as issues with [...] We will make referrals to neuropsychologists at [facility], referrals to Physical Therapy for gait training and I advised them it is probably in her best interest to start taking an over the counter B complex containing cyanocobalamin as she was taking this previously. We will make a referral for her to be seen closer to where they live down in [place] for her neurology follow up with Dr. [...] see her in the [facility] in [place] in approximately 12 weeks if it can be managed. 5. The patient is on atorvastatin 40 mg and apixaban 5 mg b.i.d. which appear to be sufficient secondary stroke prevention given her history and hyperlipidemia. I personally spent a total of 70 minutes on the patient on this date of service including both wfhp-up-mzxg and baq-erzr-ud-face time excluding any separately reportable services. [facility] [email or web address] Not available 04/01/2024 18:07:49 06/23/2024 06/23/2024 ASSESSMENT [...] on this date of service including both xphx-rv-utne and zmi-gfbr-hx-face time excluding any separately reportable services. [email or web address] Not available 06/23/2024 14:46:27 Plan of Treatment Reminders Order Date Submit Date Provider Last Modified By Organization Details Last Modified Time Details Appointments None recorded. Lab None recorded. Referral neuropsych ologist referral - Please see referral order and attachment s. Please call patient with appointmen t date and time. Thanks. 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 Ca Wills MD [address] [place] [address], [phone], [facility] 4 14:25:31 Embolic stroke 477749827 Active 2023 Ca Wills MD [address] [place] [address], [phone], [facility] 4 14:25:59 Neurocognitive disorder 388942931 Active 2023 Ca Wills MD [address] [place] [address], [phone], [facility] 4 14:26:10 Impaired cognition 567824072 Active 2023 MIGUEL ANGEL LEE MD [address] [place] [address], [address], [facility] 4 17:28:24 Abnormal gait 32751930 Active 2023 Reva Harrell [facility] 4 10:40:22 Problem Notes None recorded. Procedures [...] Name and Address Organization Details Recorded Time 4206903 Product containin g angiotens in-conver ting enzyme inhibitor (product) medicatio n Not available Not available unabletoasse 04/10/2024 88276 009 SNOMED Not Available Not Available Not Available 433669 Product containin g penicilli n (product) medicatio n Not available Not available Not available 10/15/20232008 36829 8001 SNOMED Not Available Not Available Not [...] Updated DateTime 4 167.64 cm 22.6 kg/m2 20579.9 3 g 79 /min 99 % 99 % Thuan Giordano [facility] 4 11:22:25 Date Recorded Body height Body mass index (BMI) Body weight Heart rate Oxygen saturation Oxygen saturation in Arterial blood by Pulse oximetry Systolic blood pressure Diastolic blood pressure Provider Name and Address Organization Details Last Updated DateTime 4 167.64 cm 25 kg/m2 55184.8 2 g 88 /min 97 % 97 % 129 mm[Hg] 62 mm[Hg] Mariana Terry [facility] 13:49:18 Social History None recorded. Functional Status None recorded. Mental Status None recorded. Family History Nothing Reported. Medical History No medical history recorded. Gynecological HistoryNo gynecological history recorded. 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 G62.1 Additional diagnosis detail: Alcoholic peripheral neuropathy Embolic stroke 289042382 I63.40 Additional diagnosis detail: Cerebrovas cular accident (CVA) due to embolism of cerebral artery Neurocogni tive disorder 238465278 R41.9 History of cerebrovascular accident 110755964 Z86.73 Additional diagnosis detail: History of stroke Health Concerns Section Related Observation LastModified by Organization Detai ls LastModified Time None Recorded Concern Status LastModified by Organization Details LastModified Time None Recorded Advance Directives Directive None Recorded Payers Encounter Date Sequence Insurance Name Policy Number Policy Doty Covered Member ID Doty Member ID Guarantor Name 04/01/2024 1 [employer] [id number] Amy Clemente [id number] Christophe Clemente 06/23/2024 1 [facility] [employer] ([facility]) [id number] Amy Clemente [id number] Christophe Clemente Notes Date Note Type Note Provider Name and Address Organization Details Recorded Time 04/01/2024 text/html Amy Clemente is a 73-year-old female with multiple medical problems who presents to the Neurology Clinic to discuss gait disturbance, cognitive impairment and neuropathy. The patient was originally seen by [facility] back in July 2008 when she was seen by Dr. Morton at [facility]. He read an EEG on her but [...] of the brain completed without contrast at [place] that showed no acute intracranial mass, hemorrhage [...] She has had some neurologic care in [place] during this time as well as in [place] but I do not have all these records available to me at this time. The patient was admitted at [facility] in October 2023 and had tests [...] Her primary care is Dr. Daniels in [place] and she has been seeing him for [...] MIGUEL ANGEL LEE MD [address] [place] [address], [phone], [facility] 04/02/2024 16:23:29 06/23/2024 text/html Amy Clemente is [...] noted. She is currently at [facility]. Regarding the neuropathy, she reports no significant change in symptomatology. They did notice significant cognitive problems following the CVA. She had a [place] cognitive assessment score of 18 out of 30. She was sent for neuropsychiatric assessment per [facility]. This has yet to be completed. Ca Wills MD [address] [facility], [place], [address], [facility] 06/24/2024 12:35:35 OBGyn Episode No OBEpisode recorded.
[2025-01-02 09:11] LABS: Alanine Aminotransferase 18 U/L (14-59); Albumin Level 3.1 g/dL (3.4-5.0); Alkaline Phosphatase 125 U/L (46-116); Anion Gap 9 mmol/L (4-12); Aspartate Amino Transferase 17 U/L (15-37); Bilirubin,Total 0.4 mg/dL (0.00-1.00); Blood Urea Nitrogen 8 mg/dL (7-18); Calcium 8.9 mg/dL (8.5-10.1); Carbon Dioxide 28 mmol/L (21-32); Chloride 106 mmol/L (98-108); Estimated Glomerular Filt Rate 48; Glucose 116 mg/dL (70-99); Osmolality Calculated 295 mOsm/kg (285-295); Potassium 3.6 mmol/L (3.5-5.1); Sodium 143 mmol/L (136-145); Total Protein 6.6 g/dL (6.4-8.2)
[2025-01-02 09:16] LABS: Basophils Absolute Auto 0.04 K/mm3 (0.00-0.10); Basophils Percent Auto 0.5 % (0.0-1.0); Eosinophils Absolute Auto 0.31 K/mm3 (0.02-0.50); Eosinophils Percent Auto 3.6 % (1.0-6.0); Hematocrit 34.9 % (35.0-42.0); Hemoglobin 10.3 g/dL (11.7-13.8); Immature Granulocyte Absolute 0.02 K/mm3 (0.00-0.00); Immature Granulocyte Percent A 0.2 % (0.0-0.0); Lymphocytes Absolute Auto 1.88 K/mm3 (1.10-4.50); Lymphocytes Percent Auto 21.7 % (18.0-42.0); Mean Corpuscular HGB Conc 29.5 g/dL (32-36); Mean Corpuscular Hemoglobin 25.6 pg (27.0-31.0); Mean Corpuscular Volume 86.6 fL (78.0-102.0); Mean Platelet Volume 11.2 fl (9.2-11.8); Monocytes Absolute Auto 0.47 K/mm3 (0.10-0.90); Monocytes Percent Auto 5.4 % (2.0-11.0); Neutrophils Absolute Auto 5.95 K/mm3 (1.70-7.20); Neutrophils Percent Auto 68.6 % (50.0-70.0); Platelet Count Result 220 K/mm3 (150-420); Red Blood Count 4.03 M/mm3 (4.20-5.40); Red Cell Distribution Width 14.1 % (11.6-14.4); White Blood Count 8.7 K/mm3 (4.8-10.8)
== END 2025-01-02 08:27 | disposition home or self-care (01) ==
LOC: CHSLAB 08:30
PROVIDERS: PCP Family Medicine; Visit Provider Family Medicine
DX: R91.8 Other nonspecific abnormal finding of lung field (principal); J84.9 Interstitial pulmonary disease, unspecified; Z87.01 Personal history of pneumonia (recurrent)
CPT/HCPCS: 36415; 71046; 80053; 85025

== ENCOUNTER 2025-02-05 13:50 | Outpatient (CLI) | payer OTHER, SELFPAY ==
--- NOTE | ~2025-02-05 | CT_ITS ---
CT Scan of the Chest without Contrast: Clinical Indication: Pulmonary nodule Technique: Contiguous sections were acquired throughout the chest without intravenous contrast. Dose reduction technique was used on this scan by utilizing automated exposure control and iterative recon struction technique. The dose-length product (DLP) was 126.99 mGy-cm. Findings: There is no evidence of any significant mediastinal, hilar or axillary lymphadenopathy. There are ath erosclerotic calcifications of the aorta and coronary arteries. There is no evidence of pleural or pericardial effusion. 3.5 x 2.9 cm pulmonary nodule/mass in the left upper lobe peripherally is highly suspicious for neopl asm. There is extensive chronic interstitial disease with extensive interstitial thickening and subpl eural reticulation Images through the upper abdomen reveal low-density right adrenal nodule, compatible with adenoma. Impression: 3.5 x 2.9 cm left upper lobe pulmonary nodule/masses consistent with neoplasm until proven otherwise. Tissue sampling recommended to establish histologic diagnosis. Extensive chronic interstitial pulmonary disease. Right adrenal adenoma. Reviewed, dictated and finalized at location M. Impression: 3.5 x 2.9 cm left upper lobe pulmonary nodule/masses consistent with neoplasm u ntil proven otherwise. Tissue sampling recommended to establish histologic diag nosis. Extensive chronic interstitial pulmonary disease. Right adrenal adenoma.
--- OUTSIDE RECORDS SUMMARY | 2025-02-05 13:56 | XMS_ITS | Clinical Summary ---
Author Organization [email or web address] Address [address] [place] [address] Care Team Providers Care Online Affiliate Marketing Manager Name Role Phone Bree Walsh MD Primary Care Provider [phone] Source Comments [email or web address],non-owned Affiliates and Associated Physician Practices is amultiple site organization consisting of ambulatory clinics and hospital sitesin [place], [place], [place] and [place]. This disclosure is being madepursuant to the Care Everywhere program and may not contain all information available regarding this patient. Last updated 18.[email or web address] Allergies Active Allergy Reactions Criticality Noted Date [...] Recorded Patient Health Questionnaire-2 Score 0 11/07/2023 [facility] - Occupational Stress [...] in a intermediate (including now)? No 10/31/2023 Comments Unknown Sex and Gender Information Value Date Recorded Sex Assigned at Not on file Legal Sex Female 10:38 AM CDT Gender Identity Not on file Sexual Orientation Not on file Last Filed Vital Signs Vital Sign Reading Time Taken Comments Blood Pressure 162/83 11/14/2023 7:43 AM SENIOR NET SOFTWARE ENGINEER Pulse 74 11/14/2023 7:43 AM SENIOR NET SOFTWARE ENGINEER Temperature 36.5 C (97.7 F) 11/14/2023 7:43 AM SENIOR NET SOFTWARE ENGINEER Respiratory Rate 14 11/14/2023 7:43 AM SENIOR NET SOFTWARE ENGINEER Oxygen Saturation 95% 11/14/2023 7:43 AM SENIOR NET SOFTWARE ENGINEER Inhaled Oxygen Concentration - - Weight - [...] Documents on File Type Date Recorded Patient Cloth Booker Expl anation Adv Directive/Living Will/POA 11/06/2023 3:31 [...] 3:27 PM 10/30/2023 3:30 PM Care Teams Online Affiliate Marketing Manager Relationship Specialty Start Date End Date Bree Walsh MD [address] [place] [phone] PCP - General 02/07/19
== END 2025-02-05 13:51 | disposition home or self-care (01) ==
LOC: CHSIMG 13:52
PROVIDERS: PCP Family Medicine; Visit Provider Family Medicine
DX: R91.1 Solitary pulmonary nodule (principal); J84.9 Interstitial pulmonary disease, unspecified; D35.01 Benign neoplasm of right adrenal gland
CPT/HCPCS: 71250

== ENCOUNTER 2025-04-07 12:00 | Outpatient (CLI) | payer OTHER, SELFPAY ==
--- NOTE | ~2025-04-07 | PE_ITS ---
EXAMINATION: PET skull to mid thigh DATE: 04/07/2025 15:13 INDICATION: Lung nodule TECHNIQUE: Blood glucose level was 88 mg/dL. 9.191 mCi of 18-fluorodeoxyglucose (18-FDG) was administ ered i.v. Low dose computed tomography (CT) images were acquired from the base of the brain to the pr oximal thighs for attenuation correction and anatomic localization. Positron emission tomography (PET ) images were acquired in the same distribution beginning 59 minutes after injection. Images includin g fused PET/CT images were reconstructed in axial, coronal, and sagittal planes. Automated exposure c ontrol technique was employed. The dose-length product was 860.14mGy-cm. COMPARISON: Chest CT dated 02/05/2025 FINDINGS: Head/neck: There is symmetric increased activity in the oral cavity, palatine tonsils, laryngeal muscles and ocu lar muscles without CT correlate, likely physiologic.. Additional more asymmetric likely physiologic increased uptake without radiologic correlate in the right longus capitis muscle. No pathologically e nlarged cervical lymphadenopathy or suspicious foci of increased FDG uptake in the visualized head or neck. Chest: Again seen are diffuse peripheral and lower lung predominant irregular septal line thickening, ground glass opacities and mild honeycombing and favor usual interstitial pneumonia (UIP) pattern over nonsp ecific interstitial pneumonia (NSIP) pattern chronic interstitial lung disease. Prominent FDG uptake associated with a 4.3 x 2.9 cm left upper lobe mass with maximal SUV of 21.5 consistent with primary bronchogenic carcinoma. No other suspicious pulmonary nodules or pleural effusion. Heart size is nor mal. Atherosclerotic coronary artery calcification. Persistent small pericardial effusion. Thoracic a shanda is normal in caliber. Small sliding-type hiatal hernia. There is likely physiologic increased mu scular uptake without radiologic correlate along the left rhomboid muscle. There is a increased likel y synovial uptake about the bilateral shoulders. No pathologically enlarged or FDG avid thoracic lymp hadenopathy. Abdomen/pelvis/proximal thighs: Physiologic renal accumulation and excretion of FDG activity in the kidneys, bladder and along portio ns of ureters. Normal degree and heterogenous pattern of increased uptake throughout the liver withou t radiologic correlate or dominant FDG avid lesion. The gallbladder, pancreas, spleen and bilateral a drenal glands are normal. Small diverticulum arising from the gastric fundus. Mild uptake scattered t hroughout the bowels without radiologic correlate, also likely physiologic. Moderate scattered divert iculosis without adjacent inflammatory stranding to suggest diverticulitis. Normal appendix. Atrophic uterus and adnexa are unremarkable. No other abnormal foci of increased FDG uptake or pathologically enlarged lymphadenopathy in the abdomen, pelvis or proximal thighs. Musculoskeletal: Moderate cervical and thoracic and severe lumbar spondylosis. Likely physiologic increased uptake in the musculature of the upper extremities. Additional likely degenerative joint centered uptake at the radial aspect of the right carpus. Small focus of likely extravasated activity at the site of inject ion at the right hand. No suspicious lytic, blastic or abnormally FDG avid bone lesions. IMPRESSION: 1. Prominent FDG uptake associated with a 4.3 x 2.9 cm left upper lobe mass concerning for primary br onchogenic carcinoma. Consider CT-guided biopsy for definitive determination. 2. No lesion suspicious for metastatic disease. Reviewed, dictated and finalized at location A. IMPRESSION: 1. Prominent FDG uptake associated with a 4.3 x 2.9 cm left upper lobe mass con cerning for primary bronchogenic carcinoma. Consider CT-guided biopsy for defin itive determination. 2. No lesion suspicious for metastatic disease.
--- OUTSIDE RECORDS SUMMARY | 2025-04-07 12:07 | XMS_ITS | Encounter Summary ---
Author Organization [facility] Address [address] [place] [address] Care Team Providers Care Zipper Setter Name Role Phone Sam Daniels MD Primary Care Provider [phone] Jennifer Pate MD Unavailable Encounter Details Date Type Department Care Team (Late st Contact Info) Description 02/22/2019 Abstract SFL CONVERSION [address] [place] [address] , Generic MD Yen Social History Tobacco Use Types Packs/Day Years Used Date Smoking Tobacco: Former Comments Unknown Sex and Gender Information Value Date Recorded Sex Assigned at Not on file Legal Sex Female 8:30 PM CDT Gender Identity Not on file Sexual Orientation Not on file documented as of this encounter Plan of Treatment Not on file documented as of this encounter Visit Diagnoses Not on filedocumented in this encounter Additional Health Concerns Infection Onset Date Last Indicated Resolved Time COVID-19 Rule Out 09/03/2021 09/03/2021 09/03/2021 7:36 PM SPEECH LANG PATH THERAPIST COVID-19 Rule Out 04/04/2022 04/04/2022 04/04/2022 10:22 PM CDT documented as of this encounter Care Teams Zipper Setter Relationship Specialty Start Date End Date Sam Daniels MD [address] [place] [address] PCP - General FAMILY PRACTICE 09/03/21 Jennifer Pate MD [address] [place] [address] Consulting Physician CARDIOVASCULAR DISEASE 01/04/24 documented as of this encounter
--- OUTSIDE RECORDS SUMMARY | 2025-04-07 12:07 | XMS_ITS | Clinical Summary ---
Author Organization [facility] Address [address] [place] [address] Care Team Providers Care Appraiser Auditor Name Role Phone Bree Walsh MD Primary Care Provider [phone] [facility],non-owned Affiliates and Associated Physician Practices is amultiple site organization consisting of ambulatory clinics and hospital sitesin [place], [place], [place] and [place]. This disclosure is being madepursuant to the Care Everywhere program and may not contain all information available regarding this patient. Last updated 18.[facility] Allergies Active Allergy Reactions Criticality Noted Date [...] Recorded Patient Health Questionnaire-2 Score 0 11/07/2023 [facility] - Occupational [...] place to sleep or slept in a custodial (including now)? No 10/31/2023 Comments Unknown Sex and Gender Information Value Date Recorded Sex Assigned at Not on file Legal Sex Female 10:38 AM CDT Gender Identity Not on file Sexual Orientation Not on file Last Filed Vital Signs Vital Sign Reading Time Taken Comments Blood Pressure 162/83 11/14/2023 7:43 AM CHRISTIAN EDUCATION DIRECTOR Pulse 74 11/14/2023 7:43 AM CHRISTIAN EDUCATION DIRECTOR Temperature 36.5 C (97.7 F) 11/14/2023 7:43 AM CHRISTIAN EDUCATION DIRECTOR Respiratory Rate 14 11/14/2023 7:43 AM CHRISTIAN EDUCATION DIRECTOR Oxygen Saturation 95% 11/14/2023 7:43 AM CHRISTIAN EDUCATION DIRECTOR Inhaled Oxygen Concentration - - Weight - - Height 166.4 cm (5' 5.5) 11/08/2023 11:44 AM CS T Body Mass [...] exists DEPRESSION SCREENING 09/17/2024 10/26/2023 INFLUENZA VACCINE (#1) 2025 , 07/12/2022, 07/07/2021, Additional history exists HEPATITIS B [...] Documents on File Type Date Recorded Patient Manager Sports Expl anation Adv Directive/Living Will/POA 11/06/2023 3:31 [...] 3:27 PM 10/30/2023 3:30 PM Care Teams Appraiser Auditor Relationship Specialty Start Date End Date Bree Walsh MD [address] [phone] PCP - General 02/07/19
--- OUTSIDE RECORDS SUMMARY | 2025-04-07 12:07 | XMS_ITS | Clinical Summary ---
Author Organization [facility] Address Formerly [facility], later [facility] [place] [address] Care Team Providers Care Brick Molder Hand Name Role Phone Sam Daniels MD Primary Care Provider [phone] Jennifer Pate MD Unavailable Allergies Active Allergy [...] shaft of left humerus, initial encounter 06/19/2019 Encounters Date Type Department Care Team Description 01/09/2025 Telephone [facility] [address] [place] [address] Jennifer Pate MD Called To Cancel Office Appt. 01/09/2025 Telephone [facility] [address] [place] [address] Jennifer Pate MD Appointment Reminder 01/07/2025 Orders Only [facility] [address] [place] [address] Jennifer Pate MD from Last 3 Months Family History Medical History Relation Comments Cancer [...] 9:30 AM CDT Height 165.1 cm (5' 5) 04/24/2024 9:30 AM CDT Body Mass Index 23.3 04/24/2024 9:30 AM CDT Plan of Treatment Health Maintenance Due Date Last Done Comments Hepatitis C 1966 DTaP, Tdap and Td Vaccines (1 - Tdap) 1967 Pneumococcal Vaccine: 50+ Years (1 of 1 - PCV) 1998 Zoster Vaccines (1 of 2) 1998 Dexa Scan (General) 2013 RSV Immunization or 60+ Years (1 - 1-dose 75+ series) 2023 COVID-19 Vaccine ( - season) 2024 12/27/2021, 06/21/2021, 12/01/2020, Additional history [...] this topic Medical Devices Implanted Type Area Blueprint Engineer Device Identifier Shelf Expiration Date Model / Serial / Lot Lt 12 Hole Plate-Prox Hum Implanted:Qty: 1 on 06/20/2019 by Kodi Whyte MD at [facility] Left: Arm [id number] / / 3.5 Cortical Screw-22mm Implanted:Qty: 2 on 06/20/2019 by Kodi Whyte MD at [facility] Left: Arm [id number] / / 3.5 Cortical Screw-24mm Implanted:Qty: 3 on 06/20/2019 by Kodi Whyte MD at [facility] Left: Arm [id number] / / 4.0 Cancellous Screw-46mm Implanted:Qty: 1 on 06/20/2019 by Kodi Whyte MD at [facility] Left: Arm [id number] / / 4.0 Locking Screw-22mm Implanted:Qty: 4 on 06/20/2019 by Kodi Whyte MD at [facility] Left: Arm [id number] / / 4.0 Locking Screw-24mm Implanted:Qty: 1 on 06/20/2019 by Kodi Whyte MD at [facility] Left: Arm [id number] / / 4.0 Locking Screw-36mm Implanted:Qty: 2 on 06/20/2019 by Kodi Whyte MD at [facility] Left: Arm [id number] / / Explanted Type Area Blueprint Engineer Device Identifier Shelf Expiration Date Model / Serial / Lot 4.0 Cancellous Screw-24mm Explanted:Qty: 1 on 06/20/2019 at [facility] Left: Arm [id number] / / Procedures Procedure Name Priority Date/Time [...] 4:57 PM 12/02/2019 7:04 PM Care Teams Brick Molder Hand Relationship Specialty Start Date End Date Sam Daniels MD [address] [place] [address] [place] [id number] PCP - General FAMILY PRACTICE 09/03/21 Jennifer Pate MD [address] [place] [address] Consulting Physician CARDIOVASCULAR DISEASE 01/04/24
== END 2025-04-07 12:01 | disposition home or self-care (01) ==
PROVIDERS: PCP Family Medicine; Visit Provider Internal Medicine Critical Care Medicine
DX: R91.8 Other nonspecific abnormal finding of lung field (principal)
CPT/HCPCS: 78815; A9552

== ENCOUNTER 2025-06-24 14:35 | Outpatient (CLI) | payer OTHER, SELFPAY ==
--- NOTE | 2025-06-25 09:54 | WPDPFTINT ---
PFT Procedure Performed PFT Procedure Performed Plethysmography (Lung Vol) Diffusing Cap (DLCO) Flow Vol Loop Spirometry w/o Bronchodil PFT Interpretation This is a pulmonary function test with spirometry, plethysmography and diffusing capacity. The test was performed and results interpreted in accordance with the 2019 and 2005 ATS/ERS Task Force guidelines respectively using the Global Lung Function Initiative-2012 reference equations. Patient demonstrated good effort and cooperation. Reproducibility criteria were met. The quality of the spirometry maneuver was Grade B. Of note, patient has struggled with effort requirements of the testing. Findings: Spirometry: There is decreased maximal expiratory airflow at all lung volumes with a concave expiratory flow tracing. The contour the inspiratory flow tracing is normal. The FVC is 1.76 L, 61% predicted. The FEV1 is 0.85 L, 39% predicted. The FEV1: FVC ratio is 49%. Plethysmography: The total lung capacity is 2.72 L, 51% predicted. The functional residual capacity is 1.37 L, 44% predicted. The residual volume is 0.97 L, 40% predicted. Diffusing capacity: The diffusing capacity unadjusted for hemoglobin and carboxyhemoglobin is 6.2, 30% predicted. The diffusing capacity adjusted for alveolar volume is 2.75, 67% predicted. Impression: There is a combined obstructive and restrictive ventilatory abnormality. There are no guidelines to assign the severity of obstruction and restriction with a combined abnormality. In my opinion, given the moderately concave expiratory flow tracing, decreased FEV1: FVC ratio and moderate restrictive abnormality I would state there is a moderately severe obstructive abnormality and a moderate restrictive abnormality resulting in a severe decrease in the FEV1. The diffusing capacity unadjusted for hemoglobin and carboxyhemoglobin is severely decreased and remains mildly decreased when adjusted for alveolar volume. There are no prior studies for comparison
== END 2025-06-24 14:36 | disposition home or self-care (01) ==
LOC: ANHPFT 14:35
PROVIDERS: PCP Family Medicine; Visit Provider Internal Medicine Hematology & Oncology
DX: R94.2 Abnormal results of pulmonary function studies (principal); C34.12 Malignant neoplasm of upper lobe, left bronchus or lung
CPT/HCPCS: 94375; 94726; 94729

== ENCOUNTER 2025-07-17 13:56 | Outpatient (CLI) | payer OTHER, SELFPAY ==
--- OUTSIDE RECORDS SUMMARY | 2025-07-16 16:30 | XMS_ITS | Encounter Summary ---
Author Organization [facility] Address [address] [place] [address] Care Team Providers Care Greenhouse Instructor Name Role Phone Unavailable Primary Care Provider Unavailabl e Reason for Referral * Radiation Therapy (Routine) - Open Specialty Diagnoses / Procedures Referred By Tereza caruso Referred To Contact Diagnoses Malignant neoplasm of upper lobe of left lung Procedures NM OFFICE/OUTPATIENT ESTABLISHED MOD MDM 30 MIN NM OFFICE/OUTPATIENT NEW MODERATE MDM 45 MINUTES Dylan Anand MD [address] [place] [address] Phone: tel: fax: Referral ID Status Reason Start Date Expiration Date Visits Re quested Visits Authorized [id number] Open 07/16/2025 07/16/2026 1 1 Encounter Details Date Type Department Care Team (Late st Contact Info) Description 07/16/2025 4:30 PM CDT Telephone Check Up [facility] Oncology and Hematology - [place] [address] [place] [address] Yung Hassan MD [address] [place] [address] Malignant neoplasm of upper lobe of left lung (Primary Dx) Social History Tobacco Use Types Packs/Day Years Used Date Smoking Tobacco: Former Cigarettes 1 30 0 06/16/1987 - 06/16/2017 Smokeless Tobacco: Never Alcohol Use Standard Drinks/Week Comments Never 0 (1 standard drink = 0.6 oz pur e alcohol) Comments Unknown Sex and Gender Information Value Date Recorded Sex Assigned at Not on file Legal Sex Female 3:32 PM CDT Gender Identity Not on file Sexual Orientation Not on file documented as of this encounter Progress Notes * Yung Hassan MD - 07/16/2025 5:25 PM CDT HEMATOLOGY / ONCOLOGY PROGRESS NOTE Patient Identification: Name: Amy Clemente Age: 74 y.o. 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 She has no new complaint. She was seen by the cardiothoracic surgery. Review of system Constitutional: Patient did not mention fevers, sweats, fatigue, malaise, weight loss HEENT: Patient did not mention sinus congestion, hearing or vision problems Respiratory: Patient did not mention cough, dyspnea, wheeze Cardiovascular: Patient did not mention chest pain, exertional chest pressure/discomfort, nausea, syncope, shortness of breath GI: Patient did not mention constipation, diarrhea, dsyphagia, reflux symptoms, vomiting, melena : Patient did not mention dysuria, frequency, incontinence, urgency Integumentary system: no lymphadenopathy, sweats, flushing Musculoskeletal: Patient not mention: myalgia, arthralgia Neurological: Patient did not mention blurry or disturbed vision, numbness/weakness, dizziness Skin: No lumps, bumps or rashes. 12 point review of system was reviewed Objective: Vital signs in last 24 hours: As per nursing note Exam: This is a phone visit [facility] Assessment: Plan: There are no active problems to display for this patient. 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 Patient had PET scan done on 04/07 that showed 4.3 x 2.9 cm left upper lobe lung mass concerning forprimary bronchogenic carcinoma without any other suspicious lesion for metastatic disease or thoracic lymphadenopathy I have discussed this case with Dr Smith who he inform me that the patient will not be a surgicalcandidate due to the chest wall invasion and poor pulmonary function testing and comorbidities. I will refer her for radiation oncology consultation and will need adjuvant chemotherapy for high risk stage IIb disease after the radiation therapy. I will see her back after completion of radiationtherapy. ? TOBACCO COUNSELING She was counseled to discontinue tobacco/nicotine use. 07/16/2025 Yung Hassan MD Patient's identity confirmed yes Patient gave verbal consent to have these services billed to their insurance and expressed understanding that co-insurance and deductible may apply: yes Patient was located At home This encounter was completed via two-way synchronous audio only communication. Video technology available to provider, but patient not capable of, or doesn't consent to, use of video. Time spent in discussion with patient: 15 minutes. documented in this encounter Plan of Treatment Scheduled Referrals Name Type Priority Associated Diagnoses Orde r Schedule AMB REFERRAL TO RADIATION ONCOLOGY Outpatient Referral Routine Malignant neoplasm of upper lobe of left lung Ordered: 07/16/2025 documented as of this encounter Visit Diagnoses Diagnosis Malignant neoplasm of upper lobe of left lung- Primary documented in this encounter
--- OUTSIDE RECORDS SUMMARY | 2025-07-17 14:00 | XMS_ITS | Clinical Summary ---
Author Organization [facility] Address [address] [place] [address] Care Team Providers Care Mosaic Worker Name Role Phone Bree Walsh MD Primary Care Provider [phone] [facility],non-owned Affiliates and Associated Physician Practices is amultiple site organization consisting of ambulatory clinics and hospital sitesin [place], [place], [place] and [place]. This disclosure is being madepursuant to the Care Everywhere program and may not contain all information available regarding this patient. Last updated 18.[facility] Allergies Active Allergy Reactions Criticality Noted Date [...] place to sleep or slept in a fci (including now)? No 10/31/2023 Comments Unknown Sex and Gender Information Value Date Recorded Sex Assigned at Not on file Legal Sex Female 10:38 AM CDT Gender Identity Not on file Sexual Orientation Not on file Last Filed Vital Signs Vital Sign Reading Time Taken Comments Blood Pressure 162/83 11/14/2023 7:43 AM SENIOR INSTRUCTIONAL DESIGNER Pulse 74 11/14/2023 7:43 AM SENIOR INSTRUCTIONAL DESIGNER Temperature 36.5 C (97.7 F) 11/14/2023 7:43 AM SENIOR INSTRUCTIONAL DESIGNER Respiratory Rate 14 11/14/2023 7:43 AM SENIOR INSTRUCTIONAL DESIGNER Oxygen Saturation 95% 11/14/2023 7:43 AM SENIOR INSTRUCTIONAL DESIGNER Inhaled Oxygen Concentration - - Weight - [...] yrs (1 - 1-dose 75+ series) 2023 DEPRESSION SCREENING 09/17/2024 10/26/2023 COVID-19 VACCINE ( season) 2025 06/20/2023, 07/12/2022, 12/27/2021, Additional history exists INFLUENZA VACCINE (#1) 2025 , 07/12/2022, 07/07/2021, [...] Documents on File Type Date Recorded Patient Pin Puller Expl anation Adv Directive/Living Will/POA 11/06/2023 3:31 [...] 3:27 PM 10/30/2023 3:30 PM Care Teams Mosaic Worker Relationship Specialty Start Date End Date Bree Walsh MD [address] [place] [phone] PCP - General 02/07/19
--- OUTSIDE RECORDS SUMMARY | 2025-07-17 14:00 | XMS_ITS ---
Author Organization [facility] Care Team Providers Care Food Service Kitchen Supervisor Name Role Phone Blayne Crawley Unavailable Unavailable Melanie Rodrigez Unavailable Unavailable Allergies and adverse reactions No Known Allergies Care Team Name Role Address Phone Organization Dates Kamal Denisa PCP [address], [place], [facility], [facility] (Office): [facility] 11/14/2023 - 11/25/2023 Melanie Rodrigez [address] [place], [place], [facility], [facility] (Office): [facility] 11/14/2023 - 11/25/2023 Mental Status Section Date Assessment Total Score Description 11/25/2023 BIMS 07 severe cognitiv e impairment CAM 0 No delirium ind icated PHQ-9 11 moderate depres bernardo 11/20/2023 BIMS 06 severe cognitiv e impairment CAM 0 No delirium ind icated PHQ-9 10 moderate depres bernardo Insurance Providers Problems Problem # Description Date of onset Resolved Date Code CodeSystem Concern Status 1 ALCOHOL ABUSE, UNCOMPLICATED 11/14/[address] active 2 ESSENTIAL (PRIMARY) HYPERTENSION 11/14/[address] active 3 GASTRO-ESOPHAGEAL REFLUX DISEASE WITHOUT ESOPHAGITIS 11/14/[address] active 4 HYPERLIPIDEMIA, UNSPECIFIED 11/14/[address] active 5 MAJOR DEPRESSIVE DISORDER, RECURRENT, UNSPECIFIED 11/14/[address] active 6 MODERATE PROTEIN-CALORIE MALNUTRITION 11/14/[address] active 7 OTHER IDIOPATHIC PERIPHERAL AUTONOMIC NEUROPATHY 11/14/[address] active 8 UNSPECIFIED SEQUELAE OF CEREBRAL INFARCTION 11/14/[address] active Reason for Referral No Reasons for Referral Entered Social History Social History Observation Description Start Date End Date Code Code System Current Smoking Status Never smoked tobacco 459729125 SNOMED CT Sex Assigned At Female 1950 [address]-1 [facility] Gender Identity Sexual Orientation Vital Signs Code Code System Vitals Name Values and Units Timing Information 69342-8 [facility] Pain Level Value=0.0 11/25/2023 9279-1 [facility] Respiratory Rate Value=20.0 Units=/m in 11/24/2023 8462-4 [facility] Blood Pressure-Diastolic Value=78 Un its=mmHg 11/24/2023 8480-6 [facility] Blood Pressure-Systolic Nkkqw=081 Un its=mmHg 11/24/2023 8310-5 [facility] Body Temperature Value=97.9 Units= F 11/24/2023 8867-4 [facility] Heart rate Value=72.0 Units=/min 05/2024 80242-4 [facility] O2 % BldC Oximetry Value=97.0 Units= % 11/24/2023 74916-0 LOINC Weight Bucfo=978.0 Units=Lbs 02/2024 8302-2 [facility] Height Value=60.0 Units=Inches 11/15/2023
--- OUTSIDE RECORDS SUMMARY | 2025-07-17 14:00 | XMS_ITS | Clinical Summary ---
Author Organization [facility] Tracy Rowe Address [address] [place] [address] Care Team Providers Care Hospice Clinical Manager Name Role Phone Unavailable Primary Care Provider Unavailabl e Allergies Active Allergy Reactions Criticality Noted Date Comments Hydrocodone-Acetaminoph en Unknown,Nausea and Vomiting Low 06/17/2019 Penicillins Anaphylaxis,Swelling High 06/17/2019 Tolerates cefepime (11/2019) Medications amLODIPine (NORVASC) 5 mg tablet Take 5 mg by mouth daily. Active apixaban (ELIQUIS) 5 mg tablet Take 5 mg by mouth 2 times daily. 11/14/2023 Active atorvastatin (LIPITOR) 40 mg tablet Take 40 mg by mouth daily. 11/15/2023 Active folic acid (FOLVITE) 1 mg tablet Take 3 mg by mouth daily. 11/15/2023 Active omeprazole (PriLOSEC) 20 mg Capsule, Delayed Release(E.C.) Take 20 mg by mouth daily. Active oxyBUTYnin (DITROPAN XL) 5 mg Extended Release 24 hour tablet Take 5 mg by mouth daily. 12/20/2023 Active propranoloL (INDERAL) 80 mg tablet Take 80 mg by mouth daily. Active sennosides-docus ate sodium (SENNA-S) 8.6-50 mg tablet Take 1 Tablet by mouth daily. 11/15/2023 Active sertraline (ZOLOFT) 100 mg tablet Take 200 mg by mouth daily. Active calcium as CARBONATE (OS-BRIAN) 1,250 mg (500 mg elemental) tablet Take 1 Tablet by mouth daily. Active hydroCHLOROthiaz keya 12.5 mg tablet Take 12.5 mg by mouth daily. Active olmesartan (BENICAR) 20 mg tablet Take 20 mg by mouth daily. Active thiamine (VITAMIN B-1) 100 mg tablet Take 1 Tablet by mouth daily. Active QUEtiapine (SEROquel) 25 mg tablet Take 12.5 mg by mouth daily at bedtime. 06/25/2025 Active potassium CHLORIDE (KLOR-CON) 10 mEq Extended Release tablet Take 10 mEq by mouth daily with breakfast. 06/25/2025 Active Active Problems No known active problems Encounters Date Type Department Care Team Description 07/16/2025 4:30 PM CDT Telephone Check Up [facility] Oncology and Hematology - [place] [address] [place] [address] Yung Hassan MD Malignant neoplasm of upper lobe of left lung (Primary Dx) 07/08/2025 External Device Data STL ABSTRACTION Provider, Abstract 07/07/2025 External Device Data STL ABSTRACTION Provider, Abstract 07/03/2025 12:30 PM CDT Office Visit [facility] Cardiovas and Thor Surg at [address] [address] Yung Hassan MD Fotouhi, Farzin, MD 07/03/2025 Orders Only [facility] Oncology and Hematology - [place] [address] [place] [address] Yung Hassan MD Malignant neoplasm of upper lobe of left lung (Primary Dx) 06/30/2025 4:30 PM CDT Telephone Check Up [facility] Oncology and Hematology - [place] [address] [place] [address] Yung Hassan MD 06/25/2025 Orders Only [facility] Oncology and Hematology - [place] [address] [place] [address] Yung Hassan MD 06/23/2025 External Device Data STL ABSTRACTION Provider, Abstract 06/23/2025 External Device Data STL ABSTRACTION Provider, Abstract 06/23/2025 External Device Data STL ABSTRACTION Provider, Abstract 06/16/2025 4:00 PM CDT Office Visit [facility] Oncology and Hematology [facility] [address] [place] [address] Yung Hassan MD Malignant neoplasm of upper lobe of left lung (CMS/HCC) (Primary Dx) from Last 3 Months Family History Medical History Relation Name Comments No Known Problems Brother 1 Diabetes Brother 2 Heart Disease Brother 2 No Known Problems Brother 3 No Known Problems Child 1 No Known Problems Child 2 Heart Disease Father bladder cancer Father No Known Problems Mother Breast Cancer Paternal Aunt Relation Name Status Comments Brother 1 Alive Brother 2 Alive Brother 3 Child 1 Alive Child 2 Alive Father Mother Paternal Aunt Social History Tobacco Use Types Packs/Day Years Used Date Smoking Tobacco: Former Cigarettes 1 30 0 06/16/1987 - 06/16/2017 Smokeless Tobacco: Never Tobacco Cessation:Counseling Given: Not Answered Alcohol Use Standard Drinks/Week Comments Never 0 (1 standard drink = 0.6 oz pur e alcohol) Comments Unknown Sex and Gender Information Value Date Recorded Sex Assigned at Not on file Legal Sex Female 3:32 PM CDT Gender Identity Not on file Sexual Orientation Not on file Last Filed Vital Signs Vital Sign Reading Time Taken Comments Blood Pressure 120/72 07/03/2025 11:57 AM CDT Pulse 75 07/03/2025 11:57 AM CDT Temperature 36.6 C (97.9 F) 06/16/2025 3:25 PM CDT Respiratory Rate 15 06/16/2025 3:25 PM CDT Oxygen Saturation 96% 07/03/2025 11:57 AM CDT Inhaled Oxygen Concentration - - Weight 68 kg (150 lb) 07/03/2025 11:57 AM CDT Height 166.4 cm (5' 5.5) 07/03/2025 11:57 AM CD T Body Mass Index 24.58 07/03/2025 11:57 AM CDT Plan of Treatment Health Maintenance Due Date Last Done Comments DTAP/TDAP/TD VACCINES (1 - Tdap) 1967 PNEUMOCOCCAL VACCINE 50+ YEARS (1 of 1 - PCV) 08/07/19 98 ZOSTER VACCINE (1 of 2) 1998 OSTEOPOROSIS SCREENING 2013 RSV VACCINE (60+ or ) (1 - 1-dose 75+ series) 2023 Preventative Visit- Commercial 09/17/2024 INFLUENZA VACCINE (#1) 2025 Procedures Procedure Name Priority Date/Time Associated Diagnosis Comments BREATHING CAPACITY TEST Routine 06/24/2025 1:32 PM CDT from Last 3 Months Results * BREATHING CAPACITY TEST (06/24/2025 1:32 PM CDT) Yung Hassan MD PFT ORDERABLES Final Result from Last 3 Months Insurance [facility] AETNA CHOICE POS II AETNA CHOICE POS II
--- OUTSIDE RECORDS SUMMARY | 2025-07-17 14:00 | XMS_ITS | Encounter Summary ---
Author Organization [facility] Address [address] [place] [address] Care Team Providers Care Lining Scrubber Name Role Phone Jennifer Pate MD Unavailable Amol Aden MD Primary Care Provider [phone] Encounter Details Date Type Department Care Team (Late st Contact Info) Description 06/03/2025 Hospital Orders Only [facility] Interventional Radiology [address] [place], [place] [id number] Harpal Zurita MD [address] [place] [address] Social History Tobacco Use Types Packs/Day Years Used Date Smoking Tobacco: Former Cigarettes 1 20 1 980 - 1999 Smokeless Tobacco: Never Alcohol Use Standard Drinks/Week Comments Not Currently 0 (1 standard drink = 0.6 oz pur e alcohol) 5/week AUDIT-C Answer Date Recorded Frequency of Alcohol Consumption Never 06/17/2019 Average Number of Drinks Not on file 019 Frequency of Binge Drinking Not on file 09/2018 Comments No Sex and Gender Information Value Date Recorded Sex Assigned at Female 06/03/2025 8:34 AM CDT Legal Sex Female 8:30 PM CDT Gender Identity Not on file Sexual Orientation Not on file documented as of this encounter Functional Status * RETIRED Are you deaf or do you have serious difficulty hearing Answer Date of Assessment Author Status No 11/23/2019 4:44 PM CDT Activ e * RETIRED Are you blind or do you have serious difficulty seeing, even when wearing glasses? Answer Date of Assessment Author Status Yes 11/23/2019 4:44 PM CDT Activ e * Do you have serious difficulty walking or climbing stairs? Answer Date of Assessment Author Status Yes 11/23/2019 4:44 PM CDT Nain Quevedo RN Active * Do you have difficulty dressing or bathing? Answer Date of Assessment Author Status No 11/23/2019 4:44 PM MUSTAPHAT Nain Quevedo RN Active * Because of a physical, mental, or emotional condition, do you have difficulty doing errands alone such as visiting a doctor's office or shopping? Answer Date of Assessment Author Status No 11/23/2019 4:44 PM Nain Field RN Active * Calculated C-SSRS Risk Score (Lifetime/Recent) Answer Date of Assessment Author Status No Risk Indicated 06/03/2025 9:15 AM Amada Rothman RN Active * Chana Suicide Severity Rating Scale (Screener/Recent Self-Report) Question Answer Date of Assessment Author Status 1. Wish to be (Past 1 Month) No 06/03/2025 9:15 AM Amada Rothman RN Active 2. Non-Specific Active Suicidal Thoughts (Past 1 Month) No 06/03/2025 9:15 AM Amada Rothman RN Active 6. Suicidal Behavior (Lifetime) No 06/03/2025 9:15 AM Amdaa Rothman RN Active documented as of this encounter Mental Status * Because of a physical, mental, or emotional condition, do you have serious difficulty concentrating, remembering, or making decisions? Answer Entry Date Author Status No 11/23/2019 4:44 PM Nain Field RN Active documented in this encounter Plan of Treatment Not on file documented as of this encounter Visit Diagnoses Not on filedocumented in this encounter Care Teams Lining Scrubber Relationship Specialty Start Date End Date Amol Aden MD [address] [place] [address] PCP - General FAMILY PRACTICE 06/01/25 Jennifer Pate MD [address] [place] [address] Consulting Physician CARDIOVASCULAR DISEASE 01/04/24 documented as of this encounter
--- OUTSIDE RECORDS SUMMARY | 2025-07-17 14:00 | XMS_ITS | Encounter Summary ---
Author Organization [facility] Address [address] [place] [address] Care Team Providers Care Braid Cutter Name Role Phone Sam Daniels MD Primary Care Provider [phone] Jennifer Pate MD Unavailable Amol Aden MD Primary Care Provider [phone] Encounter Details Date Type Department Care Team (Late st Contact Info) Description 02/22/2019 Abstract [facility]FL CONVERSION [address] [place] [address] , Generic Conversion, Social History Tobacco Use Types Packs/Day Years [...] Rule Out 09/03/2021 09/03/2021 09/03/2021 7:36 PM [employer]ENCE TE[employer]ER COVID-19 Rule Out 04/04/2022 04/04/2022 04/04/2022 10:22 PM CDT documented as of this encounter Care Teams Braid Cutter Relationship Specialty Start Date End Date Sam Daniels MD [address] [place] [address] PCP - General FAMILY PRACTICE 09/03/21 05/31/25 Amol Aden MD [address] [place] [address] PCP - General FAMILY PRACTICE 06/01/25 Jennifer Pate MD [address] [place] [address] Consulting Physician CARDIOVASCULAR DISEASE 01/04/24 documented as of this encounter
--- OUTSIDE RECORDS SUMMARY | 2025-07-17 14:00 | XMS_ITS | Clinical Summary ---
Author Organization [facility] Address [address] [place] [address] Care Team Providers Care Research Program Coordinator Name Role Phone Jennifer Pate MD Unavailable Amol Aden MD Primary Care Provider [phone] Allergies Active Allergy Reactions Criticality Noted Date [...] (MICROZIDE) 12.5 MG tablet 12/29/2021 Acti ve apixaban (ELIQUIS) 5 MG tablet Take 1 [...] Encounters Date Type Department Care Team Description 06/03/2025 8:42 AM CDT - 06/03/2025 12:55 PM CDT Hospital Encounter [facility] [place] [address] Guillermo Rainey MD Discharge Disposition: Home or Self Care (Routine Discharge) 06/03/2025 8:41 AM CDT Hospital Encounter [facility] [place] [address] Harpal Zurita MD Discharge Disposition: Home or Self Care (Routine Discharge) 06/03/2025 Hospital Orders Only [facility] [place] [address] Harpal Zurita MD 06/03/2025 Travel 05/25/2025 Orders Only [facility] [place] [place] [address] Harpal Zurita MD 05/11/2025 Pre-Procedure Call [facility] [place] [address] Harpal Zurita MD Preprocedure Call from Last 3 Months Family History Medical [...] Sign Reading Time Taken Comments Blood Pressure 94/75 06/03/2025 12:30 PM CDT Pulse 81 06/03/2025 10:07 AM CDT Temperature 36.2 C (97.2 F) 06/03/2025 12:30 PM CDT Respiratory Rate 16 06/03/2025 12:3 0 PM CDT Oxygen Saturation 95% 06/03/2025 12: 30 PM CDT Inhaled Oxygen Concentration - - Weight 79.3 kg (174 lb 13.2 oz) 06/03/2025 9:15 AM CDT Height 165.1 cm (5' 5) 06/03/2025 9:15 AM CDT Body Mass Index 29.09 06/03/2025 9:15 AM CDT Plan of Treatment Health Maintenance Due Date Last Done Comments Hepatitis C 1966 DTaP, Tdap and Td Vaccines (1 - Tdap) 1967 Zoster Vaccines (1 of 2) 1998 Dexa Scan (General) 2013 Pneumococcal Vaccine: 50+ Years (2 of 2 - PCV) 07/13/2017 07/13/2016 RSV Immunization or 60+ Years (1 - 1-dose 75+ series) 2023 COVID-19 Vaccine (7 - season) 2025 06/20/2023, 07/12/2022, 12/27/2021, Additional history exists Influenza Adult (#1) 2025 05/25/2016 Colorectal Cancer Screening Colonoscopy (10 Years) Discontinued 04/07/2022, 04/07/2022 Hepatitis A Vaccines Aged Out No long er eligible based on patient's age to complete this topic Meningococcal B Vaccine Aged Out No l onger eligible based on patient's age to complete this topic Meningococcal Vaccine Aged Out No iván dixon eligible based on patient's age to complete this topic RSV Immunizations Under 20 Months Aged Out No longer eligible based on patient's age to complete this topic Medical Devices Implanted Type Area Advertising Manager Device Identifier Shelf Expiration Date Model / Serial / Lot Lt 12 Hole Plate-Prox Hum Implanted:Qty: 1 on 06/20/2019 by Kodi Whyte MD at [facility] Left: Arm [id number] / / 3.5 Cortical Screw-22mm Implanted:Qty: 2 on 06/20/2019 by Kodi Whyte MD at [facility] Left: Arm [id number] / / 3.5 Cortical Screw-24mm Implanted:Qty: 3 on 06/20/2019 by Kodi Whyte MD at [facility] Left: Arm [id number] / / 4.0 Cancellous Screw-46mm Implanted:Qty: 1 on 06/20/2019 by Kodi Whyte MD at [facility] Left: Arm [id number] / / 4.0 Locking Screw-22mm Implanted:Qty: 4 on 06/20/2019 by Kodi Whyte MD at [facility] Left: Arm [id number] / / 4.0 Locking Screw-24mm Implanted:Qty: 1 on 06/20/2019 by Kodi Whyte MD at [facility] Left: Arm [id number] / / 4.0 Locking Screw-36mm Implanted:Qty: 2 on 06/20/2019 by Kodi Whyte MD at [facility] Left: Arm [id number] / / Explanted Type Area Advertising Manager Device Identifier Shelf Expiration Date Model / Serial / Lot 4.0 Cancellous Screw-24mm Explanted:Qty: 1 on 06/20/2019 at [facility] Left: Arm [id number] / / Procedures Procedure Name Priority Date/Time Associated Diagnosis Comments XR CHEST PA OR AP 1V TIMED 06/03/2025 12:01 PM CDT Nodule of left lung CT GD BX LUNG LT Routine 06/03/2025 10:1 1 AM CDT Nodule of right lung PLATELET COUNT, AUTO Routine 06/03/2025 8:49 AM CDT Nodule of right lung PARTIAL THROMBOPLASTIN TIME,PTT Routine 06/03/2025 8:49 AM CDT Nodule of right lung PROTHROMBIN TIME, VENOUS Routine 06/03/2025 8:49 AM CDT Nodule of right lung PATHOLOGY Routine 06/03/2025 12:00 AM CDT Nodule of left lung COLONOSCOPY 04/07/2022 6:44 AM CDT from Last 3 Months or Most Recently Relevant to Health Maintenance Results * XR CHEST PA OR AP 1V (06/03/2025 12:01 PM CDT) Anatomical Region Laterality Modality Chest Radiographic Britney ging 06/03/2025 12:1 2 PM CDT Impressions 06/03/2025 12:14 PM CDT IMPRESSION: 1. No pneumothorax. 2. Redemonstration of a 4.7 cm left upper lobe subpleural mass. 3. Stable bilateral reticular and patchy airspace opacities. Referred By: GUILLERMO RAINEY Interpreted By: Floyd Ricks MD, 06/03/2025 12:12 PM Narrative 06/03/2025 12:14 PM CDT [address] [address] PROCEDURE: XR CHEST PA OR AP 1V. 06/03/2025 11:50 AM. TECHNIQUE: A single view of the chest (AP or PA) was performed. HISTORY: Status post left lung biopsy. COMPARISON: CT lung biopsy, 06/03/2025. FINDINGS: Support Devices: None. Cardiac Silhouette/Mediastinum/Nadiya: The cardiac, mediastinal, and hilar contours are unchanged in appearance Lungs/Pleural Spaces: Redemonstration of bilateral reticular and patchy airspace opacities. No pneumothorax. Redemonstration of subpleural mass measuring up to 4.7 cm. Chest Wall/Diaphragm/Upper Abdomen: The thoracic musculoskeletal structures and the upper abdomen are unchanged in appearance Procedure Note Floyd Ricks MD - 06/03/2025 [facility] [address] [place], [place] [address] PROCEDURE: XR CHEST PA OR AP 1V. 06/03/2025 11:50 AM. TECHNIQUE: A single view of the chest (AP or PA) was performed. HISTORY: Status post left lung biopsy. COMPARISON: CT lung biopsy, 06/03/2025. FINDINGS: Support Devices: None. Cardiac Silhouette/Mediastinum/Nadiya: The cardiac, mediastinal, and hilarcontours are unchanged in appearance Lungs/Pleural Spaces: Redemonstration of bilateral reticular and patchyairspace opacities. No pneumothorax. Redemonstration of subpleural massmeasuring up to 4.7 cm. Chest Wall/Diaphragm/Upper Abdomen: The thoracic musculoskeletalstructures and the upper abdomen are unchanged in appearance IMPRESSION: 1. No pneumothorax. 2. Redemonstration of a 4.7 cm left upper lobe subpleural mass. 3. Stable bilateral reticular and patchy airspace opacities. Referred By: GUILLERMO RAINEY Interpreted By: Floyd Ricks MD, 06/03/2025 12:12 PM Harpal Zurita MD GENERAL IMAGING Final Result * CT GD BX LUNG LT (06/03/2025 10:11 AM CDT) Anatomical Region Laterality Modality Chest Computed Tomogra phy, Radiographic Imaging, Radiographic Imaging 06/03/2025 10:1 2 AM CDT Impressions 06/03/2025 10:17 AM CDT IMPRESSION: 1. Left upper lobe the enlarging pleural-based highly suspicious 3.9 x 5.3 cm mass 18-gauge core needle biopsy performed with CT guidance, as discussed above. 2. No significant pneumothorax or other immediate complication. 3. 2 hour post procedure bedrest and left lateral decubitus position followed by radiographic chest follow-up. Ordered By: GUILLERMO RAINEY Interpreted By: Harpal Zurita MD, 06/03/2025 10:12 AM Narrative 06/03/2025 10:17 AM CDT [address] [address] Procedure: IR CT-guided targeted lung core needle biopsy Exam Date/Time: 06/03/2025 9:50 AM Indication: 74 female presenting for targeted core needle sampling of a highly suspicious lateral left upper lobe partially pleural-based enlarging hypermetabolic mass. Comparison: PET/CT 04/07/2025. CT chest 02/05/2025 Procedure technique and findings: Informed verbal and written consent was obtained and the patient, patient's medical power of staff attorney. The procedure was explained discussed including the rationale, alternatives, benefits and risks including but not limited to infection, bleeding, hemoptysis, pneumothorax, need for additional the procedures including a chest tube and failure to obtain a diagnostic sample. Patient was brought to the procedure room and positioned in a right lateral decubitus position on the CT table. A radiopaque grid was placed over the lateral upper chest. Initial planning CT images were acquired showing a pleural-based enlarging mass measuring 3.9 x 5.3 cm increased in size from 3.5 x 4.5 cm on 04/05/2025 and 3.1 x 3.8 cm on the 02/05/2025 study. This was targeted from a anterolateral intercostal approach. Appropriate safe access needle path was determined and skin entry site marked on the skin which was prepped and draped. All CT imaging and subsequent CT fluoroscopy was performed using an automated low-dose exposure protocol. Timeout was performed. Intravenous analgesia was administered by a qualified interventional radiology nurse with continuous cardiorespiratory monitoring including pulse, blood pressure, and oxygen saturation, under supervision of the interventional radiologist. Total intraprocedure [id number] time with the radiologist was 20 minutes Medications: Fentanyl 50 mcg IV Maximum sterile barrier technique including hand wash with soap and water, was employed for the procedure. 1% lidocaine was administered at the skin and down to the pleural surface for local anesthesia. A small skin incision was made through which a 17-gauge guiding needle was advanced with intermittent CT fluoroscopic guidance through the soft tissues into the edge of the target mass. A total of 2 good 18- gauge Temno core needle biopsy tissue samples were acquired. These were collected and assessed for adequacy by the hotel services supervisor on site. The guide needle was then removed. Immediate fluoroscopy demonstrated no significant pneumothorax. Compression was applied and a small sterile dressing placed. Patient was then positioned supine and [address] images acquired through the left chest confirmed the absence of any significant pneumothorax. The patient tolerated the procedure well and remained asymptomatic throughout, and was transported to the outpatient recovery area for bedrest and monitoring prior to obtaining a 2 hour post biopsy chest x-ray before anticipated discharge. Strip Mill Operator: Dr. Zurita Estimated blood loss: None Procedure Note Harpal Zurita MD - 06/03/[address] [address] Procedure: IR CT-guided targeted lung core needle biopsy Exam Date/Time: 06/03/2025 9:50 AM Indication: 74 female presenting for targeted core needle sampling of ahighly suspicious lateral left upper lobe partially pleural-basedenlarging hypermetabolic mass. Comparison: PET/CT 04/07/2025. CT chest 02/05/2025 Procedure technique and findings: Informed verbal and written consent was obtained and the patient,patient's medical power of staff attorney. The procedure was explained discussedincluding the rationale, alternatives, benefits and risks including butnot limited to infection, bleeding, hemoptysis, pneumothorax, need foradditional the procedures including a chest tube and failure to obtain adiagnostic sample. Patient was brought to the procedure room and positioned in a rightlateral decubitus position on the CT table. A radiopaque grid was placedover the lateral upper chest. Initial planning CT images were acquiredshowing a pleural-based enlarging mass measuring 3.9 x 5.3 cm increased insize from 3.5 x 4.5 cm on 04/05/2025 and 3.1 x 3.8 cm on the 02/05/2025study. This was targeted from a anterolateral intercostal approach.Appropriate safe access needle path was determined and skin entry sitemarked on the skin which was prepped and draped. All CT imaging and subsequent CT fluoroscopy was performed using anautomated low-dose exposure protocol. Timeout was performed. Intravenous analgesia was administered by a qualified interventionalradiology nurse with continuous cardiorespiratory monitoring includingpulse, blood pressure, and oxygen saturation, under supervision of theinterventional radiologist. Total intraprocedure [id number]-[id number] time with the radiologist was 20minutes Medications: Fentanyl 50 mcg IV Maximum sterile barrier technique including hand wash with soap and water,was employed for the procedure. 1% lidocaine was administered at the skinand down to the pleural surface for local anesthesia. A small skinincision was made through which a 17-gauge guiding needle was advancedwith intermittent CT fluoroscopic guidance through the soft tissues intothe edge of the target mass. A total of 2 good 18- gauge Temno core needlebiopsy tissue samples were acquired. These were collected and assessed foradequacy by the hotel services supervisor on site. The guide needle was then removed. Immediate fluoroscopy demonstrated nosignificant pneumothorax. Compression was applied and a small steriledressing placed. Patient was then positioned supine and [address] images acquiredthrough the left chest confirmed the absence of any significantpneumothorax. The patient tolerated the procedure well and remained asymptomaticthroughout, and was transported to the outpatient recovery area forbedrest and monitoring prior to obtaining a 2 hour post biopsy chest x-raybefore anticipated discharge. Strip Mill Operator: Dr. Zurita Estimated blood loss: None IMPRESSION: 1. Left upper lobe the enlarging pleural-based highly suspicious 3.9 x 5.3cm mass 18-gauge core needle biopsy performed with CT guidance, asdiscussed above. 2. No significant pneumothorax or other immediate complication. 3. 2 hour post procedure bedrest and left lateral decubitus positionfollowed by radiographic chest follow-up. Ordered By: GUILLERMO RAINEY Interpreted By: Harpal Zurita MD, 06/03/2025 10:12 AM Guillermo Rainey MD CT Final Resul t * PLATELET COUNT, AUTO (06/03/2025 8:49 AM CDT) PLT 255 130 - 400 x10'3/uL 06/03/2025 8:56 AM CDT [facility] MPV 11.0 9.3 - 12.2 FL 06/03/2025 8:56 AM CDT [facility] 06/03/2025 8:49 AM CDT Harpal Zurita MD LABORATORY Final Result [facility] [address] [place] [address], [place] [phone] * PTT, PARTIAL THROMBOPLASTIN TIME (06/03/2025 8:49 AM CDT) PTT 33.4 25.1 - 36.5 SEC 06/03/2025 9:15 AM CDT [facility] 06/03/2025 8:49 AM CDT us Harpal Zurita MD LABORATORY Final Result [facility] [address] [place] [address], [place] [phone] * PROTIME/INR, VENOUS (06/03/2025 8:49 AM CDT) PROTIME 12.2 10.2 - 12.9 SEC 06/03/2025 9:15 AM CDT [facility] INR 1.1 06/03/2025 9:15 AM CDT [facility] Comment: Recommended INR Therapeutic Goals: 2.0-3.0 Routine Therapy 2.5-3.5 Mechanical Prosthetic Valves (High Risk) 06/03/2025 8:49 AM CDT Harpal Zurita MD LABORATORY Final Result [facility] [address] [place] [address], * Pathology (06/03/2025 12:00 AM CDT) PATHOLOGY [facility] Department of Laboratory Medicine [address] [place] [address] , extension [phone] Pathology Report Surgical Pathology Report Name: ANIYAH CLEMENTE Specimen #: [id number] Age: 11 1950 (Age: 74) Location: [facility] Sex: F Procedure Date: 06/03/2025 Hospital #: [id number] Date Received: 06/04/2025 Date Reported: 06/08/2025 Provider: GUILLERMO RAINEY Source: Lung, left, biopsy Clinical History: Left lung nodule. FINAL DIAGNOSIS: Left lung, biopsy: Invasive poorly differentiated adenocarcinoma. Comment: Immunohistochemical stains show the lesional cells to be positive for CK7 and TTF-1 (weak) and negative for p63, p40, and INSM1; supporting the diagnosis. Gross Description: Received in formalin, labeled with a patient label and as left lung is a less than 0.1 cm in diameter delicate white tissue core that has a length of 1.5 cm. 1 touch preparation slide is received. The specimen is entirely submitted in cassette 1. Gross examination (when applicable) was performed at [facility], [address] [place] [address]. This case was interpreted and signed out at [address] [place] [address]. All immunohistochemical and histochemical tests were developed by and performed at [facility], [address] [place] [address]. All tests reported here have not been cleared or approved by the U.S. Food and Drug Administration (FDA). This laboratory is regulated under CLIA as qualified to perform high-complexity testing. These tests are used for clinical purposes. They should not be regarded as investigational or for research. Positive and negative controls show appropriate reactivity. Intraoperative Diagnosis: Left lung, immediate assessment for adequacy: -Pass 1: Adequate for evaluation. Rapid on-site consultation performed by ANDRIY Villalba (ASCP) at [facility], [address] [place] [address]. Electronically Signed Out EVELYN MURRAY MD [facility] 06/03/2025 06/04/2025 8:1 7 AM CDT Comment:Lung, left, biopsy Guillermo Rainey MD PATHOLOGY/CYTOLOGY ORDERABL ES Final Result [facility] [address] [place] [address], [phone] * Colonoscopy (04/07/2022 6:44 AM CDT) Sam Daniels MD GI PROCEDURE ORDERABLES Final Result from Last 3 Months or Most Recently Relevant to Health Maintenance Insurance [employer]ET[employer] Advance Directives * Full Code (Latest Code Status on File) Date Activated Date Inactivated Comments 11/23/2019 4:57 PM 12/02/2019 7:04 PM Care Teams Research Program Coordinator Relationship Specialty Start Date End Date Amol Aden MD [address] [place] [address] PCP - General FAMILY PRACTICE 06/01/25 Jennifer Pate MD [address] [place] [address] Consulting Physician CARDIOVASCULAR DISEASE 01/04/24
[2025-07-17 14:18] LABS: Hematocrit 30.2 % (35.0-42.0); Hemoglobin 9.0 g/dL (11.7-13.8); Mean Corpuscular HGB Conc 29.8 g/dL (32-36); Mean Corpuscular Hemoglobin 23.4 pg (27.0-31.0); Mean Corpuscular Volume 78.6 fL (78.0-102.0); Platelet Count Result 253 K/mm3 (150-420); Red Blood Count 3.84 M/mm3 (4.20-5.40); White Blood Count 9.4 K/mm3 (4.8-10.8)
[2025-07-17 14:23] LABS: Add Urine Microscopic? YES; Appearance Urine Clear (Clear); Glucose Urine UA Negative (Negative); Leukocyte Esterase Ur Negative (Negative); Nitrate Urine Positive (Negative); Specific Grav Ur 1.020 (1.010-1.020)
[2025-07-17 14:29] LABS: Alanine Aminotransferase 12 U/L (6-35); Albumin Level 4.2 g/dL (3.5-5.1); Alkaline Phosphatase 124 U/L (38-126); Anion Gap 8 mmol/L (4-12); Aspartate Amino Transferase 21 U/L (14-36); Bilirubin,Total 0.7 mg/dL (0.2-1.3); Blood Urea Nitrogen 9 mg/dL (7-17); Calcium 8.7 mg/dL (8.4-10.2); Carbon Dioxide 26 mmol/L (22-30); Chloride 105 mmol/L (98-107); Estimated Glomerular Filt Rate 54; Glucose 112 mg/dL (65-110); Osmolality Calculated 287 mOsm/kg (285-295); Potassium 3.4 mmol/L (3.4-5.0); Sodium 139 mmol/L (137-145); Total Protein 7.5 g/dL (6.3-8.2)
[2025-07-17 16:23] LABS: Iron 36 ug/dL (37-170)
[2025-07-17 16:32] LABS: Percent Iron Saturation 9 % (20-50)
[2025-07-17 17:20] LABS: Ferritin 26.70 ng/mL (11.1-264)
== END 2025-07-17 13:57 | disposition home or self-care (01) ==
LOC: CHSLAB 13:58
PROVIDERS: PCP Family Medicine; Visit Provider Family Medicine
DX: J18.9 Pneumonia, unspecified organism (principal); I10 Essential (primary) hypertension; R30.0 Dysuria; D64.9 Anemia, unspecified
CPT/HCPCS: 36415; 80053; 81001; 82728; 83540; 83550; 85027; 87086

== ENCOUNTER 2025-08-08 11:17 | Outpatient (CLI) | payer OTHER, SELFPAY ==
--- NOTE | ~2025-08-08 | MR_ITS ---
EXAMINATION: MR brain/brain stem wo/w con DATE: 08/08/2025 12:38 INDICATION: Malignant plasm of unspecified part of left bronchus. TECHNIQUE: Magnetic resonance imaging (MRI) of the brain and brainstem was performed without and with 15 mL MultiHance intravenous contrast. COMPARISON: Brain MRI 06/20/2017, head CT 11/20/24 FINDINGS: There is diffuse brain volume loss. There are old lacunar infarcts in the right thalamus and bilateral basal ganglia. There is an old infarct in the right frontoparietal deep white matter. There are scattered areas of low attenuation in the cerebral white matter and steph. There is no intracranial hemorrhage, acute infarction, or abnormal intracranial mass lesion. The ventricles are normal in size. IMPRESSION: 1. No evidence of metastatic disease. 2. 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 3. Extensive nonspecific cerebral white matter disease and pontine disease, which likely represents chronic small vessel ischemic disease. Reviewed, dictated and finalized at location E. R REFINERY SUPERVISOR IMPRESSION: 1. No evidence of metastatic disease. 2. 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 3. Extensive nonspecific cerebral white matter disease and pontine disease, whi ch likely represents chronic small vessel ischemic disease.
== END 2025-08-08 11:18 | disposition home or self-care (01) ==
LOC: CHSIMG 11:19
PROVIDERS: PCP Family Medicine; Visit Provider Radiology Radiation Oncology
DX: C34.92 Malignant neoplasm of unspecified part of left bronchus or lung (principal); Z86.73 Personal history of transient ischemic attack (TIA), and cerebral infarction without residual deficits; R90.82 White matter disease, unspecified
CPT/HCPCS: 70553; A9577

== ENCOUNTER 2025-08-11 13:33 | Outpatient (CLI) | payer OTHER, SELFPAY ==
--- NOTE | ~2025-08-11 | PE_ITS ---
EXAMINATION: PET skull to mid thigh DATE: 08/11/2025 15:40 INDICATION: Adenocarcinoma of the left lung TECHNIQUE: Blood glucose level was 112 mg/dL. 9.088 mCi of 18-fluorodeoxyglucose (18-FDG) was administered i.v. Low dose computed tomography (CT) images were acquired from the base of the brain to the proximal thighs for attenuation correction and anatomic localization. Positron emission tomography (PET) images were acquired in the same distribution beginning 48 minutes after injection. Images including fused PET/CT images were reconstructed in axial, coronal, and sagittal planes. Automated exposure control technique was employed. The dose- length product was 908.86mGy-cm. COMPARISON: PET/CT dated 04/07/2025 FINDINGS: Head/neck: There is symmetric increased activity in the oral cavity, palatine tonsils, laryngeal muscles and ocular muscles without CT correlate, likely physiologic. There is mild likely physiologic uptake without radiologic correlate consistent with the musculature at the posterior right base of the neck. No pathologically enlarged cervical lymphadenopathy or suspicious foci of increased FDG uptake in the visualized head or neck. Chest: Again seen are diffuse peripheral and lower lung predominant irregular septal line thickening, groundglass opacities and mild honeycombing and favor usual interstitial pneumonia (UIP) pattern over nonspecific interstitial pneumonia (NSIP) pattern chronic interstitial lung disease. Significant increase in size of a previously 4.3 x 2.9 cm, currently 6.4 x 6.0 cm FDG avid left upper lobe mass with maximal SUV of 20.0 consistent with reported adenocarcinoma of the lung. No other suspicious pu lmonary nodules or pleural effusion. There is new FDG uptake with maximal SUV of 11.9 associated with a 1.2 x 0.7 cm likely metastatic AP window lymph node. There is also approximately 1 cm focus of increased FDG uptake at the left hilum with maximal SUV of 5.8 consistent with a likely additional metastatic left hilar lymph node which is unable to be distinguished from the adjacent vasculature on the noncontrast imaging. Heart size is normal. Atherosclerotic coronary artery calcification. Persistent small pericardial effusion. Thoracic aorta is normal in caliber. Small sliding-type hiatal hernia. There is a increased likely synovial uptake about the bilateral shoulders. Abdomen/pelvis/proximal thighs: Physiologic renal accumulation and excretion of FDG activity in the kidneys, bladder and along portions of ureters. Normal degree and heterogenous pattern of increased uptake throughout the liver without radiologic correlate or dominant FDG avid lesion. The gallbladder, pancreas, spleen and left adrenal gland are normal. 2.0 x 1.5 cm low-attenuation right adrenal adenoma without abnormal FDG activity. Mild to moderate uptake scattered throughout the bowels without radiologic correlate, also likely physiologic. Moderate diverticulosis along the descending and sigmoid colon without adjacent from trace stranding to suggest diverticulitis. Uterus and adnexa are unremarkable. No other abnormal foci of i ncreased FDG uptake or pathologically enlarged lymphadenopathy in the abdomen, pelvis or proximal thighs. Musculoskeletal: Moderate cervical and. Severe thoracic and lumbar spondylosis. Mild increased uptake at the radial aspect of the bilateral carpi and typical distribution for osteoarthritis. Additional small more intense focus of uptake at the right hand correspond to the site of injection. No suspicious lytic, blastic or abnormally FDG avid bone lesions. IMPRESSION: 1. Interval increase in size of a now 6.4 x 6.0 cm FDG avid left upper lobe mass consistent with progression of primary lung cancer. 2. New small FDG avid lymph nodes at the left hilum and AP window concerning for new metastatic disease. Reviewed, dictated and finalized at location A. [facility] [employer] IMPRESSION: 1. Interval increase in size of a now 6.4 x 6.0 cm FDG avid left upper lobe mas s consistent with progression of primary lung cancer. 2. New small FDG avid lymph nodes at the left hilum and AP window concerning fo r new metastatic disease.
--- OUTSIDE RECORDS SUMMARY | 2025-08-11 15:17 | XMS_ITS | Clinical Summary ---
Author Organization [facility] Address [address] [place] [address] Care Team Providers Care Drafter Name Role Phone Bree Walsh MD Primary Care Provider [phone] Source Comments [facility],non-owned Affiliates and Associated Physician Practices is amultiple site organization consisting of ambulatory clinics and hospital sitesin [place], [place], [place] and [place]. This disclosure is being madepursuant to the Care Everywhere program and may not contain all information available regarding this patient. Last updated 18.[facility] Allergies Active Allergy Reactions Criticality Noted Date [...] Recorded Patient Health Questionnaire-2 Score 0 11/07/2023 [facility] - Occupational Stress [...] place to sleep or slept in a senior living (including now)? No 10/31/2023 Comments Unknown Sex and Gender Information Value Date Recorded Sex Assigned at Not on file Legal Sex Female 10:38 AM CDT Gender Identity Not on file Sexual Orientation Not on file Last Filed Vital Signs Vital Sign Reading Time Taken Comments Blood Pressure 162/83 11/14/2023 7:43 AM DOOR REPAIRMAN Pulse 74 11/14/2023 7:43 AM DOOR REPAIRMAN Temperature 36.5 C (97.7 F) 11/14/2023 7:43 AM DOOR REPAIRMAN Respiratory Rate 14 11/14/2023 7:43 AM DOOR REPAIRMAN Oxygen Saturation 95% 11/14/2023 7:43 AM DOOR REPAIRMAN Inhaled Oxygen Concentration - - Weight - [...] Documents on File Type Date Recorded Patient Contingents Supervisor Expl anation Adv Directive/Living Will/POA 11/06/2023 3:31 [...] 3:27 PM 10/30/2023 3:30 PM Care Teams Drafter Relationship Specialty Start Date End Date Bree Walsh MD [address] [place] [id number] PCP - General 02/07/19
--- OUTSIDE RECORDS SUMMARY | 2025-08-11 15:17 | XMS_ITS | Encounter Summary ---
Author Organization [facility] Address [address] [place] [address] Care Team Providers Care Help Desk Intern Name Role Phone Sam Daniels MD Primary Care Provider [phone] Jennifer Pate MD Unavailable Amol dAen MD Primary Care Provider [phone] Encounter Details Date Type Department Care Team (Late st Contact Info) Description 02/22/2019 Abstract [facility] CONVERSION [address] [place] [address] , Generic Conversion, Social History [...] Rule Out 09/03/2021 09/03/2021 09/03/2021 7:36 PM SALESPERSON MEATS COVID-19 Rule Out 04/04/2022 04/04/2022 04/04/2022 10:22 PM CDT documented as of this encounter Care Teams Help Desk Intern Relationship Specialty Start Date End Date Sam Daniels MD [address] [place] [id number] PCP - General FAMILY PRACTICE 09/03/21 05/31/25 Amol Aden MD [address] [place] [address] PCP - General FAMILY PRACTICE 06/01/25 Jennifer Pate MD [address] [place] [address] Consulting Physician CARDIOVASCULAR DISEASE 01/04/24 documented as of this encounter
--- OUTSIDE RECORDS SUMMARY | 2025-08-11 15:17 | XMS_ITS | Encounter Summary ---
Author Organization [facility] Address [address] [place] [address] Care Team Providers Care Sweet Pickle Maker Name Role Phone Jennifer Pate MD Unavailable Amol Aden MD Primary Care Provider [phone] Encounter Details Date Type Department Care Team (Late st Contact Info) Description 06/03/2025 Hospital Orders Only [facility] Interventional Radiology [address] [place], [place] [id number] Harpal Zurita MD [address] [place] [address] Social History Tobacco Use Types Packs/Day [...] 9:15 AM Amada Rothman RN Active * [place] Suicide Severity Rating Scale (Screener/Recent Self-Report) Question Answer Date of Assessment Author Status 1. Wish to be (Past 1 Month) No 06/03/2025 9:15 AM Amada Rothman RN Active 2. Non-Specific Active Suicidal Thoughts (Past 1 Month) No 06/03/2025 9:15 AM Amada Rothman RN Active 6. Suicidal Behavior (Lifetime) No 06/03/2025 9:15 AM Amada Rothman RN Active documented as of this [...] on filedocumented in this encounter Care Teams Sweet Pickle Maker Relationship Specialty Start Date End Date Amol Aden MD [address] [place] [address] PCP - General FAMILY PRACTICE 06/01/25 Jennifer Pate MD [address] [place] [address] Consulting Physician CARDIOVASCULAR DISEASE 01/04/24 documented as of this encounter
--- OUTSIDE RECORDS SUMMARY | 2025-08-11 15:17 | XMS_ITS | Clinical Summary ---
Author Organization [facility] Tracy Rowe Address [address] [place] [address] Care Team Providers Care Workday Director Name Role Phone Unavailable Primary Care Provider [...] daily with breakfast. 06/25/2025 Active Active Problems Problem Noted Date Diagnosed Date Non-small cell lung cancer 08/10/2025 COPD (chronic obstructive pulmonary disease) Encounters Date Type Department Care Team Description 07/21/2025 External Device Data STL ABSTRACTION Provider, Abstract 07/21/2025 External Device Data STL ABSTRACTION Provider, Abstract 07/21/2025 External Device Data ST[facility] ABSTRACTION Provider, Abstract 07/16/2025 4:30 PM CDT Telephone Check Up [facility] Oncology and [facility] [address] [place] [address] Yung Hassan MD Malignant neoplasm of upper lobe of left lung (CMS/HCC) (Primary Dx) 07/08/2025 External Device Data STL ABSTRACTION Provider, Abstract 07/07/2025 External Device Data STL ABSTRACTION Provider, Abstract 07/03/2025 12:30 PM CDT Office Visit [facility] Cardiovas and Thor Surg at [facility] [address] [place] [id number] Yung Hassan MD Fotouhi, Farzin, MD Primary cancer of left upper lobe of lung (CMS/HCC) (Primary Dx); Non-small cell cancer of left lung (CMS/HCC); Other emphysema (CMS/HCC) 07/03/2025 Orders Only [facility] Oncology and [facility] [address] [place] [address] Yung Hassan MD Malignant neoplasm of upper lobe of left lung (CMS/HCC) (Primary Dx) 06/30/2025 4:30 PM CDT Telephone Check Up [facility] [address] [place] [address] Yung Hassan MD 06/25/2025 Orders Only [facility] Oncology and Hematology [place] [address] [place] [address] Yung Hassan MD 06/23/2025 External Device Data STL ABSTRACTION Provider, Abstract 06/23/2025 External Device Data STL ABSTRACTION Provider, Abstract 06/23/2025 External Device Data STL ABSTRACTION Provider, Abstract 06/16/2025 4:00 PM CDT Office Visit [facility] Oncology and Hematology - [place] [address] [place] [address] Yung Hassan MD Malignant neoplasm of upper [...] 1967 PNEUMOCOCCAL VACCINE 50+ YEARS (1 of 2 - PCV) 08/07/19 67 ZOSTER VACCINE (1 of 2) 1998 OSTEOPOROSIS SCREENING 2013 RSV VACCINE (60+ or ) (1 - 1-dose 75+ series) 2023 INFLUENZA VACCINE (#1) 2025 Procedures Procedure Name Priority Date/Time Associated Diagnosis Comments BREATHING CAPACITY TEST Routine 06/24/2025 1:32 PM CDT from Last 3 Months Results * BREATHING CAPACITY TEST (06/24/2025 1:32 PM CDT) Yung Hassan MD PFT ORDERABLES Final Result from Last 3 Months Insurance [facility] AETNA CHOICE POS II AETNA CHOICE POS II
--- OUTSIDE RECORDS SUMMARY | 2025-08-11 15:17 | XMS_ITS | Clinical Summary ---
Author Organization [facility] Address [address] [place] [address] Care Team Providers Care Air Conditioning Unit Assembler Name Role Phone Jennifer Pate MD Unavailable Amol Aden MD Primary Care Provider [phone] Allergies Active Allergy Reactions Criticality Noted Date [...] 12:55 PM CDT Hospital Encounter [facility] [place] [address] Guillermo Rainey MD Discharge Disposition: Home or Self Care (Routine Discharge) 06/03/2025 8:41 AM CDT Hospital Encounter [facility] [place] [address] Harpal Zurita MD Discharge Disposition: Home or Self Care (Routine Discharge) 06/03/2025 Hospital Orders Only [facility] [place] [address] Harpal Zurita MD 06/03/2025 Travel 05/25/2025 Orders Only [facility] [place] [address] Harpal Zurita MD 05/11/2025 Pre-Procedure Call [facility] [place] [address] Harpal Zurita MD Preprocedure Call from Last [...] topic Meningococcal Vaccine Aged Out No iván dxion eligible based on patient's age to complete this topic RSV Immunizations Under 20 Months Aged Out No longer eligible based on patient's age to complete this topic Medical Devices Implanted Type Area Clin Tech Device Identifier Shelf Expiration Date Model / Serial / Lot Lt 12 Hole Plate-Prox Hum Implanted:Qty: 1 on 06/20/2019 by Kodi Whyte MD at [facility] Left: Arm [id number] / / 3.5 Cortical Screw-22mm Implanted:Qty: 2 on 06/20/2019 by Kodi Whyte MD at [facility] Left: Arm [id number] / / 3.5 Cortical Screw-24mm Implanted:Qty: 3 on 06/20/2019 by Kodi Whyte MD at [facility] Left: Arm [id number] / / 4.0 Cancellous Screw-46mm Implanted:Qty: 1 on 06/20/2019 by Kodi Whyte MD at [facility] Left: Arm [id number] / / 4.0 Locking Screw-22mm Implanted:Qty: 4 on 06/20/2019 by Kodi Whyte MD at [facility] Left: Arm [id number] / / 4.0 Locking Screw-24mm Implanted:Qty: 1 on 06/20/2019 by Kodi Whyte MD at [facility] Left: Arm [id number] / / 4.0 Locking Screw-36mm Implanted:Qty: 2 on 06/20/2019 by Kodi Whyte MD at [facility] Left: Arm [id number] / / Explanted Type Area Clin Tech Device Identifier Shelf Expiration Date Model / Serial / Lot 4.0 Cancellous Screw-24mm Explanted:Qty: 1 on 06/20/2019 at [facility] Left: Arm [id number] / / Procedures Procedure Name Priority Date/Time Associated Diagnosis Comments XR CHEST PA OR AP 1V TIMED 06/03/2025 12:01 PM CDT Nodule of left lung CT GD BX LUNG LT Routine 06/03/2025 10:1 1 AM CDT Nodule of right lung HC PLATELET COUNT AUTO Routine 06/03/2025 8:49 AM CDT Nodule of right lung HC PTT Routine 06/03/2025 8:49 AM CDT Nodule of right lung HC PROTHROMBIN TIME (PT) Routine 06/03/2025 8:49 AM CDT Nodule of [...] 12:12 PM Narrative 06/03/2025 12:14 PM CDT [address] [address] PROCEDURE: XR CHEST PA OR AP 1V. [...] Procedure Note Floyd Ricks MD - 06/03/2025 [facility] [address] [place], [place] [address] PROCEDURE: XR CHEST PA OR AP 1V. [...] 10:12 AM Narrative 06/03/2025 10:17 AM CDT [address] [address] Procedure: IR CT-guided targeted lung core needle biopsy Exam Date/Time: 06/03/2025 9:50 AM Indication: 74 female presenting for targeted core needle sampling of a highly suspicious lateral left upper lobe partially pleural-based enlarging hypermetabolic mass. Comparison: PET/CT 04/07/2025. CT chest 02/05/2025 Procedure technique and findings: Informed verbal and written consent was obtained and the patient, patient's medical power of litigation attorney. The procedure was explained discussed including [...] supervision of the interventional radiologist. Total intraprocedure [id number]-[id number] time with the radiologist was 20 minutes [...] collected and assessed for adequacy by the operations label clerk on site. The guide needle was then [...] post biopsy chest x-ray before anticipated discharge. [employer] Supervisor: Dr. Zurita Estimated blood loss: None Procedure Note Harpal Zurita MD - 06/03/[address] [address] Procedure: IR CT-guided targeted lung core needle biopsy Exam Date/Time: 06/03/2025 9:50 AM Indication: 74 female presenting for targeted core needle sampling of ahighly suspicious lateral left upper lobe partially pleural-basedenlarging hypermetabolic mass. Comparison: PET/CT 04/07/2025. CT chest 02/05/2025 Procedure technique and findings: Informed verbal and written consent was obtained and the patient,patient's medical power of litigation attorney. The procedure was explained discussedincluding the [...] under supervision of theinterventional radiologist. Total intraprocedure ecpn-me-hads time with the radiologist was 20minutes Medications: [...] were collected and assessed foradequacy by the operations label clerk on site. The guide needle was then [...] hour post biopsy chest x-raybefore anticipated discharge. [employer] Supervisor: Dr. Zurita Estimated blood loss: None IMPRESSION: [...] - 400 x10'3/uL 06/03/2025 8:56 AM CDT [facility] MPV 11.0 9.3 - 12.2 FL 06/03/2025 8:56 AM CDT [facility] 06/03/2025 8:49 AM CDT Harpal Zurita MD LABORATORY Final Result [facility] [address] [place] [address], [place] [phone] * PTT, PARTIAL THROMBOPLASTIN TIME (06/03/2025 8:49 AM CDT) PTT 33.4 25.1 - 36.5 SEC 06/03/2025 9:15 AM CDT [facility] 06/03/2025 8:49 AM CDT us Harpal Zurita MD LABORATORY Final Result [facility] [address] [place] [address], [place] [phone] * PROTIME/INR, VENOUS (06/03/2025 8:49 AM CDT) PROTIME 12.2 10.2 - 12.9 SEC 06/03/2025 9:15 AM CDT [facility] INR 1.1 06/03/2025 9:15 AM CDT [facility] Comment: Recommended INR Therapeutic Goals: 2.0-3.0 Routine Therapy 2.5-3.5 Mechanical Prosthetic Valves (High Risk) 06/03/2025 8:49 AM CDT Harpal Zurita MD LABORATORY Final Result [facility] [address] [place] [address], * Pathology (06/03/2025 12:00 AM CDT) PATHOLOGY [facility] Department of Laboratory Medicine [address] [place] [address] , extension [phone] Pathology Report Surgical Pathology Report Name: ANIYAH CLEMENTE Specimen #: [id number] Age: 11 1950 (Age: 74) Location: [facility] Sex: F Procedure Date: 06/03/2025 Hospital #: [id number] Date Received: 06/04/2025 Date Reported: 06/08/2025 Provider: [...] Gross examination (when applicable) was performed at [facility], [address] [place] [address]. This case was interpreted and signed out at [address] [address]. All immunohistochemical and histochemical tests were developed by and performed at [facility], [address] [place] [address]. All tests reported here have not been [...] consultation performed by ANDRIY Villalba (ASCP) at [facility], [address] [place] [address]. Electronically Signed Out EVELYN MURRAY MD [facility] 06/03/2025 06/04/2025 8:1 7 AM CDT Comment:Lung, left, biopsy Guillermo Rainey MD PATHOLOGY/CYTOLOGY ORDERABL ES Final Result [facility] [address] [place] [address], [phone] * Colonoscopy (04/07/2022 6:44 AM CDT) Sam Daniels MD GI PROCEDURE ORDERABLES Final Result from Last 3 Months or Most Recently Relevant to Health Maintenance [place] [address] Advance Directives * Full Code (Latest Code Status on File) Date Activated Date Inactivated Comments 11/23/2019 4:57 PM 12/02/2019 7:04 PM Care Teams Air Conditioning Unit Assembler Relationship Specialty Start Date End Date Amol Aden MD [address] [place] [address] PCP - General FAMILY PRACTICE 06/01/25 Jennifer Pate MD [address] [place] [address] Consulting Physician CARDIOVASCULAR DISEASE 01/04/24
== END 2025-08-11 13:34 | disposition home or self-care (01) ==
PROVIDERS: PCP Family Medicine; Visit Provider Radiology Radiation Oncology
DX: C34.12 Malignant neoplasm of upper lobe, left bronchus or lung (principal)
CPT/HCPCS: 78815; A9552

== ENCOUNTER 2025-08-26 10:58 | Observation (INO) | payer OTHER, SELFPAY ==
[2025-08-26] VITALS (34 sets, daily range): BP systolic 99–155; BP diastolic 48–82; PULSE 80–106; RESP 16–26; TEMP 36.6–36.7; O2SAT 91–98; BMI 25.2
--- NOTE | ~2025-08-26 | XR_ITS ---
EXAMINATION: XR chest 1V portable DATE: 08/26/2025 11:47 INDICATION: Shortness of breath TECHNIQUE: A single frontal view of the chest was obtained. COMPARISON: January 02, 2025 FINDINGS: Parenchymal changes described on the previous exam including possible left upper lobe mass not clearly changed. Prominent parenchymal markings in the mid and lower lung triplett may represent progression atypical inflammatory or infectious process. Heart shadow stable. No pneumothorax or subphrenic free air seen. Fixation hardware left humerus noted. IMPRESSION: 1. Left upper lobe mass, and diffuse parenchymal changes which could represent atypical inflammatory or infectious process superimposed on chronic fibrosing changes due to interstitial lung disease. Reviewed, dictated and finalized at location A. L TEMPERER IMPRESSION: 1. Left upper lobe mass, and diffuse parenchymal changes which could represent atypical inflammatory or infectious process superimposed on chronic fibrosing c hanges due to interstitial lung disease.
--- NOTE | ~2025-08-26 | CT_ITS ---
EXAMINATION: CTA chest PE protocol DATE: 08/26/2025 13:15 INDICATION: Rule out PE TECHNIQUE: Computed tomography angiography (CTA) of the chest was performed with 100 mL Omnipaque-350 intravenous contrast timed to evaluate the pulmonary arteries. Coronal maximum intensity projection 3D-reconstructions were created by the technologist. The dose-length product was 199.66 mGy-cm. COMPARISON: 02/05/2025 FINDINGS: 3.5 x 2.8 cm left upper lobe mass now measures 5.4 x 5.4 cm. Subcarinal lymphadenopathy and lymphadenopathy extending to the right mediastinum/hilar region. No pulmonary emboli or thoracic aortic aneurysm/dissection. Heart size normal with trace pericardial fluid. Mosaic attenuation throughout the lungs more prominent on today's exam. No new lung nodules or masses seen. 1.6 cm right adrenal mass not grossly changed from the previous exam. No acute process seen in the visualized upper abdomen. Bones appear intact. IMPRESSION: 1. No pulmonary emboli or thoracic aortic aneurysm/dissection. 2. Significantly increased size of left upper lobe mass with lymphadenopathy in the right right side of the mediastinum, as well as the right hilar region on today's exam. 3. Increased mosaic attenuation in the lungs may be associated with areas of air trapping, or developing small airways disease. Reviewed, dictated and finalized at location A. OUR [employer] M[employer] OPERATOR IMPRESSION: 1. No pulmonary emboli or thoracic aortic aneurysm/dissection. 2. Significantly increased size of left upper lobe mass with lymphadenopathy in the right right side of the mediastinum, as well as the right hilar region on today's exam. 3. Increased mosaic attenuation in the lungs may be associated with areas of ai r trapping, or developing small airways disease.
--- NOTE | 2025-08-26 11:02 | ED.GENADULT ---
HPI - General Adult General Chief complaint: Shortness of Breath/Dyspnea Stated complaint: shortness of breath/lung cancer Source: patient and family History of Present Illness HPI narrative: 75 years old white female came from home with her by private car complaining of general weakness and shortness of breath in the last 7 days and gradually getting worse. reports inability to take care of the patient because she can not get up on her own or take care of herself. Patient denies any fever, chills, nausea, vomiting, diarrhea, constipation. History of lung cancer With lymph nodes metastasis February 2025, status post 5 radiation therapy in the last few days last 1 was yesterday. History of hypertension, hyperlipidemia, stroke with residual gait abnormality. Patient quit smoking 3 years ago, quit drinking 2 years ago, does not use drugs. Related Data Home Medications ?Medication ?Instructions ?Recorded ?Confirmed ?Last Taken ?Type amlodipine 5 mg tablet 5 mg PO DAILY 11/23/19 07/21/25 11/22/24 History sertraline 100 mg tablet 100 mg PO DAILY 11/23/19 07/21/25 11/22/24 History oxybutynin chloride 5 mg 5 mg PO DAILY 10/25/23 07/21/25 11/22/24 History tablet,extended release 24 hr VITAMIN b1 100mg See Rx Instructions .Route .COMPLEX 11/20/24 07/21/25 11/21/24 History apixaban 5 mg tablet (Eliquis) 5 mg PO Q12H 11/20/24 07/21/25 11/22/24 History atorvastatin 40 mg tablet 40 mg PO QPM 11/20/24 07/21/25 11/21/24 History calcium carbonate 500 mg PO DAILY 11/20/24 07/21/25 11/22/24 History folic acid 1 mg tablet 1 mg PO DAILY 11/20/24 07/21/25 11/22/24 History omeprazole 40 mg capsule,delayed 40 mg PO DAILY 11/20/24 07/21/25 11/21/24 History release sennosides 8.6 mg tablet (senna) 8.6 mg PO DAILY 11/20/24 07/21/25 11/21/24 History potassium chloride 10 mEq meq PO 07/21/25 Unknown History tablet,extended release Allergies Allergy/AdvReac Type Severity Reaction Status Date / Time acetaminophen (From Vicodin) Allergy Mild NAUSEA Verified 08/26/25 14:49 /VOMITING hydrocodone (From Vicodin) Allergy Mild NAUSEA Verified 08/26/25 14:49 /VOMITING Penicillins AdvReac Unknown Verified 08/26/25 14:49 Review of Systems Review of Systems: All systems reviewed & are unremarkable except as noted in HPI and below PMFSH Past Medical History Medical History History of tobacco abuse Dementia CVA (cerebral vascular accident) GERD (gastroesophageal reflux disease) Syncope Aspiration pneumonia ETOH abuse HLD (hyperlipidemia) Depression HTN (hypertension) Surgical History Surgical History S/P ORIF (open reduction internal fixation) fracture 06/20/19 H/O eye surgery H/O excision of ganglion cyst History of bunionectomy Social History Social History Smoking packs per day: 1 Smoking cigarettes per day: 20.0 Years smoked: 45 Smoking pack-years: 45.00 Smoking status: Former smoker Tobacco type: cigarettes Second hand tobacco smoke exposure: No Smoking end date: 09/17/22 Alcohol intake: former Drinks per week: 7 Substance use: never Substance use type: does not use Other substance usage details: former daily drinker Last use: 11/16/19 Lack of Transportation: No Lack of Food: Never True Current Housing: I Have Housing Concerned About Future Housing: No Difficulty Paying Gas/Electric Bills: No Difficulty Paying for Meds: No Currently Unemployed: No Education: Associate Degree Difficulty w/ Childcare or Family Care: No Gender identity (if verbalized by the patient): Female Spiritual care concerns: No Agree to blood products: Yes Exam Narrative: General appearance: Well-developed, well-nourished Skin: Normal color Head: Normocephalic, nontraumatic Eyes: Clear conjunctiva ENT: Oropharynx normal, ears normal, nose normal Neck: Supple, nontender Chest and respiratory: Airway patent, no respiratory distress, no accessory muscle use Heart: Regular rate/rhythm Abdomen: Soft, nontender, no organomegaly, quiet bowel sounds Vascular: Normal peripheral pulses, normal capillary refill. Musculoskeletal: Normal range of motion, nontender back Neurologic: Alert and oriented ?3, TALENT SOURCING SPECIALIST is normal as tested, no gross motor deficit Course Vital Signs Vital signs: Vital Signs Pulse Rate 86 08/26/25 10:58 Pulse Oximetry 95 08/26/25 10:58 Oxygen Delivery Room Air 08/26/25 10:58 Temperature 36.7 C 08/26/25 11:04 Pulse Rate 88 08/26/25 14:30 Respiratory Rate 20 08/26/25 14:30 Blood Pressure 102/66 08/26/25 14:30 Pulse Oximetry 97 08/26/25 14:30 Oxygen Delivery Nasal Cannula 08/26/25 14:30 Oxygen Flow Rate 2 08/26/25 14:30 MDM MDM Narrative Medical decision making narrative: Patient came with general weakness and shortness of breath Vital signs showing blood pressure 155/65, heart rate 101, respiration 25, saturation on room air 93%. Physical examination showing debilitated weak looking patient Differential diagnosis include pneumonia, advanced cancer, electrolyte imbalance, dehydration,, general weakness secondary to cancer treatment. Blood workup today includes CBC ,CMP, blood culture, lactic acid, troponin, coags, CRP showed hemoglobin 8.2 compared to 9.0 July 16, potassium 3.3, lactic acid 2.6 otherwise within normal limit Blood gas showing oxygenation on room air 88% Chest x-ray showed questionable pneumonia, 750 mg Levaquin IV given CTA pulmonary showed no PE, no pneumonia, increase the size of the lung cancer EKG showed normal sinus rhythm Diagnosis: Acute hypoxic respiratory failure, lung cancer with metastasis, hypokalemia, general weakness, [place] [facility] Patient unable to take care of herself, unable to stand or do any activities, admit to hospitalist, observation for [place] [facility] Differential Diagnosis Differential Diagnosis: as above Lab Data 08/26/25 11:26 08/26/25 11:26 Labs: Lab Results 08/26/25 08/26/25 08/26/25 Range/Units 11:26 12:45 13:47 WBC 9.7 (4.8-10.8) K/mm3 RBC 3.66 L (4.20-5.40) M/mm3 Hgb 8.2 L (11.7-13.8) g/dL Hct 27.9 L (35.0-42.0) % MCV 76.2 L (78.0-102.0) fL MCH 22.4 L (27.0-31.0) pg MCHC 29.4 L (32-36) g/dL RDW 15.9 H (11.6-14.4) % Plt Count 260 (150-420) K/mm3 MPV 9.1 L (9.2-11.8) fl Immature Gran % (Auto) 0.7 H (0.0-0.0) % Neut % (Auto) 83.1 H (50.0-70.0) % Lymph % (Auto) 7.4 L (18.0-42.0) % Centre % (Auto) 5.8 (2.0-11.0) % Eos % (Auto) 2.6 (1.0-6.0) % Baso % (Auto) 0.4 (0.0-1.0) % Lymph # (Auto) 0.72 L (1.10-4.50) K/mm3 Centre # (Auto) 0.56 (0.10-0.90) K/mm3 Eos # (Auto) 0.25 (0.02-0.50) K/mm3 Baso # (Auto) 0.04 (0.00-0.10) K/mm3 Abs Immat Gran (auto) 0.07 H (0.00-0.00) K/mm3 Absolute Neuts (auto) 8.07 H (1.70-7.20) K/mm3 Absolute Nucleated RBC 0.00 (0.00-0.00) K/mm3 Nucleated RBC % 0.0 (0-0.0) % PT 12.5 H (9.50-12.1) Seconds INR 1.1 APTT 39.9 H (23.9-30.70) Sec Sodium 140 (137-145) mmol/L Potassium 3.3 L (3.4-5.0) mmol/L Chloride 105 (98-107) mmol/L Carbon Dioxide 24 (22-30) mmol/L Anion Gap 11 (4-12) mmol/L BUN 10 (7-17) mg/dL Creatinine 1.05 H (0.7-1.0) mg/dL Estim Creat Clear Calc 34 ml/min Estimated GFR 51 L (59 - ) Glucose 120 H (65-110) mg/dL Calculated Osmolality 290 (285-295) mOsm/kg Lactic Acid 2.6 H 1.0 (0.7-2.0) mmol/L Calcium 8.8 (8.4-10.2) mg/dL Total Bilirubin 0.7 (0.2-1.3) mg/dL AST 24 (14-36) U/L ALT 16 (6-35) U/L Alkaline Phosphatase 130 H (38-126) U/L Troponin I < 0.012 (0.000-0.034) ng/mL C-Reactive Protein > 9.0 H (<1.0) mg/dL Total Protein 7.5 (6.3-8.2) g/dL Albumin 4.0 (3.5-5.1) g/dL Urine Color Yellow (Yellow) Urine Appearance Clear (Clear) Urine pH 6.0 (5.0-8.0) Ur Specific [place] 1.015 (1.010-1.020) Urine Protein Negative (Negative) Urine Glucose (UA) Negative (Negative) Urine Ketones Negative (Negative) Ur Blood (Man) Negative (Negative) Urine Nitrate Negative (Negative) Urine Bilirubin Negative (Negative) Urine Urobilinogen 0.2 (0.2-1.0) mg/dL Leukocyte Esterase Rfl Negative (Negative) MARCUS/UL ABG Data ABG results: 08/26/25 11:35 Puncture Site Right radial ABG pH 7.43 ABG pCO2 30.6 L ABG pO2 60.8 L ABG HCO3 20.0 L ABG O2 Saturation 88.9 L ABG Base Excess -3.8 L Oxyhemoglobin 88.1 L O2 Delivery Device Room air O2 Liters/Min 0.0 Imaging Data Radiologist's impression: ITS Impressions Chest X-Ray 08/26/25 11:51 IMPRESSION: 1. Left upper lobe mass, and diffuse parenchymal changes which could represent atypical inflammatory or infectious process superimposed on chronic fibrosing changes due to interstitial lung disease. Chest CTA 08/26/25 13:19 IMPRESSION: 1. No pulmonary emboli or thoracic aortic aneurysm/dissection. 2. Significantly increased size of left upper lobe mass with lymphadenopathy in the right right side of the mediastinum, as well as the right hilar region on today's exam. 3. Increased mosaic attenuation in the lungs may be associated with areas of air trapping, or developing small airways disease. ECG Data EKG #1: Attestation: I personally reviewed and interpreted this ECG as follows: ECG completion date: 08/26/25 Interpretation: normal sinus rhythm at 91 beats per minute with frequent atrial premature complexes, right bundle-branch block, baseline artifact, abnormal EKG, compared to EKG on November 2024 no significant changes Critical Care Time Critical Care Time Critical Care Time: No Discharge Plan Discharge Clinical Impression: Lung cancer, Weakness, Acute hypokalemia, Anemia, Adrenal mass, Acute hypoxic respiratory failure Patient Disposition: Still a Patient Condition: Stable
--- NOTE | 2025-08-26 11:15 | ECG_ITS ---
Test Date: 2025-08-26 11:39:55 Measurements Intervals [place] Rate: 91 P: 0 LA: 0 QRS: 69 QRSD: 120 T: 30 QT: 363 QTc: 447 Interpretive Statements SINUS RHYTHM WITH FREQUENT ATRIAL PREMATURE COMPLEXES RIGHT BUNDLE BRANCH BLOCK BASELINE ARTIFACT- I, II, III, AVR, AVL, AVF, V1-V3 ABNORMAL ECG Compared to ECG 11/20/2024 10:59:59 Sinus rhythm no longer present Electronically Signed On 08-26-2025 11:58:15 ALLERGY AND IMMUNOLOGY SPECIALIST by Shiva Stephens D.O.
[2025-08-26 11:43] LABS: HCO3 ABG 20.0 mmol/L (23-29); Oxygen Saturation ABG 88.9 % (95-97); PCO2 ABG 30.6 mmHg (35-45); PO2 ABG 60.8 mmHg (75-85)
[2025-08-26 11:43] LABS: Hematocrit 27.9 % (35.0-42.0); Hemoglobin 8.2 g/dL (11.7-13.8); Immature Granulocyte Percent A 0.7 % (0.0-0.0); Lymphocytes Absolute Auto 0.72 K/mm3 (1.10-4.50); Mean Corpuscular HGB Conc 29.4 g/dL (32-36); Mean Corpuscular Hemoglobin 22.4 pg (27.0-31.0); Mean Corpuscular Volume 76.2 fL (78.0-102.0); Nucleated Red Blood Cells Absolute Auto 0.00 K/mm3 (0.00-0.00); Nucleated Red Blood Cells Perc 0.0 % (0-0.0); Platelet Count Result 260 K/mm3 (150-420); Red Blood Count 3.66 M/mm3 (4.20-5.40); White Blood Count 9.7 K/mm3 (4.8-10.8)
[2025-08-26 11:46] LABS: Liters per Minute 0.0 LPM; Modified Allen's Test Pass; Site Drawn RIGHT RADIAL
[2025-08-26 11:57] LABS: Alanine Aminotransferase 16 U/L (6-35); Albumin Level 4.0 g/dL (3.5-5.1); Alkaline Phosphatase 130 U/L (38-126); Anion Gap 11 mmol/L (4-12); Aspartate Amino Transferase 24 U/L (14-36); Bilirubin,Total 0.7 mg/dL (0.2-1.3); Blood Urea Nitrogen 10 mg/dL (7-17); CRP > 9.0 mg/dL (<1.0); Calcium 8.8 mg/dL (8.4-10.2); Carbon Dioxide 24 mmol/L (22-30); Chloride 105 mmol/L (98-107); Estimated CRCL calculation 34 ml/min; Estimated Glomerular Filt Rate 51; Glucose 120 mg/dL (65-110); Osmolality Calculated 290 mOsm/kg (285-295); Potassium 3.3 mmol/L (3.4-5.0); Sodium 140 mmol/L (137-145); Total Protein 7.5 g/dL (6.3-8.2)
[2025-08-26 11:58] LABS: INR 1.1; Partial Thromboplastin Time 39.9 Sec (23.9-30.70); Prothrombin Time 12.5 Seconds (9.50-12.1)
[2025-08-26 12:07] LABS: Troponin I < 0.012 ng/mL (0.000-0.034)
--- NOTE | 2025-08-26 12:35 | PC.NURSE ---
PT PLACED ON BEDPAN FOR ATTEMPT TO COLLECT URINE ORDERED.
[2025-08-26 12:49] LABS: Add Urine Microscopic? NO; Appearance Urine Clear (Clear); Glucose Urine UA Negative (Negative); Leukocyte Esterase Ur Negative LEU/UL (Negative); Nitrate Urine Negative (Negative); Specific Grav Ur 1.015 (1.010-1.020)
[2025-08-26] MEDS: levoFLOXacin 750 MG/D5W 150 ML 750 MG/150 ML BAG 100 MG IVPB (14:01)
[2025-08-26] MEDS: POTASSIUM CHLORIDE 20 MEQ ER TABLET 40 MEQ PO (14:02)
[2025-08-26] MEDS: PANTOPRAZOLE 40 MG TABLET PO (16:24)
[2025-08-26] MEDS: FOLIC ACID 1 MG TABLET PO (16:25)
[2025-08-26] MEDS: POTASSIUM CHLORIDE 20 MEQ ER TABLET PO (16:25)
[2025-08-26] MEDS: APIXABAN 2.5 MG TABLET 5 MG PO (20:29)
[2025-08-26] MEDS: SERTRALINE HCL 50 MG TABLET 100 MG PO (20:29)
[2025-08-26] MEDS: ATORVASTATIN 40 MG TABLET PO (20:29)
[2025-08-26] MEDS: oxyBUTYnin CHLORIDE XL 5 MG TAB.ER.24 PO (20:29)
[2025-08-27 05:30] VITALS: O2SAT 92
[2025-08-27 05:33] LABS: Hematocrit 25.2 % (35.0-42.0); Hemoglobin 7.6 g/dL (11.7-13.8); Immature Granulocyte Percent A 0.7 % (0.0-0.0); Lymphocytes Absolute Auto 0.85 K/mm3 (1.10-4.50); Mean Corpuscular HGB Conc 30.2 g/dL (32-36); Mean Corpuscular Hemoglobin 23.0 pg (27.0-31.0); Mean Corpuscular Volume 76.4 fL (78.0-102.0); Nucleated Red Blood Cells Absolute Auto 0.00 K/mm3 (0.00-0.00); Nucleated Red Blood Cells Perc 0.0 % (0-0.0); Platelet Count Result 252 K/mm3 (150-420); Red Blood Count 3.30 M/mm3 (4.20-5.40); White Blood Count 8.3 K/mm3 (4.8-10.8)
[2025-08-27 05:45] LABS: Alanine Aminotransferase 9 U/L (6-35); Albumin Level 3.2 g/dL (3.5-5.1); Alkaline Phosphatase 118 U/L (38-126); Anion Gap 5 mmol/L (4-12); Aspartate Amino Transferase 17 U/L (14-36); Bilirubin,Total 0.6 mg/dL (0.2-1.3); Blood Urea Nitrogen 10 mg/dL (7-17); Calcium 8.5 mg/dL (8.4-10.2); Carbon Dioxide 25 mmol/L (22-30); Chloride 108 mmol/L (98-107); Estimated CRCL calculation 39 ml/min; Estimated Glomerular Filt Rate 56; Glucose 99 mg/dL (65-110); Osmolality Calculated 285 mOsm/kg (285-295); Potassium 4.2 mmol/L (3.4-5.0); Sodium 138 mmol/L (137-145); Total Protein 6.1 g/dL (6.3-8.2)
[2025-08-27 08:00] VITALS: BP 139/67; PULSE 100; RESP 20; TEMP 37.1; O2SAT 92
--- NOTE | 2025-08-27 08:40 | PM.IMHP2 ---
H&P: HPI History of Present Illness Date/Time: 08/27/25 08:40 [facility] Past Medical History Medical History History of tobacco abuse Dementia CVA (cerebral vascular accident) GERD (gastroesophageal reflux disease) Syncope Aspiration pneumonia ETOH abuse HLD (hyperlipidemia) Depression HTN (hypertension) Surgical History Surgical History S/P ORIF (open reduction internal fixation) fracture 06/20/19 H/O eye surgery H/O excision of ganglion cyst History of bunionectomy Social History Social History Smoking packs per day: 1 Smoking cigarettes per day: 20.0 Years smoked: 45 Smoking pack-years: 45.00 Smoking status: Former smoker Tobacco type: cigarettes Second hand tobacco smoke exposure: No Smoking end date: 09/17/22 Alcohol intake: never Drinks per week: 7 Substance use: never Substance use type: does not use Other substance usage details: former daily drinker Last use: 11/16/19 Lack of Transportation: No Lack of Food: Never True Current Housing: I Have Housing Concerned About Future Housing: No Difficulty Paying Gas/Electric Bills: No Difficulty Paying for Meds: No Currently Unemployed: No Education: Associate Degree Difficulty w/ Childcare or Family Care: No Gender identity (if verbalized by the patient): Female Spiritual care concerns: No Agree to blood products: Yes Meds Home Medications and Allergies Home Medications ?Medication ?Instructions ?Recorded ?Confirmed ?Type amlodipine 5 mg tablet 5 mg PO DAILY 11/23/19 08/26/25 History sertraline 100 mg tablet 100 mg PO HS 11/23/19 08/26/25 History oxybutynin chloride 5 mg 5 mg PO HS 10/25/23 08/26/25 History tablet,extended release 24 hr VITAMIN b1 100mg See Rx Instructions .Route .COMPLEX 11/20/24 08/26/25 History apixaban 5 mg tablet (Eliquis) 5 mg PO Q12H 11/20/24 08/26/25 History atorvastatin 40 mg tablet 40 mg PO HS 11/20/24 08/26/25 History calcium carbonate 500 mg PO EVERY OTHER DAY 11/20/24 08/26/25 History folic acid 1 mg tablet 1 mg PO DAILY 11/20/24 08/26/25 History omeprazole 40 mg capsule,delayed 40 mg PO DAILY 11/20/24 08/26/25 History release sennosides 8.6 mg tablet (senna) 8.6 mg PO DAILY 11/20/24 08/26/25 History potassium chloride 10 mEq 10 meq PO DAILY@0800 07/21/25 08/26/25 History tablet,extended release quetiapine 25 mg tablet (Seroquel) 12.5 mg PO HS 08/26/25 08/26/25 History Allergies Allergy/AdvReac Type Severity Reaction Status Date / Time acetaminophen (From Vicodin) Allergy Mild NAUSEA Verified 08/26/25 15:22 /VOMITING hydrocodone (From Vicodin) Allergy Mild NAUSEA Verified 08/26/25 15:22 /VOMITING Penicillins AdvReac Unknown Verified 08/26/25 15:22 Vital Signs Vital Signs - 24 hr 08/26/25 10:58 08/26/25 10:58 08/26/25 11:04 Temperature 98.1 F Pulse Rate 86 101 H Respiratory Rate 25 H Blood Pressure 155/65 H Pulse Oximetry 95 93 Oxygen Delivery Room Air Room Air Oxygen Flow Rate 08/26/25 11:15 08/26/25 11:16 08/26/25 11:30 Temperature Pulse Rate 102 H 94 Respiratory Rate 24 H 24 H 25 H Blood Pressure 99/48 L Pulse Oximetry 91 92 94 Oxygen Delivery Room Air Oxygen Flow Rate 08/26/25 11:41 08/26/25 11:45 08/26/25 11:46 Temperature Pulse Rate 106 H 99 88 Respiratory Rate 23 H 25 H 23 H Blood Pressure 104/76 116/56 L Pulse Oximetry 94 94 92 Oxygen Delivery Room Air Oxygen Flow Rate 08/26/25 12:00 08/26/25 12:01 08/26/25 12:15 Temperature Pulse Rate 102 H 96 106 H Respiratory Rate 23 H 25 H 23 H Blood Pressure Pulse Oximetry Oxygen Delivery Oxygen Flow Rate 08/26/25 12:16 08/26/25 12:30 08/26/25 12:31 Temperature Pulse Rate 92 88 99 Respiratory Rate 23 H 18 22 H Blood Pressure 102/51 L 112/67 Pulse Oximetry 91 Oxygen Delivery Room Air Oxygen Flow Rate 08/26/25 12:45 08/26/25 12:46 08/26/25 12:49 Temperature Pulse Rate 87 92 Respiratory Rate 26 H 20 Blood Pressure 129/82 Pulse Oximetry 91 91 91 Oxygen Delivery Room Air Nasal Cannula Oxygen Flow Rate 2 08/26/25 13:14 08/26/25 13:15 08/26/25 13:30 Temperature Pulse Rate 99 96 101 H Respiratory Rate 24 H 20 19 Blood Pressure Pulse Oximetry 97 97 Oxygen Delivery Nasal Cannula Oxygen Flow Rate 2 08/26/25 13:45 08/26/25 14:00 08/26/25 14:15 Temperature Pulse Rate 89 93 86 Respiratory Rate 21 H 22 H 19 Blood Pressure Pulse Oximetry Oxygen Delivery Oxygen Flow Rate 08/26/25 14:30 08/26/25 14:43 08/26/25 14:45 Temperature Pulse Rate 88 88 89 Respiratory Rate 20 19 24 H Blood Pressure 102/66 102/66 110/64 Pulse Oximetry 97 97 Oxygen Delivery Nasal Cannula Nasal Cannula Oxygen Flow Rate 2 2 08/26/25 14:46 08/26/25 15:00 08/26/25 15:00 Temperature Pulse Rate 87 87 Respiratory Rate 19 21 H Blood Pressure Pulse Oximetry 98 Oxygen Delivery Oxygen Flow Rate 08/26/25 15:01 08/26/25 15:25 08/26/25 15:35 Temperature Pulse Rate 88 80 80 Respiratory Rate 21 H 20 20 Blood Pressure Pulse Oximetry 98 97 Oxygen Delivery Nasal Cannula Nasal Cannula Oxygen Flow Rate 3 1 08/26/25 15:55 08/26/25 18:00 08/26/25 23:47 Temperature 98.1 F 97.8 F Pulse Rate 80 80 88 Respiratory Rate 20 20 16 Blood Pressure 105/73 137/66 Pulse Oximetry 97 94 92 Oxygen Delivery Nasal Cannula Room Air Room Air Oxygen Flow Rate 1 Results Labs Labs: Short CBC 08/26/25 08/27/25 Range/Units 11:26 05:10 WBC 9.7 8.3 (4.8-10.8) K/mm3 Hgb 8.2 L 7.6 L (11.7-13.8) g/dL Hct 27.9 L 25.2 L (35.0-42.0) % Plt Count 260 252 (150-420) K/mm3 BMP 08/26/25 08/27/25 11:26 05:10 Sodium 140 138 Potassium 3.3 L 4.2 Chloride 105 108 H Carbon Dioxide 24 25 BUN 10 10 Creatinine 1.05 H 0.97 Glucose 120 H 99 Calcium 8.8 8.5 Cardiac Enzymes 08/26/25 Range/Units 11:26 Troponin I < 0.012 (0.000-0.034) ng/mL Liver Function 08/26/25 08/27/25 Range/Units 11:26 05:10 Total Bilirubin 0.7 0.6 (0.2-1.3) mg/dL AST 24 17 (14-36) U/L ALT 16 9 (6-35) U/L Alkaline Phosphatase 130 H 118 (38-126) U/L Albumin 4.0 3.2 L (3.5-5.1) g/dL Urine 08/26/25 Range/Units 12:45 Urine Color Yellow (Yellow) Urine Appearance Clear (Clear) Urine pH 6.0 (5.0-8.0) Ur Specific [place] 1.015 (1.010-1.020) Urine Protein Negative (Negative) Urine Glucose (UA) Negative (Negative)
[2025-08-27] MEDS: POTASSIUM CHLORIDE 20 MEQ ER TABLET PO (09:14)
[2025-08-27] MEDS: THIAMINE HCL 100 MG TABLET PO (09:14)
[2025-08-27] MEDS: CALCIUM CARBONATE (OSCAL) 500 MG TABLET PO (09:14)
[2025-08-27] MEDS: guaiFENesin 12 HR 600 MG TABCR PO (09:14)
[2025-08-27] MEDS: SENNOSIDES 8.6 MG TABLET PO (09:15)
[2025-08-27] MEDS: PANTOPRAZOLE 40 MG TABLET PO (09:15)
[2025-08-27] MEDS: FOLIC ACID 1 MG TABLET PO (09:15)
[2025-08-27] MEDS: APIXABAN 2.5 MG TABLET 5 MG PO (09:15)
[2025-08-27] MEDS: BENZONATATE 100 MG CAPSULE 200 MG PO (09:15)
--- NOTE | 2025-08-27 13:45 | PM.SD2 ---
Same Day Admit/Disch: HPI History of Present Illness Chief complaint: hypoxia/hyperkalemia/anemia/weakness/lung cancer Narrative: Amy Clemente is a 75 year old female with PMH of HTN, HLD, CVA with residual gait abnormality and lung cancer with lymph node metastasis. Patient is currently receiving radiation treatment for her lung cancer and her last treatment was yesterday. Patient was brought to the ER by her with complaints of shortness of breath for the last 7 days and increased weakness. Patient's reports she is unable to get up on her own or take care of herself. In the ER the patient's blood work showed k 3.3, lactic acid 2.6. Chest x-ray showed possible pneumonia and patient was given one dose of IV Levaquin. Patient then had a CTA chest which showed no PE or pneumonia. Patient's oxygen saturations were 88% and she was placed on room air. Patient's reported he wanted patient to be plced in a prison. Patient was admitted for further treatment. [facility] Past Medical History Medical History History of tobacco abuse Dementia CVA (cerebral vascular accident) GERD (gastroesophageal reflux disease) Syncope Aspiration pneumonia ETOH abuse HLD (hyperlipidemia) Depression HTN (hypertension) Surgical History Surgical History S/P ORIF (open reduction internal fixation) fracture 06/20/19 H/O eye surgery H/O excision of ganglion cyst History of bunionectomy Social History Social History Smoking packs per day: 1 Smoking cigarettes per day: 20.0 Years smoked: 45 Smoking pack-years: 45.00 Smoking status: Former smoker Tobacco type: cigarettes Second hand tobacco smoke exposure: No Smoking end date: 09/17/22 Alcohol intake: never Drinks per week: 7 Substance use: never Substance use type: does not use Other substance usage details: former daily drinker Last use: 11/16/19 Lack of Transportation: No Lack of Food: Never True Current Housing: I Have Housing Concerned About Future Housing: No Difficulty Paying Gas/Electric Bills: No Difficulty Paying for Meds: No Currently Unemployed: No Education: Associate Degree Difficulty w/ Childcare or Family Care: No Gender identity (if verbalized by the patient): Female Spiritual care concerns: No Agree to blood products: Yes Same Day Admit/Disch: Med Pre-admit Medications Home Medications ?Medication ?Instructions ?Recorded ?Confirmed ?Type amlodipine 5 mg tablet 5 mg PO DAILY 11/23/19 08/26/25 History sertraline 100 mg tablet 100 mg PO HS 11/23/19 08/26/25 History oxybutynin chloride 5 mg 5 mg PO HS 10/25/23 08/26/25 History tablet,extended release 24 hr VITAMIN b1 100mg See Rx Instructions .Route .COMPLEX 11/20/24 08/26/25 History apixaban 5 mg tablet (Eliquis) 5 mg PO Q12H 11/20/24 08/26/25 History atorvastatin 40 mg tablet 40 mg PO HS 11/20/24 08/26/25 History calcium carbonate 500 mg PO EVERY OTHER DAY 11/20/24 08/26/25 History folic acid 1 mg tablet 1 mg PO DAILY 11/20/24 08/26/25 History omeprazole 40 mg capsule,delayed 40 mg PO DAILY 11/20/24 08/26/25 History release sennosides 8.6 mg tablet (senna) 8.6 mg PO DAILY 11/20/24 08/26/25 History quetiapine 25 mg tablet (Seroquel) 12.5 mg PO HS 08/26/25 08/26/25 History acetaminophen 500 mg tablet 1,000 mg (2 x 500 mg) PO Q6H PRN 08/27/25 Rx Mild Pain (1-3) Or Fever #30 tabs benzonatate 100 mg capsule 200 mg (2 x 100 mg) PO Q8H PRN 08/27/25 Rx Cough #30 caps guaifenesin 600 mg tablet, 600 mg PO Q12HR #30 tabs 08/27/25 Rx extended release 12 hr (Mucus Relief ER) potassium chloride 10 mEq 20 meq (2 x 10 mEq) PO DAILY@0800 08/27/25 08/26/25 Rx tablet,extended release #60 tabs Review of Systems Review of Systems All systems reviewed & are unremarkable except as noted in HPI and below Exam Const: General: comfortable and no acute distress HENMT: Face/Nose/Sinus: Normal nares present Mouth: Yes moist mucous membranes Eyes: General: appearance normal, both eyes and all related structures Sclera: sclerae normal Neck: Neck: supple Resp: Effort & Inspection: normal respiratory effort Auscultation: diminished lung sounds Cardio: Rate: regular rate Rhythm: regular rhythm GI: GI Palp: Yes Soft to palpation Auscultation: normal bowel sounds Skin: General skin exam: normal color and no rashes or lesions noted Neuro: Speech: normal speech Motor exam (neuro): 5/5 motor strength present throughout Sensory Exam: normal sensation Extrem: General: normal to inspection Psych: Mental Status: mental status grossly normal Affect: normal affect DS: Data Data Completed and Pending Labs on day of discharge: Labs from last 24 hours 08/27/25 08/26/25 05:10 13:47 WBC 8.3 RBC 3.30 L Hgb 7.6 L Hct 25.2 L MCV 76.4 L MCH 23.0 L MCHC 30.2 L RDW 15.9 H Plt Count 252 MPV 9.8 Immature Gran % (Auto) 0.7 H Neut % (Auto) 78.9 H Lymph % (Auto) 10.2 L [place] % (Auto) 6.9 Eos % (Auto) 2.8 Baso % (Auto) 0.5 Lymph # (Auto) 0.85 L [place] # (Auto) 0.57 Eos # (Auto) 0.23 Baso # (Auto) 0.04 Abs Immat Gran (auto) 0.06 H Absolute Neuts (auto) 6.57 Absolute Nucleated RBC 0.00 Nucleated RBC % 0.0 Sodium 138 Potassium 4.2 Chloride 108 H Carbon Dioxide 25 Anion Gap 5 BUN 10 Creatinine 0.97 Estim Creat Clear Calc 39 Estimated GFR 56 L Glucose 99 Calculated Osmolality 285 Lactic Acid 1.0 Calcium 8.5 Total Bilirubin 0.6 AST 17 ALT 9 Alkaline Phosphatase 118 Total Protein 6.1 L Albumin 3.2 L Imaging Radiologist's impression: Ordering Physician: Mikhail Hu MD Date of Service: 08/26/25 Procedure(s): XR chest 1V portable Accession Number(s): [id number] cc: Mikhail Hu MD; Amol Aden MD~ EXAMINATION: XR chest 1V portable DATE: 08/26/2025 11:47 INDICATION: Shortness of breath TECHNIQUE: A single frontal view of the chest was obtained. COMPARISON: January 02, 2025 FINDINGS: Parenchymal changes described on the previous exam including possible left upper lobe mass not clearly changed. Prominent parenchymal markings in the mid and lower lung triplett may represent progression atypical inflammatory or infectious process. Heart shadow stable. No pneumothorax or subphrenic free air seen. Fixation hardware left humerus noted. IMPRESSION: 1. Left upper lobe mass, and diffuse parenchymal changes which could represent atypical inflammatory or infectious process superimposed on chronic fibrosing changes due to interstitial lung disease. Reviewed, dictated and finalized at location [facility] Ordering Physician: Mikhail Hu MD Date of Service: 08/26/25 Procedure(s): CTA chest PE protocol Accession Number(s): [id number] cc: Mikhail Hu MD; Amol Aden MD~ EXAMINATION: CTA chest PE protocol DATE: 08/26/2025 13:15 INDICATION: Rule out PE TECHNIQUE: Computed tomography angiography (CTA) of the chest was performed with 100 mL Omnipaque-350 intravenous contrast timed to evaluate the pulmonary arteries. Coronal maximum intensity projection 3D-reconstructions were created by the technologist. The dose-length product was 199.66 mGy-cm. COMPARISON: 02/05/2025 FINDINGS: 3.5 x 2.8 cm left upper lobe mass now measures 5.4 x 5.4 cm. Subcarinal lymphadenopathy and lymphadenopathy extending to the right mediastinum/hilar region. No pulmonary emboli or thoracic aortic aneurysm/dissection. Heart size normal with trace pericardial fluid. Mosaic attenuation throughout the lungs more prominent on today's exam. No new lung nodules or masses seen. 1.6 cm right adrenal mass not grossly changed from the previous exam. No acute process seen in the visualized upper abdomen. Bones appear intact. IMPRESSION: 1. No pulmonary emboli or thoracic aortic aneurysm/dissection. 2. Significantly increased size of left upper lobe mass with lymphadenopathy in the right right side of the mediastinum, as well as the right hilar region on today's exam. 3. Increased mosaic attenuation in the lungs may be associated with areas of air trapping, or developing small airways disease. Reviewed, dictated and finalized at location [facility] DS: Summary Hospital Course Reason for hospitalization: shortness of breath Hospital Course: Acute hypoxic respiratory failure -patient 88% on room air -still requiring 1L oxygen by [place] -discharging to prison -s/p CTA chest with no PE or pneumonia -s/p one dose IV Levaquin for possible pneumonia, CT ruled out pneumonia so no need to continue abx Acute hypokalemia -s/p replacement -resolved Weakness -patient has become progressively weak while recieving radiation - is unable to care for patient at home -patient agreeable to prison placement and has alf care insurance -patient will go to [facility] -patient discharging today to prison -fall precautions Lung cancer -patient has known lung cancer with mets -she is currently receiving radiation therapy, last appointment 2 days ago -patient to follow up outpatient with radiation oncology and ongology -patient on 1L oxygen Time Spent with Patient Time attestation: Total time spent providing and/or coordinating discharge services: 35 Minutes DS: Admitting Diagnosis Discharge Date 08/27/2025 Admitting Diagnosis Acute hypoxic respiratory failure Acute hypokalemia Weakness Lung cancer DS: Discharge Diagnosis Discharge Diagnosis (1) Acute hypoxic respiratory failure: Code(s): J96.01 - Acute respiratory failure with hypoxia Status: Acute (2) Acute hypokalemia: Code(s): E87.6 - Hypokalemia Status: Acute (3) Weakness: Code(s): R53.1 - Weakness Status: Acute (4) Lung cancer: Code(s): C34.90 - Malignant neoplasm of unspecified part of unspecified bronchus or lung Status: Acute Discharge Plan Discharge Attending physician on discharge: Maxi Nur Consulting providers: Desirae Olson; Shiva Stephens; Ousmane Avendaño Discharging Clinician: Desirae Olson Patient Disposition: NH Group Home/Asst Living Activity: as tolerated Diet: heart healthy Discharge Instructions: Patient requires 1L oxygen by [place] at all times. Patient's potassium dose was adjusted during hospitalization, please check a follow up BMP within 1 week. Patient Instructions: Antibiotic Form, Benzonatate (By mouth), Fall Prevention for Older Adults (DC), Weakness (DC) Patient Language: Luxembourgish Stand Alone Forms: General Discharge Information, Penitentiary Discharge Follow-up/Referrals: Amol Aden MD [Primary Care Provider, Internal Medicine] Referral Note: Follow up with provider at prison within 1 week of discharge. If you leave the prison follow up with PCP in 1-2 weeks. Discharge Medications: New acetaminophen 500 mg Tablet 1,000 mg PO Q6H PRN (Reason: Mild Pain (1-3) Or Fever) Qty: 30 0RF benzonatate 100 mg Capsule 200 mg PO Q8H PRN (Reason: Cough) Qty: 30 0RF guaifenesin [Mucus Relief ER] 600 mg Tablet Extended Release 12hr 600 mg PO Q12HR Qty: 30 0RF Continued sertraline 100 mg tablet 100 mg PO HS amlodipine 5 mg tablet 5 mg PO DAILY oxybutynin chloride 5 mg Tablet Extended Release 24hr 5 mg PO HS calcium carbonate 500 mg calcium (1,250 mg) tablet 500 mg PO EVERY OTHER DAY folic acid 1 mg tablet 1 mg PO DAILY omeprazole 40 mg capsule,delayed release(DR/EC) 40 mg PO DAILY sennosides [senna] 8.6 mg tablet 8.6 mg PO DAILY Patient Comments: with food VITAMIN b1 100mg See Rx Instructions .ROUTE .COMPLEX Rx Instructions: 100 mg daily; atorvastatin 40 mg tablet 40 mg PO HS Eliquis 5 mg tablet 5 mg PO Q12H quetiapine [Seroquel] 25 mg Tablet 12.5 mg PO HS Changed potassium chloride 10 mEq tablet extended release 20 meq PO DAILY@0800 Qty: 60 0RF Patient Comments: take with food Date of admission: 08/26/25 14:48 Primary Care Provider: Amol Aden Admitting Provider: Maxi Nur Attending physician on admission: Maxi Nur Condition: Stable Quality VTE Prophylaxis VTE prophylaxis: mechanical ordered
--- NOTE | 2025-08-27 14:50 | PC.NURSE ---
Report called to Danette at [facility]. Patient assisted to dress, and transferred into wheelchair. Taken off floor by [facility] staff.
--- NOTE | 2025-09-01 10:50 | PC.NURSE ---
discharge to residential, no questions from residential
== END 2025-08-27 14:50 ==
LOC: CHSED 14:13 → CHS2ND 15:02
PROVIDERS: Nurse Practitioner Adult Health; Admitting Provider Internal Medicine; Emergency Provider Emergency Medicine; PCP Family Medicine; Visit Provider Internal Medicine
DX: C34.90 Malignant neoplasm of unspecified part of unspecified bronchus or lung (principal); C77.9 Secondary and unspecified malignant neoplasm of lymph node, unspecified; Z87.891 Personal history of nicotine dependence; F03.90 Unspecified dementia, unspecified severity, without behavioral disturbance, psychotic disturbance, mood disturbance, and anxiety; K21.9 Gastro-esophageal reflux disease without esophagitis; Z86.73 Personal history of transient ischemic attack (TIA), and cerebral infarction without residual deficits; E78.5 Hyperlipidemia, unspecified; I10 Essential (primary) hypertension; F10.11 Alcohol abuse, in remission
CPT/HCPCS: 36415; 36600; 71045; 71275; 80053; 81003; 82805; 83605; 84484; 85025; 85610; 85730; 86140; 87040; 93005; 96365; 99285; A9270; G0378; J1956; Q9967